=== PATIENT | female | born 1980 | race Caucasian/White ===

== ENCOUNTER 2016-05-08 10:59 | Emergency (ER) | payer OTHER ==
[~2016-05-08 10:59] MED LIST: ALBU17IN INH; CYCLOBENZAPRINE PO; ESGI1CAP PO; OXYC15TA76 PO; PRED10TA PO; PROG200C PO; TESTPOW5; VENTAER INH; VITAMIN D2 PO
[2016-05-08] MEDS ORDERED: HYDROmorphone HCL 1 MG/ML SYRINGE (J1170) As Ordered ONE (11:32)
[2016-05-08] MEDS ORDERED: ONDANSETRON 4MG/2ML VIAL (J2405) As Ordered ONE (11:33)
[2016-05-08 11:57] LABS: BASO # 0.3 K/mm3 (0.0-0.2); BASO % 2.9 % (0.0-1.0); EOS # 0.2 K/mm3 (0.0-0.50); EOS % 2.3 % (0.0-3.0); LARGE UNSTAINED CELL # 0.2 K/mm3 (0.0-0.4); LARGE UNSTAINED CELL % 1.7 % (0.0-4.0); LYMPH # 2.7 K/mm3 (1.5-4.5); LYMPH % 23.8 % (24.0-44.0); MEAN CORPUSCULAR HEMOGLOBIN 29.9 pg (27.0-33.0); MEAN CORPUSCULAR HGB CONC 33.7 g/dl (32.0-36.5); MEAN CORPUSCULAR VOLUME 88.8 fl (80.0-96.0); MONO # 0.5 K/mm3 (0.0-0.8); MONO % 4.8 % (0.0-5.0); NEUTROPHILS # 6.8 K/mm3 (1.8-7.7); NEUTROPHILS % 64.5 % (36.0-66.0); PLATELET COUNT, AUTOMATED 255 k/mm3 (150-450); RED CELL DISTRIBUTION WIDTH 15.1 % (11.5-14.5); WHITE BLOOD COUNT 10.5 K/mm3 (4.0-10.0)
--- NOTE | 2016-05-08 12:11 | ECGEPIP ---
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
[2016-05-08 12:23] LABS: ALBUMIN 3.6 GM/DL (3.2-5.2); ALKALINE PHOSPHATASE 70 U/L (45-117); ALT/SGPT 23 U/L (12-78); ANION GAP 9 MEQ/L (8-16); AST/SGOT 20 U/L (15-37); BILIRUBIN,DIRECT 0.1 MG/DL (0.0-0.2); BILIRUBIN,TOTAL 0.5 MG/DL (0.2-1.0); BLOOD UREA NITROGEN 11 MG/DL (7-18); CALCIUM LEVEL 8.8 MG/DL (8.5-10.1); CARBON DIOXIDE LEVEL 25 MEQ/L (21-32); CHLORIDE LEVEL 106 MEQ/L (98-107); CREATININE FOR GFR 0.85 MG/DL (0.55-1.02); GLOMERULAR FILTRATION RATE > 60.0 (>60); GLUCOSE, FASTING 100 MG/DL (70-105); POTASSIUM SERUM 4.8 MEQ/L (3.5-5.1); SODIUM LEVEL 140 MEQ/L (136-145); TOTAL PROTEIN 7.6 GM/DL (6.4-8.2)
--- NOTE | 2016-05-08 13:53 | EDDOCDS ---
Nurse's Notes [facility] Name: Yolanda Roth Age: 36 yrs Sex: Female : 1980 Arrival Date: 05/08/2016 Time: 10:59 Bed I2 / M2 Private MD: NO PRIMARY PHYSICIAN, . Diagnosis: Abdominal and pelvic pain Presentation: 05/08 11:04 Presenting complaint: Patient states: had blood work drawn yesterday and was told to dsf come to ER because her labs were abnormal. pt is unsure what labs that were abnormal. [place] Adult Sepsis Screening: The patient does not have new or worsening altered mentation. Patient's respiratory rate is less than 22. Systolic blood pressure is greater than 100. Patient has a qSOFA score of 0- Negative Sepsis Screen. Suicide/Homicide risk assessment- the patient denies having any suicidal and/or homicidal ideations and does not present with any other emotional, behavioral or mental health complaints. Status: The patient is a dependent. Transition of care: patient was not received from another setting of care. 11:04 Acuity: KAREEM Level 4 dsf 11:04 Method Of Arrival: Walkin/Carried/Asstd dsf Triage Assessment: 11:10 General: Appears in no apparent distress, Behavior is appropriate for age, cooperative. dsf Pain: Location: right upper quadrant and left upper quadrant Pain currently is 4 out of 10 on a pain scale. Quality of pain is described as stabbing. HIV screening NA for this visit Offered previously. 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 vivelle dot 1 patch every 2 days 2. testosterone shot Unknown every 3-6 weeks 3. oxycodone 15 mg Oral tab 1 tab every 4 hours (Last dose: 05/08/2016 07:00) 4. Flovent 220 mcg/actuation Inhl aero 2 puffs as needed (Last dose: 05/08/2016 07:00) 5. oxygen as needed 6. progesterone every 6 months - PMHx: gallbladder issues; lung fibrosis; - PSHx: Hernia repair; lung biopsy; Ovarian Cystectomy- Left; - Social history: Smoking status: Patient uses tobacco products, current every day smoker. No barriers to communication noted, The patient speaks fluent Mongolian, Speaks appropriately for age. - Family history: Not pertinent. - : The pt / caregiver states he / she is not on anticoagulants. Home medication list is obtained from the patient. - Exposure Risk Screening:: None identified. Screenin:54 Screening information is obtained from the patient. Fall risk: No risks identified. rs3 Assistance ADL's: requires no assistance with activities of daily living. Abuse/DV Screen: The patient / caregiver reports he/she is: not in a situation that causes fear, pain or injury. Nutritional screening: No deficits noted. Advance Directives: Currently, there is no health care proxy. home support is adequate. Assessment: 11:53 General: Appears in no apparent distress, Behavior is appropriate for age, cooperative. rs3 Pain: Location: abdomen. Neurological: Level of Consciousness is awake, alert, Oriented to person, place, time. Cardiovascular: Capillary refill < 3 seconds Heart tones S1 S2 present. Respiratory: No deficits noted. GI: Abdomen is non- distended Bowel sounds present X 4 quads. Abd is soft and non tender X 4 quads. Reports lower abdominal pain, upper abd pain. : Urine is clear. Derm: Skin is pink, warm & dry. 12:50 General: Appears in no apparent distress, Behavior is cooperative, resting comfortable. rs3 reports of abdominal pain remains same. No change with Dilaudid. observed resting comfortable without distress. IVF NS bolus infusing. . 13:50 Reassessment: Patient appears in no apparent distress at this time. Patient denies pain ttb at this time. Patient states feeling better. Patient states symptoms have improved. pt states she is comfortable going home at this time. NAD noted. . Adult Sepsis Screening: The patient does not have new or worsening altered mentation. Patient's respiratory rate is less than 22. Systolic blood pressure is greater than 100. Patient has a qSOFA score of 0- Negative Sepsis Screen. General: Appears in no apparent distress, comfortable. Neurological: Level of Consciousness is awake, alert. Respiratory: No deficits noted. Airway is patent Respiratory effort is even, unlabored. GI: Denies nausea, vomiting, pain. Vital Signs: 11:01 BP 126 / 88; Pulse 94; Resp 18; Temp 99.1(O); Pulse Ox 97% on R/A; Weight 48.99 kg (R); dem1 Height 5 ft. 0 in. (152.40 cm) (R); Pain 4/10; 13:42 BP 126 / 79; Pulse 69; Resp 18; Temp 97.2; Pulse Ox 95% on R/A; Pain 0/10; ttb 11:01 Body Mass Index 21.09 (48.99 kg, 152.40 cm) [facility] Vitals: 11:01 Log In Time: May 08, 2016 at 10:58. [facility] ED Course: 11:01 Patient visited by Sissy Soriano. dem1 11:01 NO PRIMARY PHYSICIAN, . is Private Physician. dem1 11:01 Patient moved to Waiting dem1 11:02 Patient moved to Pre RCE dem1 11:06 Triage Initiated dsf 11:11 Dimas Blanc PA-C is PHCP. cc10 11:11 Mary Wayne MD is Attending Physician. cc10 11:11 Patient visited by Dimas Blanc PA-C. cc10 11:11 Patient visited by Dimas Blanc PA-C. cc10 11:11 Patient moved to Triage 1 dsf 11:20 Patient moved to I2 / M2 kr3 11:27 [facility] Payment Agreement was scanned into [employer] and attached to record. pm4 11:45 Urinalysis Sent. ttb 11:45 Troponin Sent. ttb 11:45 Liver Profile Sent. ttb 11:45 Lipase Sent. ttb 11:45 Cardiac Injury Profile Sent. ttb 11:45 Basic Metabolic Profile Sent. ttb 11:45 CBC with Diff Sent. ttb 11:52 Patient visited by Imelda Bustamante RN. rs3 11:55 EKG done. (by ED staff). Reviewed by Dimas Blanc PA-C. rn1 12:30 EKG-ADULT Returned. EDMS 13:09 Patient visited by Imelda Bustamante RN. rs3 13:18 Inserted saline lock: 20 gauge in right hand and blood collected. rs3 13:50 The patient / caregiver is instructed regarding the plan of care and ED course. ttb Accompanied by Caregiver, Patient has correct armband on for positive identification. 13:50 Discontinued IV lock intact, bleeding controlled, pressure dressing applied, No ttb redness/swelling at site. No procedures done that require assistance. Administered Medications: 11:43 Drug: NS 0.9% 1000 ml [sodium chloride 0.9 % intravenous solution] Route: IV; Rate: ttb bolus; Site: right hand; 13:52 Follow up: Response: No Adverse Reaction; IV Status: Completed infusion; IV Intake: ttb 1000ml 11:43 Drug: Ondansetron 4 mg [ondansetron HCl 2 mg/mL intravenous solution (2 mL)] Route: ttb IVP; Site: right hand; 12:15 Follow up: Response: No Adverse Reaction ttb 11:43 Drug: Dilaudid - HYDROmorphone 0.5 mg [hydromorphone 1 mg/mL injection syringe (0.5 ttb mL)] Route: IVP; Site: right hand; 12:15 Follow up: Response: No Adverse Reaction; Pain is resolved ttb 13:16 Follow up: Response: No significant change. rs3 Intake: 13:52 IV: 1000.00ml; Total: 1000.00ml. ttb Order Results: Lab Order: Basic Metabolic Profile; [facility]' 05/08/16 11:28 Test: GLUCOSE, FASTING; Value: 100; Range: 70-105; Units: MG/DL; Status: F Test: BLOOD UREA NITROGEN; Value: 11; Range: 7-18; Units: MG/DL; Status: F Test: CREATININE FOR GFR; Value: 0.85; Range: 0.55-1.02; Units: MG/DL; Status: F Test: GLOMERULAR FILTRATION RATE; Value: > 60.0; Range: >60; Status: F Test: SODIUM LEVEL; Value: 140; Range: 136-145; Units: MEQ/L; Status: F Test: POTASSIUM SERUM; Value: 4.8; Range: 3.5-5.1; Units: MEQ/L; Status: F Test: CHLORIDE LEVEL; Value: 106; Range: 98-107; Units: MEQ/L; Status: F Test: CARBON DIOXIDE LEVEL; Value: 25; Range: 21-32; Units: MEQ/L; Status: F Test: ANION GAP; Value: 9; Range: 8-16; Units: MEQ/L; Status: F Test: CALCIUM LEVEL; Value: 8.8; Range: 8.5-10.1; Units: MG/DL; Status: F Test Note: ; Units are mL/min/1.73 m2 Chronic Kidney Disease Staging per NKF: Stage I & II GFR >=60 Normal to Mildly Decreased Stage III GFR 30-59 Moderately Decreased Stage IV GFR 15-29 Severely Decreased Stage V GFR <15 Very Little GFR Left ESRD GFR <15 on ENTRY LEVEL AUTOMOTIVE TECHNICIAN Lab Order: CBC with Diff; SPEC'M 05/08/16 11:43 Test: WHITE BLOOD COUNT; Value: 10.5; Range: 4.0-10.0; Abnormal: Above high normal; Units: K/mm3; Status: F Test: RED BLOOD COUNT; Value: 6.05; Range: 4.00-5.40; Abnormal: Above high normal; Units: M/mm3; Status: F Test: HEMOGLOBIN; Value: 18.1; Range: 12.0-16.0; Abnormal: Above high normal; Units: g/dl; Status: F Test: HEMATOCRIT; Value: 53.7; Range: 36.0-47.0; Abnormal: Above high normal; Units: %; Status: F Test: MEAN CORPUSCULAR VOLUME; Value: 88.8; Range: 80.0-96.0; Units: fl; Status: F Test: MEAN CORPUSCULAR HEMOGLOBIN; Value: 29.9; Range: 27.0-33.0; Units: pg; Status: F Test: MEAN CORPUSCULAR HGB CONC; Value: 33.7; Range: 32.0-36.5; Units: g/dl; Status: F Test: RED CELL DISTRIBUTION WIDTH; Value: 15.1; Range: 11.5-14.5; Abnormal: Above high normal; Units: %; Status: F Test: PLATELET COUNT, AUTOMATED; Value: 255; Range: 150-450; Units: k/mm3; Status: F Test: NEUTROPHILS %; Value: 64.5; Range: 36.0-66.0; Units: %; Status: F Test: LYMPH %; Value: 23.8; Range: 24.0-44.0; Abnormal: Below low normal; Units: %; Status: F Test: MONO %; Value: 4.8; Range: 0.0-5.0; Units: %; Status: F Test: EOS %; Value: 2.3; Range: 0.0-3.0; Units: %; Status: F Test: BASO %; Value: 2.9; Range: 0.0-1.0; Abnormal: Above high normal; Units: %; Status: F Test: LARGE UNSTAINED CELL %; Value: 1.7; Range: 0.0-4.0; Units: %; Status: F Test: NEUTROPHILS #; Value: 6.8; Range: 1.8-7.7; Units: K/mm3; Status: F Test: LYMPH #; Value: 2.7; Range: 1.5-4.5; Units: K/mm3; Status: F Test: MONO #; Value: 0.5; Range: 0.0-0.8; Units: K/mm3; Status: F Test: EOS #; Value: 0.2; Range: 0.0-0.50; Units: K/mm3; Status: F Test: BASO #; Value: 0.3; Range: 0.0-0.2; Abnormal: Above high normal; Units: K/mm3; Status: F Test: LARGE UNSTAINED CELL #; Value: 0.2; Range: 0.0-0.4; Units: K/mm3; Status: F Lab Order: Cardiac Injury Profile; SPEC05/08/16:28 Test: CPK CREATINE PHOSPHOKINASE; Value: 96; Range: 26-192; Units: U/L; Status: F Test: CK-MB VALUE MASS; Value: 1.1; Range: 0.0-3.6; Units: NG/ML; Status: F Test: MB/CK RELATIVE INDEX; Value: 1.14; Range: < OR =4; Status: F Test Note: ; DIAGNOSIS CRITERIA MMB ng/ml Relative Index (RI) NON-AMI < or = 5 N/A MARCELINO ZONE > 5 < or = 4 AMI > 5 > 4 Lab Order: Lipase; [facility]05/08/16 11:28 Test: LIPASE; Value: 115; Range: 73-393; Units: U/L; Status: F Lab Order: Liver Profile; SPEC05/08/16 11:28 Test: AST/SGOT; Value: 20; Range: 15-37; Units: U/L; Status: F Test: ALT/SGPT; Value: 23; Range: 12-78; Units: U/L; Status: F Test: ALKALINE PHOSPHATASE; Value: 70; Range: 45-117; Units: U/L; Status: F Test: BILIRUBIN,TOTAL; Value: 0.5; Range: 0.2-1.0; Units: MG/DL; Status: F Test: BILIRUBIN,DIRECT; Value: 0.1; Range: 0.0-0.2; Units: MG/DL; Status: F Test: TOTAL PROTEIN; Value: 7.6; Range: 6.4-8.2; Units: GM/DL; Status: F Test: ALBUMIN; Value: 3.6; Range: 3.2-5.2; Units: GM/DL; Status: F Test: ALBUMIN/GLOBULIN RATIO; Value: 0.90; Range: 1.00-1.93; Abnormal: Below low normal; Status: F Lab Order: Troponin; SPEC'M 05/08/16 11:28 Test: TROPONIN I; Value: < 0.02; Range: < 0.10; Units: NG/ML; Status: F Test Note: ; Troponin I Reference Interval for Siemens Coffee[employer] LOCI: 99th Percentile= 0.00-0.045 ng/ml Risk Stratification: <= 0.10 ng/ml Decreased Risk for Adverse Clinical Events. 0.10-1.50 ng/ml Increased Risk for Adverse Clinical Events. Evaluation of additional criterion and/or repeat testing in 2-6 hours is suggested to rule out myocardial damage. >= 1.50 ng/ml Indicative of Myocardial Injury. Lab Order: Urinalysis; SPEC'M 05/08/16 11:43 Test: APPEARANCE, URINE; Value: HAZY; Range: CLEAR; Status: F Test: COLOR, URINE; Value: NICOLAS; Range: YELLOW; Status: F Test: PH,URINE; Value: 5.0; Range: 5.0-9.0; Units: UNITS; Status: F Test: SPECIFIC GRAVITY URINE AUTO; Value: 1.024; Range: 1.002-1.035; Status: F Test: PROTEIN, URINE AUTO; Value: NEGATIVE; Range: NEGATIVE; Units: mg/dL; Status: F Test: GLUCOSE, URINE (UA) AUTO; Value: NEGATIVE; Range: NEGATIVE; Units: mg/dL; Status: F Test: KETONE, URINE AUTO; Value: TRACE; Range: NEGATIVE; Abnormal: Above high normal; Units: mg/dL; Status: F Test: UROBILINOGEN, URINE AUTO; Value: 2.0; Range: 0.0-2.0; Abnormal: Above high normal; Units: mg/dL; Status: F Test: BILIRUBIN, URINE AUTO; Value: NEGATIVE; Range: NEGATIVE; Status: F Test: NITRITE, URINE AUTO; Value: NEGATIVE; Range: NEGATIVE; Status: F Test: LEUKOCYTE ESTERASE, URINE AUTO; Value: NEGATIVE; Range: NEGATIVE; Status: F Test: BLOOD, URINE BLOOD; Value: 2+; Range: NEGATIVE; Abnormal: Above high normal; Status: F Test: WBC, URINE AUTO; Value: 1; Range: 0-3; Units: /HPF; Status: F Test: RBC, URINE AUTO; Value: 6; Range: 0-3; Abnormal: Above high normal; Units: /HPF; Status: F Test: BACTERIA, URINE AUTO; Value: NEGATIVE; Range: NEGATIVE; Status: F Test: SQUAMOUS EPITHELIAL CELL UR AU; Value: 4; Range: 0-6; Units: /HPF; Status: F Test: MUCUS, URINE; Value: SMALL; Range: NEGATIVE; Status: F Test: HYALINE CAST, URINE AUTO; Value: 0; Range: 0-1; Units: /LPF; Status: F Radiology Order: EKG-ADULT Test: EKG-ADULT REASON FOR EXAMINATION: Abdomen Pain; Stationary ECG Study; [facility] - ED; ; Test Date: 2016-05-08; Pat Name: YOLANDA ROTH Department:; Room: -; Gender: F 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 cc10 13:50 Discharge Assessment: Patient awake, alert and oriented x 3. No cognitive and/or ttb functional deficits noted. Patient verbalized understanding of disposition instructions. Patient awake and alert. patient administered narcotics - no. The following High Risk Discharge criteria are identified: None. Discharged to home ambulatory, with significant other. Condition: good Condition: stable Condition: improved. Discharge instructions given to patient, significant other, Instructed on discharge instructions, follow up and referral plans. medication usage, Demonstrated understanding of instructions, medications, Pt was receptive of discharge instructions/ teaching. No special radiology studies were completed. Property :Personal belongings accompany Pt. 13:52 Patient left the ED. ttb Signatures: Dispatcher [employer] EDMS Melisa Santos,RN RN kr3 Imelda Bustamante,RN RN rs3 Enid MoonRN RN Sissy Haines1 Yolanda Coon RN RN ttb Dimas Blanc, PA-C PA-C cc10 Jeramie Perkins rn1 Richard Ibanez, Reg Reg pm4 Corrections: (The following items were deleted from the chart) 13:43 11:45 PROTHROMBIN TIME PROFILE\E\INR+LAB sent. ttb EDMS 13:43 11:45 PARTIAL THROMBOPLASTIN TIME+LAB sent. ttb EDMS MTDD
--- NOTE | 2016-05-08 13:53 | EDDOCDS ---
Physician Documentation [facility] Name: Yolanda Roth Age: 36 yrs Sex: Female : 1980 Arrival Date: 05/08/2016 Time: 10:59 Bed I2 / M2 Private MD: NO PRIMARY PHYSICIAN, . Disposition: 05/08/16 13:38 Discharged to Home/Self Care. Impression: Abdominal and pelvic pain. - Condition is Stable. - Discharge Instructions: Abdominal Pain, Adult. - Medication Reconciliation, Work Release Form - 1 day form. - Follow up: Emergency Department; When: As needed; Reason: Worsening of conditions. Follow up: Private Physician; When: Call to arrange an appointment; Reason: Wound/Symptom Recheck, Recheck today's complaints, Worsening of conditions, Continuance of care. - Problem is an acute exacerbation. - Symptoms are resolved. Historical: - Allergies: NSAIDS (Anaphylaxis); Amoxicillin (Anaphylaxis); - Home Meds: 1. vivelle dot 1 patch every 2 days 2. testosterone shot Unknown every 3-6 weeks 3. oxycodone 15 mg Oral tab 1 tab every 4 hours (Last dose: 05/08/2016 07:00) 4. Flovent 220 mcg/actuation Inhl aero 2 puffs as needed (Last dose: 05/08/2016 07:00) 5. oxygen as needed 6. progesterone every 6 months - PMHx: gallbladder issues; lung fibrosis; - PSHx: Hernia repair; lung biopsy; Ovarian Cystectomy- Left; - Social history: Smoking status: Patient uses tobacco products, current every day smoker. No barriers to communication noted, The patient speaks fluent Gambian, Speaks appropriately for age. - Family history: Not pertinent. - : The pt / caregiver states he / she is not on anticoagulants. Home medication list is obtained from the patient. - Exposure Risk Screening:: None identified. 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 0 in. (152.40 cm) (R); Pain 4/10; 13:42 BP 126 / 79; Pulse 69; Resp 18; Temp 97.2; Pulse Ox 95% on R/A; Pain 0/10; ttb 11:01 Body Mass Index 21.09 (48.99 kg, 152.40 cm) dem1 MDM: 11:17 Financial registration complete. pm4 11:18 [facility] Plating Stripper Order ordered. cc10 11:18 NS 0.9% 1000 ml IV at bolus once ordered. cc10 11:18 Ondansetron 4 mg IVP once ordered. cc10 11:18 IV Saline Lock ordered. cc10 11:18 Undress patient appropriately for examination ordered. cc10 11:18 Dilaudid - HYDROmorphone 0.5 mg IVP once ordered. cc10 11:19 Basic Metabolic Profile Ordered. EDMS 11:19 CBC with Diff Ordered. EDMS 11:19 Cardiac Injury Profile Ordered. EDMS 11:19 Lipase Ordered. EDMS 11:19 Liver Profile Ordered. EDMS 11:19 Troponin Ordered. EDMS 11:19 Urinalysis Ordered. EDMS 11:19 NOTHING BY MOUTH+DIET ordered. EDMS 11:19 ECG WITH READING ER PHYS+CARDIAG ordered. EDMS 11:27 [facility] Payment Agreement was scanned into [employer] and attached to record. pm4 11:29 [facility] Plating Stripper Order complete. rn1 12:31 CBC with Diff Reviewed. cc10 12:31 Liver Profile Reviewed. cc10 12:31 Urinalysis Reviewed. cc10 12:31 Basic Metabolic Profile Reviewed. cc10 12:31 Cardiac Injury Profile Reviewed. cc10 12:31 Lipase Reviewed. cc10 12:31 Troponin Reviewed. cc10 12:31 EKG-ADULT Reviewed. cc10 Administered Medications: 11:43 Drug: NS 0.9% 1000 ml [sodium chloride 0.9 % intravenous solution] Route: IV; Rate: ttb bolus; Site: right hand; 13:52 Follow up: Response: No Adverse Reaction; IV Status: Completed infusion; IV Intake: ttb 1000ml 11:43 Drug: Ondansetron 4 mg [ondansetron HCl 2 mg/mL intravenous solution (2 mL)] Route: ttb IVP; Site: right hand; 12:15 Follow up: Response: No Adverse Reaction ttb 11:43 Drug: Dilaudid - HYDROmorphone 0.5 mg [hydromorphone 1 mg/mL injection syringe (0.5 ttb mL)] Route: IVP; Site: right hand; 12:15 Follow up: Response: No Adverse Reaction; Pain is resolved ttb 13:16 Follow up: Response: No significant change. rs3 Signatures: Dispatcher [employer] EDMS Enid MoonRN RN dsYolanda Palma RN RN ttb Dimas Blanc PA-C PALizbeth cc10 Jeramie Perkins rn1 Richard Ibanez, Reg Reg pm4 Imelda Bustamante RN rs3 The chart was reviewed and I authenticate all verbal orders and agree with the evaluation and treatment provided.Corrections: (The following items were deleted from the chart) 13:43 11:19 PARTIAL THROMBOPLASTIN TIME+LAB ordered. EDMS EDMS 13:43 11:19 PROTHROMBIN TIME PROFILE\E\INR+LAB ordered. EDMS EDMS Attachments: 11:27 [facility] Payment Agreement pm4 MTDD
--- NOTE | 2016-05-10 14:53 | EDDOCDS ---
Nurse's Notes [facility] Name: Yolanda Roth Age: 36 yrs Sex: Female : 1980 Arrival Date: 05/08/2016 Time: 10:59 Bed I2 / M2 Private MD: NO PRIMARY PHYSICIAN, . Diagnosis: Abdominal and pelvic pain Presentation: 05/08 11:04 Presenting complaint: Patient states: had blood work drawn yesterday and was told to dsf come to ER because her labs were abnormal. pt is unsure what labs that were abnormal. [place] Adult Sepsis Screening: The patient does not have new or worsening altered mentation. Patient's respiratory rate is less than 22. Systolic blood pressure is greater than 100. Patient has a qSOFA score of 0- Negative Sepsis Screen. Suicide/Homicide risk assessment- the patient denies having any suicidal and/or homicidal ideations and does not present with any other emotional, behavioral or mental health complaints. Status: The patient is a dependent. Transition of care: patient was not received from another setting of care. 11:04 Acuity: KAREEM Level 4 dsf 11:04 Method Of Arrival: Walkin/Carried/Asstd dsf Triage Assessment: 11:10 General: Appears in no apparent distress, Behavior is appropriate for age, cooperative. dsf Pain: Location: right upper quadrant and left upper quadrant Pain currently is 4 out of 10 on a pain scale. Quality of pain is described as stabbing. HIV screening NA for this visit Offered previously. RN MANAGER: 11:10 LMP 05/07/2016 dsf Historical: - Allergies: NSAIDS (Anaphylaxis); Amoxicillin (Anaphylaxis); - Home Meds: 1. vivelle dot 1 patch every 2 days 2. testosterone shot Unknown every 3-6 weeks 3. oxycodone 15 mg Oral tab 1 tab every 4 hours (Last dose: 05/08/2016 07:00) 4. Flovent 220 mcg/actuation Inhl aero 2 puffs as needed (Last dose: 05/08/2016 07:00) 5. oxygen as needed 6. progesterone every 6 months - PMHx: gallbladder issues; lung fibrosis; - PSHx: Hernia repair; lung biopsy; Ovarian Cystectomy- Left; - Social history: Smoking status: Patient uses tobacco products, current every day smoker. No barriers to communication noted, The patient speaks fluent Turkish, Speaks appropriately for age. - Family history: Not pertinent. - : The pt / caregiver states he / she is not on anticoagulants. Home medication list is obtained from the patient. - Exposure Risk Screening:: None identified. Screenin:54 Screening information is obtained from the patient. Fall risk: No risks identified. rs3 Assistance ADL's: requires no assistance with activities of daily living. Abuse/DV Screen: The patient / caregiver reports he/she is: not in a situation that causes fear, pain or injury. Nutritional screening: No deficits noted. Advance Directives: Currently, there is no health care proxy. home support is adequate. Assessment: 11:53 General: Appears in no apparent distress, Behavior is appropriate for age, cooperative. rs3 Pain: Location: abdomen. Neurological: Level of Consciousness is awake, alert, Oriented to person, place, time. Cardiovascular: Capillary refill < 3 seconds Heart tones S1 S2 present. Respiratory: No deficits noted. GI: Abdomen is non- distended Bowel sounds present X 4 quads. Abd is soft and non tender X 4 quads. Reports lower abdominal pain, upper abd pain. : Urine is clear. Derm: Skin is pink, warm & dry. 12:50 General: Appears in no apparent distress, Behavior is cooperative, resting comfortable. rs3 reports of abdominal pain remains same. No change with Dilaudid. observed resting comfortable without distress. IVF NS bolus infusing. . 13:50 Reassessment: Patient appears in no apparent distress at this time. Patient denies pain ttb at this time. Patient states feeling better. Patient states symptoms have improved. pt states she is comfortable going home at this time. NAD noted. . Adult Sepsis Screening: The patient does not have new or worsening altered mentation. Patient's respiratory rate is less than 22. Systolic blood pressure is greater than 100. Patient has a qSOFA score of 0- Negative Sepsis Screen. General: Appears in no apparent distress, comfortable. Neurological: Level of Consciousness is awake, alert. Respiratory: No deficits noted. Airway is patent Respiratory effort is even, unlabored. GI: Denies nausea, vomiting, pain. Vital Signs: 11:01 BP 126 / 88; Pulse 94; Resp 18; Temp 99.1(O); Pulse Ox 97% on R/A; Weight 48.99 kg (R); dem1 Height 5 ft. 0 in. (152.40 cm) (R); Pain 4/10; 13:42 BP 126 / 79; Pulse 69; Resp 18; Temp 97.2; Pulse Ox 95% on R/A; Pain 0/10; ttb 11:01 Body Mass Index 21.09 (48.99 kg, 152.40 cm) [facility] Vitals: 11:01 Log In Time: May 08, 2016 at 10:58. [facility] ED Course: 11:01 Patient visited by Sissy Soriano. dem1 11:01 NO PRIMARY PHYSICIAN, . is Private Physician. dem1 11:01 Patient moved to Waiting dem1 11:02 Patient moved to Pre RCE dem1 11:06 Triage Initiated dsf 11:11 Dimas Blanc PA-C is PHCP. cc10 11:11 Mary Wayne MD is Attending Physician. cc10 11:11 Patient visited by Dimas Blanc PA-C. cc10 11:11 Patient visited by Dmias Blanc PA-C. cc10 11:11 Patient moved to Triage 1 dsf 11:20 Patient moved to I2 / M2 kr3 11:27 [facility] Payment Agreement was scanned into [employer] and attached to record. pm4 11:45 Urinalysis Sent. ttb 11:45 Troponin Sent. ttb 11:45 Liver Profile Sent. ttb 11:45 Lipase Sent. ttb 11:45 Cardiac Injury Profile Sent. ttb 11:45 Basic Metabolic Profile Sent. ttb 11:45 CBC with Diff Sent. ttb 11:52 Patient visited by Imelda Bustamante RN. rs3 11:55 EKG done. (by ED staff). Reviewed by Dimas Blanc PA-C. rn1 12:30 EKG-ADULT Returned. EDMS 13:09 Patient visited by Imelda Bustamante RN. rs3 13:18 Inserted saline lock: 20 gauge in right hand and blood collected. rs3 13:50 The patient / caregiver is instructed regarding the plan of care and ED course. ttb Accompanied by Caregiver, Patient has correct armband on for positive identification. 13:50 Discontinued IV lock intact, bleeding controlled, pressure dressing applied, No ttb redness/swelling at site. No procedures done that require assistance. 05/09 07:08 T-Sheet-- Draft Copy was scanned into [employer] and attached to record. 11:49 ECG/EKG was scanned into [employer] and attached to record. gb Administered Medications: 05/08 11:43 Drug: NS 0.9% 1000 ml [sodium chloride 0.9 % intravenous solution] Route: IV; Rate: ttb bolus; Site: right hand; 13:52 Follow up: Response: No Adverse Reaction; IV Status: Completed infusion; IV Intake: ttb 1000ml 11:43 Drug: Ondansetron 4 mg [ondansetron HCl 2 mg/mL intravenous solution (2 mL)] Route: ttb IVP; Site: right hand; 12:15 Follow up: Response: No Adverse Reaction ttb 11:43 Drug: Dilaudid - HYDROmorphone 0.5 mg [hydromorphone 1 mg/mL injection syringe (0.5 ttb mL)] Route: IVP; Site: right hand; 12:15 Follow up: Response: No Adverse Reaction; Pain is resolved ttb 13:16 Follow up: Response: No significant change. rs3 Intake: 13:52 IV: 1000.00ml; Total: 1000.00ml. ttb Order Results: Lab Order: Basic Metabolic Profile; SPEC'M 05/08/16 11:28 Test: GLUCOSE, FASTING; Value: 100; Range: 70-105; Units: MG/DL; Status: F Test: BLOOD UREA NITROGEN; Value: 11; Range: 7-18; Units: MG/DL; Status: F Test: CREATININE FOR GFR; Value: 0.85; Range: 0.55-1.02; Units: MG/DL; Status: F Test: GLOMERULAR FILTRATION RATE; Value: > 60.0; Range: >60; Status: F Test: SODIUM LEVEL; Value: 140; Range: 136-145; Units: MEQ/L; Status: F Test: POTASSIUM SERUM; Value: 4.8; Range: 3.5-5.1; Units: MEQ/L; Status: F Test: CHLORIDE LEVEL; Value: 106; Range: 98-107; Units: MEQ/L; Status: F Test: CARBON DIOXIDE LEVEL; Value: 25; Range: 21-32; Units: MEQ/L; Status: F Test: ANION GAP; Value: 9; Range: 8-16; Units: MEQ/L; Status: F Test: CALCIUM LEVEL; Value: 8.8; Range: 8.5-10.1; Units: MG/DL; Status: F Test Note: ; Units are mL/min/1.73 m2 Chronic Kidney Disease Staging per NKF: Stage I & II GFR >=60 Normal to Mildly Decreased Stage III GFR 30-59 Moderately Decreased Stage IV GFR 15-29 Severely Decreased Stage V GFR <15 Very Little GFR Left ESRD GFR <15 on PACKAGE COLLECTOR Lab Order: CBC with Diff; SPEC'M 05/08/16 11:43 Test: WHITE BLOOD COUNT; Value: 10.5; Range: 4.0-10.0; Abnormal: Above high normal; Units: K/mm3; Status: F Test: RED BLOOD COUNT; Value: 6.05; Range: 4.00-5.40; Abnormal: Above high normal; Units: M/mm3; Status: F Test: HEMOGLOBIN; Value: 18.1; Range: 12.0-16.0; Abnormal: Above high normal; Units: g/dl; Status: F Test: HEMATOCRIT; Value: 53.7; Range: 36.0-47.0; Abnormal: Above high normal; Units: %; Status: F Test: MEAN CORPUSCULAR VOLUME; Value: 88.8; Range: 80.0-96.0; Units: fl; Status: F Test: MEAN CORPUSCULAR HEMOGLOBIN; Value: 29.9; Range: 27.0-33.0; Units: pg; Status: F Test: MEAN CORPUSCULAR HGB CONC; Value: 33.7; Range: 32.0-36.5; Units: g/dl; Status: F Test: RED CELL DISTRIBUTION WIDTH; Value: 15.1; Range: 11.5-14.5; Abnormal: Above high normal; Units: %; Status: F Test: PLATELET COUNT, AUTOMATED; Value: 255; Range: 150-450; Units: k/mm3; Status: F Test: NEUTROPHILS %; Value: 64.5; Range: 36.0-66.0; Units: %; Status: F Test: LYMPH %; Value: 23.8; Range: 24.0-44.0; Abnormal: Below low normal; Units: %; Status: F Test: MONO %; Value: 4.8; Range: 0.0-5.0; Units: %; Status: F Test: EOS %; Value: 2.3; Range: 0.0-3.0; Units: %; Status: F Test: BASO %; Value: 2.9; Range: 0.0-1.0; Abnormal: Above high normal; Units: %; Status: F Test: LARGE UNSTAINED CELL %; Value: 1.7; Range: 0.0-4.0; Units: %; Status: F Test: NEUTROPHILS #; Value: 6.8; Range: 1.8-7.7; Units: K/mm3; Status: F Test: LYMPH #; Value: 2.7; Range: 1.5-4.5; Units: K/mm3; Status: F Test: MONO #; Value: 0.5; Range: 0.0-0.8; Units: K/mm3; Status: F Test: EOS #; Value: 0.2; Range: 0.0-0.50; Units: K/mm3; Status: F Test: BASO #; Value: 0.3; Range: 0.0-0.2; Abnormal: Above high normal; Units: K/mm3; Status: F Test: LARGE UNSTAINED CELL #; Value: 0.2; Range: 0.0-0.4; Units: K/mm3; Status: F Lab Order: Cardiac Injury Profile; SPEC'M 05/08/16 11:28 Test: CPK CREATINE PHOSPHOKINASE; Value: 96; Range: 26-192; Units: U/L; Status: F Test: CK-MB VALUE MASS; Value: 1.1; Range: 0.0-3.6; Units: NG/ML; Status: F Test: MB/CK RELATIVE INDEX; Value: 1.14; Range: < OR =4; Status: F Test Note: ; DIAGNOSIS CRITERIA MMB ng/ml Relative Index (RI) NON-AMI < or = 5 N/A MARCELINO ZONE > 5 < or = 4 AMI > 5 > 4 Lab Order: Lipase; SPEC'M 05/08/16 11:28 Test: LIPASE; Value: 115; Range: 73-393; Units: U/L; Status: F Lab Order: Liver Profile; SPEC'M 05/08/16 11:28 Test: AST/SGOT; Value: 20; Range: 15-37; Units: U/L; Status: F Test: ALT/SGPT; Value: 23; Range: 12-78; Units: U/L; Status: F Test: ALKALINE PHOSPHATASE; Value: 70; Range: 45-117; Units: U/L; Status: F Test: BILIRUBIN,TOTAL; Value: 0.5; Range: 0.2-1.0; Units: MG/DL; Status: F Test: BILIRUBIN,DIRECT; Value: 0.1; Range: 0.0-0.2; Units: MG/DL; Status: F Test: TOTAL PROTEIN; Value: 7.6; Range: 6.4-8.2; Units: GM/DL; Status: F Test: ALBUMIN; Value: 3.6; Range: 3.2-5.2; Units: GM/DL; Status: F Test: ALBUMIN/GLOBULIN RATIO; Value: 0.90; Range: 1.00-1.93; Abnormal: Below low normal; Status: F Lab Order: Troponin; SPEC'M 05/08/16 11:28 Test: TROPONIN I; Value: < 0.02; Range: < 0.10; Units: NG/ML; Status: F Test Note: ; Troponin I Reference Interval for Siemens [place] LOCI: 99th Percentile= 0.00-0.045 ng/ml Risk Stratification: <= 0.10 ng/ml Decreased Risk for Adverse Clinical Events. 0.10-1.50 ng/ml Increased Risk for Adverse Clinical Events. Evaluation of additional criterion and/or repeat testing in 2-6 hours is suggested to rule out myocardial damage. >= 1.50 ng/ml Indicative of Myocardial Injury. Lab Order: Urinalysis; SPEC'M 05/08/16 11:43 Test: APPEARANCE, URINE; Value: HAZY; Range: CLEAR; Status: F Test: COLOR, URINE; Value: NICOLAS; Range: YELLOW; Status: F Test: PH,URINE; Value: 5.0; Range: 5.0-9.0; Units: UNITS; Status: F Test: SPECIFIC GRAVITY URINE AUTO; Value: 1.024; Range: 1.002-1.035; Status: F Test: PROTEIN, URINE AUTO; Value: NEGATIVE; Range: NEGATIVE; Units: mg/dL; Status: F Test: GLUCOSE, URINE (UA) AUTO; Value: NEGATIVE; Range: NEGATIVE; Units: mg/dL; Status: F Test: KETONE, URINE AUTO; Value: TRACE; Range: NEGATIVE; Abnormal: Above high normal; Units: mg/dL; Status: F Test: UROBILINOGEN, URINE AUTO; Value: 2.0; Range: 0.0-2.0; Abnormal: Above high normal; Units: mg/dL; Status: F Test: BILIRUBIN, URINE AUTO; Value: NEGATIVE; Range: NEGATIVE; Status: F Test: NITRITE, URINE AUTO; Value: NEGATIVE; Range: NEGATIVE; Status: F Test: LEUKOCYTE ESTERASE, URINE AUTO; Value: NEGATIVE; Range: NEGATIVE; Status: F Test: BLOOD, URINE BLOOD; Value: 2+; Range: NEGATIVE; Abnormal: Above high normal; Status: F Test: WBC, URINE AUTO; Value: 1; Range: 0-3; Units: /HPF; Status: F Test: RBC, URINE AUTO; Value: 6; Range: 0-3; Abnormal: Above high normal; Units: /HPF; Status: F Test: BACTERIA, URINE AUTO; Value: NEGATIVE; Range: NEGATIVE; Status: F Test: SQUAMOUS EPITHELIAL CELL UR AU; Value: 4; Range: 0-6; Units: /HPF; Status: F Test: MUCUS, URINE; Value: SMALL; Range: NEGATIVE; Status: F Test: HYALINE CAST, URINE AUTO; Value: 0; Range: 0-1; Units: /LPF; Status: F Radiology Order: EKG-ADULT Test: EKG-ADULT REASON FOR EXAMINATION: Abdomen Pain; Stationary ECG Study; [facility] - ED; ; Test Date: 2016-05-08; Pat Name: YOLANDA ROTH Department:; Room: -; Gender: F 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 cc10 13:50 Discharge Assessment: Patient awake, alert and oriented x 3. No cognitive and/or ttb functional deficits noted. Patient verbalized understanding of disposition instructions. Patient awake and alert. patient administered narcotics - no. The following High Risk Discharge criteria are identified: None. Discharged to home ambulatory, with significant other. Condition: good Condition: stable Condition: improved. Discharge instructions given to patient, significant other, Instructed on discharge instructions, follow up and referral plans. medication usage, Demonstrated understanding of instructions, medications, Pt was receptive of discharge instructions/ teaching. No special radiology studies were completed. Property :Personal belongings accompany Pt. 13:52 Patient left the ED. ttb Signatures: Dispatcher [employer] EDMS Mery Hall, Reg Reg gb Melisa SantosRN RN kr3 Imelda BustamanteRN RN rs3 Enid Moon,RN RN dsf Sissy Soriano1 Yolanda Coon RN RN ttb Dimas Blanc PA-C PA-C cc10 Jeramie Perkins rn1 Richard Ibanez, Reg Reg pm4 Corrections: (The following items were deleted from the chart) 13:43 11:45 PROTHROMBIN TIME PROFILE\E\INR+LAB sent. ttb EDMS 13:43 11:45 PARTIAL THROMBOPLASTIN TIME+LAB sent. ttb EDMS Chart Complete MTDD
--- NOTE | 2016-05-10 14:53 | EDDOCDS ---
Physician Documentation [facility] Name: Yolanda Roth Age: 36 yrs Sex: Female : 1980 Arrival Date: 05/08/2016 Time: 10:59 Bed I2 / M2 Private MD: NO PRIMARY PHYSICIAN, . Disposition: 05/08/16 13:38 Discharged to Home/Self Care. Impression: Abdominal and pelvic pain. - Condition is Stable. - Discharge Instructions: Abdominal Pain, Adult. - Medication Reconciliation, Work Release Form - 1 day form. - Follow up: Emergency Department; When: As needed; Reason: Worsening of conditions. Follow up: Private Physician; When: Call to arrange an appointment; Reason: Wound/Symptom Recheck, Recheck today's complaints, Worsening of conditions, Continuance of care. - Problem is an acute exacerbation. - Symptoms are resolved. Historical: - Allergies: NSAIDS (Anaphylaxis); Amoxicillin (Anaphylaxis); - Home Meds: 1. vivelle dot 1 patch every 2 days 2. testosterone shot Unknown every 3-6 weeks 3. oxycodone 15 mg Oral tab 1 tab every 4 hours (Last dose: 05/08/2016 07:00) 4. Flovent 220 mcg/actuation Inhl aero 2 puffs as needed (Last dose: 05/08/2016 07:00) 5. oxygen as needed 6. progesterone every 6 months - PMHx: gallbladder issues; lung fibrosis; - PSHx: Hernia repair; lung biopsy; Ovarian Cystectomy- Left; - Social history: Smoking status: Patient uses tobacco products, current every day smoker. No barriers to communication noted, The patient speaks fluent Martiniquais, Speaks appropriately for age. - Family history: Not pertinent. - : The pt / caregiver states he / she is not on anticoagulants. Home medication list is obtained from the patient. - Exposure Risk Screening:: None identified. 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 0 in. (152.40 cm) (R); Pain 4/10; 13:42 BP 126 / 79; Pulse 69; Resp 18; Temp 97.2; Pulse Ox 95% on R/A; Pain 0/10; ttb 11:01 Body Mass Index 21.09 (48.99 kg, 152.40 cm) dem1 MDM: 11:17 Financial registration complete. pm4 11:18 [facility] Industrial Analyst Order ordered. cc10 11:18 NS 0.9% 1000 ml IV at bolus once ordered. cc10 11:18 Ondansetron 4 mg IVP once ordered. cc10 11:18 IV Saline Lock ordered. cc10 11:18 Undress patient appropriately for examination ordered. cc10 11:18 Dilaudid - HYDROmorphone 0.5 mg IVP once ordered. cc10 11:19 Basic Metabolic Profile Ordered. EDMS 11:19 CBC with Diff Ordered. EDMS 11:19 Cardiac Injury Profile Ordered. EDMS 11:19 Lipase Ordered. EDMS 11:19 Liver Profile Ordered. EDMS 11:19 Troponin Ordered. EDMS 11:19 Urinalysis Ordered. EDMS 11:19 NOTHING BY MOUTH+DIET ordered. EDMS 11:19 ECG WITH READING ER PHYS+CARDIAG ordered. EDMS 11:27 [facility] Payment Agreement was scanned into [employer] app and attached to record. pm4 11:29 [facility] Industrial Analyst Order complete. rn1 12:31 CBC with Diff Reviewed. cc10 12:31 Liver Profile Reviewed. cc10 12:31 Urinalysis Reviewed. cc10 12:31 Basic Metabolic Profile Reviewed. cc10 12:31 Cardiac Injury Profile Reviewed. cc10 12:31 Lipase Reviewed. cc10 12:31 Troponin Reviewed. cc10 12:31 EKG-ADULT Reviewed. cc10 05/09 07:08 T-Sheet-- Draft Copy was scanned into [employer] app and attached to record. gb 11:49 ECG/EKG was scanned into [employer] app and attached to record. gb Administered Medications: 05/08 11:43 Drug: NS 0.9% 1000 ml [sodium chloride 0.9 % intravenous solution] Route: IV; Rate: ttb bolus; Site: right hand; 13:52 Follow up: Response: No Adverse Reaction; IV Status: Completed infusion; IV Intake: ttb 1000ml 11:43 Drug: Ondansetron 4 mg [ondansetron HCl 2 mg/mL intravenous solution (2 mL)] Route: ttb IVP; Site: right hand; 12:15 Follow up: Response: No Adverse Reaction ttb 11:43 Drug: Dilaudid - HYDROmorphone 0.5 mg [hydromorphone 1 mg/mL injection syringe (0.5 ttb mL)] Route: IVP; Site: right hand; 12:15 Follow up: Response: No Adverse Reaction; Pain is resolved ttb 13:16 Follow up: Response: No significant change. rs3 Signatures: Dispatcher [employer] EDMS Mery Hall, Reg Reg gb Enid MoonRN RN dsf Yolanda Coon RN RN ttb Dimas Blanc PA-C PALizbeth cc10 Jeramie Perkins rn1 Richard Ibanez, Reg Reg pm4 Imelda Bustamante RN rs3 The chart was reviewed and I authenticate all verbal orders and agree with the evaluation and treatment provided.Corrections: (The following items were deleted from the chart) 13:43 11:19 PARTIAL THROMBOPLASTIN TIME+LAB ordered. EDMS EDMS 13:43 11:19 PROTHROMBIN TIME PROFILE\E\INR+LAB ordered. EDMS EDMS Attachments: 11:27 [facility] Payment Agreement pm4 05/09 07:08 T-Sheet-- Draft Copy gb 11:49 ECG/EKG gb Chart Complete MTDD
--- NOTE | 2016-05-10 14:53 | EDDOCDS ---
Physician Documentation [facility] Name: Yolanda Roth Age: 36 yrs Sex: Female : 1980 Arrival Date: 05/08/2016 Time: 10:59 Bed I2 / M2 Private MD: NO PRIMARY PHYSICIAN, . Disposition: 05/08/16 13:38 Discharged to Home/Self Care. Impression: Abdominal and pelvic pain. - Condition is Stable. - Discharge Instructions: Abdominal Pain, Adult. - Medication Reconciliation, Work Release Form - 1 day form. - Follow up: Emergency Department; When: As needed; Reason: Worsening of conditions. Follow up: Private Physician; When: Call to arrange an appointment; Reason: Wound/Symptom Recheck, Recheck today's complaints, Worsening of conditions, Continuance of care. - Problem is an acute exacerbation. - Symptoms are resolved. Historical: - Allergies: NSAIDS (Anaphylaxis); Amoxicillin (Anaphylaxis); - Home Meds: 1. vivelle dot 1 patch every 2 days 2. testosterone shot Unknown every 3-6 weeks 3. oxycodone 15 mg Oral tab 1 tab every 4 hours (Last dose: 05/08/2016 07:00) 4. Flovent 220 mcg/actuation Inhl aero 2 puffs as needed (Last dose: 05/08/2016 07:00) 5. oxygen as needed 6. progesterone every 6 months - PMHx: gallbladder issues; lung fibrosis; - PSHx: Hernia repair; lung biopsy; Ovarian Cystectomy- Left; - Social history: Smoking status: Patient uses tobacco products, current every day smoker. No barriers to communication noted, The patient speaks fluent Tunisian, Speaks appropriately for age. - Family history: Not pertinent. - : The pt / caregiver states he / she is not on anticoagulants. Home medication list is obtained from the patient. - Exposure Risk Screening:: None identified. 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 0 in. (152.40 cm) (R); Pain 4/10; 13:42 BP 126 / 79; Pulse 69; Resp 18; Temp 97.2; Pulse Ox 95% on R/A; Pain 0/10; ttb 11:01 Body Mass Index 21.09 (48.99 kg, 152.40 cm) dem1 MDM: 11:17 Financial registration complete. pm4 11:18 [facility] [employer] Order ordered. cc10 11:18 NS 0.9% 1000 ml IV at bolus once ordered. cc10 11:18 Ondansetron 4 mg IVP once ordered. cc10 11:18 IV Saline Lock ordered. cc10 11:18 Undress patient appropriately for examination ordered. cc10 11:18 Dilaudid - HYDROmorphone 0.5 mg IVP once ordered. cc10 11:19 Basic Metabolic Profile Ordered. EDMS 11:19 CBC with Diff Ordered. EDMS 11:19 Cardiac Injury Profile Ordered. EDMS 11:19 Lipase Ordered. EDMS 11:19 Liver Profile Ordered. EDMS 11:19 Troponin Ordered. EDMS 11:19 Urinalysis Ordered. EDMS 11:19 NOTHING BY MOUTH+DIET ordered. EDMS 11:19 ECG WITH READING ER PHYS+CARDIAG ordered. EDMS 11:27 [facility] Payment Agreement was scanned into [employer] and attached to record. pm4 11:29 [facility] [employer] Order complete. rn1 12:31 CBC with Diff Reviewed. cc10 12:31 Liver Profile Reviewed. cc10 12:31 Urinalysis Reviewed. cc10 12:31 Basic Metabolic Profile Reviewed. cc10 12:31 Cardiac Injury Profile Reviewed. cc10 12:31 Lipase Reviewed. cc10 12:31 Troponin Reviewed. cc10 12:31 EKG-ADULT Reviewed. cc10 05/09 07:08 T-Sheet-- Draft Copy was scanned into [employer] and attached to record. gb 11:49 ECG/EKG was scanned into [employer] and attached to record. gb Administered Medications: 05/08 11:43 Drug: NS 0.9% 1000 ml [sodium chloride 0.9 % intravenous solution] Route: IV; Rate: ttb bolus; Site: right hand; 13:52 Follow up: Response: No Adverse Reaction; IV Status: Completed infusion; IV Intake: ttb 1000ml 11:43 Drug: Ondansetron 4 mg [ondansetron HCl 2 mg/mL intravenous solution (2 mL)] Route: ttb IVP; Site: right hand; 12:15 Follow up: Response: No Adverse Reaction ttb 11:43 Drug: Dilaudid - HYDROmorphone 0.5 mg [hydromorphone 1 mg/mL injection syringe (0.5 ttb mL)] Route: IVP; Site: right hand; 12:15 Follow up: Response: No Adverse Reaction; Pain is resolved ttb 13:16 Follow up: Response: No significant change. rs3 Signatures: Dispatcher [employer] EDMS Mery Hall, Reg Reg gb Enid MoonRN RN dsf Yolanda Coon RN RN ttb Dimas Blanc PA-C PALizbeth cc10 Jeramie Perkins rn1 Richard Ibanez, Reg Reg pm4 Imelda Bustamante RN rs3 The chart was reviewed and I authenticate all verbal orders and agree with the evaluation and treatment provided.Corrections: (The following items were deleted from the chart) 13:43 11:19 PARTIAL THROMBOPLASTIN TIME+LAB ordered. EDMS EDMS 13:43 11:19 PROTHROMBIN TIME PROFILE\E\INR+LAB ordered. EDMS EDMS Attachments: 11:27 [facility] Payment Agreement pm4 05/09 07:08 T-Sheet-- Draft Copy gb 11:49 ECG/EKG gb Chart Complete MTDD
== END 2016-05-08 13:52 | disposition home or self-care (01) ==
LOC: M ED 10:59
DX: R10.84 Generalized abdominal pain (principal); J84.10 Pulmonary fibrosis, unspecified; Z72.0 Tobacco use; Z79.899 Other long term (current) drug therapy; Z88.1 Allergy status to other antibiotic agents; Z88.6 Allergy status to analgesic agent
CPT/HCPCS: 36415; 80048; 80076; 81001; 82550; 82553; 83690; 85025; 93005; 96361; 96374; 96375; 99284; J1170; J2405

== ENCOUNTER → 2016-05-30 | Outpatient (CLI) | payer OTHER ==
[~2016-05-30] MED LIST changes: +ISOVUE-370 76% 100ML VIAL (Q9967) As Ordered ONE
--- NOTE | 2016-05-30 15:25 | REP ---
Chest CT with IV contrast including high-resolution images: Comparison is a similar study of 04/19/2015. Diffuse ground-glass opacity in the lung garcia bilaterally is again noted with interspersed patchy areas of hypodensity in a pattern similar to the comparison study. This pattern is nonspecific. Focal parenchymal scar is again noted peripherally in the right mid lung, unchanged. There are no pleural effusions. Mediastinal and bilateral hilar lymphadenopathy is again noted, not significantly changed. The thoracic aorta is unremarkable. Cardiac size is normal. No pericardial effusion. The visualized upper abdominal contents are unremarkable. On the high-resolution images the peripheral bronchi are similar to slightly greater diameter than their adjacent pulmonary arteries suggestive of bronchiectasis. This is unchanged. Impression: Bronchiectasis. Diffuse ground-glass pattern and mediastinal or hilar adenopathy, nonspecific, chronic lung disease including sarcoidosis. No change from the prior study. Signed by Michael Santos MD 05/30/2016 03:17 P
== END ==
LOC: M RAD 13:31
PROVIDERS: ATTEND Internal Medicine
DX: J47.9 Bronchiectasis, uncomplicated (principal); D86.9 Sarcoidosis, unspecified
CPT/HCPCS: 71270; Q9967

== ENCOUNTER 2016-07-19 10:42 | Emergency (ER) | payer OTHER ==
[~2016-07-19] VITALS: Ht 152.4 cm; Wt 49.9 kg
[~2016-07-19 10:42] MED LIST changes: -ISOVUE-370 76% 100ML VIAL (Q9967) As Ordered ONE; -TESTPOW5; +TESTPOW5 IM
[2016-07-19 10:43] VITALS: BP 143/92
[2016-07-19] MEDS ORDERED: PROA1AER (11:15)
[2016-07-19] MEDS ORDERED: LEVO500T32 (11:15)
[2016-07-19] MEDS ORDERED: ROBA500T PO (11:55)
[2016-07-19] MEDS ORDERED: METHOCARBAMOL 500 MG TAB PO ONE (12:00)
== END 2016-07-19 12:16 | disposition home or self-care (01) ==
LOC: M ED 11:45
DX: S13.4XXA Sprain of ligaments of cervical spine, initial encounter (principal); S29.012A Strain of muscle and tendon of back wall of thorax, initial encounter; V49.40XA Driver injured in collision with unspecified motor vehicles in traffic accident, initial encounter; Y92.410 Unspecified street and highway as the place of occurrence of the external cause; Y93.89 Activity, other specified; Y99.9 Unspecified external cause status

== ENCOUNTER 2018-03-05 00:02 | Emergency (ER) | payer OTHER | END 2018-03-05 01:40 | disposition left against medical advice (07) | LOC: M ED 00:02 | DX: R51 Headache (principal); Z53.21 Procedure and treatment not carried out due to patient leaving prior to being seen by health care provider ==

== ENCOUNTER → 2018-07-15 | Outpatient (CLI) | payer OTHER ==
[~2018-07-15] MED LIST changes: +ISOVUE-370 76% 125ML VIAL (Q9967 PER ML) As Ordered ONE; +LEVO500T3; +PROAAER10; +ROBA500T PO
--- NOTE | 2018-07-16 03:30 | REP ---
Clinical: Follow up interstitial changes. Technique: Axial contrast enhanced images from the thoracic inlet to the upper abdomen with coronal and sagittal re-formations using 100 ml Isovue 370 intravenous contrast material. Comparison: 05/30/2016, 04/19/2015. Findings: The lung garcia again demonstrate very subtle bilateral areas of ground-glass opacity primarily noted in the mid lung zones along with stable early bronchiectasis. Very minimal early subpleural fibrosis cannot be excluded. Area of curvilinear scarring along the lateral aspect of the right lung remains unchanged. Mediastinal and hilar adenopathy again noted with lymph nodes measuring up to approximately 21 mm. No focal consolidation, pleural effusion or pneumothorax. No obvious focal nodule or mass lesion identified. Thoracic aorta, pulmonary vasculature and heart/pericardium appear relatively normal. Surrounding musculoskeletal structures are intact. Impression: 1. Essentially stable changes as described above including mediastinal/hilar adenopathy. Differential diagnosis includes but is not limited to sarcoidosis as well as early interstitial pulmonary disease. 2. No new acute process identified. Electronically Signed by Delon Nolen MD 07/16/2018 03:21 A
== END ==
LOC: M RAD 16:49
PROVIDERS: ATTEND Internal Medicine
DX: R91.8 Other nonspecific abnormal finding of lung field (principal)
CPT/HCPCS: 71260; Q9967

== ENCOUNTER → 2018-07-16 | Outpatient (REF) | payer OTHER ==
[~2018-07-16] MED LIST changes: -ISOVUE-370 76% 125ML VIAL (Q9967 PER ML) As Ordered ONE
[2018-07-20 14:26] LABS: HPV HYBRID CAPTURE II Negative (Negative)
== END ==
LOC: M SFHCWAGY 10:40
PROVIDERS: ATTEND Nurse Practitioner Family
DX: Z12.4 Encounter for screening for malignant neoplasm of cervix (principal); Z11.51 Encounter for screening for human papillomavirus (HPV)
CPT/HCPCS: 87624; G0123

== ENCOUNTER → 2019-06-06 | Outpatient (REF) | payer OTHER ==
[~2019-06-06] MED LIST changes: +BUTA-198; +PRED-351 PO; -PRED10TA PO; +PROG1CAP9 PO; -PROG200C PO
[2019-06-06 12:23] LABS: BASO # 0.1 10^3/uL (0.0-0.2); BASO % 0.6 % (0.0-1.0); EOS # 0.1 10^3/uL (0.0-0.5); EOS % 1.6 % (0.0-3.0); HEMATOCRIT 50.3 % (36.0-47.0); LYMPH % 34.6 % (24.0-44.0); MEAN CORPUSCULAR HEMOGLOBIN 29.2 pg (27.0-33.0); MEAN CORPUSCULAR HGB CONC 33.8 g/dl (32.0-36.5); MEAN CORPUSCULAR VOLUME 86.4 fl (80.0-96.0); MONO # 0.6 10^3/uL (0.0-0.8); MONO % 7.2 % (0.0-5.0); NEUTROPHILS # 4.8 10^3/uL (1.5-8.5); NEUTROPHILS % 55.5 % (36.0-66.0); PLATELET COUNT, AUTOMATED 219 10^3/uL (150-450); RED BLOOD COUNT 5.82 10^6/uL (4.00-5.40); WHITE BLOOD COUNT 8.6 10^3/uL (4.0-10.0)
[2019-06-06 12:27] LABS: ALBUMIN 3.8 GM/DL (3.2-5.2); ALT/SGPT 24 U/L (12-78); BILIRUBIN,TOTAL 0.3 MG/DL (0.2-1.0); BLOOD UREA NITROGEN 14 MG/DL (7-18); C REACTIVE PROTEIN QUANTITATIV 1.47 MG/DL (0.00-0.30); CALCIUM LEVEL 9.2 MG/DL (8.5-10.1); CARBON DIOXIDE LEVEL 26 MEQ/L (21-32); CHLORIDE LEVEL 105 MEQ/L (98-107); CHOLESTEROL LEVEL 126 MG/DL (<200); CHOLESTEROL RISK RATIO 1.852 (<5); GLOMERULAR FILTRATION RATE > 60.0 (>58); GLUCOSE, FASTING 88 MG/DL (70-100); HDL CHOLESTEROL 68 MG/DL (>40); LDL CHOLESTEROL 47 MG/DL (<100); NON-HDL-C 58 MG/DL; POTASSIUM SERUM 4.3 MEQ/L (3.5-5.1); SODIUM LEVEL 137 MEQ/L (136-145); TOTAL PROTEIN 7.5 GM/DL (6.4-8.2); TRIGLYCERIDES LEVEL 56 MG/DL (<150)
[2019-06-08 00:08] LABS: Lyme Disease IgG/IgM Antibodie <0.91 ISR (0.00-0.90); Lyme Disease IgM Ab Quantitati <0.80 index (0.00-0.79)
== END ==
LOC: M SFHCPLAZ 09:40
PROVIDERS: ATTEND Internal Medicine Infectious Disease
DX: Z86.19 Personal history of other infectious and parasitic diseases (principal); R07.9 Chest pain, unspecified

== ENCOUNTER 2019-12-19 14:27 | Inpatient (IN) | payer OTHER ==
[~2019-12-19] VITALS: Ht 149.9 cm; Wt 59.0 kg
[~2019-12-19 14:27] MED LIST changes: +OXYC-1 PO; -OXYC15TA76 PO
[2019-12-19] MEDS ORDERED: MORPHINE 15 MG SA TAB As Ordered ONE (17:27)
[2019-12-19] MEDS ORDERED: ISOVUE-370 76% 100ML VIAL As Ordered ONE (18:45)
[2019-12-19] MEDS ORDERED: oxyCODONE 5MG TAB As Ordered ONE (21:04)
[2019-12-19] MEDS ORDERED: LevoFLOXacin 750MG/150ML IV BAG (J1956 PER 250MG) As Ordered ONE (21:04)
[2019-12-20] MEDS ORDERED: oxyCODONE 5MG TAB As Ordered ONE ×3 (00:59→15:20)
[2019-12-20] MEDS ORDERED: VANCOMYCIN 1000MG/20ML VIAL As Ordered ONE (00:59)
[2019-12-20] MEDS ORDERED: methylPREDNISolone 125MG 2ML VIAL As Ordered ONE (00:59)
[2019-12-20] MEDS ORDERED: RAMELTEON 8 MG TAB (ROZEREM) As Ordered ONE (01:31)
[2019-12-20] MEDS ORDERED: NICOTINE 14 MG/24 HR TRANSDERMAL As Ordered ONE (01:31)
[2019-12-20] MEDS ORDERED: MORPHINE 15 MG SA TAB As Ordered ONE ×3 (01:32→15:14)
[2019-12-20] MEDS ORDERED: MORPHINE 2 MG/ML 1ML VIAL (J2270) As Ordered ONE (05:39)
[2019-12-20] MEDS ORDERED: LORazepam 1 MG TAB As Ordered ONE (05:52)
[2019-12-20] MEDS ORDERED: PANTOPRAZOLE 40MG TAB (PROTONIX) As Ordered ONE (10:32)
[2019-12-20] MEDS ORDERED: SENOKOT S TAB As Ordered ONE (10:32)
[2019-12-20] MEDS ORDERED: predniSONE 20 MG TAB As Ordered ONE (10:33)
[2019-12-20] MEDS ORDERED: THROMBIN SOLN 5,000 UNITS VIAL As Ordered ONE (11:13)
[2019-12-20] MEDS ORDERED: CETACAINE SPRAY 5GM As Ordered ONE (11:13)
[2019-12-20] MEDS ORDERED: EPINEPHrine 1MG/10ML SYRINGE 1.5IN As Ordered ONE (11:13)
[2019-12-20] MEDS ORDERED: propofoL 200 MG/20 ML VIAL As Ordered ONE (12:24)
[2019-12-20] MEDS ORDERED: ROCURONIUM BROMIDE 50 MG/5 ML VIAL As Ordered ONE (12:24)
[2019-12-20] MEDS ORDERED: MIDAZOLAM INJ 2MG/2ML VIAL (J2250 PER 1MG) As Ordered ONE (12:25)
[2019-12-20] MEDS ORDERED: fentaNYL 100 MCG/2 ML INJECTION (J3010) As Ordered ONE (12:25)
[2019-12-20] MEDS ORDERED: LIDOCAINE 2% 100MG/5ML SDV (FOR ANES.) As Ordered ONE (12:26)
[2019-12-20] MEDS ORDERED: ALBUTEROL SULFATE 2.5 MG/0.5 ML INH NEB SOLN INH PRN (12:30)
[2019-12-20] MEDS ORDERED: ONDANSETRON 4MG/2ML VIAL As Ordered ONE ×2 (13:01→14:10)
[2019-12-20] MEDS ORDERED: dexameTHASONE 4 MG/ML 1ML VIAL (J1100 PER 1MG) As Ordered ONE (13:01)
[2019-12-20] MEDS ORDERED: SUGAMMADEX SODIUM 500 MG/5 ML VIAL (BRIDION) As Ordered ONE (13:42)
[2019-12-20] MEDS ORDERED: HYDROmorphone HCL 2 MG/ML 1ML VIAL (J1170) As Ordered ONE (13:44)
[2019-12-20] MEDS ORDERED: LEVALBUTEROL 1.25 MG/0.5 ML CONCENTRATE NEB As Ordered ONE (13:48)
[2019-12-20] MEDS ORDERED: MORP1SOL PO (14:39)
[2019-12-20] MEDS ORDERED: VENTAER INH (14:39)
[2019-12-20] MEDS ORDERED: MORP-69 PO (14:39)
[2019-12-20] MEDS ORDERED: OXYC-1 PO (14:39)
[2019-12-20] MEDS ORDERED: VANCOMYCIN 750MG/25ML VIAL As Ordered ONE (15:14)
[2019-12-20] MEDS ORDERED: PILL CUTTER 1 EACH XX PRN (17:45)
[2019-12-20] MEDS ORDERED: ALPRAZolam 0.25 MG TAB As Ordered ONE (17:50)
[2019-12-20] MEDS ORDERED: methylPREDNISolone 40MG 1ML VIAL As Ordered ONE (18:25)
[2019-12-20] MEDS ORDERED: ONDANSETRON 4 MG TAB PO PRN (19:00)
[2019-12-20] MEDS ORDERED: BISACODYL 5 MG TAB PO PRN (19:00)
[2019-12-20] MEDS ORDERED: ACETAMINOPHEN 500 MG TAB PO PRN (19:00)
[2019-12-20] MEDS ORDERED: NS 1,000 ML IV SCH (19:00)
[2019-12-20] MEDS ORDERED: oxyCODONE 5MG TAB PO PRN (19:00)
[2019-12-20 20:00] VITALS: BP 112/70; O2SAT 94
[2019-12-20] MEDS: IPRATROPIUM 0.5MG/ALBUTEROL 2.5MG INH SOL UD 3ML (DUONEB) NEB SCH (20:00)
[2019-12-20] MEDS: MORPHINE SULFATE ORAL SOLN 10 MG/5 ML UD PO PRN (20:29)
[2019-12-20 21:00] VITALS: O2SAT 93
[2019-12-20] MEDS ORDERED: LevoFLOXacin IV 750 MG in IV 1 EA IV SCH (21:00)
[2019-12-20 21:13] LABS: BASO % 0.2 % (0.0-1.0); HEMATOCRIT 53.8 % (36.0-47.0); HEMOGLOBIN 18.2 g/dl (12.0-15.5); LYMPH # 0.9 10^3/uL (1.5-5.0); LYMPH % 7.1 % (24.0-44.0); MEAN CORPUSCULAR HEMOGLOBIN 29.3 pg (27.0-33.0); MEAN CORPUSCULAR HGB CONC 33.8 g/dl (32.0-36.5); MEAN CORPUSCULAR VOLUME 86.5 fl (80.0-96.0); MONO # 0.2 10^3/uL (0.0-0.8); MONO % 1.3 % (0.0-5.0); NEUTROPHILS # 11.3 10^3/uL (1.5-8.5); NEUTROPHILS % 90.7 % (36.0-66.0); PLATELET COUNT, AUTOMATED 231 10^3/uL (150-450); RED BLOOD COUNT 6.22 10^6/uL (4.00-5.40); WHITE BLOOD COUNT 12.5 10^3/uL (4.0-10.0)
[2019-12-20] MEDS: RAMELTEON 8 MG TAB (ROZEREM) PO SCH (21:19)
[2019-12-20] MEDS: SENOKOT S TAB PO SCH (21:20)
[2019-12-20] MEDS: NICOTINE 14 MG/24 HR TRANSDERMAL TD SCH (21:20)
[2019-12-20] MEDS: MORPHINE 15 MG SA TAB PO SCH (21:21)
[2019-12-20] MEDS: ALPRAZolam 0.25 MG TAB PO PRN (21:24)
[2019-12-20 21:59] LABS: APPEARANCE CLOUDY (CLEAR); COLOR PINK (COLORLESS); SOURCE RIGHT UPPER LOBE
[2019-12-20 22:00] VITALS: O2SAT 95
[2019-12-20 22:02] LABS: APPEARANCE CLOUDY (CLEAR); COLOR PINK (COLORLESS); SOURCE RIGHT UPPER LOBE
[2019-12-20 23:00] VITALS: O2SAT 94
[2019-12-20 23:59] VITALS: O2SAT 95
[2019-12-21] VITALS (11 sets, daily range): BP systolic 118–143; BP diastolic 55–97; O2SAT 91–99
[2019-12-21] MEDS: methylPREDNISolone 40MG 1ML VIAL IV SCH ×2 (00:35→08:20)
[2019-12-21] MEDS: IPRATROPIUM 0.5MG/ALBUTEROL 2.5MG INH SOL UD 3ML (DUONEB) NEB SCH ×4 (00:50→20:00)
[2019-12-21] MEDS ORDERED: VANCOMYCIN HCL 1,000 MG, VIAL MATE ADAPTER 1 EACH in D5W 250 ML IV SCH (01:00)
[2019-12-21] MEDS ORDERED: VANCOMYCIN HCL 750 MG, VIAL MATE ADAPTER 1 EACH in D5W 250 ML IV SCH (02:00)
[2019-12-21] MEDS: ALPRAZolam 0.25 MG TAB PO PRN (05:26)
[2019-12-21] MEDS: MORPHINE 15 MG SA TAB PO SCH ×3 (05:27→20:52)
[2019-12-21 06:54] LABS: BASO % 0.1 % (0.0-1.0); HEMATOCRIT 50.1 % (36.0-47.0); HEMOGLOBIN 16.7 g/dl (12.0-15.5); LYMPH # 0.7 10^3/uL (1.5-5.0); LYMPH % 5.1 % (24.0-44.0); MEAN CORPUSCULAR HGB CONC 33.3 g/dl (32.0-36.5); MEAN CORPUSCULAR VOLUME 87.1 fl (80.0-96.0); MONO # 0.5 10^3/uL (0.0-0.8); MONO % 3.6 % (0.0-5.0); NEUTROPHILS # 12.1 10^3/uL (1.5-8.5); NEUTROPHILS % 90.4 % (36.0-66.0); PLATELET COUNT, AUTOMATED 216 10^3/uL (150-450); RED BLOOD COUNT 5.75 10^6/uL (4.00-5.40); WHITE BLOOD COUNT 13.3 10^3/uL (4.0-10.0)
[2019-12-21 07:24] LABS: ALBUMIN 3.3 GM/DL (3.2-5.2); ALT/SGPT 29 U/L (12-78); BILIRUBIN,TOTAL 0.4 MG/DL (0.2-1.0); BLOOD UREA NITROGEN 17 MG/DL (7-18); CARBON DIOXIDE LEVEL 29 MEQ/L (21-32); CHLORIDE LEVEL 103 MEQ/L (98-107); CPK CREATINE PHOSPHOKINASE 54 U/L (26-192); CREATININE FOR GFR 0.79 MG/DL (0.55-1.30); GLOMERULAR FILTRATION RATE > 60.0 (>58); GLUCOSE, FASTING 176 MG/DL (70-100); MAGNESIUM LEVEL 2.2 MG/DL (1.8-2.4); POTASSIUM SERUM 4.5 MEQ/L (3.5-5.1); SODIUM LEVEL 137 MEQ/L (136-145); TOTAL PROTEIN 6.7 GM/DL (6.4-8.2)
[2019-12-21] MEDS: PANTOPRAZOLE 40MG TAB (PROTONIX) PO SCH (08:20)
[2019-12-21] MEDS: MORPHINE SULFATE ORAL SOLN 10 MG/5 ML UD PO PRN (08:20)
[2019-12-21] MEDS: SENOKOT S TAB PO SCH ×2 (08:21→20:52)
[2019-12-21 08:54] LABS: ERYTHROCYTE SEDIMENTATION RATE 3 mm/hr (0-20)
[2019-12-21] MEDS: DOXYCYCLINE HYCLATE 100MG TABLET PO SCH ×2 (09:00→12:11)
[2019-12-21] MEDS ORDERED: SLF 3 ML SYR IV PRN (11:45)
[2019-12-21 13:13] LABS: MONOCYTES/MACROPHAGES, BAL 90 %
[2019-12-21 13:14] LABS: MONOCYTES/MACROPHAGES, BAL 90 %
[2019-12-21] MEDS: SLF 3 ML SYR IV SCH ×2 (14:00→20:54)
--- NOTE | 2019-12-21 16:23 | IPNPDOC ---
Subjective Date Seen The patient was seen on 12/21/19. Subjective Chief Complaint/HPI chart reviewed. Hospital course: Ms. rice is a 39 year old woman with extensive pulmonary history that went back all the way to her childhood as per patient. she had multiple admissions to hospital due recurrent lung infections. She had been worked up as an adult a few years ago while she was in [place]. per record it appears she even had lung biopsy done then, and she was diagnosed with ILD, desquamative pneumonia. she had been in intermittent dosing of steroids, no known autoimmune condition, no p rior immunosuppresant medications. She had been follow up by Dr. buchanan (pulme) as outpatient and will continue to do so. I took over patient's care yesterday. On this admission, she had been admitted due to acute hemoptysis, sudden onset, associated with progressive dyspnea. No fever or chills. No night sweats, no weight loss. she had been empirically started on IV antibiotics - vanc and levaquin. Bronchoscopy done yesterday 12/20/2019, no active bleeding noted, BAL done, cultures still pending. patient seen this morning, no further events overnight. Not in any distress. No further hemoptysis, had some blood streaked thick sputum. No chest pain, no dyspnea at rest, does have dyspnea on exertion. No vomiting. No abdominal pain, no leg swelling. She furthered added today that she is allergic to doxycycline. And she also mentioned that as a child she had lead poisoning, underwent treatment ?chelation therapy likely. Objective Physical Examination General Exam: Positive: Alert, No Acute Distress Eye Exam: Positive: PERRLA, Conjunctiva & lids normal, EOMI; Negative: Sclera icteric ENT Exam: Positive: Atraumatic, Mucous membr. moist/pink, Pharynx Normal Neck Exam: Positive: Supple; Negative: JVD, thyromegaly Chest Exam: Positive: Clear to auscultation, Normal air movement Heart Exam: Positive: Rate Normal, Regular Rhythm, Normal S1, Normal S2; Negative: Murmurs, Rubs Telemetry: Positive: No significant arrhythmia Abdomen Exam: Positive: Normal bowel sounds, Soft; Negative: Tenderness, Hepatospenomegaly Female Exam: Positive: Nl Ext Genitalia; Negative: Lesions, Discharge, Odor, Tenderness Extremity Exam: Positive: Normal pulses, Other (positive clubbing bilateral hands. No leg edema ); Negative: Clubbing, Cyanosis, Edema Skin Exam: Positive: Nl turgor and temperature; Negative: Rash, Breakdown Neuro Exam: Positive: Normal Gait, Normal Speech, Cranial Nerves 3-12 NL, Reflexes 2+ Psych Exam: Positive: Mental status NL, Mood NL, Oriented x 3 Assessment /Plan Assessment ASSESSMENT: 1. Hemoptysis, likely due to pneumonia 2. Bilateral community acquired pneumonia 3. Pulmonary fibrosis, Interstitial lung disease 4. Clubbing 5. Pulmonary hypertension, likely secondary to Lung disease. 6. Erythrocytosis, could be secondary, due to PAH, will check EPO. 7. History of lead poisoning as a child , with history of chelation PLANS: * Informed by Dr. Carpio today that patient's antibiotic will be changed to PO, no IV access now. leukocytosis improving. she recommended levaquin and Po doxycycline. Patient told me she just remembered she is allergic to doxy--- reaction: severe vomiting. no rashes, no dyspnea, no respiratory failure. * ECHo ordered, pending results. she is aware of her pulmonary artery hypertension, and had been to a advanced practice nurse psychotherapist, and had actually been planned for right side cath, She goes to dr. Gary Clemente. * she is not hypoxic and not requiring supplemental oxygen. Given her fibrosis, and PAH, will eventually require oxygen. * BAL cultures and serology, autoimmune work-up still pending, and can be followed up as outpatient. * quaiferon, hiv as well. * Note she is on high doses of pain medication, morphine and oxycodone, has been under palliative care for the past year?? * she has been quite anxious, and thus given a dose of xanax, and requesting more today. will not be able to give xanax prescription upon discharge due to concurrent use of opioids - high risk for unintentional overdose. She can resume palliative care upon discharge. * anticipate discharge in AM. Plan/VTE VTE Prophylaxis Ordered?: No VTE Exclusion Pharmacological: Active Bleeding VS, I&O, 24H, Fishbone Vital Signs/I&O Vital Signs Date Time Temp Pulse Resp B/P (MAP) Pulse Ox O2 Delivery O2 Flow Rate FiO2 12/21/19 14:11 20 Room Air 12/21/19 12:00 98.4 73 131/75 (93) 95 12/21/19 00:00 1.0 I&O- Last 24 Hours up to 6 AM 12/21/19 06:00 Intake Total 570 ml Output Total 1000 ml Balance -430 ml Laboratory Data 24H LABS Laboratory Tests 2 12/21/19 06:13: Immature Granulocyte % (Auto) 0.8, Neutrophils (%) (Auto) 90.4H, Lymphocytes (%) (Auto) 5.1L, Monocytes (%) (Auto) 3.6, Eosinophils (%) (Auto) 0.0, Basophils (%) (Auto) 0.1, Neutrophils # (Auto) 12.1H, Lymphocytes # (Auto) 0.7L, Monocytes # (Auto) 0.5, Eosinophils # (Auto) 0.0, Basophils # (Auto) 0.0, Nucleated Red Blood Cells % (auto) 0.0, Erythrocyte Sedimentation Rate 3, Anion Gap 5L, Glomerular Filtration Rate > 60.0, Calcium Level 9.0, Magnesium Level 2.2, Total Bilirubin 0.4, Aspartate Amino Transf (AST/SGOT) 13, Alanine Aminotransferase ( ALT/SGPT) 29, Alkaline Phosphatase 48, Total Creatine Kinase 54, Total Protein 6.7, Albumin 3.3, Albumin/Globulin Ratio 1.0L 12/21/19 11:00: 12/21/19 11:39: 12/21/19 12:48: Vancomycin Level Trough 7.6L CBC/BMP Laboratory Tests 12/20/19 23:45 12/21/19 06:13 TIGIST LINK MD Dec 21, 2019 16:23
[2019-12-21] MEDS: predniSONE 20 MG TAB PO SCH (16:24)
[2019-12-21] MEDS ORDERED: ALPRAZolam 0.25 MG TAB PO PRN (16:30)
[2019-12-21] MEDS: HYDROcodone/APAP LIQUID 7.5-325MG 15ML UDC (LORTAB ELIXIR) PO PRN (19:45)
[2019-12-21] MEDS: NICOTINE 14 MG/24 HR TRANSDERMAL TD SCH (20:51)
[2019-12-21] MEDS: RAMELTEON 8 MG TAB (ROZEREM) PO SCH (20:52)
[2019-12-21] MEDS ORDERED: LevoFLOXacin 750 MG TABLET PO SCH (21:00)
[2019-12-22] VITALS: BP 135/76
[2019-12-22] MEDS: IPRATROPIUM 0.5MG/ALBUTEROL 2.5MG INH SOL UD 3ML (DUONEB) NEB SCH ×3 (01:29→13:12)
[2019-12-22] MEDS: MORPHINE SULFATE ORAL SOLN 10 MG/5 ML UD PO PRN (01:41)
[2019-12-22 04:00] VITALS: BP 126/74
[2019-12-22] MEDS: SLF 3 ML SYR IV SCH ×2 (05:09→14:00)
[2019-12-22] MEDS: MORPHINE 15 MG SA TAB PO SCH ×2 (05:09→14:01)
[2019-12-22] MEDS: HYDROcodone/APAP LIQUID 7.5-325MG 15ML UDC (LORTAB ELIXIR) PO PRN (07:53)
[2019-12-22 08:00] VITALS: BP 148/80
[2019-12-22] MEDS: PANTOPRAZOLE 40MG TAB (PROTONIX) PO SCH (08:06)
[2019-12-22] MEDS: SENOKOT S TAB PO SCH (08:06)
[2019-12-22] MEDS ORDERED: predniSONE 20 MG TAB PO ONE (10:00)
[2019-12-22 11:16] LABS: BASO % 0.2 % (0.0-1.0); EOS % 0.1 % (0.0-3.0); HEMATOCRIT 50.2 % (36.0-47.0); LYMPH # 1.9 10^3/uL (1.5-5.0); LYMPH % 12.3 % (24.0-44.0); MEAN CORPUSCULAR HEMOGLOBIN 29.5 pg (27.0-33.0); MEAN CORPUSCULAR HGB CONC 33.9 g/dl (32.0-36.5); MONO # 1.1 10^3/uL (0.0-0.8); MONO % 6.8 % (0.0-5.0); NEUTROPHILS # 12.3 10^3/uL (1.5-8.5); PLATELET COUNT, AUTOMATED 211 10^3/uL (150-450); RED BLOOD COUNT 5.77 10^6/uL (4.00-5.40); WHITE BLOOD COUNT 15.4 10^3/uL (4.0-10.0)
[2019-12-22 11:33] LABS: BLOOD UREA NITROGEN 20 MG/DL (7-18); CALCIUM LEVEL 8.9 MG/DL (8.5-10.1); CARBON DIOXIDE LEVEL 29 MEQ/L (21-32); CHLORIDE LEVEL 104 MEQ/L (98-107); GLOMERULAR FILTRATION RATE > 60.0 (>58); GLUCOSE, FASTING 79 MG/DL (70-100); POTASSIUM SERUM 4.1 MEQ/L (3.5-5.1); SODIUM LEVEL 137 MEQ/L (136-145)
[2019-12-22 12:00] VITALS: BP 129/79
[2019-12-22 16:00] VITALS: BP 140/82
[2019-12-22 16:22] LABS: ANTINUCLEAR ANTIBODIES DIRECT Negative (Negative)
[2019-12-22] MEDS ORDERED: NICO14PA TD (16:33)
[2019-12-22] MEDS ORDERED: LEVA750T7 PO (16:33)
[2019-12-22] MEDS ORDERED: PRED20TA PO (16:33)
--- NOTE | 2019-12-22 16:48 | DS.PDOC ---
Discharge Summary General Date of Admission Dec 19, 2019 at 20:50 Date of Discharge december Discharge Summary PROCEDURES PERFORMED DURING STAY: [None]. ADMITTING DIAGNOSES: 1. Hemoptysis, likely due to pneumonia 2. Bilateral community acquired pneumonia 3. Pulmonary fibrosis, Interstitial lung disease 4. Clubbing 5. Pulmonary hypertension, likely secondary to Lung disease. 6. Erythrocytosis, could be secondary, due to PAH, will check EPO. 7. History of lead poisoning as a child , with history of chelation DISCHARGE DIAGNOSES: 1. Hemoptysis, likely due to pneumonia 2. Bilateral community acquired pneumonia 3. Pulmonary fibrosis, Interstitial lung disease 4. Clubbing 5. Pulmonary hypertension, likely secondary to interstitial Lung disease. 6. Erythrocytosis, could be secondary, due to PAH, will check EPO. 7. History of lead poisoning as a child , with history of chelation COMPLICATIONS/CHIEF COMPLAINT: hemoptysis Hospital course: HISTORY OF PRESENT ILLNESS:39 year old woman with known ILD, PF, presented to hospital due to hemoptysis. Patient noted to have bilateral pneumonia and thus admitted. patient empirically started on vancomycin and levaquin empirically. Pulmonology consulted, and patient underwent bronchoscopy, no active bleeding noted, no bleeding artery noted. BAL done, cultures sent, quantiferon also sent. patient was not hypoxic on arrival. She does have chronic lung conditiong, ILD, even had lung biops when she was in [place]. No clear etiology for her ILD. serologic ork-up, Autoimmune work-up still pending. She had improved, no massive hemoptysis. She is still coughing a lot with blood streak sputum, but minimal now compared to before. she is quite anxious about her condition and fearful. I have explained her condition with her, she does have clubbing, with findings of PAH on echo and CT scan, she has to follow up with her signing agent as outpatient, for determination of right side cath - which has been discussed with her before as per patient. For now, she need to complete treatment of infection and then later to consider right side cath. She is under palliative care, and has been on chronic morphine now for pain control. She understand ILD has no cure, and could progress, but for time being the reason for her hemoptysis is likely the active infection. Dr. Carpio recommended levaquin and high dose prednisone 60 mg PO daily for time being at least 2 weeks and it will be taperered off once she follows up with pulmo. Patient seen today this morning and this afternoon. Doing well, initially did not want to go home due to her anxiety, but after discussion she said, she feels much better and would like to go home tonight. Seen her with her , discussed with patietn and . They both voice understanding. Discharge MEDICATIONS: Please see below. ALLERGIES: Please see below.add doxycycline. (reported allergy to doxycycline - severe vomiting). had history of angioedema as well, but unclear which medications. NSAID, Amoxicillin PHYSICAL EXAMINATION ON DISCHARGE: Vital Sign - Last 24 Hours 12/21/19 12/21/19 12/21/19 12/21/19 19:45 20:00 20:50 20:52 Temp 98.0 Pulse 85 Resp 18 20 B/P (MAP) 141/73 (95) Pulse Ox 90 O2 Delivery Room Air 12/22/19 12/22/19 12/22/19 12/22/19 00:00 01:41 02:11 04:00 Temp 97.1 97.2 Pulse 78 68 Resp 18 18 18 18 B/P (MAP) 135/76 (95) 126/74 (91) Pulse Ox 93 93 O2 Delivery Room Air Room Air 12/22/19 12/22/19 12/22/19 12/22/19 05:09 07:53 08:00 08:23 Temp 97.2 97.7 Pulse 68 62 Resp 18 18 16 18 B/P (MAP) 126/74 148/80 (102) Pulse Ox 93 97 O2 Delivery Room Air Room Air Room Air Room Air O2 Flow Rate 1.0 12/22/19 12/22/19 12/22/19 12:00 14:01 16:00 Temp 97.7 98.0 Pulse 64 90 Resp 18 16 16 B/P (MAP) 129/79 (96) 140/82 (101) Pulse Ox 97 94 O2 Delivery Room Air Room Air Room Air awake,alert, oriented x 3. Not in any distress. Clear breath sounds, no rales or wheezing noted S1 and s2 distinct, no murmurs noted abdomen soft, no tendernes, no rigidity noted Extremities: clubbing both finger, no edema, no calf tenderness NURSE INFECTION CONTROL: awake, alert, oriented x 3, no focal deficits LABORATORY DATA: Please see below. IMAGING: Chest xray - bilateral infiltrates with pulonary fibrosis PROGNOSIS:guarded ACTIVITY: [As tolerated DIET: regular diet DISCHARGE PLAN: 1. Discharge to home 2. take antibiotics and prednisone 60 mg PO x 2 weeks, do not stop until seen by Pulmo. Will also give PPI (nexium as you are taking steroid 3. Ff-p with Dr. Garcia/Balaji DISPOSITION: .HOME DISCHARGE INSTRUCTIONS: 1. You can cough some blood streaked sputum, which is expected post bronch. It should clear up. 2. ff-up with pulmo (lung doctor) for discussion on results of blood test obtained here, still pending -- autoimmune, serology work-up, quantiferon testing 3. Recuperate at home 4. Yearly flu shot, as long as not allergic. 5. weak mask when going out, you are considered high risk for lung infection ITEMS TO FOLLOWUP ON ON OUTPATIENT: 1. ff-0up with Dr. Carpio/Jose DISCHARGE CONDITION: [Stable]. TIME SPENT ON DISCHARGE: 50 minutes - seen patient twice, discussed with her and bettina multiple times today, and discussion of her illness, treatment plans and follow up. She voice understanding. Vital Signs/I&Os Vital Signs Date Time Temp Pulse Resp B/P (MAP) Pulse Ox O2 Delivery O2 Flow Rate FiO2 12/22/19 16:00 98.0 90 16 140/82 (101) 94 Room Air 12/22/19 05:09 1.0 I&O- Last 24 Hours up to 6 AM 12/22/19 06:00 Intake Total 1136 ml Output Total 1600 ml Balance -464 ml Laboratory Data Labs 24H Laboratory Tests 2 12/22/19 10:10: Immature Granulocyte % (Auto) 0.6, Neutrophils (%) (Auto) 80.0H, Lymphocytes (%) (Auto) 12.3L, Monocytes (%) (Auto) 6.8H, Eosinophils (%) (Auto) 0.1, Basophils (%) (Auto) 0.2, Neutrophils # (Auto) 12.3H, Lymphocytes # (Auto) 1.9, Monocytes # (Auto) 1.1H, Eosinophils # (Auto) 0.0, Basophils # (Auto) 0.0, Nucleated Red Blood Cells % (auto) 0.0, Anion Gap 4L, Glomerular Filtration Rate > 60.0, Calcium Level 8.9 CBC/BMP Laboratory Tests 8/20/20 10:10 Microbiology Microbiology 12/20/19 Gram Stain - Final, Complete 12/20/19 Bronchoalveolar Lavage Culture - Final, Complete 12/20/19 Gram Stain - Final, Complete 12/20/19 Bronchoalveolar Lavage Culture - Final, Complete 12/20/19 Gram Stain - Final, Complete 12/20/19 Sputum Culture - Final, Complete Discharge Medications Scheduled Levofloxacin (Levaquin) 750 Mg Tablet, 750 MG PO DAILY@2100 Morphine Sulfate (Morphine Sulfate ER) 15 Mg Tablet.er, 15 MG PO Q8H, (Reported) Nicotine (Nicotine Patch) 14 Mg Patch.td24, 1 PATCH TD QHS Prednisone (Prednisone) 20 Mg Tablet, 60 MG PO Q24H take 60 mg PO daily. Scheduled PRN Albuterol Sulfate (Ventolin Hfa) 18 Gm Hfa.aer.ad, 2 PUFFS INH QID PRN for SHORTNESS OF BREATH, (Reported) Morphine Sulfate (Morphine Sulfate Concentrate) 100 Mg/5 Ml Solution, 0.75 ML PO Q3HP PRN for SOB/ANXIETY, (Reported) Oxycodone Hcl (Oxycodone HCl) 15 Mg Tablet, 22.5 MG PO Q4H PRN for PAIN, (Reported) Allergies Coded Allergies: NSAIDS (Non-Steroidal Anti-Inflamma (Verified Allergy, Severe, HIVES, SOB, 12/20/19) amoxicillin (Verified Allergy, Severe, HIVES, SOB, 12/20/19) Penicillins (Verified Allergy, Intermediate, 12/21/19) TIGIST LINK MD Dec 22, 2019 16:48
[2019-12-22] MEDS ORDERED: NEXI20CA PO (16:49)
[2019-12-22] MEDS: predniSONE 20 MG TAB PO SCH (16:58)
[2019-12-24 23:10] LABS: BLOOD UREA NITROGEN 16 MG/DL (7-18); CALCIUM LEVEL 9.3 MG/DL (8.5-10.1); CARBON DIOXIDE LEVEL 27 MEQ/L (21-32); CHLORIDE LEVEL 103 MEQ/L (98-107); CPK CREATINE PHOSPHOKINASE 35 U/L (26-192); GLOMERULAR FILTRATION RATE > 60.0 (>58); GLUCOSE, FASTING 122 MG/DL (70-100); HIV 1&2 SCREEN CENTAUR NEGATIVE (NEGATIVE); MAGNESIUM LEVEL 2.2 MG/DL (1.8-2.4); POTASSIUM SERUM 4.9 MEQ/L (3.5-5.1); RHEUMATOID FACTOR QUANT < 10.0 IU/ML (<15.0); SODIUM LEVEL 136 MEQ/L (136-145); TROPONIN I < 0.02 NG/ML (< 0.10)
[2019-12-26 13:06] LABS: ANTI CENTROMERE ANTIBODY <0.2 AI (0.0-0.9); ANTI DS-DNA AB Negative (Negative); ANTI SCLERODERMA ANTIBODIES <0.2 AI (0.0-0.9); ASPERGILLUS FUMIGATUS AB Negative (Negative); AUREOBASIDIUM PULLULANS Negative (Negative); CYCLIC CITRULLINATED PEPTIDE 5 units (0-19); MICROPOLYSPORA FAENI AB Negative (Negative); PIGEON SERUM AB Negative (Negative); THERMOACTINOMYCES SACCHARI Negative (Negative); THERMOACTINOMYCES VULGARIS Negative (Negative)
--- NOTE | 2020-01-11 11:26 | ROOR ---
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 No Referring Physician 1. No Referring Physician, Admin. (Referring MD), 2. Inpatient 2. Inpatient (Referring MD) Requesting Physician: Medicines: Cetacaine topical, General Anesthesia Complications: No immediate complications. Estimated blood loss: Minimal Procedure: Pre-Anesthesia Assessment: - Prior to the procedure, a History and Physical was performed, and patient medications and allergies were reviewed. The patient's tolerance of previous anesthesia was also reviewed. The risks and benefits of the procedure and the sedation options and risks were discussed with the patient. All questions were answered, and informed consent was obtained. Prior Anticoagulants: The patient has taken no previous anticoagulant or antiplatelet agents. ASA Grade Assessment: III - A patient with severe systemic disease. After reviewing the risks and benefits, the patient was deemed in satisfactory condition to undergo the procedure. The Bronchoscope was introduced through the mouth, via the endotracheal tube (the patient was intubated for the procedure) and advanced to the tracheobronchial tree of both lungs. The procedure was accomplished without difficulty. The patient tolerated the procedure well. Findings: The trachea is of normal caliber. The nancy is sharp. The entire tracheobronchial tree was examined to at least the first subsegmental level. Bronchial mucosa with minimal webbing and anatomy was normal; there are no endobronchial lesions noted in left lung. There were minimal mucoid secretions in left lung. In the right lung there were no endorbronchial lesions. In the right upper lobe anterior and posterior segment there were bloody secretions noted but no active bleeding. Bronchoalveolar lavage was performed in the RUL posterior segment (B2) and in the RUL anterior segment (B3) of the lung and sent for cell count, bacterial culture, and fungal & AFB analysis and cytology. The return was blood-tinged. Mucous plugs were present in the return fluid. There were sequential BAL performed in RUL posterior segment with less bloody return on sequential lavages. An endobronchial ultrasound endoscope was utilized in order to assist with fine needle aspiration in the subcarinal area and in the right hilum. Transbronchial needle aspirations of a lymph nodes were performed in the subcarinal area and in the right hilum using an Olympus EBUS-TBNA 21 gauge needle. The procedure was guided by ultrasound. Transbronchial needle aspiration technique was selected because the sampling site was not visible endoscopically. Impression: - Interstitial lung disease - Hilar lymphadenopathy of the right side - Mediastinal adenopathy - Paratracheal adenopathy - Bronchoalveolar lavage was performed. - Endobronchial ultrasound was performed. - A transbronchial needle aspiration was performed. Recommendation: - Await test results. Marielena Carpio MD 12/20/2019 1:44:41 PM Number of Addenda: 0 Note Initiated On: 12/20/2019 11:28 AM
--- NOTE | 2020-01-18 15:20 | ECGEPIP ---
SINUS TACHYCARDIA POSSIBLE RIGHT ATRIAL ENLARGEMENT RIGHT VENTRICULAR HYPERTROPHY ABNORMAL ECG SEE SCANNED DOWNTIME REPORT MTDD
[2020-01-31 11:06] LABS: PARTIAL THROMBOPLASTIN TIME 24.9 SECONDS (24.2-38.5); PROTHROMBIN TIME 13.4 SECONDS (12.5-14.3)
[2020-02-01 16:48] LABS: BASO # 0.1 10^3/uL (0.0-0.2); BASO % 0.3 % (0.0-1.0); EOS # 0.1 10^3/uL (0.0-0.5); EOS % 0.4 % (0.0-3.0); LYMPH # 4.4 10^3/uL (1.5-5.0); LYMPH % 19.7 % (24.0-44.0); MEAN CORPUSCULAR HEMOGLOBIN 29.7 pg (27.0-33.0); MEAN CORPUSCULAR HGB CONC 33.8 g/dl (32.0-36.5); MEAN CORPUSCULAR VOLUME 87.9 fl (80.0-96.0); MONO % 4.6 % (0.0-5.0); NEUTROPHILS # 16.5 10^3/uL (1.5-8.5); NEUTROPHILS % 73.9 % (36.0-66.0); PLATELET COUNT, AUTOMATED 285 10^3/uL (150-450); WHITE BLOOD COUNT 22.3 10^3/uL (4.0-10.0)
[2020-02-01 16:49] LABS: HEMOGLOBIN 19.6 g/dl (12.0-15.5)
--- NOTE | 2020-02-10 14:17 | ECHO ---
DATE OF PROCEDURE: 12/20/2019 Age: 39 Gender: Female Height: 149 cm Weight: 58 kg REFERRING PHYSICIAN: Liudmila Asif MD INDICATION: Chest pain, unspecified. MEASUREMENTS: 2D Measurements: Interventricular septum 0.99 cm Posterior wall 0.97 cm Left ventricle diastole 3.7 cm Aortic root 2.8 cm Left atrium 3.5 cm Left atrial volume index 13 Inferior vena cava 1.4 cm Doppler Measurements: No aortic regurgitation No aortic stenosis No mitral regurgitation No mitral stenosis No tricuspid regurgitation No pulmonic regurgitation Aortic valve velocity 100 cm/s LVOT velocity 75.7 cm/s LVOT VTI 17.8 cm Mitral E velocity 85.7 cm/s Mitral A velocity 92.1 cm/s Mitral deceleration time 272 msec Pulmonary acceleration time 79 msec MITRAL ANNULAR TISSUE DOPPLER E prime lateral 9.8 cm/s, E prime septal 7.0 cm/s DESCRIPTION: Rhythm was sinus. Image quality was good. This was a 2D, M-mode, color flow Doppler, and pulsed wave Doppler examination including mitral annular tissue Doppler. CONCLUSIONS: * Normal left ventricle internal dimensions and wall thickness. Normal regional LV wall motion and wall thickening. Normal LV systolic function. LVEF 65% by visual estimate. Grade 1 LV diastolic dysfunction (impaired relaxation filling pattern). * No pericardial effusion. * Abbreviated pulmonary acceleration time suggestive of at least mild elevation of pulmonary artery systolic pressure. * Otherwise, normal appearing echocardiogram Doppler findings. MTDD
--- NOTE | 2020-02-13 10:37 | REP ---
CHEST X-RAY: 2-VIEWS (REPEAT DICTATION) HISTORY: Hemoptysis. COMPARISON: Chest x-ray 12/20/2019. FINDINGS: Mild cardiac enlargement is observed unchanged. Cardiothoracic ratio measures 50.7%. Main pulmonary artery segment of the left heart border is prominent suggesting pulmonary arterial hypertension as before. The pleural angles are sharp. There are linear fibrotic changes versus surgical sutures in the right mid and lower lung field. No infiltrate is seen. Pleural angles are sharp. IMPRESSION: Cardiomegaly and prominent main pulmonary artery segment of the left heart border suggestive of pulmonary arterial hypertension. MTDD
[2020-03-11 16:16] LABS: ALBUMIN 3.4 GM/DL (3.2-5.2); ALT/SGPT 29 U/L (12-78); BILIRUBIN,DIRECT 0.1 MG/DL (0.0-0.2); BILIRUBIN,TOTAL 0.3 MG/DL (0.2-1.0); BLOOD UREA NITROGEN 20 MG/DL (7-18); CALCIUM LEVEL 8.9 MG/DL (8.5-10.1); CARBON DIOXIDE LEVEL 28 MEQ/L (21-32); CHLORIDE LEVEL 105 MEQ/L (98-107); CK-MB VALUE MASS 2.2 NG/ML (<3.6); CPK CREATINE PHOSPHOKINASE 46 U/L (26-192); CREATININE FOR GFR 0.95 MG/DL (0.55-1.30); GLOMERULAR FILTRATION RATE > 60.0 (>58); GLUCOSE, FASTING 95 MG/DL (70-100); MB/CK RELATIVE INDEX 4.78 (< OR =4); POTASSIUM SERUM 3.9 MEQ/L (3.5-5.1); SODIUM LEVEL 138 MEQ/L (136-145); TOTAL PROTEIN 7.4 GM/DL (6.4-8.2); TROPONIN I 0.06 NG/ML (< 0.10)
== END 2019-12-22 18:23 | disposition home or self-care (01) | DRG 167 ==
LOC: M ED 14:27 → M PCU 20:50
PROVIDERS: ADMIT Internal Medicine; ATTEND Internal Medicine
PROC: 07B74ZX Excision of Thorax Lymphatic, Percutaneous Endoscopic Approach, Diagnostic (ICD-10-PCS; principal; 2019-12-20)
PROC: 0B9C8ZX Drainage of Right Upper Lung Lobe, Via Natural or Artificial Opening Endoscopic, Diagnostic (ICD-10-PCS; 2019-12-20)
DX: J18.9 Pneumonia, unspecified organism (principal); R04.2 Hemoptysis; J84.10 Pulmonary fibrosis, unspecified; I27.20 Pulmonary hypertension, unspecified; D75.1 Secondary polycythemia; M54.9 Dorsalgia, unspecified; R59.0 Localized enlarged lymph nodes; Z88.0 Allergy status to penicillin; Z99.81 Dependence on supplemental oxygen; Z88.6 Allergy status to analgesic agent

== ENCOUNTER → 2020-01-20 | Outpatient (CLI) | payer OTHER ==
[~2020-01-20] MED LIST changes: +LEVA750T7 PO; +MORP-69 PO; +MORP1SOL PO; +NEXI20CA PO; +NICO14PA TD; +PRED20TA PO
--- NOTE | 2020-02-03 08:20 | REP ---
VENTILATION PERFUSION LUNG SCAN HISTORY: Pulmonary hypertension, unspecified. TECHNIQUE: 1.0 mCi of Technetium-99m DTPA aerosol was given for the ventilation study and is followed by a 5.5 mCi intravenous dose of Technetium-99m MAA for the perfusion exam. A sequence of eight planar images are acquired for each portion of the study. COMPARISON: Chest x-ray from this date. SCINTIGRAPHIC FINDINGS: There is some central bronchial deposition of inspired ventilatory tracer and heterogeneous uptake is seen bilaterally in the lungs on ventilation study consistent with chronic obstructive pulmonary disease. There is more homogeneous perfusion uptake. There is a small matched perfusion defect in the right lung posterolaterally superior segment right lower lobe. There is another small right lower lobe match defect posteriorly. No mismatch defect is seen. IMPRESSION: Heterogeneous ventilatory uptake consistent with some degree of chronic obstructive pulmonary disease (COPD). Low probability scan for pulmonary embolus. No mismatched V/Q defect seen. MTDD
--- NOTE | 2020-02-03 08:21 | REP ---
CHEST X-RAY: 2-VIEWS HISTORY: Pulmonary arterial hypertension. COMPARISON: 12/22/2019. FINDINGS: The lungs are somewhat hyperinflated as before. No infiltrate is seen. There are calcific opacities in the right mid and lower lung garcia consistent with dystrophic calcifications. The central pulmonary arteries are somewhat prominent, question pulmonary arterial hypertension. Heart is not enlarged. Pleural angles are sharp. No focal infiltrate. No significant bony abnormality. MTDD
== END ==
LOC: M RAD 12:05
PROVIDERS: ATTEND Internal Medicine Pulmonary Disease
DX: I27.20 Pulmonary hypertension, unspecified (principal)
CPT/HCPCS: 71046; 78582; A9540; A9567

== ENCOUNTER → 2020-01-28 | Outpatient (CLI) | payer OTHER ==
--- NOTE | 2020-02-05 19:04 | SLEEPCENT ---
DATE: 01/28/2020 ORDERED BY: Marielena Carpio MD Nocturnal polysomnography was performed for evaluation of sleep physiology in this patient with a history of snoring and excessive somnolence. Seven hours and 21 minutes of data were reviewed. There was 404 minutes of sleep identified. Sleep latency was short at 2 minutes. REM latency was delayed at 178 minutes. Sleep architecture was reasonably well preserved. There were three progressively lengthening REM cycles noted. Overall sleep efficiency was 93.3%. The electrocardiogram shows a sinus rhythm with an average heart rate of 88 beats per minute. Rate ranged 58-116. EEG showed reasonably normal waveforms for wake and sleep. There was some minor alpha intrusion but no focal events were identified. There were 25 respiratory events identified of 10 seconds in duration or greater for an apnea-hypopnea index within normal range at 3.7. The events that were seen were not exclusive to position. Arousals from respiratory events occurred only 2.7 times per hour. The patient was maintained during testing on 2 liters of oxygen and no significant oxygen desaturations below 90% were identified. Snoring was seen over the course of the study and occasional limb movements. IMPRESSION: Normal nocturnal polysomnogram with snoring. [facility]
== END ==
LOC: M SLEEP 20:00
PROVIDERS: ATTEND Internal Medicine Pulmonary Disease
DX: R06.83 Snoring (principal)

== ENCOUNTER → 2020-03-20 | Outpatient (CLI) | payer OTHER ==
--- NOTE | 2020-03-20 13:50 | REP ---
INDICATION: ALEXX SCR MAMMO/Z12.39. Family history breast cancer in maternal grandmother. COMPARISON: None, baseline study. TECHNIQUE: MLO and CC views of both breasts performed, with tomosynthesis. FINDINGS: There is mild fibroglandular tissue bilaterally. There is a smoothly marginated 4 mm nodule in the outer right breast, mid 3rd. No other nodule is seen bilaterally and there is no architectural distortion. No clustered microcalcifications are seen. The Volpara volumetric breast density pattern is B. IMPRESSION: BIRADS/ACR category 0 incomplete. 4 mm smoothly marginated nodule outer right breast. Recommend spot compression views and ultrasound for further evaluation. This patient's Tyrer-Cuzick lifetime breast cancer risk assessment score is 7.7%. This mammogram was interpreted with the aid of an FDA-approved computer-aided detection system. The patient states she had a clinical breast exam in over 1 year ago. The patient letter being requested is M0. RECOMMENDATION: Recommend spot compression views and ultrasound lateral right breast. <Electronically signed by Michael Norris > 03/20/20 [id number]
== END ==
LOC: M WHC 09:09
PROVIDERS: ATTEND Nurse Practitioner Family
DX: Z12.31 Encounter for screening mammogram for malignant neoplasm of breast (principal); Z13.820 Encounter for screening for osteoporosis; Z80.3 Family history of malignant neoplasm of breast; N63.10 Unspecified lump in the right breast, unspecified quadrant

== ENCOUNTER → 2020-03-23 | Outpatient (CLI) | payer OTHER ==
--- NOTE | 2020-03-23 14:14 | REP ---
INDICATION: R92.8 ABN MAMMO RIGHT BREAST/ADDL VIEWS; R BREAST NODULE. COMPARISON: 03/20/2020. TECHNIQUE: Spot compression views right breast performed in addition to a right mL tomographic sequence. Focused right breast ultrasound performed laterally. FINDINGS: A smoothly marginated 4 mm nodule is confirmed in the lateral right breast approximately 5 cm from the nipple on the additional mammographic images. By ultrasound, at 9 o'clock position right breast, corresponding to the mammographic abnormality, is a small hypoechoic nodule 4 mm in diameter. IMPRESSION: BIRADS/ACR category 4A, low suspicion for malignancy. There is a 4 mm hypoechoic nodule in the lateral right breast at 9 o'clock approximately 4-5 cm from the nipple. This may represent a small complex cyst. Recommend ultrasound-guided sampling with postprocedure mammogram. This mammogram was interpreted with the aid of an FDA-approved computer-aided detection system. The patient letter being requested is M4. RECOMMENDATION: Recommend ultrasound-guided sampling with postprocedure mammogram. <Electronically signed by Michael Norris > 03/23/20 [id number]
== END ==
LOC: M WHC 08:47
PROVIDERS: ATTEND Nurse Practitioner Family
DX: R92.8 Other abnormal and inconclusive findings on diagnostic imaging of breast (principal); N63.10 Unspecified lump in the right breast, unspecified quadrant

== ENCOUNTER → 2020-04-20 | Outpatient (REF) | payer OTHER ==
[2020-04-20 14:47] LABS: BASO # 0.1 10^3/uL (0.0-0.2); BASO % 0.3 % (0.0-1.0); EOS # 0.1 10^3/uL (0.0-0.5); EOS % 0.4 % (0.0-3.0); HEMATOCRIT 54.9 % (36.0-47.0); HEMOGLOBIN 18.3 g/dl (12.0-15.5); LYMPH # 3.4 10^3/uL (1.5-5.0); LYMPH % 20.9 % (24.0-44.0); MEAN CORPUSCULAR HEMOGLOBIN 28.8 pg (27.0-33.0); MEAN CORPUSCULAR HGB CONC 33.3 g/dl (32.0-36.5); MEAN CORPUSCULAR VOLUME 86.5 fl (80.0-96.0); MONO # 0.9 10^3/uL (0.0-0.8); MONO % 5.3 % (0.0-5.0); NEUTROPHILS # 11.7 10^3/uL (1.5-8.5); NEUTROPHILS % 72.4 % (36.0-66.0); PLATELET COUNT, AUTOMATED 233 10^3/uL (150-450); RED BLOOD COUNT 6.35 10^6/uL (4.00-5.40); WHITE BLOOD COUNT 16.2 10^3/uL (4.0-10.0)
[2020-04-20 15:11] LABS: ALBUMIN 3.8 GM/DL (3.2-5.2); ALT/SGPT 29 U/L (12-78); BILIRUBIN,TOTAL 0.5 MG/DL (0.2-1.0); BLOOD UREA NITROGEN 11 MG/DL (7-18); CALCIUM LEVEL 9.5 MG/DL (8.5-10.1); CARBON DIOXIDE LEVEL 29 MEQ/L (21-32); CHLORIDE LEVEL 100 MEQ/L (98-107); CHOLESTEROL LEVEL 131 MG/DL (<200); CHOLESTEROL RISK RATIO 1.845 (<5); CREATININE FOR GFR 0.96 MG/DL (0.55-1.30); GLOMERULAR FILTRATION RATE > 60.0 (>58); GLUCOSE, FASTING 94 MG/DL (70-100); HDL CHOLESTEROL 71 MG/DL (>40); LDL CHOLESTEROL 50 MG/DL (<100); NON-HDL-C 60 MG/DL; SODIUM LEVEL 135 MEQ/L (136-145); TOTAL PROTEIN 7.2 GM/DL (6.4-8.2); TRIGLYCERIDES LEVEL 48 MG/DL (<150)
[2020-04-20 15:17] LABS: PTH INTACT 87.5 PG/ML (18.5-88.0); TOTAL 25(OH) VITAMIN D 14.4 NG/ML (30.0-100.0)
== END ==
LOC: M SFHCPLAZ 11:41
PROVIDERS: ATTEND Nurse Practitioner Family
DX: D75.1 Secondary polycythemia (principal); M81.0 Age-related osteoporosis without current pathological fracture; Z13.220 Encounter for screening for lipoid disorders; E55.9 Vitamin D deficiency, unspecified
CPT/HCPCS: 36415; 80053; 80061; 82306; 82668; 83970; 85025; G0463

== ENCOUNTER → 2020-05-09 | Outpatient (CLI) | payer OTHER ==
--- NOTE | 2020-05-09 14:45 | REP ---
INDICATION: R92.8 ABN MAMMO RT BREAST,US GUIDED BIOPSY. COMPARISON: 03/23/2020. TECHNIQUE: Real-time sonographic evaluation of right breast performed. FINDINGS: Sonographic images show a hypoechoic nodule in the right breast at approximately the 9 o'clock position, as seen on prior study, approximately 3 mm in diameter. Ultrasound guidance was provided for Dr. Quijano who performed ultrasound-guided aspiration. IMPRESSION: Ultrasound guidance provided for Dr. Quijano who performed ultrasound-guided aspiration of right breast nodule at 9 o'clock approximately 4 cm from the nipple. RECOMMENDATION: Clinical follow-up. <Electronically signed by Michael Norris > 05/09/20 [id number]
--- NOTE | 2020-05-09 14:47 | REP ---
INDICATION: N63.20 PALPABLE DENSER TISSUE LT BREAST 1:00 6CM FROM NIPPLE. COMPARISON: Mammogram 03/20/2020. TECHNIQUE: Real-time sonographic evaluation of left breast performed. FINDINGS: Real-time sonographic evaluation of left breast performed at the site of the reported palpable abnormality 1 o'clock position 6 mm from the nipple. No discrete cystic or solid nodule is seen in this region. IMPRESSION: BIRADS/ACR category 1, negative ultrasound left breast in the 1 o'clock region at the site of the reported palpable lump. No cystic or solid nodule. RECOMMENDATION: Clinical follow-up. <Electronically signed by Michael Norris > 05/09/20 [id number]
--- NOTE | 2020-05-09 14:50 | REP ---
INDICATION: R92.8 ABN MAMMO RT BREAST,US GUIDED BIOPSY,POST BIOPSY. COMPARISON: 03/23/2020 and 03/20/2020. TECHNIQUE: ML and CC views right breast performed s/p ultrasound-guided aspiration of a subcentimeter hypoechoic nodule in the lateral right breast. FINDINGS: The nodule that was identified on the prior mammograms is no longer visualized. IMPRESSION: Previously noted nodule in the lateral right breast on the mammograms of 03/23/2020 and 03/20/2020 is no longer visualized status post ultrasound-guided aspiration. RECOMMENDATION: Clinical follow-up. <Electronically signed by Michael Norris > 05/09/20 [id number]
[2020-05-09 15:02] VITALS: BP 128/80
--- NOTE | 2020-05-10 21:43 | ROOPDOC ---
[facility] Report Of Operation Report of Operation Date of the procedure:05/09/20 Diagnosis: Right breast complex cyst Procedure:Ultrasound guided aspiration of Right complex cyst Proceduralist: Torres Quiroga D.O. EBL: minimal Lidocaine 1% LOT [id number] Expiration: 08/2023 Sodium Bicarbonate 8.4% LOT [id number] Expiration: 02/2021 Procedure details: Informed consent was obtained. The most common risk and possible complications including bleeding, hematoma, bruising, infection, injury to surrounding structures were explained to the patient and she expressed understanding. Patient was taken to the procedure room and placed on the bed in the supine. Appropriate time out was done stating patients name, date of , and the procedure to be performed. The right breast was prepped and draped in the usual fashion. The ultrasound was used to confirm the location of the complex cyst in the right breast at 9:00 4 centimeters from the nipple. Plain Lidocaine 1% and 8.4% sodium bicarbonate 10:1 mix was used to numb the skin, and tissues along the anticipated aspiration tract. 18 G needle was used to aspirate cyst under direct ultrasound guidance. 1 cc of aspirated fluid had some debris in it and was sent for cytology. The cystic structure completely collapsed and images were captured. Manual pressure over the cyst aspiration site and tract was held. No bleeding was noted upon removal of the pressure. Postaspiration right breast mammogram was done and showed resolution of the mammographic abnormality. Patient tolerated procedure well. Discharge instructions were discussed with the patient and she expressed understanding. TORRES QUIROGA DO May 10, 2020 21:43
== END ==
LOC: M WHCPRO 12:48
PROVIDERS: ATTEND Surgery
DX: N60.01 Solitary cyst of right breast (principal)

== ENCOUNTER → 2020-05-17 | Outpatient (CLI) | payer OTHER | LOC: M PLALAB 14:38 | PROVIDERS: ATTEND Surgery | DX: Z13.79 Encounter for other screening for genetic and chromosomal anomalies (principal) ==

== ENCOUNTER → 2020-06-08 | Outpatient (CLI) | payer OTHER ==
--- NOTE | 2020-06-10 04:37 | REP ---
INDICATION: INTERSISTITIAL PULM DISEASE COMPARISON: 12/19/2019 TECHNIQUE: Axial noncontrast images from the thoracic inlet to the upper abdomen with coronal and sagittal reformations. This CT examination was performed using the following dose reduction techniques: Automated exposure control, adjustment of mA and/or kv according to the patient's size, and use of iterative reconstruction technique. FINDINGS: The lung garcia demonstrate mild/early moderate persistent emphysematous changes with mild bronchiectasis along with very subtle early subpleural fibrosis and scattered ground-glass opacities which remains stable. Area of linear scarring along the lateral aspect of the right mid lung zone unchanged. Previously noted right perihilar infiltrate and small right upper lobe posterior/subpleural opacity along with right hilar adenopathy have resolved. No new significant consolidation, obvious nodule or mass lesion. No effusion or pneumothorax. Mediastinal and pretracheal lymph nodes measuring up to 15 mm short axis diameter again identified and unchanged. Moderately dilated main pulmonary arteries again noted suggesting pulmonary arterial hypertension. Thoracic aorta and heart/pericardium are normal. Surrounding musculoskeletal structures are intact. Limited upper abdomen demonstrates normal bilateral adrenal glands and evidence for cholelithiasis. IMPRESSION: 1. Mild/early moderate emphysematous changes with very subtle subpleural fibrosis and scattered ground-glass opacities again noted and unchanged. Associated mediastinal lymph nodes up to 15 mm and bronchiectasis are also again identified and unchanged. 2. Previously noted right perihilar infiltrate, right hilar adenopathy and small posterior right upper lobe subpleural opacity have resolved. 3. No new acute mediastinal or pleuroparenchymal process identified. 4. Chronically dilated main pulmonary arteries raising the possibility of pulmonary arterial hypertension. <Electronically signed by Delon Nolen > 06/10/20 043
== END ==
LOC: M RAD 10:39
PROVIDERS: ATTEND Internal Medicine Pulmonary Disease
DX: J84.9 Interstitial pulmonary disease, unspecified (principal)

== ENCOUNTER 2020-07-12 10:04 | Emergency (ER) | payer OTHER ==
[~2020-07-12] VITALS: Ht 152.4 cm; Wt 61.3 kg
[2020-07-12 10:50] LABS: BASO % 0.3 % (0.0-1.0); EOS % 0.4 % (0.0-3.0); HEMOGLOBIN 17.2 g/dl (12.0-15.5); LYMPH # 1.1 10^3/uL (1.5-5.0); MEAN CORPUSCULAR HEMOGLOBIN 28.7 pg (27.0-33.0); MEAN CORPUSCULAR HGB CONC 33.7 g/dl (32.0-36.5); MEAN CORPUSCULAR VOLUME 85.1 fl (80.0-96.0); MONO # 0.4 10^3/uL (0.0-0.8); NEUTROPHILS # 7.4 10^3/uL (1.5-8.5); NEUTROPHILS % 82.9 % (36.0-66.0); PLATELET COUNT, AUTOMATED 213 10^3/uL (150-450); RED BLOOD COUNT 5.99 10^6/uL (4.00-5.40); WHITE BLOOD COUNT 8.9 10^3/uL (4.0-10.0)
[2020-07-12] MEDS ORDERED: SPIR-10 PO (10:50)
[2020-07-12] MEDS ORDERED: TADA20TA (10:50)
[2020-07-12] MEDS ORDERED: TORS10TA3 (10:50)
--- NOTE | 2020-07-12 10:52 | REP ---
INDICATION: CHEST PAIN COMPARISON: 01/20/2020 TECHNIQUE: Portable AP view of the chest FINDINGS: The mediastinum and cardiac silhouette are stable and within normal limits for portable technique. The lung garcia demonstrate stable chronic appearing changes without acute consolidation, effusion, or pneumothorax. Skeletal structures are intact. IMPRESSION: No acute cardiopulmonary process appreciated. <Electronically signed by Delon Nolen > 07/12/20 1044
[2020-07-12] MEDS ORDERED: AMBR10TA (10:53)
[2020-07-12] MEDS ORDERED: FLOV100A (10:53)
[2020-07-12] MEDS ORDERED: TOBROPO (10:53)
[2020-07-12 11:23] LABS: ALBUMIN 3.5 GM/DL (3.2-5.2); BILIRUBIN,DIRECT 0.1 MG/DL (0.0-0.2); BILIRUBIN,TOTAL 0.4 MG/DL (0.2-1.0); THYROID STIMULATING HORMONE 0.767 uIU/ML (0.358-3.740); TOTAL PROTEIN 6.6 GM/DL (6.4-8.2)
[2020-07-12 13:48] VITALS: BP 137/84
--- NOTE | 2020-07-12 17:28 | ECGEPIP ---
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
== END 2020-07-12 13:53 | disposition home or self-care (01) ==
LOC: M ED 10:04
DX: R07.9 Chest pain, unspecified (principal); I27.20 Pulmonary hypertension, unspecified; Z79.51 Long term (current) use of inhaled steroids; Z79.899 Other long term (current) drug therapy; Z79.891 Long term (current) use of opiate analgesic; Z87.891 Personal history of nicotine dependence; Z88.0 Allergy status to penicillin; Z88.1 Allergy status to other antibiotic agents; Z88.6 Allergy status to analgesic agent

== ENCOUNTER → 2020-09-07 | Outpatient (REF) | payer OTHER ==
[~2020-09-07] MED LIST changes: +AMBR10TA; +FLOV100A; +SPIR-10 PO; +TADA20TA; +TOBROPO; +TORS10TA3
[2020-09-07 12:36] LABS: BASO % 0.3 % (0.0-1.0); EOS # 0.1 10^3/uL (0.0-0.5); EOS % 0.9 % (0.0-3.0); HEMATOCRIT 55.5 % (36.0-47.0); HEMOGLOBIN 18.3 g/dl (12.0-15.5); LYMPH # 3.5 10^3/uL (1.5-5.0); LYMPH % 28.5 % (24.0-44.0); MEAN CORPUSCULAR HEMOGLOBIN 29.2 pg (27.0-33.0); MEAN CORPUSCULAR VOLUME 88.5 fl (80.0-96.0); MONO # 0.7 10^3/uL (0.0-0.8); MONO % 5.5 % (2.0-8.0); NEUTROPHILS # 7.9 10^3/uL (1.5-8.5); NEUTROPHILS % 64.1 % (36.0-66.0); PLATELET COUNT, AUTOMATED 235 10^3/uL (150-450); RED BLOOD COUNT 6.27 10^6/uL (4.00-5.40); WHITE BLOOD COUNT 12.3 10^3/uL (4.0-10.0)
[2020-09-07 12:52] LABS: ALT/SGPT 22 U/L (12-78); BLOOD UREA NITROGEN 12 MG/DL (7-18); CARBON DIOXIDE LEVEL 29 MEQ/L (21-32); CHLORIDE LEVEL 103 MEQ/L (98-107); CREATININE FOR GFR 0.81 MG/DL (0.55-1.30); GLOMERULAR FILTRATION RATE > 60.0 (>58); GLUCOSE, FASTING 97 MG/DL (70-100); SODIUM LEVEL 139 MEQ/L (136-145)
[2020-09-07 12:53] LABS: ALBUMIN 3.5 GM/DL (3.2-5.2); BILIRUBIN,TOTAL 0.3 MG/DL (0.2-1.0); C REACTIVE PROTEIN QUANTITATIV 1.91 MG/DL (0.00-0.30); NT-PRO BNP 134 PG/ML (<125); TOTAL PROTEIN 6.8 GM/DL (6.4-8.2)
[2020-09-07 13:42] LABS: ERYTHROCYTE SEDIMENTATION RATE 1 mm/hr (0-20)
== END ==
LOC: M PLALAB 11:33
PROVIDERS: ATTEND Internal Medicine Pulmonary Disease
DX: J84.9 Interstitial pulmonary disease, unspecified (principal)

== ENCOUNTER → 2020-10-12 | Outpatient (CLI) | payer OTHER ==
[2020-10-12 11:23] LABS: HEMATOCRIT 53.5 % (36.0-47.0); HEMOGLOBIN 17.3 g/dl (12.0-15.5); MEAN CORPUSCULAR HEMOGLOBIN 28.8 pg (27.0-33.0); MEAN CORPUSCULAR HGB CONC 32.3 g/dl (32.0-36.5); PLATELET COUNT, AUTOMATED 213 10^3/uL (150-450); RED BLOOD COUNT 6.01 10^6/uL (4.00-5.40); WHITE BLOOD COUNT 11.2 10^3/uL (4.0-10.0)
[2020-10-12 13:47] LABS: BLOOD UREA NITROGEN 13 MG/DL (7-18); CALCIUM LEVEL 9.3 MG/DL (8.5-10.1); CARBON DIOXIDE LEVEL 27 MEQ/L (21-32); CHLORIDE LEVEL 104 MEQ/L (98-107); FERRITIN 50 NG/ML (8-252); GLOMERULAR FILTRATION RATE > 60.0 (>58); GLUCOSE, FASTING 121 MG/DL (70-100); IRON (FE) 48 UG/DL (50-170); NT-PRO BNP 96 PG/ML (<125); PERCENT SATURATION 16.2 % (13.2-45.0); POTASSIUM SERUM 4.7 MEQ/L (3.5-5.1); SODIUM LEVEL 137 MEQ/L (136-145); TOTAL IRON BINDING CAPACITY 297 UG/DL (250-450)
== END ==
LOC: M LAB 09:55
PROVIDERS: ATTEND Internal Medicine
DX: I50.9 Heart failure, unspecified (principal)

== ENCOUNTER → 2020-10-24 | Outpatient (CLI) | payer OTHER ==
[2020-10-24 14:03] LABS: HEMATOCRIT 57.7 % (36.0-47.0); HEMOGLOBIN 19.1 g/dl (12.0-15.5); MEAN CORPUSCULAR HGB CONC 33.1 g/dl (32.0-36.5); MEAN CORPUSCULAR VOLUME 87.6 fl (80.0-96.0); PLATELET COUNT, AUTOMATED 228 10^3/uL (150-450); RED BLOOD COUNT 6.59 10^6/uL (4.00-5.40); WHITE BLOOD COUNT 11.5 10^3/uL (4.0-10.0)
[2020-10-24 14:34] LABS: BLOOD UREA NITROGEN 17 MG/DL (7-18); CALCIUM LEVEL 9.2 MG/DL (8.5-10.1); CARBON DIOXIDE LEVEL 34 MEQ/L (21-32); CHLORIDE LEVEL 98 MEQ/L (98-107); CREATININE FOR GFR 0.94 MG/DL (0.55-1.30); GLOMERULAR FILTRATION RATE > 60.0 (>58); GLUCOSE, FASTING 100 MG/DL (70-100); NT-PRO BNP 130 PG/ML (<125); POTASSIUM SERUM 3.8 MEQ/L (3.5-5.1); SODIUM LEVEL 136 MEQ/L (136-145)
== END ==
LOC: M PLALAB 10:55
PROVIDERS: ATTEND Internal Medicine
DX: I50.9 Heart failure, unspecified (principal)

== ENCOUNTER → 2020-10-30 | Outpatient (CLI) | payer OTHER ==
[~2020-10-30] MED LIST changes: +ISOVUE-370 76% 100ML VIAL As Ordered ONE
--- NOTE | 2020-10-30 09:23 | REP ---
INDICATION: CHEST PAIN ON BREATHING COMPARISON: 06/08/2020, 12/19/2019 TECHNIQUE: Axial contrast enhanced images from the thoracic inlet to the upper abdomen using pulmonary embolus technique with multiplanar re-formations. 75 ml Isovue 370 intravenous contrast material administered without complication. This CT examination was performed using the following dose reduction techniques: Automated exposure control, adjustment of mA and/or kv according to the patient's size, and use of iterative reconstruction technique. FINDINGS: Satisfactory enhancement of the pulmonary vasculature is achieved and no filling defects are identified to suggest pulmonary embolus. Right and left pulmonary arteries measure roughly 2.4 cm diameter suggesting chronic pulmonary hypertension. Further evaluation of the mediastinum demonstrates normal thoracic aorta, heart and pericardium. The bilateral lung garcia are well aerated and again demonstrate relatively stable chronic interstitial changes with mild bronchiectasis and minimal scattered scarring/peripheral ground-glass opacities. Postsurgical changes along the lateral aspect of the right mid lung zone again noted. No acute consolidation, significant nodule or mass. No effusion. No pneumothorax. Mediastinal and hilar adenopathy again noted and relatively unchanged. IMPRESSION: 1. No evidence for pulmonary embolus. 2. Chronic interstitial changes with chronic moderate adenopathy. 3. No obvious new, acute mediastinal or pleuroparenchymal process appreciated. <Electronically signed by Delon Nolen > 10/30/20 [id number]
== END ==
LOC: M RAD 08:09
PROVIDERS: ATTEND Internal Medicine Pulmonary Disease
DX: R07.1 Chest pain on breathing (principal)

== ENCOUNTER → 2020-11-09 | Outpatient (CLI) | payer OTHER ==
[~2020-11-09] MED LIST changes: -ISOVUE-370 76% 100ML VIAL As Ordered ONE
[2020-11-09 14:29] LABS: HEMOGLOBIN A1c 5.8 %
== END ==
LOC: M PLALAB 11:39
PROVIDERS: ATTEND Nurse Practitioner Family
DX: Z79.52 Long term (current) use of systemic steroids (principal)

== ENCOUNTER → 2020-11-09 | Outpatient (CLI) | payer OTHER ==
[2020-11-09 13:32] LABS: HEMATOCRIT 54.5 % (36.0-47.0); HEMOGLOBIN 18.1 g/dl (12.0-15.5); MEAN CORPUSCULAR HEMOGLOBIN 29.3 pg (27.0-33.0); MEAN CORPUSCULAR HGB CONC 33.2 g/dl (32.0-36.5); MEAN CORPUSCULAR VOLUME 88.2 fl (80.0-96.0); PLATELET COUNT, AUTOMATED 202 10^3/uL (150-450); RED BLOOD COUNT 6.18 10^6/uL (4.00-5.40); WHITE BLOOD COUNT 12.2 10^3/uL (4.0-10.0)
[2020-11-09 14:16] LABS: BLOOD UREA NITROGEN 16 MG/DL (7-18); CALCIUM LEVEL 9.9 MG/DL (8.5-10.1); CARBON DIOXIDE LEVEL 33 MEQ/L (21-32); CHLORIDE LEVEL 95 MEQ/L (98-107); CREATININE FOR GFR 0.91 MG/DL (0.55-1.30); GLOMERULAR FILTRATION RATE > 60.0 (>58); GLUCOSE, FASTING 109 MG/DL (70-100); NT-PRO BNP 124 PG/ML (<125); POTASSIUM SERUM 4.6 MEQ/L (3.5-5.1); SODIUM LEVEL 135 MEQ/L (136-145)
== END ==
LOC: M PLALAB 11:37
PROVIDERS: ATTEND Internal Medicine
DX: I50.9 Heart failure, unspecified (principal)

== ENCOUNTER → 2020-12-21 | Outpatient (CLI) | payer OTHER ==
[2020-12-21 13:35] LABS: HEMATOCRIT 56.6 % (36.0-47.0); HEMOGLOBIN 19.1 g/dl (12.0-15.5); MEAN CORPUSCULAR HEMOGLOBIN 29.1 pg (27.0-33.0); MEAN CORPUSCULAR HGB CONC 33.7 g/dl (32.0-36.5); MEAN CORPUSCULAR VOLUME 86.3 fl (80.0-96.0); PLATELET COUNT, AUTOMATED 252 10^3/uL (150-450); RED BLOOD COUNT 6.56 10^6/uL (4.00-5.40)
[2020-12-21 14:06] LABS: BLOOD UREA NITROGEN 22 MG/DL (7-18); CARBON DIOXIDE LEVEL 28 MEQ/L (21-32); CHLORIDE LEVEL 100 MEQ/L (98-107); CREATININE FOR GFR 1.04 MG/DL (0.55-1.30); FERRITIN 121 NG/ML (8-252); GLOMERULAR FILTRATION RATE > 60.0 (>58); GLUCOSE, FASTING 117 MG/DL (70-100); IRON (FE) 69 UG/DL (50-170); NT-PRO BNP 54 PG/ML (<125); PERCENT SATURATION 22.7 % (13.2-45.0); SODIUM LEVEL 135 MEQ/L (136-145); TOTAL IRON BINDING CAPACITY 304 UG/DL (250-450)
== END ==
LOC: M PLALAB 10:10
PROVIDERS: ATTEND Internal Medicine
DX: D50.9 Iron deficiency anemia, unspecified (principal)

== ENCOUNTER → 2021-03-11 | Outpatient (CLI) | payer OTHER ==
[~2021-03-11] MED LIST changes: -TADA20TA; +TADA20TA29
[2021-03-11 13:29] LABS: BASO % 0.3 % (0.0-1.0); EOS % 0.1 % (0.0-3.0); HEMATOCRIT 50.2 % (36.0-47.0); HEMOGLOBIN 16.8 g/dl (12.0-15.5); LYMPH # 0.9 10^3/uL (1.5-5.0); LYMPH % 7.6 % (24.0-44.0); MEAN CORPUSCULAR HEMOGLOBIN 29.8 pg (27.0-33.0); MEAN CORPUSCULAR HGB CONC 33.5 g/dl (32.0-36.5); MONO # 0.4 10^3/uL (0.0-0.8); MONO % 3.5 % (2.0-8.0); NEUTROPHILS # 10.6 10^3/uL (1.5-8.5); NEUTROPHILS % 87.6 % (36.0-66.0); PLATELET COUNT, AUTOMATED 226 10^3/uL (150-450); RED BLOOD COUNT 5.64 10^6/uL (4.00-5.40); WHITE BLOOD COUNT 12.1 10^3/uL (4.0-10.0)
== END ==
LOC: M PLALAB 11:18
DX: D58.2 Other hemoglobinopathies (principal); Z91.89 Other specified personal risk factors, not elsewhere classified

== ENCOUNTER → 2021-03-11 | Outpatient (CLI) | payer OTHER ==
[2021-03-11 13:30] LABS: BASO % 0.3 % (0.0-1.0); EOS % 0.2 % (0.0-3.0); HEMATOCRIT 49.6 % (36.0-47.0); HEMOGLOBIN 16.8 g/dl (12.0-15.5); LYMPH % 7.9 % (24.0-44.0); MEAN CORPUSCULAR HGB CONC 33.9 g/dl (32.0-36.5); MEAN CORPUSCULAR VOLUME 88.6 fl (80.0-96.0); MONO # 0.4 10^3/uL (0.0-0.8); NEUTROPHILS # 10.8 10^3/uL (1.5-8.5); NEUTROPHILS % 87.7 % (36.0-66.0); PLATELET COUNT, AUTOMATED 227 10^3/uL (150-450); WHITE BLOOD COUNT 12.3 10^3/uL (4.0-10.0)
[2021-03-11 14:14] LABS: HEMOGLOBIN A1c 5.5 %
[2021-03-11 14:19] LABS: ALBUMIN 3.5 GM/DL (3.2-5.2); ALT/SGPT 43 U/L (12-78); BILIRUBIN,TOTAL 0.5 MG/DL (0.2-1.0); BLOOD UREA NITROGEN 14 MG/DL (7-18); CALCIUM LEVEL 9.3 MG/DL (8.5-10.1); CARBON DIOXIDE LEVEL 31 MEQ/L (21-32); CHLORIDE LEVEL 98 MEQ/L (98-107); CREATININE FOR GFR 0.89 MG/DL (0.55-1.30); GLOMERULAR FILTRATION RATE > 60.0 (>58); GLUCOSE, FASTING 109 MG/DL (70-100); POTASSIUM SERUM 3.8 MEQ/L (3.5-5.1); PTH INTACT 97.6 PG/ML (18.5-88.0); SODIUM LEVEL 136 MEQ/L (136-145); TOTAL 25(OH) VITAMIN D 19.8 NG/ML (30.0-100.0); TOTAL PROTEIN 6.8 GM/DL (6.4-8.2)
== END ==
LOC: M PLALAB 11:26
PROVIDERS: ATTEND Nurse Practitioner Family
DX: R73.01 Impaired fasting glucose (principal)

== ENCOUNTER → 2021-03-11 | Outpatient (CLI) | payer OTHER ==
[2021-03-11 13:21] LABS: HEMATOCRIT 49.9 % (36.0-47.0); HEMOGLOBIN 16.8 g/dl (12.0-15.5); MEAN CORPUSCULAR HEMOGLOBIN 29.8 pg (27.0-33.0); MEAN CORPUSCULAR HGB CONC 33.7 g/dl (32.0-36.5); MEAN CORPUSCULAR VOLUME 88.5 fl (80.0-96.0); PLATELET COUNT, AUTOMATED 225 10^3/uL (150-450); RED BLOOD COUNT 5.64 10^6/uL (4.00-5.40); WHITE BLOOD COUNT 12.2 10^3/uL (4.0-10.0)
[2021-03-11 14:02] LABS: BLOOD UREA NITROGEN 14 MG/DL (7-18); CARBON DIOXIDE LEVEL 32 MEQ/L (21-32); CHLORIDE LEVEL 99 MEQ/L (98-107); CREATININE FOR GFR 0.84 MG/DL (0.55-1.30); FERRITIN 145 NG/ML (8-252); GLOMERULAR FILTRATION RATE > 60.0 (>58); GLUCOSE, FASTING 110 MG/DL (70-100); IRON (FE) 44 UG/DL (50-170); NT-PRO BNP 319 PG/ML (<125); PERCENT SATURATION 16.8 % (13.2-45.0); POTASSIUM SERUM 3.9 MEQ/L (3.5-5.1); SODIUM LEVEL 136 MEQ/L (136-145); TOTAL IRON BINDING CAPACITY 262 UG/DL (250-450)
== END ==
LOC: M PLALAB 11:23
PROVIDERS: ATTEND Internal Medicine
DX: D50.9 Iron deficiency anemia, unspecified (principal)

== ENCOUNTER 2021-04-24 09:20 | Outpatient (CLI) | payer OTHER ==
[~2021-04-24] VITALS: Ht 165.1 cm; Wt 61.0 kg
[~2021-04-24 09:20] MED LIST changes: +ALBUTEROL 90 MCG/ACT 8GM HFA INHALER INH PRN; +ALBUTEROL SULFATE 2.5 MG/0.5 ML INH NEB SOLN INH PRN; +EPINEPHrine INJ 1 MG/ML 1ML AMP IM PRN; +diphenhydrAMINE 50MG/ML VIAL (J1200) IV PRN; +methylPREDNISolone 125MG 2ML VIAL IV PRN
[2021-04-24] MEDS ORDERED: diphenhydrAMINE 50MG/ML VIAL (J1200) IV ONE (09:30)
[2021-04-24] MEDS ORDERED: CASIRIVIMAB/IMDEVIMAB 1,200 MG in NS 250 ML IV ONE (09:30)
[2021-04-24 09:49] VITALS: BP 125/78
[2021-04-24 10:19] VITALS: BP 145/69
[2021-04-24 10:49] VITALS: BP 145/85
[2021-04-24 11:49] VITALS: BP 132/68
== END 2021-04-24 11:49 | disposition home or self-care (01) ==
LOC: M OPCLI4PR 09:20
PROVIDERS: ATTEND Internal Medicine Pulmonary Disease
DX: U07.1 COVID-19 (principal); Z88.0 Allergy status to penicillin; Z88.1 Allergy status to other antibiotic agents; Z88.6 Allergy status to analgesic agent
CPT/HCPCS: 96375; J1200; M0243

== ENCOUNTER → 2021-06-01 | Outpatient (REF) ==
[~2021-06-01] MED LIST changes: -ALBUTEROL 90 MCG/ACT 8GM HFA INHALER INH PRN; -ALBUTEROL SULFATE 2.5 MG/0.5 ML INH NEB SOLN INH PRN; -EPINEPHrine INJ 1 MG/ML 1ML AMP IM PRN; -LEVO500T3; +LEVO500T4; -diphenhydrAMINE 50MG/ML VIAL (J1200) IV PRN; -methylPREDNISolone 125MG 2ML VIAL IV PRN
== END ==
LOC: M LABSMTC 10:11
PROVIDERS: ATTEND Pediatrics
DX: Z11.52 Encounter for screening for COVID-19 (principal)

== ENCOUNTER 2021-07-23 06:27 | Inpatient (IN) | payer OTHER ==
[~2021-07-23] VITALS: Ht 149.9 cm; Wt 60.8 kg
[2021-07-23 08:12] LABS: BASO # 0.1 10^3/uL (0.0-0.2); BASO % 0.3 % (0.0-1.0); EOS # 0.1 10^3/uL (0.0-0.5); EOS % 0.3 % (0.0-3.0); HEMATOCRIT 47.5 % (36.0-47.0); HEMOGLOBIN 16.2 g/dl (12.0-15.5); LYMPH # 2.4 10^3/uL (1.5-5.0); LYMPH % 13.3 % (24.0-44.0); MEAN CORPUSCULAR HEMOGLOBIN 29.9 pg (27.0-33.0); MEAN CORPUSCULAR HGB CONC 34.1 g/dl (32.0-36.5); MEAN CORPUSCULAR VOLUME 87.6 fl (80.0-96.0); MONO # 1.1 10^3/uL (0.0-0.8); MONO % 5.9 % (2.0-8.0); NEUTROPHILS # 14.4 10^3/uL (1.5-8.5); NEUTROPHILS % 78.4 % (36.0-66.0); PLATELET COUNT, AUTOMATED 252 10^3/uL (150-450); RED BLOOD COUNT 5.42 10^6/uL (4.00-5.40); WHITE BLOOD COUNT 18.4 10^3/uL (4.0-10.0)
[2021-07-23 08:23] LABS: INR 0.91; PROTHROMBIN TIME 12.7 SECONDS (12.7-14.5)
[2021-07-23 08:24] LABS: PARTIAL THROMBOPLASTIN TIME 24.2 SECONDS (25.9-37.0)
[2021-07-23 08:27] LABS: ABG HCO3 31.8 MEQ/L (22.0-26.0); ABG O2 SATURATION 96.6 % (95.0-99.0); ABG PARTIAL PRESSURE CO2 49.4 mmHg (35.0-45.0); ABG PARTIAL PRESSURE O2 80.5 mmHg (75.0-100.0); ABG STANDARD HCO3 29.9 MEQ/L (22.0-26.0); ABG TOTAL CO2 33.3 MEQ/L (22.0-29.0); ABG pH (ARTERIAL) 7.426 UNITS (7.350-7.450)
[2021-07-23 08:35] LABS: CK-MB VALUE MASS 3.6 NG/ML (<3.6); MB/CK RELATIVE INDEX 6.67 (< OR =4)
[2021-07-23] MEDS ORDERED: fentaNYL 100 MCG/2 ML INJECTION IV ONE ×3 (08:40→13:40)
[2021-07-23] MEDS ORDERED: FLEET ENEMA PR SCH (09:00)
[2021-07-23 09:54] LABS: CK-MB VALUE MASS 3.3 NG/ML (<3.6); MB/CK RELATIVE INDEX 3.11 (< OR =4)
[2021-07-23 09:57] LABS: ALBUMIN 3.5 GM/DL (3.2-5.2); ALT/SGPT 42 U/L (12-78); BILIRUBIN,DIRECT 0.2 MG/DL (0.0-0.2); BILIRUBIN,TOTAL 0.5 MG/DL (0.2-1.0); BLOOD UREA NITROGEN 19 MG/DL (7-18); CALCIUM LEVEL 9.3 MG/DL (8.5-10.1); CARBON DIOXIDE LEVEL 39 MEQ/L (21-32); CHLORIDE LEVEL 96 MEQ/L (98-107); GLOMERULAR FILTRATION RATE > 60.0 (>58); GLUCOSE, FASTING 83 MG/DL (70-100); HCG, SERUM QUALITATIVE NEGATIVE (NEGATIVE); NT-PRO BNP 299 PG/ML (<125); POTASSIUM SERUM 3.6 MEQ/L (3.5-5.1); SODIUM LEVEL 137 MEQ/L (136-145); TOTAL PROTEIN 6.6 GM/DL (6.4-8.2)
[2021-07-23 10:06] LABS: LIPASE 116 U/L (73-393)
[2021-07-23] MEDS: fentaNYL 100 MCG/2 ML INJECTION IV PRN ×2 (16:10→20:14)
[2021-07-23] MEDS ORDERED: methylPREDNISolone 125MG 2ML VIAL IV ONE (16:15)
[2021-07-23] MEDS ORDERED: FUROSEMIDE 100MG/10ML VIAL (J1940) IV ONE (16:15)
[2021-07-23] MEDS ORDERED: AMBR10TA PO (16:53)
[2021-07-23] MEDS ORDERED: METO25TA4 PO (16:53)
[2021-07-23] MEDS ORDERED: OXYC-1 PO (16:53)
[2021-07-23] MEDS ORDERED: PRED20TA PO (16:53)
[2021-07-23] MEDS ORDERED: ALBU83IN INH (16:53)
[2021-07-23] MEDS ORDERED: SPIR-10 PO (16:53)
[2021-07-23] MEDS ORDERED: OMEP1CAP73 PO (16:53)
[2021-07-23] MEDS ORDERED: [UNRECOGNIZED DRUG - CODE] PO (16:53)
[2021-07-23] MEDS ORDERED: PRED5TA PO (16:53)
[2021-07-23] MEDS ORDERED: MORP1SOL SL (16:53)
[2021-07-23] MEDS ORDERED: ALPR1TAB3 PO (16:53)
[2021-07-23] MEDS ORDERED: IPRA2IN NEB (16:53)
[2021-07-23] MEDS ORDERED: TORS20TA2 PO (16:53)
[2021-07-23] MEDS ORDERED: NEOM1SOL19 TOP (16:53)
[2021-07-23] MEDS ORDERED: MORP-69 PO (16:53)
[2021-07-23] MEDS ORDERED: VENTAER INH (16:53)
[2021-07-23] MEDS ORDERED: HOME MED LIST COMPLETE! XX SCH (16:55)
[2021-07-23] MEDS ORDERED: BISACODYL 10 MG SUPP PR PRN (19:15)
[2021-07-23] MEDS ORDERED: ONDANSETRON 4 MG ORAL DISINTEGRATING TAB PO PRN (19:15)
[2021-07-23] MEDS ORDERED: LORazepam 1 MG TAB PO PRN (19:15)
[2021-07-23] MEDS ORDERED: IPRATROPIUM 0.5MG/ALBUTEROL 2.5MG INH SOL UD 3ML (DUONEB) NEB PRN (19:20)
[2021-07-23] MEDS ORDERED: fentaNYL 100 MCG/HR PATCH TOP SCH (21:00)
[2021-07-23] MEDS: DOCUSATE SODIUM 100MG CAPSULE PO SCH (21:25)
[2021-07-23] MEDS: HYDROmorphone 2 MG TAB PO PRN (21:35)
[2021-07-24] MEDS: ALPRAZolam 0.5 MG TAB PO PRN ×3 (00:11→18:46)
[2021-07-24] MEDS: HYDROmorphone 2 MG TAB PO PRN ×4 (01:25→20:17)
[2021-07-24] MEDS ORDERED: HYDROmorphone 2 MG TAB PO ONE (03:45)
[2021-07-24] MEDS ORDERED: PILL CUTTER 1 EACH XX PRN (05:35)
[2021-07-24] MEDS ORDERED: HYDROmorphone 2 MG TAB PO PRN (07:40)
[2021-07-24] MEDS: predniSONE 20 MG TAB PO SCH (09:16)
[2021-07-24] MEDS: DOCUSATE SODIUM 100MG CAPSULE PO SCH ×2 (09:16→20:16)
[2021-07-24 10:41] LABS: BASO % 0.1 % (0.0-1.0); EOS % 0.1 % (0.0-3.0); HEMATOCRIT 47.4 % (36.0-47.0); HEMOGLOBIN 16.2 g/dl (12.0-15.5); LYMPH # 1.6 10^3/uL (1.5-5.0); LYMPH % 10.9 % (24.0-44.0); MEAN CORPUSCULAR HEMOGLOBIN 29.5 pg (27.0-33.0); MEAN CORPUSCULAR HGB CONC 34.2 g/dl (32.0-36.5); MEAN CORPUSCULAR VOLUME 86.2 fl (80.0-96.0); MONO # 0.9 10^3/uL (0.0-0.8); MONO % 5.8 % (2.0-8.0); NEUTROPHILS # 11.9 10^3/uL (1.5-8.5); NEUTROPHILS % 81.9 % (36.0-66.0); PLATELET COUNT, AUTOMATED 249 10^3/uL (150-450); WHITE BLOOD COUNT 14.6 10^3/uL (4.0-10.0)
[2021-07-24] MEDS: MIRALAX *UNIT DOSE* 17GM PACKET PO SCH ×2 (10:56→20:15)
[2021-07-24] MEDS ORDERED: ALBUTEROL SULFATE 2.5 MG/0.5 ML INH NEB SOLN INH PRN (11:00)
[2021-07-24] MEDS ORDERED: IPRATROPIUM 0.02% SOLN 0.5MG 2.5ML NEB NEB PRN (11:00)
[2021-07-24] MEDS ORDERED: IPRATROPIUM 0.5MG/ALBUTEROL 2.5MG INH SOL UD 3ML (DUONEB) INH PRN (11:15)
[2021-07-24 11:16] LABS: ALBUMIN 3.5 GM/DL (3.2-5.2); ALT/SGPT 47 U/L (12-78); BILIRUBIN,TOTAL 0.9 MG/DL (0.2-1.0); BLOOD UREA NITROGEN 21 MG/DL (7-18); CALCIUM LEVEL 9.4 MG/DL (8.5-10.1); CARBON DIOXIDE LEVEL 37 MEQ/L (21-32); CHLORIDE LEVEL 91 MEQ/L (98-107); CREATININE FOR GFR 0.66 MG/DL (0.55-1.30); GLOMERULAR FILTRATION RATE > 60.0 (>58); GLUCOSE, FASTING 76 MG/DL (70-100); MAGNESIUM LEVEL 2.3 MG/DL (1.8-2.4); POTASSIUM SERUM 3.6 MEQ/L (3.5-5.1); SODIUM LEVEL 133 MEQ/L (136-145); TOTAL PROTEIN 6.8 GM/DL (6.4-8.2)
[2021-07-24] MEDS ORDERED: GLYCERIN ADULT SUPP PR ONE ×2 (12:00→15:00)
[2021-07-24] MEDS ORDERED: METHYLNALTREXONE BROMIDE 12 MG/0.6 ML VIAL (RELISTOR) SC ONE (12:00)
[2021-07-24] MEDS: CORTISPORIN OTIC SOLN 10 ML BTL XX SCH ×2 (13:03→20:22)
[2021-07-24] MEDS: METOPROLOL TART 25 MG TABLET PO SCH ×2 (13:04→20:24)
[2021-07-24] MEDS ORDERED: MORPHINE 10 MG/ML 1ML VIAL (J2270) IV PRN (17:25)
[2021-07-24] MEDS: ALBUTEROL 90 MCG/ACT 8GM HFA INHALER INH PRN (18:07)
[2021-07-24 20:00] VITALS: BP 158/98
[2021-07-24] MEDS: SENNA 8.6 MG TAB (SENOKOT) PO SCH (20:16)
[2021-07-24] MEDS ORDERED: METOCLOPRAMIDE INJ 10MG/2ML VIAL (J2765 PER 1) IV SCH (21:00)
[2021-07-24] MEDS ORDERED: GLYCERIN ADULT SUPP PR PRN (21:00)
[2021-07-24] MEDS ORDERED: diphenhydrAMINE 50MG/ML VIAL (J1200) IV SCH (21:00)
[2021-07-25] MEDS: HYDROmorphone 2 MG TAB PO PRN ×6 (00:21→21:30)
[2021-07-25] MEDS ORDERED: LACTULOSE 20 GM/30 ML SYRUP UD PO ONE (01:00)
[2021-07-25] MEDS: ALPRAZolam 0.5 MG TAB PO PRN ×3 (01:01→21:38)
[2021-07-25] MEDS: ALBUTEROL 90 MCG/ACT 8GM HFA INHALER INH PRN ×2 (03:00→08:15)
[2021-07-25] MEDS: METOCLOPRAMIDE 5 MG TAB PO SCH ×3 (05:23→21:29)
[2021-07-25 05:45] VITALS: BP 148/56
[2021-07-25 08:28] LABS: BASO # 0.1 10^3/uL (0.0-0.2); BASO % 0.4 % (0.0-1.0); EOS % 0.2 % (0.0-3.0); HEMATOCRIT 47.6 % (36.0-47.0); HEMOGLOBIN 16.5 g/dl (12.0-15.5); LYMPH # 3.5 10^3/uL (1.5-5.0); LYMPH % 21.6 % (24.0-44.0); MEAN CORPUSCULAR HEMOGLOBIN 29.6 pg (27.0-33.0); MEAN CORPUSCULAR HGB CONC 34.7 g/dl (32.0-36.5); MEAN CORPUSCULAR VOLUME 85.3 fl (80.0-96.0); MONO # 1.2 10^3/uL (0.0-0.8); MONO % 7.6 % (2.0-8.0); NEUTROPHILS # 11.1 10^3/uL (1.5-8.5); NEUTROPHILS % 68.8 % (36.0-66.0); PLATELET COUNT, AUTOMATED 231 10^3/uL (150-450); RED BLOOD COUNT 5.58 10^6/uL (4.00-5.40); WHITE BLOOD COUNT 16.1 10^3/uL (4.0-10.0)
[2021-07-25 08:57] LABS: BLOOD UREA NITROGEN 18 MG/DL (7-18); CALCIUM LEVEL 9.5 MG/DL (8.5-10.1); CARBON DIOXIDE LEVEL 37 MEQ/L (21-32); CHLORIDE LEVEL 92 MEQ/L (98-107); CREATININE FOR GFR 0.74 MG/DL (0.55-1.30); GLOMERULAR FILTRATION RATE > 60.0 (>58); GLUCOSE, FASTING 70 MG/DL (70-100); POTASSIUM SERUM 3.6 MEQ/L (3.5-5.1); SODIUM LEVEL 135 MEQ/L (136-145)
[2021-07-25] MEDS: MIRALAX *UNIT DOSE* 17GM PACKET PO SCH ×2 (09:06→21:30)
[2021-07-25] MEDS: DOCUSATE SODIUM 100MG CAPSULE PO SCH ×2 (09:07→21:29)
[2021-07-25] MEDS: CORTISPORIN OTIC SOLN 10 ML BTL XX SCH ×2 (09:07→21:30)
[2021-07-25] MEDS: SENNA 8.6 MG TAB (SENOKOT) PO SCH ×2 (09:07→21:30)
[2021-07-25] MEDS: predniSONE 20 MG TAB PO SCH (09:08)
[2021-07-25] MEDS: METOPROLOL TART 25 MG TABLET PO SCH ×2 (09:08→21:35)
[2021-07-25] MEDS ORDERED: ISOVUE-370 76% 100ML VIAL As Ordered ONE (10:48)
[2021-07-25 17:26] VITALS: BP 159/98
[2021-07-25] MEDS ORDERED: LACTULOSE 20 GM/30 ML SYRUP UD PO PRN (21:05)
[2021-07-25 22:00] VITALS: BP 157/98
[2021-07-26] MEDS: HYDROmorphone 2 MG TAB PO PRN ×3 (01:47→11:12)
[2021-07-26] MEDS: ALBUTEROL 90 MCG/ACT 8GM HFA INHALER INH PRN (04:20)
[2021-07-26] MEDS: METOCLOPRAMIDE 5 MG TAB PO SCH ×3 (05:22→22:19)
[2021-07-26 05:30] VITALS: BP 144/74
[2021-07-26 06:16] LABS: HEMATOCRIT 43.8 % (36.0-47.0); HEMOGLOBIN 15.1 g/dl (12.0-15.5); MEAN CORPUSCULAR HEMOGLOBIN 29.5 pg (27.0-33.0); MEAN CORPUSCULAR HGB CONC 34.5 g/dl (32.0-36.5); MEAN CORPUSCULAR VOLUME 85.7 fl (80.0-96.0); PLATELET COUNT, AUTOMATED 213 10^3/uL (150-450); RED BLOOD COUNT 5.11 10^6/uL (4.00-5.40); WHITE BLOOD COUNT 11.9 10^3/uL (4.0-10.0)
[2021-07-26 06:34] LABS: BLOOD UREA NITROGEN 12 MG/DL (7-18); CARBON DIOXIDE LEVEL 37 MEQ/L (21-32); CHLORIDE LEVEL 93 MEQ/L (98-107); CREATININE FOR GFR 0.63 MG/DL (0.55-1.30); GLOMERULAR FILTRATION RATE > 60.0 (>58); GLUCOSE, FASTING 68 MG/DL (70-100); LIPASE 90 U/L (73-393); POTASSIUM SERUM 3.4 MEQ/L (3.5-5.1); SODIUM LEVEL 135 MEQ/L (136-145)
[2021-07-26] MEDS: LIDOCAINE 5% (LIDODERM) PATCH TD SCH (08:11)
[2021-07-26] MEDS: ALPRAZolam 0.5 MG TAB PO PRN ×2 (08:11→18:20)
[2021-07-26] MEDS: SENNA 8.6 MG TAB (SENOKOT) PO SCH ×2 (08:12→22:17)
[2021-07-26] MEDS: MIRALAX *UNIT DOSE* 17GM PACKET PO SCH ×2 (08:12→22:17)
[2021-07-26] MEDS: CORTISPORIN OTIC SOLN 10 ML BTL XX SCH ×2 (08:13→22:23)
[2021-07-26] MEDS: DOCUSATE SODIUM 100MG CAPSULE PO SCH ×2 (08:13→22:18)
[2021-07-26] MEDS: predniSONE 20 MG TAB PO SCH (08:13)
[2021-07-26] MEDS: METOPROLOL TART 25 MG TABLET PO SCH ×2 (08:14→22:19)
[2021-07-26] MEDS ORDERED: TORSEMIDE 20 MG TAB PO SCH (09:00)
[2021-07-26] MEDS: FENTANYL REMOVAL DOCUMENTATION MISC XX SCH (11:15)
[2021-07-26] MEDS ORDERED: fentaNYL 100 MCG/HR PATCH TOP SCH (12:00)
[2021-07-26] MEDS ORDERED: fentaNYL 25 MCG/HR PATCH TOP SCH (12:00)
[2021-07-26] MEDS ORDERED: FENTANYL REMOVAL DOCUMENTATION MISC XX SCH (12:00)
[2021-07-26] MEDS ORDERED: TORSEMIDE 20 MG TAB PO ONE (13:25)
[2021-07-26 14:00] VITALS: BP 163/92
[2021-07-26] MEDS: SPIRONOLACTONE 25 MG TAB PO SCH (15:17)
[2021-07-26] MEDS: HYDROmorphone 4MG TABLET PO PRN ×2 (15:17→20:08)
[2021-07-26] MEDS ORDERED: RIOCIGUAT 2.5 MG PO SCH (16:00)
[2021-07-26] MEDS ORDERED: FUROSEMIDE 40MG/4ML VIAL (J1940) IV SCH (17:00)
[2021-07-26] MEDS: amLODIPine 5 MG TAB PO SCH (17:26)
[2021-07-26] MEDS ORDERED: **NOTE PATIENT COMMENT** MISC XX SCH (21:00)
[2021-07-26 22:00] VITALS: BP 151/102
[2021-07-27] MEDS: HYDROmorphone 4MG TABLET PO PRN ×4 (00:15→12:50)
[2021-07-27] MEDS: ALBUTEROL 90 MCG/ACT 8GM HFA INHALER INH PRN (02:09)
[2021-07-27] MEDS: METOCLOPRAMIDE 5 MG TAB PO SCH ×2 (05:06→13:45)
[2021-07-27 06:00] VITALS: BP 152/101
[2021-07-27 06:14] LABS: HEMATOCRIT 44.9 % (36.0-47.0); HEMOGLOBIN 15.4 g/dl (12.0-15.5); MEAN CORPUSCULAR HEMOGLOBIN 29.6 pg (27.0-33.0); MEAN CORPUSCULAR HGB CONC 34.3 g/dl (32.0-36.5); MEAN CORPUSCULAR VOLUME 86.3 fl (80.0-96.0); PLATELET COUNT, AUTOMATED 209 10^3/uL (150-450); WHITE BLOOD COUNT 10.7 10^3/uL (4.0-10.0)
[2021-07-27] MEDS: ALPRAZolam 0.5 MG TAB PO PRN (06:33)
[2021-07-27 06:36] LABS: BLOOD UREA NITROGEN 14 MG/DL (7-18); CALCIUM LEVEL 8.7 MG/DL (8.5-10.1); CARBON DIOXIDE LEVEL 40 MEQ/L (21-32); CHLORIDE LEVEL 90 MEQ/L (98-107); CREATININE FOR GFR 0.68 MG/DL (0.55-1.30); GLOMERULAR FILTRATION RATE > 60.0 (>58); GLUCOSE, FASTING 70 MG/DL (70-100); POTASSIUM SERUM 3.1 MEQ/L (3.5-5.1); SODIUM LEVEL 137 MEQ/L (136-145)
[2021-07-27] MEDS ORDERED: POTASSIUM CHLORIDE 10MEQ SR TABLET PO ONE (08:00)
[2021-07-27] MEDS: MIRALAX *UNIT DOSE* 17GM PACKET PO SCH (08:35)
[2021-07-27] MEDS: LIDOCAINE 5% (LIDODERM) PATCH TD SCH (08:35)
[2021-07-27] MEDS: SPIRONOLACTONE 25 MG TAB PO SCH (08:36)
[2021-07-27] MEDS: DOCUSATE SODIUM 100MG CAPSULE PO SCH (08:37)
[2021-07-27] MEDS: predniSONE 20 MG TAB PO SCH (08:37)
[2021-07-27] MEDS: SENNA 8.6 MG TAB (SENOKOT) PO SCH ×2 (08:39→08:44)
[2021-07-27 08:40] VITALS: BP 168/110
[2021-07-27] MEDS: METOPROLOL TART 25 MG TABLET PO SCH (08:40)
[2021-07-27] MEDS: amLODIPine 5 MG TAB PO SCH (08:40)
[2021-07-27] MEDS: CORTISPORIN OTIC SOLN 10 ML BTL XX SCH (08:41)
[2021-07-27] MEDS ORDERED: AMBRISENTAN 10 MG PO SCH (09:00)
[2021-07-27] MEDS ORDERED: TORSEMIDE 20 MG TAB PO SCH ×2 (09:00)
[2021-07-27] MEDS ORDERED: COLA100C5 PO (15:16)
[2021-07-27] MEDS ORDERED: FENT1DIS14 TOP (15:16)
[2021-07-27] MEDS ORDERED: FENT10PA TOP (15:16)
[2021-07-27] MEDS ORDERED: GLYCADSU PR (15:16)
[2021-07-27] MEDS ORDERED: MIRA1POW3 PO (15:16)
[2021-07-27] MEDS ORDERED: AMLO1TAB24 PO (15:16)
[2021-07-27] MEDS ORDERED: LIDO5TD TD (15:16)
[2021-07-27] MEDS ORDERED: DILA4TAB13 PO (15:16)
[2021-07-27] MEDS ORDERED: NARC1SPR NARES (15:36)
[2021-07-27] MEDS ORDERED: FENTANYL REMOVAL DOCUMENTATION MISC XX SCH (16:00)
[2021-07-27] MEDS ORDERED: fentaNYL 100 MCG/HR PATCH TOP SCH (16:00)
[2021-07-27] MEDS ORDERED: fentaNYL 25 MCG/HR PATCH TOP SCH (16:00)
[2021-07-27] MEDS: FENTANYL REMOVAL DOCUMENTATION MISC XX SCH (16:16)
== END 2021-07-27 16:30 | disposition home or self-care (01) | DRG 392 ==
LOC: EDBD 06:27 → M ED 06:27 → M ED INP 19:11 → ENRESERV 19:34 → M MSPAV 20:55 → OBSVTOIN 07-24 10:53
PROVIDERS: ADMIT Internal Medicine; ATTEND Internal Medicine
DX: K59.03 Drug induced constipation (principal); J84.9 Interstitial pulmonary disease, unspecified; J96.11 Chronic respiratory failure with hypoxia; M80.88XA Other osteoporosis with current pathological fracture, vertebra(e), initial encounter for fracture; I27.20 Pulmonary hypertension, unspecified; F41.9 Anxiety disorder, unspecified; I50.9 Heart failure, unspecified; K21.9 Gastro-esophageal reflux disease without esophagitis; T40.2X5A Adverse effect of other opioids, initial encounter; M85.89 Other specified disorders of bone density and structure, multiple sites; Z66 Do not resuscitate; R63.0 Anorexia; Z79.52 Long term (current) use of systemic steroids; Z79.891 Long term (current) use of opiate analgesic; Z79.899 Other long term (current) drug therapy; Z88.0 Allergy status to penicillin; Z88.6 Allergy status to analgesic agent; Z99.81 Dependence on supplemental oxygen; Z87.891 Personal history of nicotine dependence

== ENCOUNTER → 2021-09-28 | Outpatient (CLI) | payer OTHER ==
[~2021-09-28] MED LIST changes: +ALBU2.5V10 INH; +ALPR1TAB3 PO; +AMBR10TA PO; +AMLO1TAB24 PO; +COLA100C5 PO; +DILA4TAB13 PO; +FENT10PA TOP; +FENT1DIS14 TOP; +GLYCADSU PR; +IPRA2IN NEB; +LIDO5TD TD; +METO25TA4 PO; +MIRA1POW3 PO; +MORP1SOL SL; +NARC1SPR NARES; +NEOM1SOL19 TOP; +OMEP1CAP73 PO; +PRED5TA PO; +TORS20TA2 PO; +[UNRECOGNIZED DRUG - CODE] PO
== END ==
LOC: M RAD 13:27
PROVIDERS: ATTEND Physician Assistant
DX: S39.012D Strain of muscle, fascia and tendon of lower back, subsequent encounter (principal)

== ENCOUNTER → 2021-10-03 | Outpatient (REF) | payer OTHER | LOC: M LAB REF 08:33 | PROVIDERS: ATTEND Internal Medicine Gastroenterology | DX: K59.00 Constipation, unspecified (principal) ==

== ENCOUNTER → 2021-10-15 | Outpatient (CLI) | payer OTHER ==
[2021-10-15 18:02] LABS: BASO % 0.2 % (0.0-1.0); EOS % 0.1 % (0.0-3.0); HEMATOCRIT 45.5 % (36.0-47.0); HEMOGLOBIN 14.9 g/dl (12.0-15.5); LYMPH # 2.1 10^3/uL (1.5-5.0); LYMPH % 12.2 % (24.0-44.0); MEAN CORPUSCULAR HEMOGLOBIN 29.2 pg (27.0-33.0); MEAN CORPUSCULAR HGB CONC 32.7 g/dl (32.0-36.5); MEAN CORPUSCULAR VOLUME 89.2 fl (80.0-96.0); MONO # 0.7 10^3/uL (0.0-0.8); MONO % 3.9 % (2.0-8.0); NEUTROPHILS # 13.9 10^3/uL (1.5-8.5); NEUTROPHILS % 82.5 % (36.0-66.0); PLATELET COUNT, AUTOMATED 318 10^3/uL (150-450); WHITE BLOOD COUNT 16.9 10^3/uL (4.0-10.0)
[2021-10-15 18:22] LABS: ALBUMIN 3.5 GM/DL (3.2-5.2); ALT/SGPT 44 U/L (12-78); BILIRUBIN,TOTAL 0.5 MG/DL (0.2-1.0); BLOOD UREA NITROGEN 11 MG/DL (7-18); CARBON DIOXIDE LEVEL 43 MEQ/L (21-32); CHLORIDE LEVEL 85 MEQ/L (98-107); CREATININE FOR GFR 0.63 MG/DL (0.55-1.30); GLOMERULAR FILTRATION RATE > 60.0 (>58); GLUCOSE, FASTING 198 MG/DL (70-100); POTASSIUM SERUM 3.2 MEQ/L (3.5-5.1); SODIUM LEVEL 134 MEQ/L (136-145)
[2021-10-15 19:33] LABS: HEMOGLOBIN A1c 6.5 %
== END ==
LOC: M PLALAB 14:48
PROVIDERS: ATTEND Internal Medicine Hematology
DX: E11.22 Type 2 diabetes mellitus with diabetic chronic kidney disease (principal)

== ENCOUNTER → 2021-10-15 | Outpatient (CLI) | payer OTHER ==
[2021-10-15 18:24] LABS: ALBUMIN 3.5 GM/DL (3.2-5.2); ALT/SGPT 42 U/L (12-78); BILIRUBIN,TOTAL 0.4 MG/DL (0.2-1.0); BLOOD UREA NITROGEN 10 MG/DL (7-18); CALCIUM LEVEL 9.1 MG/DL (8.5-10.1); CARBON DIOXIDE LEVEL 42 MEQ/L (21-32); CHLORIDE LEVEL 84 MEQ/L (98-107); CREATININE FOR GFR 0.64 MG/DL (0.55-1.30); GLOMERULAR FILTRATION RATE > 60.0 (>58); GLUCOSE, FASTING 191 MG/DL (70-100); POTASSIUM SERUM 3.2 MEQ/L (3.5-5.1); SODIUM LEVEL 133 MEQ/L (136-145)
[2021-10-15 18:29] LABS: PTH INTACT 72.6 PG/ML (18.5-88.0); TOTAL 25(OH) VITAMIN D 64.2 NG/ML (30.0-100.0)
[2021-10-17 12:15] LABS: ALBUMIN 3.69 GM/DL (3.29-5.55); ALBUMIN % 52.7 % (55.8-66.1); ALPHA-1-GLOBULIN % 7.3 % (2.9-4.9); BETA-1-GLOBULINS 0.41 GM/DL (0.28-0.60)
[2021-10-17 12:16] LABS: BETA-1-GLOBULINS % 5.8 % (4.7-7.2); BETA-2-GLOBULINS 0.38 GM/DL (0.19-0.55); BETA-2-GLOBULINS % 5.4 % (3.2-6.5); GAMMA GLOBULIN % 8.8 % (11.1-18.8); GAMMA GLOBULINS 0.62 GM/DL (0.65-1.58)
== END ==
LOC: M PLALAB 14:50
PROVIDERS: ATTEND Internal Medicine Endocrinology, Diabetes & Metabolism
DX: M81.0 Age-related osteoporosis without current pathological fracture (principal)

== ENCOUNTER → 2021-10-28 | Outpatient (CLI) | payer OTHER | LOC: M PLAIMG 14:34 | PROVIDERS: ATTEND Internal Medicine Hematology | DX: K59.03 Drug induced constipation (principal) ==

== ENCOUNTER → 2021-10-28 | Outpatient (CLI) | payer OTHER ==
[2021-10-28 16:14] LABS: BLOOD UREA NITROGEN 16 MG/DL (7-18); CALCIUM LEVEL 9.6 MG/DL (8.5-10.1); CARBON DIOXIDE LEVEL 35 MEQ/L (21-32); CHLORIDE LEVEL 87 MEQ/L (98-107); CREATININE FOR GFR 0.52 MG/DL (0.55-1.30); GLOMERULAR FILTRATION RATE > 60.0 (>58); GLUCOSE, FASTING 169 MG/DL (70-100); POTASSIUM SERUM 4.3 MEQ/L (3.5-5.1); SODIUM LEVEL 133 MEQ/L (136-145)
== END ==
LOC: M PLALAB 12:58
PROVIDERS: ATTEND Internal Medicine Hematology
DX: I27.20 Pulmonary hypertension, unspecified (principal)

== ENCOUNTER → 2021-10-29 | Outpatient (POV) | payer OTHER ==
[~2021-10-29] VITALS: Ht 149.9 cm; Wt 53.0 kg
[2021-10-29 10:30] VITALS: BP 143/93
== END ==
LOC: M IRPOV 10:16
PROVIDERS: ATTEND Radiology Diagnostic Radiology
DX: M84.48XA Pathological fracture, other site, initial encounter for fracture (principal); I27.20 Pulmonary hypertension, unspecified; J84.10 Pulmonary fibrosis, unspecified; J44.9 Chronic obstructive pulmonary disease, unspecified; F17.210 Nicotine dependence, cigarettes, uncomplicated; R32 Unspecified urinary incontinence; R15.9 Full incontinence of feces; R20.2 Paresthesia of skin; R53.1 Weakness; M85.80 Other specified disorders of bone density and structure, unspecified site; X58.XXXA Exposure to other specified factors, initial encounter; Y92.9 Unspecified place or not applicable; Y93.9 Activity, unspecified; Y99.9 Unspecified external cause status; Z79.52 Long term (current) use of systemic steroids; Z79.891 Long term (current) use of opiate analgesic; Z99.81 Dependence on supplemental oxygen

== ENCOUNTER → 2021-11-13 | Outpatient (CLI) | payer OTHER ==
[2021-11-13 19:36] LABS: BLOOD UREA NITROGEN 14 MG/DL (7-18); CREATININE FOR GFR 0.63 MG/DL (0.55-1.30); GLOMERULAR FILTRATION RATE > 60.0 (>58)
== END ==
LOC: M PLALAB 15:51
PROVIDERS: ATTEND Internal Medicine Hematology
DX: R10.10 Upper abdominal pain, unspecified (principal)

== ENCOUNTER → 2021-11-14 | Outpatient (CLI) | payer OTHER ==
[~2021-11-14] MED LIST changes: +GASTROGRAFIN SOLUTION 30ML (Q9963) As Ordered ONE; +ISOVUE-370 76% 100ML VIAL As Ordered ONE
== END ==
LOC: M RAD 08:24
PROVIDERS: ATTEND Internal Medicine Hematology
DX: R10.9 Unspecified abdominal pain (principal)

== ENCOUNTER → 2021-11-20 | Outpatient (CLI) | payer OTHER ==
[~2021-11-20] MED LIST changes: +CLON0.5T17 PO; +FENT75DI29 TD; -GASTROGRAFIN SOLUTION 30ML (Q9963) As Ordered ONE; -ISOVUE-370 76% 100ML VIAL As Ordered ONE; +OXYC20TA2 PO
[2021-11-20 15:55] LABS: BLOOD UREA NITROGEN 13 MG/DL (7-18); CALCIUM LEVEL 9.1 MG/DL (8.5-10.1); CARBON DIOXIDE LEVEL 42 MEQ/L (21-32); CHLORIDE LEVEL 90 MEQ/L (98-107); CREATININE FOR GFR 0.52 MG/DL (0.55-1.30); GLOMERULAR FILTRATION RATE > 60.0 (>58); GLUCOSE, FASTING 100 MG/DL (70-100); SODIUM LEVEL 134 MEQ/L (136-145)
== END ==
LOC: M PLALAB 12:04
PROVIDERS: ATTEND Internal Medicine Endocrinology, Diabetes & Metabolism
DX: M81.0 Age-related osteoporosis without current pathological fracture (principal)
CPT/HCPCS: 36415; 80048; G0463

== ENCOUNTER → 2021-12-02 | Outpatient (CLI) | payer OTHER ==
[~2021-12-02] MED LIST changes: +LEVO1TAB39; -LEVO500T4; +SYMP0.2T2 PO
[2021-12-02 15:38] LABS: BASO % 0.2 % (0.0-1.0); EOS % 0.1 % (0.0-3.0); HEMATOCRIT 46.2 % (36.0-47.0); LYMPH # 1.1 10^3/uL (1.5-5.0); LYMPH % 6.5 % (24.0-44.0); MEAN CORPUSCULAR HEMOGLOBIN 29.1 pg (27.0-33.0); MEAN CORPUSCULAR HGB CONC 32.5 g/dl (32.0-36.5); MEAN CORPUSCULAR VOLUME 89.7 fl (80.0-96.0); MONO # 0.8 10^3/uL (0.0-0.8); MONO % 4.9 % (2.0-8.0); NEUTROPHILS # 14.2 10^3/uL (1.5-8.5); NEUTROPHILS % 87.6 % (36.0-66.0); PLATELET COUNT, AUTOMATED 297 10^3/uL (150-450); RED BLOOD COUNT 5.15 10^6/uL (4.00-5.40); WHITE BLOOD COUNT 16.2 10^3/uL (4.0-10.0)
[2021-12-02 16:10] LABS: ALBUMIN 3.5 GM/DL (3.2-5.2); ALT/SGPT 34 U/L (12-78); BILIRUBIN,TOTAL 0.3 MG/DL (0.2-1.0); BLOOD UREA NITROGEN 9 MG/DL (7-18); CALCIUM LEVEL 9.6 MG/DL (8.5-10.1); CARBON DIOXIDE LEVEL 45 MEQ/L (21-32); CHLORIDE LEVEL 85 MEQ/L (98-107); CREATININE FOR GFR 0.42 MG/DL (0.55-1.30); GLOMERULAR FILTRATION RATE > 60.0 (>58); GLUCOSE, FASTING 104 MG/DL (70-100); POTASSIUM SERUM 3.2 MEQ/L (3.5-5.1); SODIUM LEVEL 136 MEQ/L (136-145); TOTAL PROTEIN 6.9 GM/DL (6.4-8.2)
== END ==
LOC: M PLALAB 12:40
PROVIDERS: ATTEND Internal Medicine Hematology
DX: M80.8 Other osteoporosis with current pathological fracture (principal)

== ENCOUNTER → 2021-12-03 | Outpatient (CLI) | payer OTHER ==
[~2021-12-03] MED LIST changes: +ISOVUE-370 76% 100ML VIAL As Ordered ONE
== END ==
LOC: M RAD 09:40
PROVIDERS: ATTEND Internal Medicine Hematology
DX: R79.89 Other specified abnormal findings of blood chemistry (principal)
CPT/HCPCS: 71275; Q9967

== ENCOUNTER → 2022-01-21 | Outpatient (CLI) | payer OTHER ==
[~2022-01-21] VITALS: Ht 144.8 cm; Wt 100.4 kg
[~2022-01-21] MED LIST changes: +CLON0.5T2 PO; +FLUC10TA PO; +FORT600S SC; -ISOVUE-370 76% 100ML VIAL As Ordered ONE; +SENN-80 PO; +SOMA250T PO
[2022-01-21 14:22] VITALS: BP 105/79
== END ==
LOC: M PAL 13:50
PROVIDERS: ATTEND Nurse Practitioner Adult Health
DX: J84.9 Interstitial pulmonary disease, unspecified (principal); S22.000A Wedge compression fracture of unspecified thoracic vertebra, initial encounter for closed fracture; S32.000G Wedge compression fracture of unspecified lumbar vertebra, subsequent encounter for fracture with delayed healing; S32.050A Wedge compression fracture of fifth lumbar vertebra, initial encounter for closed fracture; I27.20 Pulmonary hypertension, unspecified; I50.9 Heart failure, unspecified; J96.10 Chronic respiratory failure, unspecified whether with hypoxia or hypercapnia; K44.9 Diaphragmatic hernia without obstruction or gangrene; F06.34 Mood disorder due to known physiological condition with mixed features; K59.00 Constipation, unspecified; K21.9 Gastro-esophageal reflux disease without esophagitis; R10.9 Unspecified abdominal pain; M54.50 Low back pain, unspecified; G89.29 Other chronic pain; R54 Age-related physical debility; Z51.5 Encounter for palliative care; Z79.891 Long term (current) use of opiate analgesic; Z88.1 Allergy status to other antibiotic agents; Z88.6 Allergy status to analgesic agent; Z88.8 Allergy status to other drugs, medicaments and biological substances; Z66 Do not resuscitate; Z79.51 Long term (current) use of inhaled steroids

== ENCOUNTER 2022-02-18 15:15 | Outpatient (RCR) | payer OTHER ==
[~2022-02-18 15:15] MED LIST changes: +GLYC1SUP PR; -GLYCADSU PR
[2022-02-25] MEDS ORDERED: FENT75DI29 TD (06:35)
[2022-02-25] MEDS ORDERED: OXYC20TA2 PO (06:35)
== END 2022-03-03 ==
LOC: M PT 15:15
PROVIDERS: ATTEND Internal Medicine Hematology
DX: M81.0 Age-related osteoporosis without current pathological fracture (principal)

== ENCOUNTER 2022-03-05 05:28 | Inpatient (IN) | payer OTHER ==
[2022-03-05] VITALS (16 sets, daily range): BP systolic 117–185; BP diastolic 73–116
[~2022-03-05] VITALS: Ht 149.9 cm; Wt 42.0 kg
[2022-03-05] MEDS ORDERED: methylPREDNISolone 125MG 2ML VIAL IV ONE (05:35)
[2022-03-05] MEDS: IPRATROPIUM 0.5MG/ALBUTEROL 2.5MG INH SOL UD 3ML (DUONEB) NEB PRN ×3 (05:46→06:09)
[2022-03-05 05:58] LABS: ABG BASE EXCESS 17.7 (-2.0-2.0); ABG HCO3 47.8 MEQ/L (22.0-26.0); ABG O2 SATURATION 99.7 % (95.0-99.0); ABG STANDARD HCO3 42.1 MEQ/L (22.0-26.0); ABG TOTAL CO2 50.3 MEQ/L (22.0-29.0); ABG pH (ARTERIAL) 7.388 UNITS (7.350-7.450)
[2022-03-05 06:00] LABS: BASO # 0.1 10^3/uL (0.0-0.2); BASO % 0.4 % (0.0-1.0); EOS # 0.1 10^3/uL (0.0-0.5); EOS % 0.2 % (0.0-3.0); HEMATOCRIT 48.1 % (36.0-47.0); HEMOGLOBIN 15.7 g/dl (12.0-15.5); LYMPH # 2.7 10^3/uL (1.5-5.0); LYMPH % 11.3 % (24.0-44.0); MEAN CORPUSCULAR HEMOGLOBIN 30.5 pg (27.0-33.0); MEAN CORPUSCULAR HGB CONC 32.6 g/dl (32.0-36.5); MEAN CORPUSCULAR VOLUME 93.6 fl (80.0-96.0); MONO % 4.3 % (2.0-8.0); NEUTROPHILS # 19.6 10^3/uL (1.5-8.5); NEUTROPHILS % 81.5 % (36.0-66.0); PLATELET COUNT, AUTOMATED 277 10^3/uL (150-450); RED BLOOD COUNT 5.14 10^6/uL (4.00-5.40); WHITE BLOOD COUNT 24.1 10^3/uL (4.0-10.0)
[2022-03-05 06:00] LABS: ABG PARTIAL PRESSURE CO2 81.1 mmHg (35.0-45.0)
[2022-03-05] MEDS ORDERED: ISOVUE-370 76% 100ML VIAL As Ordered ONE (06:24)
[2022-03-05 06:45] LABS: CK-MB VALUE MASS 5.8 NG/ML (<3.6); MB/CK RELATIVE INDEX 3.87 (< OR =4)
[2022-03-05 07:25] LABS: ALBUMIN 3.7 GM/DL (3.2-5.2); ALKALINE PHOSPHATASE 82 U/L (45-117); ALT/SGPT 66 U/L (12-78); AST/SGOT 58 U/L (7-37); BILIRUBIN,DIRECT < 0.1 MG/DL (0.0-0.2); BILIRUBIN,TOTAL 0.6 MG/DL (0.2-1.0); BLOOD UREA NITROGEN 19 MG/DL (7-18); CALCIUM LEVEL 10.2 MG/DL (8.5-10.1); CARBON DIOXIDE LEVEL 51 MEQ/L (21-32); CHLORIDE LEVEL 75 MEQ/L (98-107); CREATININE FOR GFR 0.66 MG/DL (0.55-1.30); GLOMERULAR FILTRATION RATE > 60.0 (>58); GLUCOSE, FASTING 142 MG/DL (70-100); NT-PRO BNP 251 PG/ML (<125); POTASSIUM SERUM 4.2 MEQ/L (3.5-5.1); SODIUM LEVEL 134 MEQ/L (136-145); TOTAL PROTEIN 7.3 GM/DL (6.4-8.2)
[2022-03-05 08:13] LABS: CK-MB VALUE MASS 6.4 NG/ML (<3.6); MB/CK RELATIVE INDEX 3.14 (< OR =4)
[2022-03-05] MEDS ORDERED: OMEPRAZOLE 20MG CAP PO SCH (09:00)
[2022-03-05] MEDS ORDERED: fentaNYL 100 MCG/2 ML INJECTION IV ONE (10:30)
[2022-03-05] MEDS ORDERED: PANTOPRAZOLE 40MG TAB (PROTONIX) PO ONE (10:45)
[2022-03-05] MEDS ORDERED: FLUC10TA PO (11:08)
[2022-03-05] MEDS ORDERED: MM S100C PO (11:08)
[2022-03-05] MEDS ORDERED: GLYC1SUP37 PR (11:26)
[2022-03-05] MEDS ORDERED: METO50TA7 PO (11:26)
[2022-03-05] MEDS ORDERED: LIDO5TD TOP (11:26)
[2022-03-05] MEDS ORDERED: NARC1SPR NARES (11:31)
[2022-03-05] MEDS ORDERED: OXYC20TA2 PO (11:31)
[2022-03-05] MEDS ORDERED: OYST250T6 PO (11:50)
[2022-03-05] MEDS ORDERED: XANA1TAB2 PO (11:50)
[2022-03-05] MEDS ORDERED: POLY510P14 PO (11:50)
[2022-03-05] MEDS ORDERED: METH-1164 PO (11:50)
[2022-03-05] MEDS ORDERED: GABA-282 PO (11:50)
[2022-03-05] MEDS ORDERED: PRED1TABL PO (11:50)
[2022-03-05] MEDS ORDERED: FLUTISP NARES (11:51)
[2022-03-05] MEDS ORDERED: HOME MED LIST COMPLETE! XX SCH (12:05)
[2022-03-05] MEDS: IPRATROPIUM 0.5MG/ALBUTEROL 2.5MG INH SOL UD 3ML (DUONEB) NEB SCH ×3 (12:42→19:09)
[2022-03-05] MEDS ORDERED: MIRALAX *UNIT DOSE* 17GM PACKET PO PRN (12:45)
[2022-03-05] MEDS: fentaNYL 100 MCG/2 ML INJECTION IV PRN ×2 (12:47→22:29)
[2022-03-05 13:37] LABS: INR 0.87
[2022-03-05] MEDS: CHLORHEXIDINE GLUCONATE 0.12 % 15ML UDC (PERIDEX ORAL RINSE) MT SCH ×2 (13:55→20:18)
[2022-03-05] MEDS: GABAPENTIN 300 MG CAP PO SCH ×2 (14:31→22:18)
[2022-03-05] MEDS: SENNA 8.6 MG TAB (SENOKOT) PO SCH ×2 (14:31→22:18)
[2022-03-05] MEDS: ALPRAZolam 0.5 MG TAB PO PRN ×2 (14:31→23:46)
[2022-03-05] MEDS: DOXYCYCLINE HYCLATE 100 MG in D5W MINI-BAG PLUS 100 ML IV SCH (14:31)
[2022-03-05] MEDS: oxyCODONE 5MG TAB PO PRN ×3 (14:32→23:46)
[2022-03-05] MEDS: DOCUSATE SODIUM 100MG CAPSULE PO SCH (14:32)
[2022-03-05] MEDS: TORSEMIDE 20 MG TAB PO SCH (14:32)
[2022-03-05] MEDS: methylPREDNISolone 125MG 2ML VIAL IV SCH (18:20)
[2022-03-05] MEDS: ENOXAPARIN 30MG/0.3ML SYRINGE (J1650 PER 10MG) SC SCH (22:21)
[2022-03-05] MEDS: METOPROLOL TART 50 MG TAB PO SCH (22:28)
[2022-03-06] VITALS (21 sets, daily range): BP systolic 115–187; BP diastolic 74–113
[2022-03-06] MEDS: DOXYCYCLINE HYCLATE 100 MG in D5W MINI-BAG PLUS 100 ML IV SCH ×2 (02:04→13:00)
[2022-03-06] MEDS: oxyCODONE 5MG TAB PO PRN ×4 (04:04→20:14)
[2022-03-06 05:30] LABS: BASO % 0.2 % (0.0-1.0); HEMATOCRIT 42.1 % (36.0-47.0); LYMPH # 0.9 10^3/uL (1.5-5.0); LYMPH % 4.4 % (24.0-44.0); MEAN CORPUSCULAR HEMOGLOBIN 29.8 pg (27.0-33.0); MEAN CORPUSCULAR HGB CONC 32.3 g/dl (32.0-36.5); MEAN CORPUSCULAR VOLUME 92.1 fl (80.0-96.0); MONO # 0.9 10^3/uL (0.0-0.8); MONO % 4.6 % (2.0-8.0); NEUTROPHILS # 17.4 10^3/uL (1.5-8.5); NEUTROPHILS % 90.1 % (36.0-66.0); PLATELET COUNT, AUTOMATED 255 10^3/uL (150-450); RED BLOOD COUNT 4.57 10^6/uL (4.00-5.40); WHITE BLOOD COUNT 19.3 10^3/uL (4.0-10.0)
[2022-03-06] MEDS: fentaNYL 100 MCG/HR PATCH TOP SCH (05:44)
[2022-03-06] MEDS: methylPREDNISolone 125MG 2ML VIAL IV SCH ×3 (05:44→20:12)
[2022-03-06] MEDS: HYDROMORPHONE HCL 0.5 MG/ 0.5 ML SYRINGE (J1170 PER 1) IV PRN ×7 (05:45→22:18)
[2022-03-06 05:46] LABS: HEMOGLOBIN 13.6 g/dl (12.0-15.5)
[2022-03-06 06:19] LABS: ALBUMIN 3.3 GM/DL (3.2-5.2); ALKALINE PHOSPHATASE 69 U/L (45-117); ALT/SGPT 55 U/L (12-78); AST/SGOT 42 U/L (7-37); BILIRUBIN,TOTAL 0.7 MG/DL (0.2-1.0); BLOOD UREA NITROGEN 21 MG/DL (7-18); CALCIUM LEVEL 9.5 MG/DL (8.5-10.1); CARBON DIOXIDE LEVEL 50 MEQ/L (21-32); CHLORIDE LEVEL 74 MEQ/L (98-107); CREATININE FOR GFR 0.61 MG/DL (0.55-1.30); GLOMERULAR FILTRATION RATE > 60.0 (>58); GLUCOSE, FASTING 110 MG/DL (70-100); POTASSIUM SERUM 3.8 MEQ/L (3.5-5.1); SODIUM LEVEL 132 MEQ/L (136-145); TOTAL PROTEIN 6.7 GM/DL (6.4-8.2)
[2022-03-06 06:20] LABS: ABG BASE EXCESS 22.4 (-2.0-2.0); ABG HCO3 51.1 MEQ/L (22.0-26.0); ABG O2 SATURATION 96.2 % (95.0-99.0); ABG STANDARD HCO3 47.3 MEQ/L (22.0-26.0); ABG TOTAL CO2 53.3 MEQ/L (22.0-29.0); ABG pH (ARTERIAL) 7.466 UNITS (7.350-7.450)
[2022-03-06 06:36] LABS: ABG PARTIAL PRESSURE CO2 75.4 mmHg (35.0-45.0)
[2022-03-06] MEDS: IPRATROPIUM 0.5MG/ALBUTEROL 2.5MG INH SOL UD 3ML (DUONEB) NEB SCH ×4 (07:48→19:02)
[2022-03-06] MEDS: CHLORHEXIDINE GLUCONATE 0.12 % 15ML UDC (PERIDEX ORAL RINSE) MT SCH ×2 (08:31→20:11)
[2022-03-06] MEDS: TORSEMIDE 20 MG TAB PO SCH (08:31)
[2022-03-06] MEDS: SENNA 8.6 MG TAB (SENOKOT) PO SCH ×4 (08:31→20:17)
[2022-03-06] MEDS: DOCUSATE SODIUM 100MG CAPSULE PO SCH (08:31)
[2022-03-06] MEDS: GABAPENTIN 300 MG CAP PO SCH ×3 (08:31→20:12)
[2022-03-06] MEDS: METOPROLOL TART 50 MG TAB PO SCH ×2 (08:32→20:13)
[2022-03-06] MEDS ORDERED: OMEPRAZOLE 20MG CAP PO SCH (09:00)
[2022-03-06] MEDS ORDERED: AZTREONAM 1 GM in D5W MINI-BAG PLUS 50 ML IV SCH (09:05)
[2022-03-06] MEDS: ALPRAZolam 0.5 MG TAB PO PRN (11:45)
[2022-03-06] MEDS: CEFEPIME HCL 2 GM in D5W MINI-BAG PLUS 50 ML IV SCH ×2 (11:45→20:11)
[2022-03-06] MEDS: guaiFENesin ER 600 MG TAB PO SCH ×2 (13:01→20:13)
[2022-03-06] MEDS ORDERED: NOREPINEPHRINE 4 MG/4 ML AMP As Ordered ONE (13:48)
[2022-03-06] MEDS ORDERED: TRANEXAMIC ACID 100 MG/ML 10ML VIAL As Ordered ONE (14:16)
[2022-03-06] MEDS ORDERED: BUPIVACAINE HCL 0.5% 30ML VIAL As Ordered ONE (14:17)
[2022-03-06] MEDS ORDERED: LIDOCAINE W/EPINEPHRINE 1% 20ML VIAL As Ordered ONE (14:17)
[2022-03-06] MEDS ORDERED: BUPIVACAINE LIPOSOME/PF 1.3% 20ML VIAL (13.3MG/ML)(EXPAREL) As Ordered ONE (14:17)
[2022-03-06] MEDS ORDERED: VASOPRESSIN INJ 20UNITS/ML 1ML VIAL As Ordered ONE (14:39)
[2022-03-06] MEDS ORDERED: ETOMIDATE INJ 20MG/10ML VIAL As Ordered ONE (14:39)
[2022-03-06] MEDS ORDERED: fentaNYL 100 MCG/2 ML INJECTION As Ordered ONE (14:45)
[2022-03-06] MEDS ORDERED: DOXYCYCLINE HYCLATE 100MG/10ML VIAL As Ordered ONE (14:55)
[2022-03-06] MEDS ORDERED: VANCOMYCIN 1000MG/20ML VIAL As Ordered ONE (15:23)
[2022-03-06] MEDS ORDERED: SUGAMMADEX SODIUM 500 MG/5 ML VIAL (BRIDION) As Ordered ONE (16:17)
[2022-03-06] MEDS ORDERED: NS 1,000 ML IV SCH (16:50)
[2022-03-06] MEDS ORDERED: fentaNYL 100 MCG/2 ML INJECTION IV PRN (16:50)
[2022-03-06] MEDS ORDERED: METOCLOPRAMIDE INJ 10MG/2ML VIAL IV PRN (16:50)
[2022-03-06] MEDS ORDERED: ONDANSETRON 4MG 2ML VIAL IV PRN (16:50)
[2022-03-06] MEDS ORDERED: ACETAMINOPHEN 1000MG 100ML IV BAG IV ONE (17:30)
[2022-03-06 17:42] LABS: ABG BASE EXCESS 22.2 (-2.0-2.0); ABG HCO3 49.9 MEQ/L (22.0-26.0); ABG PARTIAL PRESSURE CO2 65.4 mmHg (35.0-45.0); ABG PARTIAL PRESSURE O2 57.4 mmHg (75.0-100.0); ABG TOTAL CO2 51.9 MEQ/L (22.0-29.0)
[2022-03-06 17:43] LABS: ABG O2 SATURATION 90.5 % (95.0-99.0); ABG STANDARD HCO3 46.8 MEQ/L (22.0-26.0)
[2022-03-06 17:45] LABS: HEMATOCRIT 41.4 % (36.0-47.0); HEMOGLOBIN 13.8 g/dl (12.0-15.5); MEAN CORPUSCULAR HEMOGLOBIN 29.9 pg (27.0-33.0); MEAN CORPUSCULAR HGB CONC 33.3 g/dl (32.0-36.5); MEAN CORPUSCULAR VOLUME 89.8 fl (80.0-96.0); PLATELET COUNT, AUTOMATED 223 10^3/uL (150-450); RED BLOOD COUNT 4.61 10^6/uL (4.00-5.40); WHITE BLOOD COUNT 20.9 10^3/uL (4.0-10.0)
[2022-03-06] MEDS: fentaNYL 75 MCG/HR PATCH TOP SCH (18:20)
[2022-03-06] MEDS: clonazePAM 0.5 MG TAB PO PRN (19:40)
[2022-03-06] MEDS: ENOXAPARIN 30MG/0.3ML SYRINGE (J1650 PER 10MG) SC SCH (20:12)
[2022-03-07] VITALS (13 sets, daily range): BP systolic 114–178; BP diastolic 72–111
[2022-03-07] MEDS: DOXYCYCLINE HYCLATE 100 MG in D5W MINI-BAG PLUS 100 ML IV SCH ×2 (00:29→12:59)
[2022-03-07] MEDS: oxyCODONE 5MG TAB PO PRN ×5 (01:14→20:09)
[2022-03-07] MEDS: HYDROMORPHONE HCL 0.5 MG/ 0.5 ML SYRINGE (J1170 PER 1) IV PRN ×6 (02:10→22:06)
[2022-03-07] MEDS: CEFEPIME HCL 2 GM in D5W MINI-BAG PLUS 50 ML IV SCH ×3 (03:23→20:06)
[2022-03-07 05:01] LABS: BASO % 0.1 % (0.0-1.0); EOS % 0.1 % (0.0-3.0); HEMATOCRIT 39.4 % (36.0-47.0); HEMOGLOBIN 13.2 g/dl (12.0-15.5); LYMPH # 0.6 10^3/uL (1.5-5.0); LYMPH % 3.2 % (24.0-44.0); MEAN CORPUSCULAR HGB CONC 33.5 g/dl (32.0-36.5); MEAN CORPUSCULAR VOLUME 89.5 fl (80.0-96.0); MONO # 0.8 10^3/uL (0.0-0.8); MONO % 4.2 % (2.0-8.0); NEUTROPHILS # 17.2 10^3/uL (1.5-8.5); NEUTROPHILS % 91.5 % (36.0-66.0); PLATELET COUNT, AUTOMATED 205 10^3/uL (150-450); WHITE BLOOD COUNT 18.7 10^3/uL (4.0-10.0)
[2022-03-07 06:08] LABS: ABG BASE EXCESS 16.8 (-2.0-2.0); ABG HCO3 43.5 MEQ/L (22.0-26.0); ABG O2 SATURATION 96.9 % (95.0-99.0); ABG PARTIAL PRESSURE CO2 59.5 mmHg (35.0-45.0); ABG PARTIAL PRESSURE O2 83.4 mmHg (75.0-100.0); ABG STANDARD HCO3 40.9 MEQ/L (22.0-26.0); ABG TOTAL CO2 45.3 MEQ/L (22.0-29.0); ABG pH (ARTERIAL) 7.482 UNITS (7.350-7.450)
[2022-03-07 06:25] LABS: ALBUMIN 3.1 GM/DL (3.2-5.2); ALKALINE PHOSPHATASE 62 U/L (45-117); ALT/SGPT 63 U/L (12-78); AST/SGOT 46 U/L (7-37); BILIRUBIN,TOTAL 0.9 MG/DL (0.2-1.0); BLOOD UREA NITROGEN 32 MG/DL (7-18); CALCIUM LEVEL 9.1 MG/DL (8.5-10.1); CARBON DIOXIDE LEVEL 47 MEQ/L (21-32); CHLORIDE LEVEL 77 MEQ/L (98-107); CREATININE FOR GFR 0.76 MG/DL (0.55-1.30); GLOMERULAR FILTRATION RATE > 60.0 (>58); GLUCOSE, FASTING 118 MG/DL (70-100); POTASSIUM SERUM 3.2 MEQ/L (3.5-5.1); SODIUM LEVEL 133 MEQ/L (136-145); TOTAL PROTEIN 6.3 GM/DL (6.4-8.2)
[2022-03-07] MEDS ORDERED: POTASSIUM CHLORIDE 10MEQ SR TABLET PO ONE (07:35)
[2022-03-07] MEDS: IPRATROPIUM 0.5MG/ALBUTEROL 2.5MG INH SOL UD 3ML (DUONEB) NEB SCH ×4 (08:27→20:04)
[2022-03-07] MEDS: methylPREDNISolone 125MG 2ML VIAL IV SCH ×3 (08:42→20:07)
[2022-03-07] MEDS: CHLORHEXIDINE GLUCONATE 0.12 % 15ML UDC (PERIDEX ORAL RINSE) MT SCH ×2 (08:42→20:11)
[2022-03-07] MEDS: GABAPENTIN 300 MG CAP PO SCH ×3 (08:43→20:09)
[2022-03-07] MEDS: DOCUSATE SODIUM 100MG CAPSULE PO SCH (08:44)
[2022-03-07] MEDS: SENNA 8.6 MG TAB (SENOKOT) PO SCH ×2 (08:44→20:10)
[2022-03-07] MEDS: METOPROLOL TART 50 MG TAB PO SCH ×2 (08:44→20:09)
[2022-03-07] MEDS: PANTOPRAZOLE 40MG TAB (PROTONIX) PO SCH (08:44)
[2022-03-07] MEDS: guaiFENesin ER 600 MG TAB PO SCH ×2 (08:45→20:09)
[2022-03-07] MEDS: clonazePAM 0.5 MG TAB PO PRN ×2 (08:51→18:08)
[2022-03-07] MEDS ORDERED: METOPROLOL TART 25 MG TABLET PO SCH (13:00)
[2022-03-07] MEDS: FLUCONAZOLE 50MG TABLET PO SCH (14:40)
[2022-03-07] MEDS: METOPROLOL TART 25 MG TABLET PO SCH (14:40)
[2022-03-07] MEDS: POLYVINYL ALCOHOL OPHTH SOLN 15 ML(LIQUITEARS) OU PRN (18:12)
[2022-03-07] MEDS: ENOXAPARIN 30MG/0.3ML SYRINGE (J1650 PER 10MG) SC SCH (20:07)
[2022-03-07] MEDS ORDERED: NON-FORMULARY 1 EA EA SC SCH (21:00)
[2022-03-07] MEDS: FORTEO SC SCH (21:18)
[2022-03-08] VITALS: BP 94/59
[2022-03-08] MEDS: DOXYCYCLINE HYCLATE 100 MG in D5W MINI-BAG PLUS 100 ML IV SCH (00:39)
[2022-03-08] MEDS: oxyCODONE 5MG TAB PO PRN ×4 (00:51→16:35)
[2022-03-08] MEDS: CEFEPIME HCL 2 GM in D5W MINI-BAG PLUS 50 ML IV SCH ×3 (03:07→20:14)
[2022-03-08] MEDS: HYDROMORPHONE HCL 0.5 MG/ 0.5 ML SYRINGE (J1170 PER 1) IV PRN ×4 (03:07→17:40)
[2022-03-08] MEDS: clonazePAM 0.5 MG TAB PO PRN ×2 (03:54→18:24)
[2022-03-08 04:00] VITALS: BP 156/97
[2022-03-08 05:05] LABS: BASO % 0.1 % (0.0-1.0); HEMATOCRIT 40.4 % (36.0-47.0); LYMPH # 0.4 10^3/uL (1.5-5.0); LYMPH % 2.7 % (24.0-44.0); MEAN CORPUSCULAR HEMOGLOBIN 29.5 pg (27.0-33.0); MEAN CORPUSCULAR HGB CONC 32.2 g/dl (32.0-36.5); MEAN CORPUSCULAR VOLUME 91.6 fl (80.0-96.0); MONO # 0.6 10^3/uL (0.0-0.8); MONO % 3.7 % (2.0-8.0); NEUTROPHILS # 14.2 10^3/uL (1.5-8.5); NEUTROPHILS % 92.7 % (36.0-66.0); PLATELET COUNT, AUTOMATED 190 10^3/uL (150-450); RED BLOOD COUNT 4.41 10^6/uL (4.00-5.40); WHITE BLOOD COUNT 15.4 10^3/uL (4.0-10.0)
[2022-03-08 05:42] LABS: ABG BASE EXCESS 14.9 (-2.0-2.0); ABG HCO3 42.7 MEQ/L (22.0-26.0); ABG O2 SATURATION 96.5 % (95.0-99.0); ABG PARTIAL PRESSURE O2 84.6 mmHg (75.0-100.0); ABG STANDARD HCO3 38.8 MEQ/L (22.0-26.0); ABG TOTAL CO2 44.8 MEQ/L (22.0-29.0); ABG pH (ARTERIAL) 7.421 UNITS (7.350-7.450)
[2022-03-08 05:45] LABS: ABG PARTIAL PRESSURE CO2 67.2 mmHg (35.0-45.0)
[2022-03-08 05:49] LABS: ALBUMIN 2.7 GM/DL (3.2-5.2); ALKALINE PHOSPHATASE 60 U/L (45-117); ALT/SGPT 51 U/L (12-78); AST/SGOT 33 U/L (7-37); BILIRUBIN,TOTAL 0.8 MG/DL (0.2-1.0); BLOOD UREA NITROGEN 24 MG/DL (7-18); CALCIUM LEVEL 9.8 MG/DL (8.5-10.1); CARBON DIOXIDE LEVEL 43 MEQ/L (21-32); CHLORIDE LEVEL 87 MEQ/L (98-107); CREATININE FOR GFR 0.43 MG/DL (0.55-1.30); GLOMERULAR FILTRATION RATE > 60.0 (>58); GLUCOSE, FASTING 117 MG/DL (70-100); POTASSIUM SERUM 3.7 MEQ/L (3.5-5.1); SODIUM LEVEL 133 MEQ/L (136-145); TOTAL PROTEIN 6.2 GM/DL (6.4-8.2)
[2022-03-08] MEDS: IPRATROPIUM 0.5MG/ALBUTEROL 2.5MG INH SOL UD 3ML (DUONEB) NEB SCH ×3 (08:37→16:16)
[2022-03-08 08:50] VITALS: BP 136/85
[2022-03-08] MEDS: SYMPROIC PO SCH (09:00)
[2022-03-08] MEDS: methylPREDNISolone 125MG 2ML VIAL IV SCH (09:12)
[2022-03-08] MEDS: CHLORHEXIDINE GLUCONATE 0.12 % 15ML UDC (PERIDEX ORAL RINSE) MT SCH ×2 (09:12→21:09)
[2022-03-08] MEDS: TORSEMIDE 20 MG TAB PO SCH (09:13)
[2022-03-08] MEDS: FLUCONAZOLE 50MG TABLET PO SCH (09:13)
[2022-03-08] MEDS: GABAPENTIN 300 MG CAP PO SCH ×3 (09:13→20:16)
[2022-03-08] MEDS: guaiFENesin ER 600 MG TAB PO SCH ×2 (09:13→20:16)
[2022-03-08] MEDS: METOPROLOL TART 50 MG TAB PO SCH ×2 (09:13→20:15)
[2022-03-08] MEDS: SENNA 8.6 MG TAB (SENOKOT) PO SCH ×2 (09:13→20:16)
[2022-03-08] MEDS: DOCUSATE SODIUM 100MG CAPSULE PO SCH (09:13)
[2022-03-08] MEDS: PANTOPRAZOLE 40MG TAB (PROTONIX) PO SCH (09:14)
[2022-03-08] MEDS: POLYVINYL ALCOHOL OPHTH SOLN 15 ML(LIQUITEARS) OU PRN (09:15)
[2022-03-08] MEDS ORDERED: VANCOMYCIN HCL 1,000 MG, VIAL MATE ADAPTER 1 EACH in NS 250 ML IV SCH (10:15)
[2022-03-08 10:59] LABS: VANCOMYCIN RANDOM 2.4 UG/ML
[2022-03-08] MEDS: SPIRONOLACTONE 50 MG TAB PO SCH (12:10)
[2022-03-08] MEDS: METOPROLOL TART 25 MG TABLET PO SCH (13:40)
[2022-03-08] MEDS: VANCOMYCIN HCL 750 MG, VIAL MATE ADAPTER 1 EACH in D5W 250 ML IV SCH ×2 (13:46→21:09)
[2022-03-08] MEDS: methylPREDNISolone 40MG 1ML VIAL IV SCH ×2 (15:08→20:14)
[2022-03-08 16:00] VITALS: BP 145/94
[2022-03-08 19:04] VITALS: BP 151/97
[2022-03-08 19:37] VITALS: BP 147/89
[2022-03-08] MEDS: ENOXAPARIN 30MG/0.3ML SYRINGE (J1650 PER 10MG) SC SCH (20:15)
[2022-03-08] MEDS: methocarbamoL 500 MG TAB PO PRN (20:29)
[2022-03-09] MEDS: FORTEO SC SCH ×2 (00:37→22:31)
[2022-03-09] MEDS: oxyCODONE 5MG TAB PO PRN ×4 (00:49→20:42)
[2022-03-09] MEDS: HYDROMORPHONE HCL 0.5 MG/ 0.5 ML SYRINGE (J1170 PER 1) IV PRN ×5 (01:17→23:21)
[2022-03-09] MEDS: CEFEPIME HCL 2 GM in D5W MINI-BAG PLUS 50 ML IV SCH ×3 (04:18→20:46)
[2022-03-09] MEDS: VANCOMYCIN HCL 750 MG, VIAL MATE ADAPTER 1 EACH in D5W 250 ML IV SCH (04:52)
[2022-03-09] MEDS: fentaNYL 100 MCG/HR PATCH TOP SCH (05:46)
[2022-03-09] MEDS: fentaNYL 75 MCG/HR PATCH TOP SCH (05:47)
[2022-03-09 06:00] VITALS: BP 164/99
[2022-03-09] MEDS: clonazePAM 0.5 MG TAB PO PRN ×2 (06:16→15:55)
[2022-03-09 07:00] LABS: BASO % 0.2 % (0.0-1.0); HEMATOCRIT 42.4 % (36.0-47.0); LYMPH # 1.1 10^3/uL (1.5-5.0); LYMPH % 7.1 % (24.0-44.0); MEAN CORPUSCULAR HEMOGLOBIN 29.5 pg (27.0-33.0); MEAN CORPUSCULAR VOLUME 89.5 fl (80.0-96.0); MONO # 0.9 10^3/uL (0.0-0.8); MONO % 6.1 % (2.0-8.0); NEUTROPHILS # 12.9 10^3/uL (1.5-8.5); NEUTROPHILS % 85.8 % (36.0-66.0); PLATELET COUNT, AUTOMATED 220 10^3/uL (150-450); RED BLOOD COUNT 4.74 10^6/uL (4.00-5.40)
[2022-03-09] MEDS: methocarbamoL 500 MG TAB PO PRN (07:09)
[2022-03-09 07:50] LABS: ALBUMIN 2.9 GM/DL (3.2-5.2); ALKALINE PHOSPHATASE 64 U/L (45-117); ALT/SGPT 49 U/L (12-78); AST/SGOT 27 U/L (7-37); BILIRUBIN,TOTAL 0.7 MG/DL (0.2-1.0); BLOOD UREA NITROGEN 38 MG/DL (7-18); CALCIUM LEVEL 9.8 MG/DL (8.5-10.1); CARBON DIOXIDE LEVEL 41 MEQ/L (21-32); CHLORIDE LEVEL 83 MEQ/L (98-107); CREATININE FOR GFR 0.78 MG/DL (0.55-1.30); GLOMERULAR FILTRATION RATE > 60.0 (>58); GLUCOSE, FASTING 169 MG/DL (70-100); POTASSIUM SERUM 3.5 MEQ/L (3.5-5.1); SODIUM LEVEL 129 MEQ/L (136-145)
[2022-03-09] MEDS: IPRATROPIUM 0.5MG/ALBUTEROL 2.5MG INH SOL UD 3ML (DUONEB) NEB SCH ×4 (08:14→18:07)
[2022-03-09] MEDS: CHLORHEXIDINE GLUCONATE 0.12 % 15ML UDC (PERIDEX ORAL RINSE) MT SCH ×2 (09:00→21:34)
[2022-03-09] MEDS: SENNA 8.6 MG TAB (SENOKOT) PO SCH ×2 (09:00→20:41)
[2022-03-09] MEDS: PANTOPRAZOLE 40MG TAB (PROTONIX) PO SCH (09:22)
[2022-03-09] MEDS: SPIRONOLACTONE 50 MG TAB PO SCH (09:22)
[2022-03-09] MEDS: DOCUSATE SODIUM 100MG CAPSULE PO SCH (09:22)
[2022-03-09] MEDS: SYMPROIC PO SCH (09:22)
[2022-03-09] MEDS: GABAPENTIN 300 MG CAP PO SCH ×3 (09:22→20:40)
[2022-03-09] MEDS: guaiFENesin ER 600 MG TAB PO SCH ×2 (09:22→20:40)
[2022-03-09] MEDS: FLUCONAZOLE 50MG TABLET PO SCH (09:23)
[2022-03-09] MEDS: METOPROLOL TART 50 MG TAB PO SCH ×2 (09:23→20:44)
[2022-03-09] MEDS: methylPREDNISolone 40MG 1ML VIAL IV SCH ×3 (09:23→20:44)
[2022-03-09 14:00] VITALS: BP 140/96
[2022-03-09] MEDS: METOPROLOL TART 25 MG TABLET PO SCH (14:10)
[2022-03-09] MEDS: methocarbamoL 500 MG TAB PO SCH ×2 (15:55→22:43)
[2022-03-09] MEDS: ENOXAPARIN 30MG/0.3ML SYRINGE (J1650 PER 10MG) SC SCH (20:45)
[2022-03-09 22:00] VITALS: BP 143/97
[2022-03-09] MEDS ORDERED: VANCOMYCIN HCL 500 MG in D5W MINI-BAG PLUS 100 ML IV SCH (23:00)
[2022-03-10] MEDS: CEFEPIME HCL 2 GM in D5W MINI-BAG PLUS 50 ML IV SCH ×3 (03:53→21:27)
[2022-03-10] MEDS: oxyCODONE 5MG TAB PO PRN ×3 (03:55→12:22)
[2022-03-10] MEDS: HYDROMORPHONE HCL 0.5 MG/ 0.5 ML SYRINGE (J1170 PER 1) IV PRN ×5 (04:54→22:16)
[2022-03-10 06:00] VITALS: BP 146/99
[2022-03-10] MEDS: methocarbamoL 500 MG TAB PO SCH ×3 (06:33→21:27)
[2022-03-10] MEDS: IPRATROPIUM 0.5MG/ALBUTEROL 2.5MG INH SOL UD 3ML (DUONEB) NEB SCH ×5 (08:00→20:53)
[2022-03-10] MEDS: methylPREDNISolone 40MG 1ML VIAL IV SCH ×3 (08:31→21:26)
[2022-03-10] MEDS: DOCUSATE SODIUM 100MG CAPSULE PO SCH (08:32)
[2022-03-10] MEDS: FLUCONAZOLE 50MG TABLET PO SCH (08:32)
[2022-03-10] MEDS: METOPROLOL TART 50 MG TAB PO SCH ×2 (08:32→21:30)
[2022-03-10] MEDS: SPIRONOLACTONE 50 MG TAB PO SCH (08:32)
[2022-03-10] MEDS: guaiFENesin ER 600 MG TAB PO SCH ×2 (08:32→21:30)
[2022-03-10] MEDS: SENNA 8.6 MG TAB (SENOKOT) PO SCH ×2 (08:33→21:30)
[2022-03-10] MEDS: PANTOPRAZOLE 40MG TAB (PROTONIX) PO SCH ×2 (08:33→21:31)
[2022-03-10] MEDS: GABAPENTIN 300 MG CAP PO SCH ×3 (08:33→21:30)
[2022-03-10] MEDS: SYMPROIC PO SCH (08:33)
[2022-03-10] MEDS ORDERED: KETOROLAC 30 MG/ML 1ML VIAL IV ONE (10:55)
[2022-03-10] MEDS: CHLORHEXIDINE GLUCONATE 0.12 % 15ML UDC (PERIDEX ORAL RINSE) MT SCH ×2 (12:21→22:53)
[2022-03-10] MEDS ORDERED: SIMETHICONE 80MG CHEW TAB PO PRN (13:25)
[2022-03-10] MEDS ORDERED: BISACODYL 10 MG SUPP PR ONE (14:00)
[2022-03-10] MEDS: METOPROLOL TART 25 MG TABLET PO SCH (14:33)
[2022-03-10 15:00] VITALS: BP 170/112
[2022-03-10 15:10] LABS: BLOOD UREA NITROGEN 32 MG/DL (7-18); CALCIUM LEVEL 10.3 MG/DL (8.5-10.1); CARBON DIOXIDE LEVEL 36 MEQ/L (21-32); CHLORIDE LEVEL 83 MEQ/L (98-107); CREATININE FOR GFR 0.63 MG/DL (0.55-1.30); GLOMERULAR FILTRATION RATE > 60.0 (>58); GLUCOSE, FASTING 147 MG/DL (70-100); POTASSIUM SERUM 3.9 MEQ/L (3.5-5.1); SODIUM LEVEL 125 MEQ/L (136-145)
[2022-03-10] MEDS: clonazePAM 0.5 MG TAB PO PRN (15:37)
[2022-03-10] MEDS ORDERED: FUROSEMIDE 40MG/4ML VIAL (J1940) IV ONE (15:40)
[2022-03-10] MEDS: SODIUM CHLORIDE 1 GM TAB PO SCH ×2 (16:03→21:30)
[2022-03-10 17:00] VITALS: BP 142/110
[2022-03-10 17:18] LABS: OSMOLALITY URINE 238 MOSM/KG (50-1400)
[2022-03-10 18:17] LABS: SODIUM,RANDOM URINE 71 MEQ/L
[2022-03-10] MEDS: ENOXAPARIN 30MG/0.3ML SYRINGE (J1650 PER 10MG) SC SCH (21:27)
[2022-03-10] MEDS: FORTEO SC SCH (21:31)
[2022-03-10 21:46] VITALS: BP 156/105
[2022-03-11] MEDS: oxyCODONE 5MG TAB PO PRN ×4 (00:35→17:10)
[2022-03-11 01:04] LABS: BLOOD UREA NITROGEN 36 MG/DL (7-18); CALCIUM LEVEL 9.1 MG/DL (8.5-10.1); CARBON DIOXIDE LEVEL 39 MEQ/L (21-32); CHLORIDE LEVEL 87 MEQ/L (98-107); CREATININE FOR GFR 0.89 MG/DL (0.55-1.30); GLOMERULAR FILTRATION RATE > 60.0 (>58); GLUCOSE, FASTING 140 MG/DL (70-100); POTASSIUM SERUM 4.1 MEQ/L (3.5-5.1); SODIUM LEVEL 131 MEQ/L (136-145)
[2022-03-11] MEDS: HYDROMORPHONE HCL 0.5 MG/ 0.5 ML SYRINGE (J1170 PER 1) IV PRN ×3 (02:56→15:39)
[2022-03-11] MEDS: clonazePAM 0.5 MG TAB PO PRN ×2 (04:18→13:07)
[2022-03-11] MEDS: methocarbamoL 500 MG TAB PO SCH ×3 (05:00→21:03)
[2022-03-11] MEDS: CEFEPIME HCL 2 GM in D5W MINI-BAG PLUS 50 ML IV SCH ×3 (05:01→21:06)
[2022-03-11 06:12] LABS: BASO % 0.2 % (0.0-1.0); HEMATOCRIT 40.5 % (36.0-47.0); HEMOGLOBIN 13.3 g/dl (12.0-15.5); LYMPH # 0.6 10^3/uL (1.5-5.0); LYMPH % 4.7 % (24.0-44.0); MEAN CORPUSCULAR HEMOGLOBIN 29.6 pg (27.0-33.0); MEAN CORPUSCULAR HGB CONC 32.8 g/dl (32.0-36.5); MONO # 0.7 10^3/uL (0.0-0.8); MONO % 5.2 % (2.0-8.0); NEUTROPHILS # 11.1 10^3/uL (1.5-8.5); NEUTROPHILS % 89.1 % (36.0-66.0); PLATELET COUNT, AUTOMATED 242 10^3/uL (150-450); WHITE BLOOD COUNT 12.5 10^3/uL (4.0-10.0)
[2022-03-11] MEDS: IPRATROPIUM 0.5MG/ALBUTEROL 2.5MG INH SOL UD 3ML (DUONEB) NEB SCH ×3 (06:21→16:03)
[2022-03-11 07:31] LABS: BLOOD UREA NITROGEN 36 MG/DL (7-18); CALCIUM LEVEL 9.7 MG/DL (8.5-10.1); CARBON DIOXIDE LEVEL 31 MEQ/L (21-32); CHLORIDE LEVEL 87 MEQ/L (98-107); CREATININE FOR GFR 0.74 MG/DL (0.55-1.30); GLOMERULAR FILTRATION RATE > 60.0 (>58); GLUCOSE, FASTING 159 MG/DL (70-100); POTASSIUM SERUM 4.2 MEQ/L (3.5-5.1); SODIUM LEVEL 132 MEQ/L (136-145)
[2022-03-11] MEDS: guaiFENesin ER 600 MG TAB PO SCH ×2 (08:57→21:06)
[2022-03-11] MEDS: SENNA 8.6 MG TAB (SENOKOT) PO SCH ×2 (08:57→20:55)
[2022-03-11] MEDS: SODIUM CHLORIDE 1 GM TAB PO SCH ×3 (09:00→20:55)
[2022-03-11] MEDS: CHLORHEXIDINE GLUCONATE 0.12 % 15ML UDC (PERIDEX ORAL RINSE) MT SCH ×2 (09:00→21:03)
[2022-03-11] MEDS: PANTOPRAZOLE 40MG TAB (PROTONIX) PO SCH ×2 (09:00→20:56)
[2022-03-11] MEDS: GABAPENTIN 300 MG CAP PO SCH ×3 (09:00→21:02)
[2022-03-11] MEDS: TORSEMIDE 20 MG TAB PO SCH (09:00)
[2022-03-11] MEDS ORDERED: BISACODYL 10 MG SUPP PR PRN (09:00)
[2022-03-11] MEDS: DOCUSATE SODIUM 100MG CAPSULE PO SCH (09:00)
[2022-03-11] MEDS: FLUCONAZOLE 50MG TABLET PO SCH (09:00)
[2022-03-11] MEDS: SPIRONOLACTONE 50 MG TAB PO SCH (09:03)
[2022-03-11] MEDS: METOPROLOL TART 50 MG TAB PO SCH ×2 (09:03→21:02)
[2022-03-11] MEDS: methylPREDNISolone 40MG 1ML VIAL IV SCH ×2 (09:04→21:07)
[2022-03-11] MEDS: SYMPROIC PO SCH (09:04)
[2022-03-11 14:00] VITALS: BP 173/118
[2022-03-11] MEDS ORDERED: oxyCODONE 5MG TAB PO PRN (18:55)
[2022-03-11] MEDS ORDERED: HYDROMORPHONE 1 MG IV SCH (19:25)
[2022-03-11] MEDS ORDERED: HYDROMORPHONE HCL 0.5 MG/ 0.5 ML SYRINGE (J1170 PER 1) IV ONE (20:15)
[2022-03-11] MEDS: clonazePAM 0.5 MG TAB PO SCH (20:56)
[2022-03-11] MEDS ORDERED: fentaNYL 75 MCG/HR PATCH TOP SCH (21:00)
[2022-03-11] MEDS ORDERED: fentaNYL 100 MCG/HR PATCH TOP SCH (21:00)
[2022-03-11] MEDS: ENOXAPARIN 30MG/0.3ML SYRINGE (J1650 PER 10MG) SC SCH (21:06)
[2022-03-11] MEDS: FORTEO SC SCH (21:07)
[2022-03-11 23:36] VITALS: BP 128/89
[2022-03-12] MEDS: methocarbamoL 500 MG TAB PO SCH (05:06)
[2022-03-12] MEDS: CEFEPIME HCL 2 GM in D5W MINI-BAG PLUS 50 ML IV SCH ×3 (05:06→15:31)
[2022-03-12 07:18] LABS: BASO % 0.2 % (0.0-1.0); HEMATOCRIT 41.7 % (36.0-47.0); HEMOGLOBIN 13.3 g/dl (12.0-15.5); LYMPH % 7.4 % (24.0-44.0); MEAN CORPUSCULAR HEMOGLOBIN 29.5 pg (27.0-33.0); MEAN CORPUSCULAR HGB CONC 31.9 g/dl (32.0-36.5); MEAN CORPUSCULAR VOLUME 92.5 fl (80.0-96.0); MONO % 7.5 % (2.0-8.0); NEUTROPHILS % 83.9 % (36.0-66.0); PLATELET COUNT, AUTOMATED 269 10^3/uL (150-450); RED BLOOD COUNT 4.51 10^6/uL (4.00-5.40); WHITE BLOOD COUNT 13.1 10^3/uL (4.0-10.0)
[2022-03-12 07:18] LABS: BLOOD UREA NITROGEN 26 MG/DL (7-18); CALCIUM LEVEL 8.7 MG/DL (8.5-10.1); CARBON DIOXIDE LEVEL 29 MEQ/L (21-32); CHLORIDE LEVEL 96 MEQ/L (98-107); CREATININE FOR GFR 0.52 MG/DL (0.55-1.30); GLOMERULAR FILTRATION RATE > 60.0 (>58); GLUCOSE, FASTING 112 MG/DL (70-100); POTASSIUM SERUM 4.9 MEQ/L (3.5-5.1); SODIUM LEVEL 135 MEQ/L (136-145)
[2022-03-12] MEDS: IPRATROPIUM 0.5MG/ALBUTEROL 2.5MG INH SOL UD 3ML (DUONEB) NEB SCH ×4 (08:24→20:00)
[2022-03-12] MEDS: SENNA 8.6 MG TAB (SENOKOT) PO SCH ×2 (09:00→21:00)
[2022-03-12] MEDS: METOPROLOL TART 50 MG TAB PO SCH ×2 (09:21→21:00)
[2022-03-12] MEDS: SPIRONOLACTONE 50 MG TAB PO SCH (09:21)
[2022-03-12] MEDS: PANTOPRAZOLE 40MG TAB (PROTONIX) PO SCH ×2 (09:21→21:00)
[2022-03-12] MEDS: TORSEMIDE 20 MG TAB PO SCH (09:22)
[2022-03-12] MEDS: GABAPENTIN 300 MG CAP PO SCH ×3 (09:23→21:00)
[2022-03-12] MEDS: clonazePAM 0.5 MG TAB PO SCH ×3 (09:23→23:15)
[2022-03-12] MEDS: SYMPROIC PO SCH (09:24)
[2022-03-12] MEDS: methylPREDNISolone 40MG 1ML VIAL IV SCH (09:25)
[2022-03-12] MEDS: DOCUSATE SODIUM 100MG CAPSULE PO SCH (09:38)
[2022-03-12] MEDS: SODIUM CHLORIDE 1 GM TAB PO SCH ×3 (09:38→21:00)
[2022-03-12] MEDS: FLUCONAZOLE 50MG TABLET PO SCH (09:38)
[2022-03-12] MEDS: CHLORHEXIDINE GLUCONATE 0.12 % 15ML UDC (PERIDEX ORAL RINSE) MT SCH ×2 (09:38→21:00)
[2022-03-12] MEDS: guaiFENesin ER 600 MG TAB PO SCH ×2 (09:38→21:00)
[2022-03-12] MEDS: oxyCODONE 5MG TAB PO PRN ×4 (11:04→19:04)
[2022-03-12 14:00] VITALS: BP 148/105
[2022-03-12] MEDS ORDERED: HYDROMORPHONE HCL 0.5 MG/ 0.5 ML SYRINGE (J1170 PER 1) IV PRN (15:00)
[2022-03-12 20:00] VITALS: BP 146/109
[2022-03-12] MEDS ORDERED: LIDOCAINE VISCOUS 2% SOLN 15ML UDC SS PRN (20:15)
[2022-03-12] MEDS: ENOXAPARIN 30MG/0.3ML SYRINGE (J1650 PER 10MG) SC SCH (21:00)
[2022-03-12] MEDS: FORTEO SC SCH (21:00)
[2022-03-13] MEDS: oxyCODONE 5MG TAB PO PRN ×4 (05:23→17:50)
[2022-03-13 06:00] VITALS: BP 147/102
[2022-03-13] MEDS: IPRATROPIUM 0.5MG/ALBUTEROL 2.5MG INH SOL UD 3ML (DUONEB) NEB SCH ×4 (07:46→20:09)
[2022-03-13] MEDS ORDERED: predniSONE 20 MG TAB PO SCH (09:00)
[2022-03-13] MEDS: CHLORHEXIDINE GLUCONATE 0.12 % 15ML UDC (PERIDEX ORAL RINSE) MT SCH ×2 (09:00→21:25)
[2022-03-13] MEDS: FLUCONAZOLE 50MG TABLET PO SCH (09:02)
[2022-03-13] MEDS: GABAPENTIN 300 MG CAP PO SCH ×3 (09:03→21:15)
[2022-03-13] MEDS: DOCUSATE SODIUM 100MG CAPSULE PO SCH (09:03)
[2022-03-13] MEDS: clonazePAM 0.5 MG TAB PO SCH ×2 (09:03→16:18)
[2022-03-13] MEDS: SENNA 8.6 MG TAB (SENOKOT) PO SCH ×2 (09:03→21:14)
[2022-03-13] MEDS: predniSONE 20 MG TAB PO SCH (09:03)
[2022-03-13] MEDS: PANTOPRAZOLE 40MG TAB (PROTONIX) PO SCH ×2 (09:03→21:15)
[2022-03-13] MEDS: TORSEMIDE 20 MG TAB PO SCH (09:03)
[2022-03-13] MEDS: guaiFENesin ER 600 MG TAB PO SCH ×2 (09:03→21:13)
[2022-03-13] MEDS: SODIUM CHLORIDE 1 GM TAB PO SCH ×3 (09:03→21:13)
[2022-03-13] MEDS: SYMPROIC PO SCH (09:04)
[2022-03-13] MEDS: METOPROLOL TART 50 MG TAB PO SCH ×2 (09:04→21:16)
[2022-03-13] MEDS: SPIRONOLACTONE 50 MG TAB PO SCH (09:13)
[2022-03-13 11:08] LABS: BASO % 0.2 % (0.0-1.0); EOS # 0.1 10^3/uL (0.0-0.5); EOS % 0.3 % (0.0-3.0); HEMATOCRIT 45.8 % (36.0-47.0); LYMPH # 2.5 10^3/uL (1.5-5.0); LYMPH % 12.2 % (24.0-44.0); MEAN CORPUSCULAR HEMOGLOBIN 29.7 pg (27.0-33.0); MEAN CORPUSCULAR HGB CONC 32.8 g/dl (32.0-36.5); MEAN CORPUSCULAR VOLUME 90.7 fl (80.0-96.0); MONO # 1.1 10^3/uL (0.0-0.8); MONO % 5.4 % (2.0-8.0); NEUTROPHILS # 16.7 10^3/uL (1.5-8.5); NEUTROPHILS % 80.4 % (36.0-66.0); PLATELET COUNT, AUTOMATED 339 10^3/uL (150-450); RED BLOOD COUNT 5.05 10^6/uL (4.00-5.40); WHITE BLOOD COUNT 20.7 10^3/uL (4.0-10.0)
[2022-03-13 11:53] LABS: BLOOD UREA NITROGEN 41 MG/DL (7-18); CALCIUM LEVEL 10.4 MG/DL (8.5-10.1); CARBON DIOXIDE LEVEL 38 MEQ/L (21-32); CHLORIDE LEVEL 86 MEQ/L (98-107); GLOMERULAR FILTRATION RATE > 60.0 (>58); GLUCOSE, FASTING 130 MG/DL (70-100); POTASSIUM SERUM 4.2 MEQ/L (3.5-5.1); SODIUM LEVEL 132 MEQ/L (136-145)
[2022-03-13] MEDS ORDERED: NALOXONE INJ 0.4MG/1ML VIAL IV PRN (13:00)
[2022-03-13] MEDS: fentaNYL 100 MCG/HR PATCH TOP SCH (13:23)
[2022-03-13] MEDS: methocarbamoL 750 MG TAB PO PRN ×2 (13:24→21:16)
[2022-03-13 14:00] VITALS: BP 116/83
[2022-03-13] MEDS: QUEtiapine FUMARATE 12.5 MG HALF-TAB PO SCH (21:13)
[2022-03-13] MEDS: FORTEO SC SCH (21:16)
[2022-03-13] MEDS: ENOXAPARIN 30MG/0.3ML SYRINGE (J1650 PER 10MG) SC SCH (21:26)
[2022-03-13 22:00] VITALS: BP 118/87
[2022-03-14] MEDS: oxyCODONE 5MG TAB PO PRN ×5 (04:36→23:41)
[2022-03-14 06:00] VITALS: BP 128/83
[2022-03-14] MEDS: IPRATROPIUM 0.5MG/ALBUTEROL 2.5MG INH SOL UD 3ML (DUONEB) NEB SCH ×4 (07:18→20:00)
[2022-03-14 08:25] LABS: BASO % 0.2 % (0.0-1.0); EOS # 0.1 10^3/uL (0.0-0.5); EOS % 0.5 % (0.0-3.0); HEMATOCRIT 42.9 % (36.0-47.0); HEMOGLOBIN 13.7 g/dl (12.0-15.5); LYMPH # 5.1 10^3/uL (1.5-5.0); LYMPH % 29.6 % (24.0-44.0); MEAN CORPUSCULAR HEMOGLOBIN 29.3 pg (27.0-33.0); MEAN CORPUSCULAR HGB CONC 31.9 g/dl (32.0-36.5); MEAN CORPUSCULAR VOLUME 91.7 fl (80.0-96.0); MONO % 5.9 % (2.0-8.0); NEUTROPHILS # 10.7 10^3/uL (1.5-8.5); NEUTROPHILS % 62.2 % (36.0-66.0); PLATELET COUNT, AUTOMATED 316 10^3/uL (150-450); RED BLOOD COUNT 4.68 10^6/uL (4.00-5.40); WHITE BLOOD COUNT 17.2 10^3/uL (4.0-10.0)
[2022-03-14] MEDS: SENNA 8.6 MG TAB (SENOKOT) PO SCH ×2 (08:52→21:00)
[2022-03-14] MEDS: GABAPENTIN 300 MG CAP PO SCH ×3 (08:52→21:59)
[2022-03-14] MEDS: guaiFENesin ER 600 MG TAB PO SCH ×2 (08:52→22:00)
[2022-03-14] MEDS: predniSONE 20 MG TAB PO SCH (08:52)
[2022-03-14] MEDS: ESCITALOPRAM OXALATE 10 MG TAB (LEXAPRO) PO SCH (08:52)
[2022-03-14] MEDS: QUEtiapine FUMARATE 12.5 MG HALF-TAB PO SCH ×2 (08:52→22:00)
[2022-03-14] MEDS: SODIUM CHLORIDE 1 GM TAB PO SCH ×3 (08:53→22:00)
[2022-03-14] MEDS: PANTOPRAZOLE 40MG TAB (PROTONIX) PO SCH ×2 (08:53→22:00)
[2022-03-14] MEDS: DOCUSATE SODIUM 100MG CAPSULE PO SCH (08:53)
[2022-03-14] MEDS: METOPROLOL TART 50 MG TAB PO SCH ×2 (08:53→22:00)
[2022-03-14] MEDS: CHLORHEXIDINE GLUCONATE 0.12 % 15ML UDC (PERIDEX ORAL RINSE) MT SCH ×2 (08:54→21:00)
[2022-03-14] MEDS: SYMPROIC PO SCH (08:54)
[2022-03-14 08:56] LABS: BLOOD UREA NITROGEN 39 MG/DL (7-18); CALCIUM LEVEL 10.7 MG/DL (8.5-10.1); CARBON DIOXIDE LEVEL 42 MEQ/L (21-32); CHLORIDE LEVEL 86 MEQ/L (98-107); CREATININE FOR GFR 0.85 MG/DL (0.55-1.30); GLOMERULAR FILTRATION RATE > 60.0 (>58); GLUCOSE, FASTING 91 MG/DL (70-100); POTASSIUM SERUM 3.2 MEQ/L (3.5-5.1); SODIUM LEVEL 133 MEQ/L (136-145)
[2022-03-14] MEDS ORDERED: POTASSIUM CHLORIDE 10MEQ SR TABLET PO ONE (09:45)
[2022-03-14] MEDS: methocarbamoL 750 MG TAB PO PRN ×2 (09:58→21:55)
[2022-03-14 11:13] LABS: ABG BASE EXCESS 11.7 (-2.0-2.0); ABG HCO3 36.8 MEQ/L (22.0-26.0); ABG O2 SATURATION 97.8 % (95.0-99.0); ABG PARTIAL PRESSURE CO2 49.2 mmHg (35.0-45.0); ABG PARTIAL PRESSURE O2 89.4 mmHg (75.0-100.0); ABG STANDARD HCO3 35.5 MEQ/L (22.0-26.0); ABG TOTAL CO2 38.3 MEQ/L (22.0-29.0); ABG pH (ARTERIAL) 7.492 UNITS (7.350-7.450)
[2022-03-14 14:00] VITALS: BP 128/72
[2022-03-14] MEDS ORDERED: SODIUM CHLORIDE 0.9% 1000ML IV ONE (17:00)
[2022-03-14] MEDS: clonazePAM 0.5 MG TAB PO PRN (17:35)
[2022-03-14] MEDS ORDERED: GI COCKTAIL 50ML BTL(HYOSCYAMINE/MAALOX/LIDOCAINE VISCOUS)(1:3:1) PO ONE (19:35)
[2022-03-14 20:00] VITALS: BP 125/82
[2022-03-14] MEDS: ENOXAPARIN 30MG/0.3ML SYRINGE (J1650 PER 10MG) SC SCH (21:59)
[2022-03-14] MEDS: FORTEO SC SCH (22:01)
[2022-03-15] MEDS: oxyCODONE 5MG TAB PO PRN ×4 (04:29→20:11)
[2022-03-15 06:00] VITALS: BP 126/82
[2022-03-15 06:37] LABS: BASO % 0.3 % (0.0-1.0); EOS # 0.1 10^3/uL (0.0-0.5); EOS % 0.5 % (0.0-3.0); HEMATOCRIT 36.1 % (36.0-47.0); LYMPH # 3.5 10^3/uL (1.5-5.0); LYMPH % 26.2 % (24.0-44.0); MEAN CORPUSCULAR HEMOGLOBIN 29.8 pg (27.0-33.0); MEAN CORPUSCULAR HGB CONC 32.1 g/dl (32.0-36.5); MEAN CORPUSCULAR VOLUME 92.8 fl (80.0-96.0); MONO # 0.8 10^3/uL (0.0-0.8); MONO % 6.1 % (2.0-8.0); NEUTROPHILS # 8.7 10^3/uL (1.5-8.5); PLATELET COUNT, AUTOMATED 317 10^3/uL (150-450); RED BLOOD COUNT 3.89 10^6/uL (4.00-5.40); WHITE BLOOD COUNT 13.4 10^3/uL (4.0-10.0)
[2022-03-15 06:38] LABS: HEMOGLOBIN 11.6 g/dl (12.0-15.5)
[2022-03-15 06:50] LABS: ALBUMIN 2.9 GM/DL (3.2-5.2); BLOOD UREA NITROGEN 32 MG/DL (7-18); CALCIUM LEVEL 9.4 MG/DL (8.5-10.1); CARBON DIOXIDE LEVEL 38 MEQ/L (21-32); CHLORIDE LEVEL 96 MEQ/L (98-107); CREATININE FOR GFR 0.58 MG/DL (0.55-1.30); GLOMERULAR FILTRATION RATE > 60.0 (>58); GLUCOSE, FASTING 85 MG/DL (70-100); SODIUM LEVEL 136 MEQ/L (136-145)
[2022-03-15 06:51] LABS: POTASSIUM SERUM 3.9 MEQ/L (3.5-5.1)
[2022-03-15] MEDS: IPRATROPIUM 0.5MG/ALBUTEROL 2.5MG INH SOL UD 3ML (DUONEB) NEB SCH ×4 (07:29→20:00)
[2022-03-15] MEDS: PANTOPRAZOLE 40MG TAB (PROTONIX) PO SCH ×2 (08:43→20:09)
[2022-03-15] MEDS: QUEtiapine FUMARATE 12.5 MG HALF-TAB PO SCH ×2 (08:43→20:07)
[2022-03-15] MEDS: DOCUSATE SODIUM 100MG CAPSULE PO SCH (08:44)
[2022-03-15] MEDS: CHLORHEXIDINE GLUCONATE 0.12 % 15ML UDC (PERIDEX ORAL RINSE) MT SCH ×2 (08:44→20:09)
[2022-03-15] MEDS: guaiFENesin ER 600 MG TAB PO SCH ×2 (08:44→20:09)
[2022-03-15] MEDS: SODIUM CHLORIDE 1 GM TAB PO SCH ×3 (08:44→20:06)
[2022-03-15] MEDS: SENNA 8.6 MG TAB (SENOKOT) PO SCH ×2 (08:44→20:09)
[2022-03-15] MEDS: ESCITALOPRAM OXALATE 10 MG TAB (LEXAPRO) PO SCH (08:44)
[2022-03-15] MEDS: SYMPROIC PO SCH (08:44)
[2022-03-15] MEDS: GABAPENTIN 300 MG CAP PO SCH ×3 (08:44→20:09)
[2022-03-15] MEDS: METOPROLOL TART 50 MG TAB PO SCH ×2 (08:46→20:08)
[2022-03-15] MEDS ORDERED: predniSONE 20 MG TAB PO SCH (09:00)
[2022-03-15 14:00] VITALS: BP 99/69
[2022-03-15] MEDS: fentaNYL 100 MCG/HR PATCH TOP SCH (14:16)
[2022-03-15 20:00] VITALS: BP 153/99
[2022-03-15] MEDS: ENOXAPARIN 30MG/0.3ML SYRINGE (J1650 PER 10MG) SC SCH (20:09)
[2022-03-15] MEDS: FORTEO SC SCH (20:10)
[2022-03-15] MEDS: clonazePAM 0.5 MG TAB PO PRN (20:10)
[2022-03-16] MEDS: oxyCODONE 5MG TAB PO PRN ×5 (01:37→20:30)
[2022-03-16 06:05] LABS: BASO % 0.2 % (0.0-1.0); EOS # 0.1 10^3/uL (0.0-0.5); EOS % 0.6 % (0.0-3.0); HEMATOCRIT 36.9 % (36.0-47.0); HEMOGLOBIN 11.3 g/dl (12.0-15.5); LYMPH # 3.8 10^3/uL (1.5-5.0); LYMPH % 26.5 % (24.0-44.0); MEAN CORPUSCULAR HEMOGLOBIN 29.5 pg (27.0-33.0); MEAN CORPUSCULAR HGB CONC 30.6 g/dl (32.0-36.5); MEAN CORPUSCULAR VOLUME 96.3 fl (80.0-96.0); MONO % 6.7 % (2.0-8.0); NEUTROPHILS # 9.3 10^3/uL (1.5-8.5); NEUTROPHILS % 64.8 % (36.0-66.0); PLATELET COUNT, AUTOMATED 308 10^3/uL (150-450); RED BLOOD COUNT 3.83 10^6/uL (4.00-5.40); WHITE BLOOD COUNT 14.4 10^3/uL (4.0-10.0)
[2022-03-16 06:23] VITALS: BP 114/73
[2022-03-16 06:32] LABS: BLOOD UREA NITROGEN 20 MG/DL (7-18); CALCIUM LEVEL 9.4 MG/DL (8.5-10.1); CARBON DIOXIDE LEVEL 34 MEQ/L (21-32); CHLORIDE LEVEL 102 MEQ/L (98-107); CREATININE FOR GFR 0.44 MG/DL (0.55-1.30); GLOMERULAR FILTRATION RATE > 60.0 (>58); GLUCOSE, FASTING 80 MG/DL (70-100); POTASSIUM SERUM 3.9 MEQ/L (3.5-5.1); SODIUM LEVEL 142 MEQ/L (136-145)
[2022-03-16] MEDS: IPRATROPIUM 0.5MG/ALBUTEROL 2.5MG INH SOL UD 3ML (DUONEB) NEB SCH ×2 (07:11→11:33)
[2022-03-16] MEDS: CHLORHEXIDINE GLUCONATE 0.12 % 15ML UDC (PERIDEX ORAL RINSE) MT SCH ×2 (09:00→20:30)
[2022-03-16 10:09] VITALS: BP 117/73
[2022-03-16] MEDS: guaiFENesin ER 600 MG TAB PO SCH ×2 (10:10→20:26)
[2022-03-16] MEDS: ESCITALOPRAM OXALATE 10 MG TAB (LEXAPRO) PO SCH (10:11)
[2022-03-16] MEDS: predniSONE 10 MG TAB PO SCH (10:11)
[2022-03-16] MEDS: SODIUM CHLORIDE 1 GM TAB PO SCH ×3 (10:11→20:26)
[2022-03-16] MEDS: METOPROLOL TART 50 MG TAB PO SCH ×2 (10:11→20:30)
[2022-03-16] MEDS: DOCUSATE SODIUM 100MG CAPSULE PO SCH (10:11)
[2022-03-16] MEDS: PANTOPRAZOLE 40MG TAB (PROTONIX) PO SCH ×2 (10:11→20:27)
[2022-03-16] MEDS: QUEtiapine FUMARATE 12.5 MG HALF-TAB PO SCH ×2 (10:12→20:27)
[2022-03-16] MEDS: SENNA 8.6 MG TAB (SENOKOT) PO SCH ×2 (10:12→20:26)
[2022-03-16] MEDS: SYMPROIC PO SCH (10:12)
[2022-03-16] MEDS: GABAPENTIN 300 MG CAP PO SCH (10:12)
[2022-03-16] MEDS: clonazePAM 0.5 MG TAB PO PRN (12:37)
[2022-03-16] MEDS: methocarbamoL 750 MG TAB PO PRN ×2 (12:37→23:17)
[2022-03-16] MEDS: LIDOCAINE 5% (LIDODERM) PATCH TD SCH (13:37)
[2022-03-16] MEDS: GABAPENTIN 400MG CAP PO SCH ×2 (13:38→20:26)
[2022-03-16] MEDS: NYSTATIN 500,000 U/5 ML SUSP UDC SS SCH ×2 (16:12→20:27)
[2022-03-16] MEDS: METHYLNALTREXONE BROMIDE 12MG/0.6ML VIAL (RELISTOR) SC SCH (16:13)
[2022-03-16 18:00] VITALS: BP 119/74
[2022-03-16] MEDS: ENOXAPARIN 30MG/0.3ML SYRINGE (J1650 PER 10MG) SC SCH (20:27)
[2022-03-16] MEDS: FORTEO SC SCH (20:28)
[2022-03-16 22:00] VITALS: BP 105/67
[2022-03-17] MEDS: oxyCODONE 5MG TAB PO PRN ×4 (05:44→21:09)
[2022-03-17 06:00] VITALS: BP 120/79
[2022-03-17] MEDS: GABAPENTIN 400MG CAP PO SCH ×3 (06:01→21:06)
[2022-03-17] MEDS: TIOTROPIUM INHALER/CAPSULE (SPIRIVA) INH SCH (07:37)
[2022-03-17] MEDS: IPRATROPIUM 0.5MG/ALBUTEROL 2.5MG INH SOL UD 3ML (DUONEB) NEB PRN (07:37)
[2022-03-17] MEDS: CHLORHEXIDINE GLUCONATE 0.12 % 15ML UDC (PERIDEX ORAL RINSE) MT SCH ×2 (09:00→21:00)
[2022-03-17] MEDS: LIDOCAINE 5% (LIDODERM) PATCH TD SCH ×2 (09:00→21:07)
[2022-03-17] MEDS: SENNA 8.6 MG TAB (SENOKOT) PO SCH ×3 (09:00→21:00)
[2022-03-17 09:44] LABS: BASO % 0.2 % (0.0-1.0); EOS # 0.1 10^3/uL (0.0-0.5); EOS % 0.7 % (0.0-3.0); HEMOGLOBIN 11.3 g/dl (12.0-15.5); LYMPH % 29.7 % (24.0-44.0); MEAN CORPUSCULAR HEMOGLOBIN 29.5 pg (27.0-33.0); MEAN CORPUSCULAR HGB CONC 30.5 g/dl (32.0-36.5); MEAN CORPUSCULAR VOLUME 96.6 fl (80.0-96.0); MONO % 7.3 % (2.0-8.0); NEUTROPHILS # 8.2 10^3/uL (1.5-8.5); NEUTROPHILS % 61.1 % (36.0-66.0); PLATELET COUNT, AUTOMATED 300 10^3/uL (150-450); RED BLOOD COUNT 3.83 10^6/uL (4.00-5.40); WHITE BLOOD COUNT 13.4 10^3/uL (4.0-10.0)
[2022-03-17 10:09] LABS: BLOOD UREA NITROGEN 18 MG/DL (7-18); CALCIUM LEVEL 9.3 MG/DL (8.5-10.1); CARBON DIOXIDE LEVEL 34 MEQ/L (21-32); CHLORIDE LEVEL 103 MEQ/L (98-107); CREATININE FOR GFR 0.35 MG/DL (0.55-1.30); GLOMERULAR FILTRATION RATE > 60.0 (>58); GLUCOSE, FASTING 81 MG/DL (70-100); POTASSIUM SERUM 3.8 MEQ/L (3.5-5.1); SODIUM LEVEL 142 MEQ/L (136-145)
[2022-03-17] MEDS: NYSTATIN 500,000 U/5 ML SUSP UDC SS SCH ×4 (10:34→21:05)
[2022-03-17] MEDS: guaiFENesin ER 600 MG TAB PO SCH ×2 (10:35→21:05)
[2022-03-17] MEDS: DOCUSATE SODIUM 100MG CAPSULE PO SCH (10:36)
[2022-03-17] MEDS: QUEtiapine FUMARATE 12.5 MG HALF-TAB PO SCH ×2 (10:36→21:05)
[2022-03-17] MEDS: SODIUM CHLORIDE 1 GM TAB PO SCH ×3 (10:36→21:05)
[2022-03-17] MEDS: clonazePAM 0.5 MG TAB PO PRN (10:36)
[2022-03-17] MEDS: PANTOPRAZOLE 40MG TAB (PROTONIX) PO SCH ×2 (10:37→21:05)
[2022-03-17] MEDS: ESCITALOPRAM OXALATE 10 MG TAB (LEXAPRO) PO SCH (10:37)
[2022-03-17] MEDS: predniSONE 10 MG TAB PO SCH (10:37)
[2022-03-17] MEDS: SYMPROIC PO SCH (10:39)
[2022-03-17] MEDS: METOPROLOL TART 50 MG TAB PO SCH (10:42)
[2022-03-17] MEDS: methocarbamoL 750 MG TAB PO PRN ×2 (13:37→23:22)
[2022-03-17] MEDS: fentaNYL 100 MCG/HR PATCH TOP SCH ×2 (13:38→13:41)
[2022-03-17 14:00] VITALS: BP 90/54
[2022-03-17 17:00] VITALS: BP 122/66
[2022-03-17] MEDS: FORTEO SC SCH (21:06)
[2022-03-17] MEDS: ENOXAPARIN 30MG/0.3ML SYRINGE (J1650 PER 10MG) SC SCH (21:06)
[2022-03-17 21:30] VITALS: BP 126/84
[2022-03-18] MEDS: oxyCODONE 5MG TAB PO PRN ×4 (04:17→22:37)
[2022-03-18 04:30] VITALS: BP 148/86
[2022-03-18] MEDS: GABAPENTIN 400MG CAP PO SCH ×3 (05:42→22:40)
[2022-03-18 06:39] LABS: BASO % 0.2 % (0.0-1.0); EOS # 0.1 10^3/uL (0.0-0.5); EOS % 0.8 % (0.0-3.0); LYMPH # 3.7 10^3/uL (1.5-5.0); LYMPH % 29.5 % (24.0-44.0); MEAN CORPUSCULAR HEMOGLOBIN 29.4 pg (27.0-33.0); MEAN CORPUSCULAR HGB CONC 30.6 g/dl (32.0-36.5); MEAN CORPUSCULAR VOLUME 96.3 fl (80.0-96.0); MONO % 7.8 % (2.0-8.0); NEUTROPHILS # 7.6 10^3/uL (1.5-8.5); NEUTROPHILS % 60.9 % (36.0-66.0); PLATELET COUNT, AUTOMATED 329 10^3/uL (150-450); RED BLOOD COUNT 3.74 10^6/uL (4.00-5.40); WHITE BLOOD COUNT 12.4 10^3/uL (4.0-10.0)
[2022-03-18] MEDS: TIOTROPIUM INHALER/CAPSULE (SPIRIVA) INH SCH (08:00)
[2022-03-18] MEDS: SODIUM CHLORIDE 1 GM TAB PO SCH ×3 (08:51→22:40)
[2022-03-18] MEDS: SENNA 8.6 MG TAB (SENOKOT) PO SCH ×2 (08:51→22:46)
[2022-03-18] MEDS: ESCITALOPRAM OXALATE 10 MG TAB (LEXAPRO) PO SCH (08:51)
[2022-03-18] MEDS: NYSTATIN 500,000 U/5 ML SUSP UDC SS SCH ×4 (08:51→22:29)
[2022-03-18] MEDS: PANTOPRAZOLE 40MG TAB (PROTONIX) PO SCH ×2 (08:51→22:40)
[2022-03-18] MEDS: methocarbamoL 750 MG TAB PO PRN (08:51)
[2022-03-18] MEDS: DOCUSATE SODIUM 100MG CAPSULE PO SCH (08:51)
[2022-03-18] MEDS: predniSONE 10 MG TAB PO SCH (08:51)
[2022-03-18] MEDS: guaiFENesin ER 600 MG TAB PO SCH ×2 (08:51→22:40)
[2022-03-18] MEDS: CHLORHEXIDINE GLUCONATE 0.12 % 15ML UDC (PERIDEX ORAL RINSE) MT SCH ×2 (08:53→22:29)
[2022-03-18] MEDS: SYMPROIC PO SCH (09:03)
[2022-03-18] MEDS: QUEtiapine FUMARATE 12.5 MG HALF-TAB PO SCH ×2 (09:05→22:40)
[2022-03-18] MEDS: IPRATROPIUM 0.5MG/ALBUTEROL 2.5MG INH SOL UD 3ML (DUONEB) NEB PRN ×2 (09:24→17:09)
[2022-03-18 14:00] VITALS: BP 154/94
[2022-03-18] MEDS: METHYLNALTREXONE BROMIDE 12MG/0.6ML VIAL (RELISTOR) SC SCH (16:10)
[2022-03-18] MEDS: ENOXAPARIN 30MG/0.3ML SYRINGE (J1650 PER 10MG) SC SCH (22:38)
[2022-03-18] MEDS: FORTEO SC SCH (22:39)
[2022-03-18] MEDS: LIDOCAINE 5% (LIDODERM) PATCH TD SCH (22:47)
[2022-03-19] MEDS: oxyCODONE 5MG TAB PO PRN ×4 (04:41→22:54)
[2022-03-19 04:42] VITALS: BP 162/109
[2022-03-19 05:37] VITALS: BP 152/91
[2022-03-19] MEDS: GABAPENTIN 400MG CAP PO SCH ×3 (05:39→22:53)
[2022-03-19 06:17] LABS: HEMATOCRIT 34.2 % (36.0-47.0); MEAN CORPUSCULAR HEMOGLOBIN 30.1 pg (27.0-33.0); MEAN CORPUSCULAR HGB CONC 32.2 g/dl (32.0-36.5); MEAN CORPUSCULAR VOLUME 93.7 fl (80.0-96.0); PLATELET COUNT, AUTOMATED 313 10^3/uL (150-450); RED BLOOD COUNT 3.65 10^6/uL (4.00-5.40); WHITE BLOOD COUNT 12.3 10^3/uL (4.0-10.0)
[2022-03-19 06:49] LABS: ALBUMIN 2.8 G/DL (3.2-5.2); ALKALINE PHOSPHATASE 81 U/L; ALT/SGPT 57 U/L (7.0-40); AST/SGOT 38 U/L (<34); BILIRUBIN,TOTAL 0.4 MG/DL (0.3-1.2); BLOOD UREA NITROGEN 15 MG/DL (9-23); CALCIUM LEVEL 8.6 MG/DL (8.5-10.1); CARBON DIOXIDE LEVEL 35 MMOL/L (20-31); CHLORIDE LEVEL 98 MMOL/L (98-107); GLOMERULAR FILTRATION RATE > 60.0 (>58); GLUCOSE, FASTING 78 MG/DL (60-100); POTASSIUM SERUM 3.5 MMOL/L (3.5-5.1); SODIUM LEVEL 142 MMOL/L (136-145); TOTAL PROTEIN 4.9 G/DL
[2022-03-19] MEDS: CHLORHEXIDINE GLUCONATE 0.12 % 15ML UDC (PERIDEX ORAL RINSE) MT SCH ×2 (09:00→23:31)
[2022-03-19] MEDS ORDERED: SPIRONOLACTONE 25 MG TAB PO SCH (09:00)
[2022-03-19] MEDS: guaiFENesin ER 600 MG TAB PO SCH ×2 (10:32→22:53)
[2022-03-19] MEDS: DOCUSATE SODIUM 100MG CAPSULE PO SCH (10:32)
[2022-03-19] MEDS: ESCITALOPRAM OXALATE 10 MG TAB (LEXAPRO) PO SCH (10:33)
[2022-03-19] MEDS: predniSONE 10 MG TAB PO SCH (10:33)
[2022-03-19] MEDS: SYMPROIC PO SCH (10:33)
[2022-03-19] MEDS: SODIUM CHLORIDE 1 GM TAB PO SCH ×3 (10:34→22:53)
[2022-03-19] MEDS: QUEtiapine FUMARATE 12.5 MG HALF-TAB PO SCH ×2 (10:34→22:52)
[2022-03-19] MEDS: NYSTATIN 500,000 U/5 ML SUSP UDC SS SCH ×4 (10:34→22:52)
[2022-03-19] MEDS: SENNA 8.6 MG TAB (SENOKOT) PO SCH ×2 (10:34→22:52)
[2022-03-19] MEDS: PANTOPRAZOLE 40MG TAB (PROTONIX) PO SCH ×2 (10:34→22:53)
[2022-03-19] MEDS: TIOTROPIUM INHALER/CAPSULE (SPIRIVA) INH SCH (10:44)
[2022-03-19] MEDS ORDERED: fentaNYL 100 MCG/HR PATCH TOP SCH (14:00)
[2022-03-19] MEDS: fentaNYL 100 MCG/HR PATCH TOP SCH (14:30)
[2022-03-19] MEDS: LIDOCAINE 5% (LIDODERM) PATCH TD SCH ×2 (22:50→22:55)
[2022-03-19] MEDS: FORTEO SC SCH (22:51)
[2022-03-19] MEDS: ENOXAPARIN 30MG/0.3ML SYRINGE (J1650 PER 10MG) SC SCH (22:52)
[2022-03-19] MEDS: METOPROLOL TART 50 MG TAB PO SCH (22:53)
[2022-03-20] MEDS: oxyCODONE 5MG TAB PO PRN ×5 (03:06→21:04)
[2022-03-20 05:14] VITALS: BP 121/74
[2022-03-20] MEDS: GABAPENTIN 400MG CAP PO SCH ×3 (05:47→21:03)
[2022-03-20 06:50] LABS: HEMATOCRIT 34.3 % (36.0-47.0); HEMOGLOBIN 10.8 g/dl (12.0-15.5); MEAN CORPUSCULAR HEMOGLOBIN 29.8 pg (27.0-33.0); MEAN CORPUSCULAR HGB CONC 31.5 g/dl (32.0-36.5); MEAN CORPUSCULAR VOLUME 94.5 fl (80.0-96.0); PLATELET COUNT, AUTOMATED 315 10^3/uL (150-450); RED BLOOD COUNT 3.63 10^6/uL (4.00-5.40); WHITE BLOOD COUNT 11.8 10^3/uL (4.0-10.0)
[2022-03-20] MEDS: TIOTROPIUM INHALER/CAPSULE (SPIRIVA) INH SCH (07:31)
[2022-03-20 07:42] LABS: ALBUMIN 2.8 G/DL (3.2-5.2); ALKALINE PHOSPHATASE 94 U/L (46-116); ALT/SGPT 52 U/L (7.0-40); AST/SGOT 35 U/L (<34); BILIRUBIN,TOTAL 0.4 MG/DL (0.3-1.2); BLOOD UREA NITROGEN 11 MG/DL (9-23); CALCIUM LEVEL 8.6 MG/DL (8.5-10.1); CARBON DIOXIDE LEVEL 37 MMOL/L (20-31); CHLORIDE LEVEL 98 MMOL/L (98-107); CREATININE FOR GFR 0.46 MG/DL (0.55-1.30); GLOMERULAR FILTRATION RATE > 60.0 (>58); GLUCOSE, FASTING 80 MG/DL (60-100); POTASSIUM SERUM 3.5 MMOL/L (3.5-5.1); SODIUM LEVEL 142 MMOL/L (136-145)
[2022-03-20] MEDS: SODIUM CHLORIDE 1 GM TAB PO SCH ×3 (07:58→21:03)
[2022-03-20] MEDS: NYSTATIN 500,000 U/5 ML SUSP UDC SS SCH ×4 (07:58→21:00)
[2022-03-20] MEDS: QUEtiapine FUMARATE 12.5 MG HALF-TAB PO SCH ×2 (07:58→21:03)
[2022-03-20] MEDS: SPIRONOLACTONE 50 MG TAB PO SCH (07:58)
[2022-03-20] MEDS: DOCUSATE SODIUM 100MG CAPSULE PO SCH (07:58)
[2022-03-20] MEDS: METOPROLOL TART 50 MG TAB PO SCH (07:59)
[2022-03-20] MEDS: SENNA 8.6 MG TAB (SENOKOT) PO SCH ×2 (07:59→21:00)
[2022-03-20] MEDS: ESCITALOPRAM OXALATE 10 MG TAB (LEXAPRO) PO SCH (07:59)
[2022-03-20] MEDS: PANTOPRAZOLE 40MG TAB (PROTONIX) PO SCH ×2 (07:59→21:02)
[2022-03-20] MEDS: predniSONE 10 MG TAB PO SCH (08:00)
[2022-03-20] MEDS: SYMPROIC PO SCH (08:00)
[2022-03-20] MEDS: guaiFENesin ER 600 MG TAB PO SCH ×2 (08:00→21:03)
[2022-03-20] MEDS: CHLORHEXIDINE GLUCONATE 0.12 % 15ML UDC (PERIDEX ORAL RINSE) MT SCH ×2 (08:01→20:59)
[2022-03-20] MEDS ORDERED: METOPROLOL TART 25 MG TABLET PO SCH (09:00)
[2022-03-20] MEDS: METOPROLOL TART 25 MG TABLET PO SCH (13:16)
[2022-03-20] MEDS: METHYLNALTREXONE BROMIDE 12MG/0.6ML VIAL (RELISTOR) SC SCH (15:21)
[2022-03-20] MEDS: methocarbamoL 750 MG TAB PO PRN (15:21)
[2022-03-20] MEDS: FORTEO SC SCH (20:59)
[2022-03-20] MEDS: LIDOCAINE 5% (LIDODERM) PATCH TD SCH (21:00)
[2022-03-20] MEDS: ENOXAPARIN 30MG/0.3ML SYRINGE (J1650 PER 10MG) SC SCH (21:02)
[2022-03-20] MEDS: clonazePAM 0.5 MG TAB PO PRN (21:03)
[2022-03-20] MEDS ORDERED: METOPROLOL TART 50 MG TAB PO ONE (22:00)
[2022-03-21] MEDS: methocarbamoL 750 MG TAB PO PRN (01:42)
[2022-03-21] MEDS: oxyCODONE 5MG TAB PO PRN ×6 (01:42→22:59)
[2022-03-21 04:33] VITALS: BP 138/92
[2022-03-21] MEDS: TIOTROPIUM INHALER/CAPSULE (SPIRIVA) INH SCH (06:17)
[2022-03-21] MEDS: IPRATROPIUM 0.5MG/ALBUTEROL 2.5MG INH SOL UD 3ML (DUONEB) NEB PRN (06:20)
[2022-03-21] MEDS: GABAPENTIN 400MG CAP PO SCH ×3 (06:32→22:57)
[2022-03-21] MEDS: clonazePAM 0.5 MG TAB PO PRN (06:32)
[2022-03-21 08:26] LABS: HEMATOCRIT 33.3 % (36.0-47.0); HEMOGLOBIN 10.4 g/dl (12.0-15.5); MEAN CORPUSCULAR HEMOGLOBIN 30.1 pg (27.0-33.0); MEAN CORPUSCULAR HGB CONC 31.2 g/dl (32.0-36.5); MEAN CORPUSCULAR VOLUME 96.2 fl (80.0-96.0); PLATELET COUNT, AUTOMATED 284 10^3/uL (150-450); RED BLOOD COUNT 3.46 10^6/uL (4.00-5.40); WHITE BLOOD COUNT 9.9 10^3/uL (4.0-10.0)
[2022-03-21] MEDS: SENNA 8.6 MG TAB (SENOKOT) PO SCH ×3 (09:00→20:04)
[2022-03-21 09:18] LABS: ALBUMIN 2.7 G/DL (3.2-5.2); ALKALINE PHOSPHATASE 101 U/L (46-116); ALT/SGPT 39 U/L (7.0-40); AST/SGOT 25 U/L (<34); BILIRUBIN,TOTAL 0.3 MG/DL (0.3-1.2); BLOOD UREA NITROGEN 11 MG/DL (9-23); CALCIUM LEVEL 9.6 MG/DL (8.5-10.1); CARBON DIOXIDE LEVEL 38 MMOL/L (20-31); CHLORIDE LEVEL 101 MMOL/L (98-107); CREATININE FOR GFR 0.51 MG/DL (0.55-1.30); GLOMERULAR FILTRATION RATE > 60.0 (>58); GLUCOSE, FASTING 75 MG/DL (60-100); POTASSIUM SERUM 3.2 MMOL/L (3.5-5.1); SODIUM LEVEL 144 MMOL/L (136-145); TOTAL PROTEIN 4.8 G/DL (5.7-8.2)
[2022-03-21] MEDS: CHLORHEXIDINE GLUCONATE 0.12 % 15ML UDC (PERIDEX ORAL RINSE) MT SCH ×2 (10:37→20:07)
[2022-03-21] MEDS: QUEtiapine FUMARATE 12.5 MG HALF-TAB PO SCH ×2 (10:37→20:03)
[2022-03-21] MEDS: SODIUM CHLORIDE 1 GM TAB PO SCH ×3 (10:38→20:04)
[2022-03-21] MEDS: PANTOPRAZOLE 40MG TAB (PROTONIX) PO SCH ×2 (10:38→20:04)
[2022-03-21] MEDS: guaiFENesin ER 600 MG TAB PO SCH ×2 (10:38→20:04)
[2022-03-21] MEDS: DOCUSATE SODIUM 100MG CAPSULE PO SCH (10:38)
[2022-03-21] MEDS: predniSONE 10 MG TAB PO SCH (10:38)
[2022-03-21] MEDS: ESCITALOPRAM OXALATE 10 MG TAB (LEXAPRO) PO SCH (10:38)
[2022-03-21] MEDS: METOPROLOL TART 50 MG TAB PO SCH ×2 (10:39→20:05)
[2022-03-21] MEDS: NYSTATIN 500,000 U/5 ML SUSP UDC SS SCH ×4 (10:39→20:03)
[2022-03-21] MEDS: SPIRONOLACTONE 50 MG TAB PO SCH (10:39)
[2022-03-21] MEDS: SYMPROIC PO SCH (10:43)
[2022-03-21] MEDS ORDERED: BUPIVACAINE HCL 0.25% 10ML VIAL XX ONE (13:00)
[2022-03-21] MEDS ORDERED: TRIAMCINOLONE ACETONIDE SUSP 40MG/ML 1ML VIAL XX ONE (13:00)
[2022-03-21] MEDS ORDERED: BUPIVACAINE HCL 0.25% 30ML VIAL XX ONE (13:00)
[2022-03-21] MEDS: METOPROLOL TART 25 MG TABLET PO SCH (14:53)
[2022-03-21] MEDS: fentaNYL 100 MCG/HR PATCH TOP SCH (14:55)
[2022-03-21] MEDS: FENTANYL REMOVAL DOCUMENTATION MISC XX SCH (14:58)
[2022-03-21] MEDS: LIDOCAINE 5% (LIDODERM) PATCH TD SCH (20:06)
[2022-03-21] MEDS: ENOXAPARIN 30MG/0.3ML SYRINGE (J1650 PER 10MG) SC SCH (20:06)
[2022-03-21] MEDS: FORTEO SC SCH (20:07)
[2022-03-22 07:10] VITALS: BP 126/71
[2022-03-22 07:14] LABS: HEMATOCRIT 37.1 % (36.0-47.0); HEMOGLOBIN 11.1 g/dl (12.0-15.5); MEAN CORPUSCULAR HEMOGLOBIN 29.9 pg (27.0-33.0); MEAN CORPUSCULAR HGB CONC 29.9 g/dl (32.0-36.5); RED BLOOD COUNT 3.71 10^6/uL (4.00-5.40); WHITE BLOOD COUNT 9.4 10^3/uL (4.0-10.0)
[2022-03-22] MEDS: GABAPENTIN 400MG CAP PO SCH ×3 (07:14→21:51)
[2022-03-22] MEDS: oxyCODONE 5MG TAB PO PRN ×4 (07:15→23:49)
[2022-03-22 07:34] LABS: ALBUMIN 2.7 G/DL (3.2-5.2); ALKALINE PHOSPHATASE 117 U/L (46-116); ALT/SGPT 39 U/L (7.0-40); AST/SGOT 28 U/L (<34); BILIRUBIN,TOTAL 0.2 MG/DL (0.3-1.2); BLOOD UREA NITROGEN 10 MG/DL (9-23); CARBON DIOXIDE LEVEL 35 MMOL/L (20-31); CHLORIDE LEVEL 101 MMOL/L (98-107); CREATININE FOR GFR 0.48 MG/DL (0.55-1.30); GLOMERULAR FILTRATION RATE > 60.0 (>58); GLUCOSE, FASTING 84 MG/DL (60-100); POTASSIUM SERUM 3.9 MMOL/L (3.5-5.1); SODIUM LEVEL 143 MMOL/L (136-145); TOTAL PROTEIN 5.2 G/DL (5.7-8.2)
[2022-03-22] MEDS: TIOTROPIUM INHALER/CAPSULE (SPIRIVA) INH SCH (08:26)
[2022-03-22] MEDS: ESCITALOPRAM OXALATE 10 MG TAB (LEXAPRO) PO SCH (08:44)
[2022-03-22] MEDS: SODIUM CHLORIDE 1 GM TAB PO SCH ×3 (08:44→21:51)
[2022-03-22] MEDS: SYMPROIC PO SCH (08:44)
[2022-03-22] MEDS: DOCUSATE SODIUM 100MG CAPSULE PO SCH (08:44)
[2022-03-22] MEDS: predniSONE 10 MG TAB PO SCH (08:44)
[2022-03-22] MEDS: QUEtiapine FUMARATE 12.5 MG HALF-TAB PO SCH ×2 (08:44→21:50)
[2022-03-22] MEDS: guaiFENesin ER 600 MG TAB PO SCH ×2 (08:44→21:51)
[2022-03-22] MEDS: PANTOPRAZOLE 40MG TAB (PROTONIX) PO SCH ×2 (08:45→21:51)
[2022-03-22] MEDS: SENNA 8.6 MG TAB (SENOKOT) PO SCH ×2 (08:45→21:50)
[2022-03-22] MEDS: NYSTATIN 500,000 U/5 ML SUSP UDC SS SCH ×4 (08:45→21:50)
[2022-03-22] MEDS: SPIRONOLACTONE 50 MG TAB PO SCH (08:45)
[2022-03-22] MEDS: METOPROLOL TART 50 MG TAB PO SCH ×2 (08:46→21:55)
[2022-03-22] MEDS: CHLORHEXIDINE GLUCONATE 0.12 % 15ML UDC (PERIDEX ORAL RINSE) MT SCH ×2 (08:52→21:50)
[2022-03-22] MEDS: METOPROLOL TART 25 MG TABLET PO SCH (13:30)
[2022-03-22] MEDS: METHYLNALTREXONE BROMIDE 12MG/0.6ML VIAL (RELISTOR) SC SCH (17:33)
[2022-03-22] MEDS: LIDOCAINE 5% (LIDODERM) PATCH TD SCH (21:50)
[2022-03-22] MEDS: FORTEO SC SCH (21:51)
[2022-03-22] MEDS: ENOXAPARIN 30MG/0.3ML SYRINGE (J1650 PER 10MG) SC SCH (21:51)
[2022-03-23] MEDS: oxyCODONE 5MG TAB PO PRN ×4 (04:10→23:29)
[2022-03-23 06:00] VITALS: BP 129/76
[2022-03-23] MEDS: GABAPENTIN 400MG CAP PO SCH ×3 (06:00→22:00)
[2022-03-23] MEDS: TIOTROPIUM INHALER/CAPSULE (SPIRIVA) INH SCH (08:00)
[2022-03-23] MEDS: ONDANSETRON 4MG ORAL DISINTEGRATING TAB PO PRN (08:14)
[2022-03-23] MEDS: IPRATROPIUM 0.5MG/ALBUTEROL 2.5MG INH SOL UD 3ML (DUONEB) NEB PRN ×3 (08:32→21:26)
[2022-03-23] MEDS: SENNA 8.6 MG TAB (SENOKOT) PO SCH ×2 (09:00→21:00)
[2022-03-23] MEDS: NYSTATIN 500,000 U/5 ML SUSP UDC SS SCH ×4 (09:00→21:00)
[2022-03-23 10:00] LABS: HEMATOCRIT 32.8 % (36.0-47.0); MEAN CORPUSCULAR HEMOGLOBIN 29.7 pg (27.0-33.0); MEAN CORPUSCULAR HGB CONC 30.5 g/dl (32.0-36.5); MEAN CORPUSCULAR VOLUME 97.3 fl (80.0-96.0); PLATELET COUNT, AUTOMATED 256 10^3/uL (150-450); RED BLOOD COUNT 3.37 10^6/uL (4.00-5.40); WHITE BLOOD COUNT 10.6 10^3/uL (4.0-10.0)
[2022-03-23 11:03] LABS: ALBUMIN 2.7 G/DL (3.2-5.2); ALKALINE PHOSPHATASE 120 U/L (46-116); ALT/SGPT 36 U/L (7.0-40); AST/SGOT 35 U/L (<34); BILIRUBIN,TOTAL 0.2 MG/DL (0.3-1.2); BLOOD UREA NITROGEN 11 MG/DL (9-23); CALCIUM LEVEL 9.3 MG/DL (8.5-10.1); CARBON DIOXIDE LEVEL 42 MMOL/L (20-31); CHLORIDE LEVEL 99 MMOL/L (98-107); CREATININE FOR GFR 0.44 MG/DL (0.55-1.30); GLOMERULAR FILTRATION RATE > 60.0 (>58); GLUCOSE, FASTING 90 MG/DL (60-100); POTASSIUM SERUM 3.5 MMOL/L (3.5-5.1); SODIUM LEVEL 144 MMOL/L (136-145); TOTAL PROTEIN 4.8 G/DL (5.7-8.2)
[2022-03-23] MEDS: guaiFENesin ER 600 MG TAB PO SCH ×2 (11:19→21:00)
[2022-03-23] MEDS: QUEtiapine FUMARATE 12.5 MG HALF-TAB PO SCH ×2 (11:19→21:00)
[2022-03-23] MEDS: SPIRONOLACTONE 50 MG TAB PO SCH (11:19)
[2022-03-23] MEDS: DOCUSATE SODIUM 100MG CAPSULE PO SCH ×2 (11:19→21:00)
[2022-03-23] MEDS: SODIUM CHLORIDE 1 GM TAB PO SCH ×3 (11:19→21:00)
[2022-03-23] MEDS: ESCITALOPRAM OXALATE 10 MG TAB (LEXAPRO) PO SCH (11:19)
[2022-03-23] MEDS: PANTOPRAZOLE 40MG TAB (PROTONIX) PO SCH ×2 (11:19→21:00)
[2022-03-23] MEDS: SYMPROIC PO SCH (11:20)
[2022-03-23] MEDS: predniSONE 10 MG TAB PO SCH (11:20)
[2022-03-23] MEDS: METOPROLOL TART 50 MG TAB PO SCH ×2 (11:20→21:00)
[2022-03-23] MEDS: CHLORHEXIDINE GLUCONATE 0.12 % 15ML UDC (PERIDEX ORAL RINSE) MT SCH ×2 (13:19→21:00)
[2022-03-23] MEDS: FENTANYL REMOVAL DOCUMENTATION MISC XX SCH (13:29)
[2022-03-23] MEDS: fentaNYL 100 MCG/HR PATCH TOP SCH (13:33)
[2022-03-23] MEDS: METOPROLOL TART 25 MG TABLET PO SCH (14:29)
[2022-03-23 19:30] VITALS: BP 100/60
[2022-03-23 19:59] LABS: ABG BASE EXCESS 11.2 (-2.0-2.0); ABG HCO3 39.7 MEQ/L (22.0-26.0); ABG O2 SATURATION 92.6 % (95.0-99.0); ABG STANDARD HCO3 34.8 MEQ/L (22.0-26.0); ABG TOTAL CO2 42.1 MEQ/L (22.0-29.0); ABG pH (ARTERIAL) 7.329 UNITS (7.350-7.450)
[2022-03-23 20:01] LABS: ABG PARTIAL PRESSURE CO2 77.2 mmHg (35.0-45.0)
[2022-03-23] MEDS: ENOXAPARIN 30MG/0.3ML SYRINGE (J1650 PER 10MG) SC SCH (21:00)
[2022-03-23] MEDS: FORTEO SC SCH (21:00)
[2022-03-23] MEDS: LIDOCAINE 5% (LIDODERM) PATCH TD SCH (21:00)
[2022-03-23] MEDS: MIRALAX *UNIT DOSE* 17GM PACKET PO SCH (21:12)
[2022-03-23 22:00] VITALS: BP 126/76
[2022-03-23] MEDS ORDERED: MAG SULF 1GM/100ML (MAG RUN) 1 GM in IV 1 EA IV ONE (22:00)
[2022-03-23] MEDS ORDERED: LevoFLOXacin IV 750 MG in IV 1 EA IV SCH (22:00)
[2022-03-23] MEDS ORDERED: MAGNESIUM OXIDE 400MG TAB (MAG-OX) PO ONE (22:00)
[2022-03-23] MEDS ORDERED: DOXYCYCLINE HYCLATE 100 MG in D5W MINI-BAG PLUS 100 ML IV SCH (23:00)
[2022-03-24] VITALS (15 sets, daily range): BP systolic 88–123; BP diastolic 54–75; O2SAT 81–97
[2022-03-24 02:41] LABS: ABG BASE EXCESS 13.5 (-2.0-2.0); ABG HCO3 41.8 MEQ/L (22.0-26.0); ABG O2 SATURATION 98.6 % (95.0-99.0); ABG PARTIAL PRESSURE O2 139.1 mmHg (75.0-100.0); ABG STANDARD HCO3 37.3 MEQ/L (22.0-26.0); ABG TOTAL CO2 44.1 MEQ/L (22.0-29.0); ABG pH (ARTERIAL) 7.347 UNITS (7.350-7.450)
[2022-03-24] MEDS: methocarbamoL 750 MG TAB PO PRN (02:41)
[2022-03-24 02:43] LABS: ABG PARTIAL PRESSURE CO2 77.9 mmHg (35.0-45.0)
[2022-03-24 05:44] LABS: HEMATOCRIT 31.7 % (36.0-47.0); HEMOGLOBIN 9.9 g/dl (12.0-15.5); MEAN CORPUSCULAR HGB CONC 31.2 g/dl (32.0-36.5); MEAN CORPUSCULAR VOLUME 96.1 fl (80.0-96.0); PLATELET COUNT, AUTOMATED 250 10^3/uL (150-450); WHITE BLOOD COUNT 9.5 10^3/uL (4.0-10.0)
[2022-03-24 05:54] LABS: ABG BASE EXCESS 12.1 (-2.0-2.0); ABG HCO3 39.8 MEQ/L (22.0-26.0); ABG O2 SATURATION 99.1 % (95.0-99.0); ABG PARTIAL PRESSURE O2 153.9 mmHg (75.0-100.0); ABG STANDARD HCO3 35.8 MEQ/L (22.0-26.0); ABG TOTAL CO2 41.9 MEQ/L (22.0-29.0); ABG pH (ARTERIAL) 7.366 UNITS (7.350-7.450)
[2022-03-24] MEDS: GABAPENTIN 400MG CAP PO SCH ×3 (06:16→21:12)
[2022-03-24 06:22] LABS: ALBUMIN 2.9 G/DL (3.2-5.2); ALKALINE PHOSPHATASE 128 U/L (46-116); ALT/SGPT 31 U/L (7.0-40); AST/SGOT 28 U/L (<34); BILIRUBIN,TOTAL 0.3 MG/DL (0.3-1.2); BLOOD UREA NITROGEN 8 MG/DL (9-23); CALCIUM LEVEL 8.4 MG/DL (8.5-10.1); CARBON DIOXIDE LEVEL 40 MMOL/L (20-31); CHLORIDE LEVEL 95 MMOL/L (98-107); CREATININE FOR GFR 0.41 MG/DL (0.55-1.30); GLOMERULAR FILTRATION RATE > 60.0 (>58); GLUCOSE, FASTING 70 MG/DL (60-100); POTASSIUM SERUM 3.9 MMOL/L (3.5-5.1); SODIUM LEVEL 139 MMOL/L (136-145); TOTAL PROTEIN 5.4 G/DL (5.7-8.2)
[2022-03-24] MEDS: TIOTROPIUM INHALER/CAPSULE (SPIRIVA) INH SCH (07:53)
[2022-03-24] MEDS ORDERED: ONDANSETRON 4MG 2ML VIAL IV ONE (09:10)
[2022-03-24] MEDS: NYSTATIN 500,000 U/5 ML SUSP UDC SS SCH ×5 (09:41→21:11)
[2022-03-24] MEDS: PANTOPRAZOLE 40MG TAB (PROTONIX) PO SCH ×2 (09:42→21:19)
[2022-03-24] MEDS: DOCUSATE SODIUM 100MG CAPSULE PO SCH ×2 (09:42→21:11)
[2022-03-24] MEDS: SENNA 8.6 MG TAB (SENOKOT) PO SCH ×2 (09:44→21:00)
[2022-03-24] MEDS: predniSONE 10 MG TAB PO SCH (09:44)
[2022-03-24] MEDS: ESCITALOPRAM OXALATE 10 MG TAB (LEXAPRO) PO SCH (09:44)
[2022-03-24] MEDS: MIRALAX *UNIT DOSE* 17GM PACKET PO SCH (09:44)
[2022-03-24] MEDS: SODIUM CHLORIDE 1 GM TAB PO SCH ×3 (09:44→21:19)
[2022-03-24] MEDS: QUEtiapine FUMARATE 12.5 MG HALF-TAB PO SCH ×2 (09:44→21:19)
[2022-03-24] MEDS: oxyCODONE 5MG TAB PO PRN ×3 (09:44→21:19)
[2022-03-24] MEDS: SYMPROIC PO SCH (09:45)
[2022-03-24] MEDS: guaiFENesin ER 600 MG TAB PO SCH ×2 (09:45→21:12)
[2022-03-24] MEDS: METOPROLOL TART 50 MG TAB PO SCH ×2 (09:45→21:12)
[2022-03-24] MEDS: SPIRONOLACTONE 50 MG TAB PO SCH (09:46)
[2022-03-24] MEDS: METOPROLOL TART 25 MG TABLET PO SCH (13:56)
[2022-03-24] MEDS: METHYLNALTREXONE BROMIDE 12MG/0.6ML VIAL (RELISTOR) SC SCH (15:15)
[2022-03-24 15:29] LABS: MAGNESIUM LEVEL 1.7 MG/DL (1.8-2.4)
[2022-03-24] MEDS: LIDOCAINE 5% (LIDODERM) PATCH TD SCH (21:00)
[2022-03-24] MEDS: ENOXAPARIN 30MG/0.3ML SYRINGE (J1650 PER 10MG) SC SCH (21:11)
[2022-03-24] MEDS: LevoFLOXacin 500 MG TABLET PO SCH (21:12)
[2022-03-24] MEDS: FORTEO SC SCH (21:13)
[2022-03-25] MEDS: methocarbamoL 750 MG TAB PO PRN (00:10)
[2022-03-25] MEDS: oxyCODONE 5MG TAB PO PRN ×4 (02:51→20:30)
[2022-03-25 05:45] VITALS: BP 121/76
[2022-03-25] MEDS: GABAPENTIN 400MG CAP PO SCH ×3 (05:58→20:30)
[2022-03-25 06:46] LABS: HEMATOCRIT 32.1 % (36.0-47.0); HEMOGLOBIN 9.8 g/dl (12.0-15.5); MEAN CORPUSCULAR HEMOGLOBIN 29.3 pg (27.0-33.0); MEAN CORPUSCULAR HGB CONC 30.5 g/dl (32.0-36.5); MEAN CORPUSCULAR VOLUME 95.8 fl (80.0-96.0); PLATELET COUNT, AUTOMATED 247 10^3/uL (150-450); RED BLOOD COUNT 3.35 10^6/uL (4.00-5.40); WHITE BLOOD COUNT 8.9 10^3/uL (4.0-10.0)
[2022-03-25 07:16] LABS: ALBUMIN 2.7 G/DL (3.2-5.2); ALKALINE PHOSPHATASE 133 U/L (46-116); ALT/SGPT 30 U/L (7.0-40); AST/SGOT 26 U/L (<34); BILIRUBIN,TOTAL 0.3 MG/DL (0.3-1.2); BLOOD UREA NITROGEN 8 MG/DL (9-23); CALCIUM LEVEL 8.6 MG/DL (8.5-10.1); CARBON DIOXIDE LEVEL 38 MMOL/L (20-31); CHLORIDE LEVEL 93 MMOL/L (98-107); CPK CREATINE PHOSPHOKINASE 112 U/L (34-145); CREATININE FOR GFR 0.51 MG/DL (0.55-1.30); GLOMERULAR FILTRATION RATE > 60.0 (>58); GLUCOSE, FASTING 74 MG/DL (60-100); POTASSIUM SERUM 3.6 MMOL/L (3.5-5.1); SODIUM LEVEL 138 MMOL/L (136-145); TOTAL PROTEIN 4.9 G/DL (5.7-8.2); TOTAL PROTEIN 4.9 GM/DL (6.4-8.2); VITAMIN B12 LEVEL 668 PG/ML (211-911)
[2022-03-25] MEDS: clonazePAM 0.5 MG TAB PO PRN (07:43)
[2022-03-25] MEDS: TIOTROPIUM INHALER/CAPSULE (SPIRIVA) INH SCH (07:53)
[2022-03-25] MEDS: MIRALAX *UNIT DOSE* 17GM PACKET PO SCH (08:41)
[2022-03-25] MEDS: SENNA 8.6 MG TAB (SENOKOT) PO SCH ×2 (08:42→20:37)
[2022-03-25] MEDS: SYMPROIC PO SCH (08:42)
[2022-03-25] MEDS: guaiFENesin ER 600 MG TAB PO SCH ×2 (08:42→20:31)
[2022-03-25] MEDS: SPIRONOLACTONE 50 MG TAB PO SCH (08:42)
[2022-03-25] MEDS: predniSONE 10 MG TAB PO SCH (08:42)
[2022-03-25] MEDS: NYSTATIN 500,000 U/5 ML SUSP UDC SS SCH ×4 (08:42→20:38)
[2022-03-25] MEDS: DOCUSATE SODIUM 100MG CAPSULE PO SCH ×2 (08:42→20:31)
[2022-03-25] MEDS: SODIUM CHLORIDE 1 GM TAB PO SCH ×3 (08:42→20:31)
[2022-03-25] MEDS: METOPROLOL TART 50 MG TAB PO SCH ×2 (08:43→20:30)
[2022-03-25] MEDS: ESCITALOPRAM OXALATE 10 MG TAB (LEXAPRO) PO SCH (08:43)
[2022-03-25] MEDS: QUEtiapine FUMARATE 12.5 MG HALF-TAB PO SCH ×2 (08:43→20:31)
[2022-03-25] MEDS: PANTOPRAZOLE 40MG TAB (PROTONIX) PO SCH ×2 (08:43→20:31)
[2022-03-25] MEDS ORDERED: TORSEMIDE 10 MG TABLET PO SCH (09:00)
[2022-03-25 11:10] VITALS: O2SAT 96
[2022-03-25] MEDS: METOPROLOL TART 25 MG TABLET PO SCH (13:42)
[2022-03-25] MEDS: fentaNYL 100 MCG/HR PATCH TOP SCH (13:44)
[2022-03-25] MEDS: FENTANYL REMOVAL DOCUMENTATION MISC XX SCH (13:44)
[2022-03-25] MEDS: ENOXAPARIN 30MG/0.3ML SYRINGE (J1650 PER 10MG) SC SCH (20:27)
[2022-03-25] MEDS: FORTEO SC SCH (20:28)
[2022-03-25] MEDS: LevoFLOXacin 500 MG TABLET PO SCH (20:31)
[2022-03-25] MEDS: LIDOCAINE 5% (LIDODERM) PATCH TD SCH (20:38)
[2022-03-26 03:05] VITALS: O2SAT 95
[2022-03-26] MEDS: GABAPENTIN 400MG CAP PO SCH ×3 (05:01→22:33)
[2022-03-26] MEDS: oxyCODONE 5MG TAB PO PRN ×4 (05:01→20:37)
[2022-03-26 05:40] VITALS: BP 114/66
[2022-03-26] MEDS: TIOTROPIUM INHALER/CAPSULE (SPIRIVA) INH SCH (07:46)
[2022-03-26] MEDS: NYSTATIN 500,000 U/5 ML SUSP UDC SS SCH ×4 (09:00→20:21)
[2022-03-26] MEDS: SENNA 8.6 MG TAB (SENOKOT) PO SCH ×2 (09:00→20:22)
[2022-03-26] MEDS: ESCITALOPRAM OXALATE 10 MG TAB (LEXAPRO) PO SCH (09:34)
[2022-03-26] MEDS: guaiFENesin ER 600 MG TAB PO SCH ×2 (09:34→20:22)
[2022-03-26] MEDS: PANTOPRAZOLE 40MG TAB (PROTONIX) PO SCH ×2 (09:34→20:22)
[2022-03-26] MEDS: METOPROLOL TART 50 MG TAB PO SCH ×2 (09:34→22:34)
[2022-03-26] MEDS: SODIUM CHLORIDE 1 GM TAB PO SCH ×3 (09:34→20:22)
[2022-03-26] MEDS: QUEtiapine FUMARATE 12.5 MG HALF-TAB PO SCH ×2 (09:34→20:21)
[2022-03-26] MEDS: SYMPROIC PO SCH (09:34)
[2022-03-26] MEDS: DOCUSATE SODIUM 100MG CAPSULE PO SCH ×2 (09:34→20:22)
[2022-03-26] MEDS: SPIRONOLACTONE 50 MG TAB PO SCH (09:35)
[2022-03-26] MEDS: methocarbamoL 750 MG TAB PO PRN (09:35)
[2022-03-26] MEDS: predniSONE 10 MG TAB PO SCH (09:35)
[2022-03-26] MEDS: MIRALAX *UNIT DOSE* 17GM PACKET PO SCH (09:35)
[2022-03-26] MEDS: CALCIUM CARBONATE 500 MG CHEW U/D PO PRN (13:03)
[2022-03-26] MEDS: METOPROLOL TART 25 MG TABLET PO SCH (13:53)
[2022-03-26] MEDS: METHYLNALTREXONE BROMIDE 12MG/0.6ML VIAL (RELISTOR) SC SCH (15:30)
[2022-03-26] MEDS: ALPRAZolam 0.5 MG TAB PO PRN ×2 (15:31→20:21)
[2022-03-26 20:15] VITALS: BP 108/67
[2022-03-26] MEDS: ENOXAPARIN 30MG/0.3ML SYRINGE (J1650 PER 10MG) SC SCH (20:21)
[2022-03-26] MEDS: LevoFLOXacin 500 MG TABLET PO SCH (20:22)
[2022-03-26] MEDS: LIDOCAINE 5% (LIDODERM) PATCH TD SCH (20:23)
[2022-03-26] MEDS: FORTEO SC SCH (20:54)
[2022-03-27] MEDS: oxyCODONE 5MG TAB PO PRN ×6 (01:07→23:45)
[2022-03-27] MEDS: GABAPENTIN 400MG CAP PO SCH ×3 (06:15→21:25)
[2022-03-27 06:38] VITALS: BP 124/73
[2022-03-27] MEDS: TIOTROPIUM INHALER/CAPSULE (SPIRIVA) INH SCH (07:35)
[2022-03-27] MEDS: MIRALAX *UNIT DOSE* 17GM PACKET PO SCH (09:55)
[2022-03-27] MEDS: SYMPROIC PO SCH (09:55)
[2022-03-27] MEDS: predniSONE 10 MG TAB PO SCH (09:56)
[2022-03-27] MEDS: guaiFENesin ER 600 MG TAB PO SCH ×2 (09:56→21:27)
[2022-03-27] MEDS: NYSTATIN 500,000 U/5 ML SUSP UDC SS SCH ×5 (09:56→21:25)
[2022-03-27] MEDS: DOCUSATE SODIUM 100MG CAPSULE PO SCH ×2 (09:56→21:27)
[2022-03-27] MEDS: METOPROLOL TART 50 MG TAB PO SCH ×2 (09:56→21:00)
[2022-03-27] MEDS: SODIUM CHLORIDE 1 GM TAB PO SCH ×3 (09:56→21:26)
[2022-03-27] MEDS: SPIRONOLACTONE 50 MG TAB PO SCH (09:56)
[2022-03-27] MEDS: ESCITALOPRAM OXALATE 10 MG TAB (LEXAPRO) PO SCH (09:56)
[2022-03-27] MEDS: SENNA 8.6 MG TAB (SENOKOT) PO SCH ×3 (09:56→21:27)
[2022-03-27] MEDS: QUEtiapine FUMARATE 12.5 MG HALF-TAB PO SCH ×2 (09:56→21:27)
[2022-03-27] MEDS: PANTOPRAZOLE 40MG TAB (PROTONIX) PO SCH ×2 (09:56→21:27)
[2022-03-27 11:39] VITALS: O2SAT 98
[2022-03-27] MEDS: ALPRAZolam 0.5 MG TAB PO PRN ×2 (12:02→21:26)
[2022-03-27] MEDS: METOPROLOL TART 25 MG TABLET PO SCH (14:43)
[2022-03-27] MEDS: fentaNYL 100 MCG/HR PATCH TOP SCH (14:44)
[2022-03-27] MEDS: FENTANYL REMOVAL DOCUMENTATION MISC XX SCH (14:45)
[2022-03-27] MEDS: methocarbamoL 750 MG TAB PO PRN (16:35)
[2022-03-27] MEDS: LIDOCAINE 5% (LIDODERM) PATCH TD SCH (21:00)
[2022-03-27] MEDS: ENOXAPARIN 30MG/0.3ML SYRINGE (J1650 PER 10MG) SC SCH (21:25)
[2022-03-27] MEDS: LevoFLOXacin 500 MG TABLET PO SCH (21:26)
[2022-03-27] MEDS: FORTEO SC SCH (21:29)
[2022-03-28] MEDS: methocarbamoL 750 MG TAB PO PRN ×2 (01:54→23:10)
[2022-03-28 04:00] VITALS: BP 133/79
[2022-03-28] MEDS: oxyCODONE 5MG TAB PO PRN ×5 (04:15→23:10)
[2022-03-28] MEDS: GABAPENTIN 400MG CAP PO SCH ×3 (05:45→20:55)
[2022-03-28] MEDS: TIOTROPIUM INHALER/CAPSULE (SPIRIVA) INH SCH (08:00)
[2022-03-28] MEDS: NYSTATIN 500,000 U/5 ML SUSP UDC SS SCH ×4 (08:11→20:55)
[2022-03-28] MEDS: SENNA 8.6 MG TAB (SENOKOT) PO SCH ×2 (08:11→20:52)
[2022-03-28] MEDS: PANTOPRAZOLE 40MG TAB (PROTONIX) PO SCH ×2 (08:57→20:54)
[2022-03-28] MEDS: guaiFENesin ER 600 MG TAB PO SCH ×2 (08:57→20:55)
[2022-03-28] MEDS: DOCUSATE SODIUM 100MG CAPSULE PO SCH ×2 (08:57→20:55)
[2022-03-28] MEDS: SYMPROIC PO SCH (08:57)
[2022-03-28] MEDS: METOPROLOL TART 50 MG TAB PO SCH ×2 (08:57→20:55)
[2022-03-28] MEDS: predniSONE 10 MG TAB PO SCH (08:57)
[2022-03-28] MEDS: ESCITALOPRAM OXALATE 10 MG TAB (LEXAPRO) PO SCH (08:57)
[2022-03-28] MEDS: MIRALAX *UNIT DOSE* 17GM PACKET PO SCH (08:57)
[2022-03-28] MEDS: SPIRONOLACTONE 50 MG TAB PO SCH (08:58)
[2022-03-28] MEDS: QUEtiapine FUMARATE 12.5 MG HALF-TAB PO SCH ×2 (08:58→20:55)
[2022-03-28] MEDS: SODIUM CHLORIDE 1 GM TAB PO SCH ×3 (08:58→20:54)
[2022-03-28] MEDS: IPRATROPIUM 0.5MG/ALBUTEROL 2.5MG INH SOL UD 3ML (DUONEB) NEB PRN (09:09)
[2022-03-28 12:04] VITALS: O2SAT 96
[2022-03-28] MEDS: CALCIUM CARBONATE 500 MG CHEW U/D PO PRN (12:45)
[2022-03-28] MEDS: METOPROLOL TART 25 MG TABLET PO SCH (13:59)
[2022-03-28] MEDS: METHYLNALTREXONE BROMIDE 12MG/0.6ML VIAL (RELISTOR) SC SCH ×2 (13:59→14:03)
[2022-03-28] MEDS: ALPRAZolam 0.5 MG TAB PO PRN ×2 (16:39→20:54)
[2022-03-28] MEDS: FORTEO SC SCH (20:55)
[2022-03-28] MEDS: ENOXAPARIN 30MG/0.3ML SYRINGE (J1650 PER 10MG) SC SCH (20:56)
[2022-03-28] MEDS: LIDOCAINE 5% (LIDODERM) PATCH TD SCH (20:56)
[2022-03-29] VITALS (8 sets, daily range): BP systolic 87–122; BP diastolic 53–66; O2SAT 92–100
[2022-03-29] MEDS: oxyCODONE 5MG TAB PO PRN ×5 (04:07→23:54)
[2022-03-29] MEDS: ALPRAZolam 0.5 MG TAB PO PRN ×4 (04:07→20:33)
[2022-03-29] MEDS: GABAPENTIN 400MG CAP PO SCH ×3 (05:25→20:23)
[2022-03-29] MEDS: TIOTROPIUM INHALER/CAPSULE (SPIRIVA) INH SCH (07:56)
[2022-03-29] MEDS: SODIUM CHLORIDE 1 GM TAB PO SCH ×3 (08:39→20:22)
[2022-03-29] MEDS: QUEtiapine FUMARATE 12.5 MG HALF-TAB PO SCH ×2 (08:39→20:23)
[2022-03-29] MEDS: SPIRONOLACTONE 50 MG TAB PO SCH (08:40)
[2022-03-29] MEDS: ESCITALOPRAM OXALATE 10 MG TAB (LEXAPRO) PO SCH (08:40)
[2022-03-29] MEDS: guaiFENesin ER 600 MG TAB PO SCH ×2 (08:40→20:23)
[2022-03-29] MEDS: DOCUSATE SODIUM 100MG CAPSULE PO SCH ×2 (08:40→20:22)
[2022-03-29] MEDS: predniSONE 10 MG TAB PO SCH (08:40)
[2022-03-29] MEDS: PANTOPRAZOLE 40MG TAB (PROTONIX) PO SCH ×2 (08:40→20:22)
[2022-03-29] MEDS: MIRALAX *UNIT DOSE* 17GM PACKET PO SCH (08:41)
[2022-03-29] MEDS: METOPROLOL TART 50 MG TAB PO SCH ×2 (08:41→20:23)
[2022-03-29] MEDS: SENNA 8.6 MG TAB (SENOKOT) PO SCH ×2 (08:41→20:22)
[2022-03-29] MEDS: NYSTATIN 500,000 U/5 ML SUSP UDC SS SCH ×4 (08:42→20:22)
[2022-03-29] MEDS: SYMPROIC PO SCH (08:42)
[2022-03-29] MEDS: METOPROLOL TART 25 MG TABLET PO SCH (13:00)
[2022-03-29] MEDS: fentaNYL 100 MCG/HR PATCH TOP SCH (13:50)
[2022-03-29] MEDS: FENTANYL REMOVAL DOCUMENTATION MISC XX SCH (13:51)
[2022-03-29] MEDS: FORTEO SC SCH (19:44)
[2022-03-29] MEDS: LIDOCAINE 5% (LIDODERM) PATCH TD SCH ×2 (20:22→21:00)
[2022-03-29] MEDS: ENOXAPARIN 30MG/0.3ML SYRINGE (J1650 PER 10MG) SC SCH (20:22)
[2022-03-30] MEDS: oxyCODONE 5MG TAB PO PRN ×4 (04:18→20:09)
[2022-03-30] MEDS: GABAPENTIN 400MG CAP PO SCH ×3 (05:00→20:20)
[2022-03-30] MEDS: ALPRAZolam 0.5 MG TAB PO PRN ×2 (05:05→18:27)
[2022-03-30] MEDS: methocarbamoL 750 MG TAB PO PRN (05:05)
[2022-03-30 05:35] VITALS: BP 111/66
[2022-03-30] MEDS: TIOTROPIUM INHALER/CAPSULE (SPIRIVA) INH SCH (08:19)
[2022-03-30] MEDS: SENNA 8.6 MG TAB (SENOKOT) PO SCH ×2 (09:00→20:04)
[2022-03-30] MEDS: MIRALAX *UNIT DOSE* 17GM PACKET PO SCH (09:00)
[2022-03-30] MEDS: PANTOPRAZOLE 40MG TAB (PROTONIX) PO SCH ×2 (09:52→20:06)
[2022-03-30] MEDS: SODIUM CHLORIDE 1 GM TAB PO SCH ×3 (09:52→20:04)
[2022-03-30] MEDS: predniSONE 10 MG TAB PO SCH (09:52)
[2022-03-30] MEDS: NYSTATIN 500,000 U/5 ML SUSP UDC SS SCH ×4 (09:52→20:05)
[2022-03-30] MEDS: SPIRONOLACTONE 50 MG TAB PO SCH (09:54)
[2022-03-30] MEDS: DOCUSATE SODIUM 100MG CAPSULE PO SCH ×2 (09:54→20:06)
[2022-03-30] MEDS: guaiFENesin ER 600 MG TAB PO SCH ×2 (09:54→20:04)
[2022-03-30] MEDS: ESCITALOPRAM OXALATE 10 MG TAB (LEXAPRO) PO SCH (09:55)
[2022-03-30] MEDS: METOPROLOL TART 50 MG TAB PO SCH ×2 (09:56→20:07)
[2022-03-30] MEDS: SYMPROIC PO SCH (09:57)
[2022-03-30] MEDS: QUEtiapine FUMARATE 12.5 MG HALF-TAB PO SCH ×2 (09:57→20:04)
[2022-03-30] MEDS: METHYLNALTREXONE BROMIDE 12MG/0.6ML VIAL (RELISTOR) SC SCH (14:37)
[2022-03-30] MEDS: METOPROLOL TART 25 MG TABLET PO SCH (14:40)
[2022-03-30 15:28] VITALS: BP 117/78
[2022-03-30] MEDS: FORTEO SC SCH (20:06)
[2022-03-30] MEDS: ENOXAPARIN 30MG/0.3ML SYRINGE (J1650 PER 10MG) SC SCH (20:06)
[2022-03-30] MEDS: LIDOCAINE 5% (LIDODERM) PATCH TD SCH (20:17)
[2022-03-31] MEDS: oxyCODONE 5MG TAB PO PRN ×6 (00:03→23:02)
[2022-03-31] MEDS: GABAPENTIN 400MG CAP PO SCH ×3 (05:03→20:09)
[2022-03-31] MEDS: methocarbamoL 750 MG TAB PO PRN (05:04)
[2022-03-31 05:32] VITALS: BP 108/69
[2022-03-31] MEDS: NYSTATIN 500,000 U/5 ML SUSP UDC SS SCH ×5 (09:00→20:04)
[2022-03-31] MEDS: MIRALAX *UNIT DOSE* 17GM PACKET PO SCH (09:00)
[2022-03-31] MEDS: SENNA 8.6 MG TAB (SENOKOT) PO SCH ×2 (09:00→20:05)
[2022-03-31] MEDS: ESCITALOPRAM OXALATE 10 MG TAB (LEXAPRO) PO SCH (09:28)
[2022-03-31] MEDS: DOCUSATE SODIUM 100MG CAPSULE PO SCH ×2 (09:28→20:06)
[2022-03-31] MEDS: METOPROLOL TART 50 MG TAB PO SCH ×2 (09:28→20:10)
[2022-03-31] MEDS: SODIUM CHLORIDE 1 GM TAB PO SCH ×3 (09:28→20:06)
[2022-03-31] MEDS: SPIRONOLACTONE 50 MG TAB PO SCH (09:28)
[2022-03-31] MEDS: PANTOPRAZOLE 40MG TAB (PROTONIX) PO SCH ×2 (09:28→20:06)
[2022-03-31] MEDS: predniSONE 10 MG TAB PO SCH (09:28)
[2022-03-31] MEDS: QUEtiapine FUMARATE 12.5 MG HALF-TAB PO SCH ×2 (09:28→20:06)
[2022-03-31] MEDS: guaiFENesin ER 600 MG TAB PO SCH ×2 (09:28→20:06)
[2022-03-31] MEDS: SYMPROIC PO SCH (09:29)
[2022-03-31 10:23] VITALS: BP 102/62
[2022-03-31 10:43] VITALS: O2SAT 100
[2022-03-31] MEDS: METOPROLOL TART 25 MG TABLET PO SCH (14:44)
[2022-03-31] MEDS: FENTANYL REMOVAL DOCUMENTATION MISC XX SCH (14:48)
[2022-03-31] MEDS: fentaNYL 100 MCG/HR PATCH TOP SCH (14:48)
[2022-03-31] MEDS: TIOTROPIUM INHALER/CAPSULE (SPIRIVA) INH SCH (16:44)
[2022-03-31] MEDS: LIDOCAINE 5% (LIDODERM) PATCH TD SCH (20:04)
[2022-03-31] MEDS: ENOXAPARIN 30MG/0.3ML SYRINGE (J1650 PER 10MG) SC SCH (20:05)
[2022-03-31] MEDS: FORTEO SC SCH (20:05)
[2022-04-01] MEDS: methocarbamoL 750 MG TAB PO PRN (00:39)
[2022-04-01] MEDS: oxyCODONE 5MG TAB PO PRN ×4 (03:05→19:41)
[2022-04-01] MEDS: GABAPENTIN 400MG CAP PO SCH ×3 (05:28→20:38)
[2022-04-01 06:00] VITALS: BP 112/67
[2022-04-01] MEDS: SYMPROIC PO SCH (08:09)
[2022-04-01] MEDS: SPIRONOLACTONE 50 MG TAB PO SCH (08:10)
[2022-04-01] MEDS: SODIUM CHLORIDE 1 GM TAB PO SCH ×3 (08:10→20:33)
[2022-04-01] MEDS: METOPROLOL TART 50 MG TAB PO SCH ×2 (08:10→20:34)
[2022-04-01] MEDS: ESCITALOPRAM OXALATE 10 MG TAB (LEXAPRO) PO SCH (08:10)
[2022-04-01] MEDS: QUEtiapine FUMARATE 12.5 MG HALF-TAB PO SCH ×2 (08:10→20:33)
[2022-04-01] MEDS: PANTOPRAZOLE 40MG TAB (PROTONIX) PO SCH ×2 (08:10→20:33)
[2022-04-01] MEDS: DOCUSATE SODIUM 100MG CAPSULE PO SCH ×2 (08:10→20:33)
[2022-04-01] MEDS: predniSONE 10 MG TAB PO SCH (08:10)
[2022-04-01] MEDS: SENNA 8.6 MG TAB (SENOKOT) PO SCH ×2 (08:11→20:31)
[2022-04-01] MEDS: NYSTATIN 500,000 U/5 ML SUSP UDC SS SCH ×4 (08:11→20:31)
[2022-04-01] MEDS: MIRALAX *UNIT DOSE* 17GM PACKET PO SCH (08:11)
[2022-04-01] MEDS: guaiFENesin ER 600 MG TAB PO SCH ×2 (08:11→20:33)
[2022-04-01 09:42] VITALS: O2SAT 100
[2022-04-01] MEDS: ALPRAZolam 0.5 MG TAB PO PRN ×2 (11:18→15:57)
[2022-04-01] MEDS: TIOTROPIUM INHALER/CAPSULE (SPIRIVA) INH SCH (11:53)
[2022-04-01] MEDS: METOPROLOL TART 25 MG TABLET PO SCH (13:30)
[2022-04-01] MEDS: METHYLNALTREXONE BROMIDE 12MG/0.6ML VIAL (RELISTOR) SC SCH ×2 (15:00→15:57)
[2022-04-01 19:42] VITALS: BP 105/64
[2022-04-01] MEDS: LIDOCAINE 5% (LIDODERM) PATCH TD SCH (20:31)
[2022-04-01] MEDS: FORTEO SC SCH (20:32)
[2022-04-01] MEDS: ENOXAPARIN 30MG/0.3ML SYRINGE (J1650 PER 10MG) SC SCH (20:33)
[2022-04-02] VITALS (8 sets, daily range): BP systolic 82–117; BP diastolic 42–71; O2SAT 97–99
[2022-04-02] MEDS: oxyCODONE 5MG TAB PO PRN ×5 (00:09→19:04)
[2022-04-02] MEDS: GABAPENTIN 400MG CAP PO SCH ×2 (05:04→13:47)
[2022-04-02] MEDS: TIOTROPIUM INHALER/CAPSULE (SPIRIVA) INH SCH (07:59)
[2022-04-02] MEDS: MIRALAX *UNIT DOSE* 17GM PACKET PO SCH (09:00)
[2022-04-02] MEDS: NYSTATIN 500,000 U/5 ML SUSP UDC SS SCH ×4 (09:00→21:00)
[2022-04-02] MEDS: SENNA 8.6 MG TAB (SENOKOT) PO SCH ×3 (09:00→21:41)
[2022-04-02] MEDS: SODIUM CHLORIDE 1 GM TAB PO SCH ×3 (09:37→21:41)
[2022-04-02] MEDS: METOPROLOL TART 50 MG TAB PO SCH ×2 (09:37→21:00)
[2022-04-02] MEDS: ESCITALOPRAM OXALATE 10 MG TAB (LEXAPRO) PO SCH (09:37)
[2022-04-02] MEDS: SPIRONOLACTONE 50 MG TAB PO SCH (09:38)
[2022-04-02] MEDS: DOCUSATE SODIUM 100MG CAPSULE PO SCH ×2 (09:38→21:41)
[2022-04-02] MEDS: QUEtiapine FUMARATE 12.5 MG HALF-TAB PO SCH (09:38)
[2022-04-02] MEDS: guaiFENesin ER 600 MG TAB PO SCH ×2 (09:38→21:41)
[2022-04-02] MEDS: PANTOPRAZOLE 40MG TAB (PROTONIX) PO SCH ×2 (09:38→21:41)
[2022-04-02] MEDS: predniSONE 10 MG TAB PO SCH (09:38)
[2022-04-02] MEDS: SYMPROIC PO SCH (09:39)
[2022-04-02] MEDS: METOPROLOL TART 25 MG TABLET PO SCH (12:35)
[2022-04-02] MEDS: fentaNYL 100 MCG/HR PATCH TOP SCH (13:46)
[2022-04-02] MEDS: FENTANYL REMOVAL DOCUMENTATION MISC XX SCH (13:48)
[2022-04-02] MEDS: ALPRAZolam 0.5 MG TAB PO PRN (16:11)
[2022-04-02] MEDS: POLYVINYL ALCOHOL OPHTH SOLN 15 ML(LIQUITEARS) OU PRN (16:12)
[2022-04-02] MEDS: LIDOCAINE 5% (LIDODERM) PATCH TD SCH (21:00)
[2022-04-02] MEDS ORDERED: NS 500 ML IV ONE (21:35)
[2022-04-02] MEDS: ENOXAPARIN 30MG/0.3ML SYRINGE (J1650 PER 10MG) SC SCH (21:41)
[2022-04-02] MEDS: FORTEO SC SCH (21:43)
[2022-04-03 00:37] VITALS: BP 100/60
[2022-04-03 00:52] VITALS: O2SAT 99
[2022-04-03] MEDS: GABAPENTIN 400MG CAP PO SCH ×4 (00:56→21:11)
[2022-04-03] MEDS: QUEtiapine FUMARATE 12.5 MG HALF-TAB PO SCH ×3 (00:56→21:11)
[2022-04-03] MEDS: oxyCODONE 5MG TAB PO PRN ×6 (00:57→23:05)
[2022-04-03 05:52] VITALS: BP 116/60
[2022-04-03] MEDS: TIOTROPIUM INHALER/CAPSULE (SPIRIVA) INH SCH (07:33)
[2022-04-03] MEDS: SENNA 8.6 MG TAB (SENOKOT) PO SCH ×2 (09:00→20:35)
[2022-04-03] MEDS: MIRALAX *UNIT DOSE* 17GM PACKET PO SCH (09:00)
[2022-04-03] MEDS: NYSTATIN 500,000 U/5 ML SUSP UDC SS SCH ×4 (10:09→21:11)
[2022-04-03] MEDS: ESCITALOPRAM OXALATE 10 MG TAB (LEXAPRO) PO SCH (10:09)
[2022-04-03] MEDS: DOCUSATE SODIUM 100MG CAPSULE PO SCH ×2 (10:09→21:11)
[2022-04-03] MEDS: SPIRONOLACTONE 50 MG TAB PO SCH (10:10)
[2022-04-03] MEDS: PANTOPRAZOLE 40MG TAB (PROTONIX) PO SCH ×2 (10:10→21:11)
[2022-04-03] MEDS: guaiFENesin ER 600 MG TAB PO SCH ×2 (10:10→21:11)
[2022-04-03] MEDS: SODIUM CHLORIDE 1 GM TAB PO SCH ×3 (10:10→21:11)
[2022-04-03] MEDS: predniSONE 10 MG TAB PO SCH (10:10)
[2022-04-03] MEDS: SYMPROIC PO SCH (10:11)
[2022-04-03] MEDS: METOPROLOL TART 50 MG TAB PO SCH (10:13)
[2022-04-03] MEDS: METOPROLOL TART 25 MG TABLET PO SCH (13:30)
[2022-04-03 13:52] VITALS: BP 95/58
[2022-04-03] MEDS: METHYLNALTREXONE BROMIDE 12MG/0.6ML VIAL (RELISTOR) SC SCH (14:41)
[2022-04-03 20:34] VITALS: BP 98/70
[2022-04-03] MEDS: LIDOCAINE 5% (LIDODERM) PATCH TD SCH (20:35)
[2022-04-03] MEDS: FORTEO SC SCH (21:11)
[2022-04-03] MEDS: ENOXAPARIN 30MG/0.3ML SYRINGE (J1650 PER 10MG) SC SCH (21:11)
[2022-04-03] MEDS: ALPRAZolam 0.5 MG TAB PO PRN (21:18)
[2022-04-03] MEDS: methocarbamoL 750 MG TAB PO PRN (22:24)
[2022-04-04] MEDS: oxyCODONE 5MG TAB PO PRN ×5 (03:55→23:20)
[2022-04-04 05:00] VITALS: BP 100/69
[2022-04-04] MEDS: GABAPENTIN 400MG CAP PO SCH ×3 (05:15→21:27)
[2022-04-04 05:34] LABS: ALBUMIN 2.68 GM/DL (3.29-5.55); ALBUMIN % 54.6 % (55.8-66.1); ALPHA-1-GLOBULIN % 8.5 % (2.9-4.9); ALPHA-1-GLOBULINS 0.42 GM/DL (0.17-0.41); ALPHA-2-GLOBULINS 0.88 GM/DL (0.42-0.99); BETA-1-GLOBULINS 0.25 GM/DL (0.28-0.60); BETA-1-GLOBULINS % 5.2 % (4.7-7.2); BETA-2-GLOBULINS 0.25 GM/DL (0.19-0.55); BETA-2-GLOBULINS % 5.2 % (3.2-6.5); GAMMA GLOBULIN % 8.5 % (11.1-18.8); GAMMA GLOBULINS 0.42 GM/DL (0.65-1.58)
[2022-04-04] MEDS: TIOTROPIUM INHALER/CAPSULE (SPIRIVA) INH SCH (07:20)
[2022-04-04] MEDS: SYMPROIC PO SCH (08:41)
[2022-04-04] MEDS: guaiFENesin ER 600 MG TAB PO SCH ×2 (08:41→21:27)
[2022-04-04] MEDS: SODIUM CHLORIDE 1 GM TAB PO SCH ×3 (08:41→21:27)
[2022-04-04] MEDS: DOCUSATE SODIUM 100MG CAPSULE PO SCH ×2 (08:41→21:27)
[2022-04-04] MEDS: PANTOPRAZOLE 40MG TAB (PROTONIX) PO SCH ×2 (08:41→21:27)
[2022-04-04] MEDS: ESCITALOPRAM OXALATE 10 MG TAB (LEXAPRO) PO SCH (08:41)
[2022-04-04] MEDS: predniSONE 10 MG TAB PO SCH (08:41)
[2022-04-04] MEDS: QUEtiapine FUMARATE 12.5 MG HALF-TAB PO SCH ×2 (08:42→21:27)
[2022-04-04] MEDS: NYSTATIN 500,000 U/5 ML SUSP UDC SS SCH ×4 (08:42→21:00)
[2022-04-04] MEDS: MIRALAX *UNIT DOSE* 17GM PACKET PO SCH (08:42)
[2022-04-04] MEDS: SENNA 8.6 MG TAB (SENOKOT) PO SCH ×2 (08:42→21:00)
[2022-04-04 10:33] VITALS: O2SAT 99
[2022-04-04] MEDS: METOPROLOL TART 25 MG TABLET PO SCH (13:14)
[2022-04-04] MEDS: fentaNYL 100 MCG/HR PATCH TOP SCH (13:14)
[2022-04-04] MEDS: FENTANYL REMOVAL DOCUMENTATION MISC XX SCH (13:16)
[2022-04-04] MEDS: LIDOCAINE 5% (LIDODERM) PATCH TD SCH (21:00)
[2022-04-04] MEDS: ENOXAPARIN 30MG/0.3ML SYRINGE (J1650 PER 10MG) SC SCH (21:27)
[2022-04-04] MEDS: FORTEO SC SCH (21:30)
[2022-04-04 21:35] VITALS: BP 128/60
[2022-04-04 23:22] VITALS: BP 120/60
[2022-04-04 23:57] VITALS: O2SAT 99
[2022-04-05 03:27] VITALS: BP 150/74
[2022-04-05] MEDS: oxyCODONE 5MG TAB PO PRN ×5 (03:30→22:21)
[2022-04-05] MEDS: GABAPENTIN 400MG CAP PO SCH ×3 (05:28→22:22)
[2022-04-05 05:29] VITALS: BP 153/89
[2022-04-05] MEDS: TIOTROPIUM INHALER/CAPSULE (SPIRIVA) INH SCH (08:00)
[2022-04-05] MEDS: SENNA 8.6 MG TAB (SENOKOT) PO SCH ×3 (09:00→22:11)
[2022-04-05] MEDS: NYSTATIN 500,000 U/5 ML SUSP UDC SS SCH ×4 (09:00→22:11)
[2022-04-05] MEDS: MIRALAX *UNIT DOSE* 17GM PACKET PO SCH (09:00)
[2022-04-05] MEDS: QUEtiapine FUMARATE 12.5 MG HALF-TAB PO SCH ×2 (09:43→22:22)
[2022-04-05] MEDS: predniSONE 10 MG TAB PO SCH (09:43)
[2022-04-05] MEDS: DOCUSATE SODIUM 100MG CAPSULE PO SCH ×2 (09:43→22:22)
[2022-04-05] MEDS: SYMPROIC PO SCH (09:43)
[2022-04-05] MEDS: ESCITALOPRAM OXALATE 10 MG TAB (LEXAPRO) PO SCH (09:43)
[2022-04-05] MEDS: guaiFENesin ER 600 MG TAB PO SCH ×2 (09:43→22:21)
[2022-04-05] MEDS: PANTOPRAZOLE 40MG TAB (PROTONIX) PO SCH ×2 (09:43→22:22)
[2022-04-05] MEDS: SODIUM CHLORIDE 1 GM TAB PO SCH ×3 (09:43→22:22)
[2022-04-05] MEDS: TORSEMIDE 10 MG TABLET PO SCH (10:42)
[2022-04-05] MEDS: SPIRONOLACTONE 25 MG TAB PO SCH (10:42)
[2022-04-05] MEDS: METHYLNALTREXONE BROMIDE 12MG/0.6ML VIAL (RELISTOR) SC SCH (14:01)
[2022-04-05] MEDS: METOPROLOL TART 25 MG TABLET PO SCH (14:02)
[2022-04-05 14:56] LABS: BLOOD UREA NITROGEN 16 MG/DL (9-23); CALCIUM LEVEL 9.1 MG/DL (8.5-10.1); CARBON DIOXIDE LEVEL 40 MMOL/L (20-31); CHLORIDE LEVEL 96 MMOL/L (98-107); CREATININE FOR GFR 0.56 MG/DL (0.55-1.30); GLOMERULAR FILTRATION RATE > 60.0 (>58); GLUCOSE, FASTING 121 MG/DL (60-100); POTASSIUM SERUM 4.5 MMOL/L (3.5-5.1); SODIUM LEVEL 139 MMOL/L (136-145)
[2022-04-05] MEDS: LIDOCAINE 5% (LIDODERM) PATCH TD SCH (22:11)
[2022-04-05 22:13] VITALS: BP 126/84
[2022-04-05] MEDS: FORTEO SC SCH (22:21)
[2022-04-05] MEDS: ENOXAPARIN 30MG/0.3ML SYRINGE (J1650 PER 10MG) SC SCH (22:22)
[2022-04-06 00:43] VITALS: O2SAT 100
[2022-04-06] MEDS: oxyCODONE 5MG TAB PO PRN ×6 (02:30→23:58)
[2022-04-06 05:16] VITALS: BP 130/85
[2022-04-06] MEDS: GABAPENTIN 400MG CAP PO SCH ×3 (06:34→21:08)
[2022-04-06] MEDS: TIOTROPIUM INHALER/CAPSULE (SPIRIVA) INH SCH (07:54)
[2022-04-06] MEDS: SENNA 8.6 MG TAB (SENOKOT) PO SCH ×2 (09:00→20:43)
[2022-04-06] MEDS: MIRALAX *UNIT DOSE* 17GM PACKET PO SCH (09:00)
[2022-04-06] MEDS: DOCUSATE SODIUM 100MG CAPSULE PO SCH ×2 (09:10→20:56)
[2022-04-06] MEDS: predniSONE 10 MG TAB PO SCH (09:10)
[2022-04-06] MEDS: SYMPROIC PO SCH (09:10)
[2022-04-06] MEDS: ESCITALOPRAM OXALATE 10 MG TAB (LEXAPRO) PO SCH (09:10)
[2022-04-06] MEDS: PANTOPRAZOLE 40MG TAB (PROTONIX) PO SCH ×2 (09:10→20:56)
[2022-04-06] MEDS: SPIRONOLACTONE 25 MG TAB PO SCH (09:10)
[2022-04-06] MEDS: guaiFENesin ER 600 MG TAB PO SCH ×2 (09:10→20:56)
[2022-04-06] MEDS: NYSTATIN 500,000 U/5 ML SUSP UDC SS SCH ×4 (09:10→20:54)
[2022-04-06] MEDS: QUEtiapine FUMARATE 12.5 MG HALF-TAB PO SCH ×2 (09:11→20:54)
[2022-04-06] MEDS: TORSEMIDE 10 MG TABLET PO SCH (09:11)
[2022-04-06] MEDS: SODIUM CHLORIDE 1 GM TAB PO SCH ×3 (09:11→20:54)
[2022-04-06] MEDS: acetaZOLAMIDE 250MG TAB PO SCH ×2 (10:41→20:56)
[2022-04-06] MEDS: fentaNYL 100 MCG/HR PATCH TOP SCH (14:56)
[2022-04-06] MEDS: FENTANYL REMOVAL DOCUMENTATION MISC XX SCH (14:57)
[2022-04-06 14:59] VITALS: BP 151/104
[2022-04-06] MEDS: METOPROLOL TART 25 MG TABLET PO SCH (14:59)
[2022-04-06 15:52] VITALS: BP 144/84
[2022-04-06] MEDS: LIDOCAINE 5% (LIDODERM) PATCH TD SCH (20:43)
[2022-04-06] MEDS: ENOXAPARIN 30MG/0.3ML SYRINGE (J1650 PER 10MG) SC SCH (20:54)
[2022-04-06] MEDS: FORTEO SC SCH (21:09)
[2022-04-06] MEDS: ONDANSETRON 4MG ORAL DISINTEGRATING TAB PO PRN (23:58)
[2022-04-07 06:00] VITALS: BP 132/82
[2022-04-07] MEDS: oxyCODONE 5MG TAB PO PRN ×2 (06:04→10:11)
[2022-04-07] MEDS: GABAPENTIN 400MG CAP PO SCH (06:04)
[2022-04-07] MEDS: TIOTROPIUM INHALER/CAPSULE (SPIRIVA) INH SCH (08:07)
[2022-04-07] MEDS ORDERED: DEBR6.5S4 OTIC (08:46)
[2022-04-07] MEDS ORDERED: POLYOPD OP (08:46)
[2022-04-07] MEDS: SENNA 8.6 MG TAB (SENOKOT) PO SCH (09:00)
[2022-04-07] MEDS: SODIUM CHLORIDE 1 GM TAB PO SCH (09:19)
[2022-04-07] MEDS: DOCUSATE SODIUM 100MG CAPSULE PO SCH (09:19)
[2022-04-07] MEDS: MIRALAX *UNIT DOSE* 17GM PACKET PO SCH (09:19)
[2022-04-07] MEDS: acetaZOLAMIDE 250MG TAB PO SCH (09:19)
[2022-04-07] MEDS: QUEtiapine FUMARATE 12.5 MG HALF-TAB PO SCH (09:20)
[2022-04-07] MEDS: TORSEMIDE 10 MG TABLET PO SCH (09:20)
[2022-04-07] MEDS: PANTOPRAZOLE 40MG TAB (PROTONIX) PO SCH (09:20)
[2022-04-07] MEDS: SPIRONOLACTONE 25 MG TAB PO SCH (09:20)
[2022-04-07] MEDS: guaiFENesin ER 600 MG TAB PO SCH (09:20)
[2022-04-07] MEDS: ESCITALOPRAM OXALATE 10 MG TAB (LEXAPRO) PO SCH (09:20)
[2022-04-07] MEDS: predniSONE 10 MG TAB PO SCH (09:21)
[2022-04-07] MEDS: NYSTATIN 500,000 U/5 ML SUSP UDC SS SCH (09:21)
[2022-04-07] MEDS: SYMPROIC PO SCH (09:21)
[2022-04-07] MEDS ORDERED: QUET1TAB17 PO (11:08)
[2022-04-07] MEDS ORDERED: LEXA1TAB2 PO (19:09)
[2022-04-07] MEDS ORDERED: GABA-283 PO (19:10)
== END 2022-04-07 12:01 | disposition home health service (06) | DRG 480 ==
LOC: EEVIPCON 05:28 → M ED 05:28 → M ED INP 10:44 → ENRESERV 11:41 → M ICU 12:25 → M MSPAV 03-08 18:50 → M ICU 03-23 22:12 → M MSPAV 03-24 15:51
PROVIDERS: ADMIT Internal Medicine Critical Care Medicine; ATTEND Internal Medicine
PROC: 0QS736Z Reposition Left Upper Femur with Intramedullary Internal Fixation Device, Percutaneous Approach (ICD-10-PCS; principal; 2022-03-06 13:00)
PROC: 3E00XBZ Introduction of Anesthetic Agent into Skin and Mucous Membranes, External Approach (ICD-10-PCS; 2022-04-01)
PROC: B246ZZZ Ultrasonography of Right and Left Heart (ICD-10-PCS; 2022-04-05)
DX: S72.142A Displaced intertrochanteric fracture of left femur, initial encounter for closed fracture (principal); J96.21 Acute and chronic respiratory failure with hypoxia; J96.22 Acute and chronic respiratory failure with hypercapnia; J18.9 Pneumonia, unspecified organism; J44.1 Chronic obstructive pulmonary disease with (acute) exacerbation; J44.0 Chronic obstructive pulmonary disease with (acute) lower respiratory infection; I50.30 Unspecified diastolic (congestive) heart failure; E46 Unspecified protein-calorie malnutrition; F32.3 Major depressive disorder, single episode, severe with psychotic features; E22.2 Syndrome of inappropriate secretion of antidiuretic hormone; Z66 Do not resuscitate; I27.29 Other secondary pulmonary hypertension; M81.0 Age-related osteoporosis without current pathological fracture; Z79.52 Long term (current) use of systemic steroids; Z99.81 Dependence on supplemental oxygen; F17.210 Nicotine dependence, cigarettes, uncomplicated; K21.9 Gastro-esophageal reflux disease without esophagitis; F41.1 Generalized anxiety disorder; G89.29 Other chronic pain; J84.10 Pulmonary fibrosis, unspecified; W01.0XXA Fall on same level from slipping, tripping and stumbling without subsequent striking against object, initial encounter; Y92.009 Unspecified place in unspecified non-institutional (private) residence as the place of occurrence of the external cause; F25.9 Schizoaffective disorder, unspecified; F43.10 Post-traumatic stress disorder, unspecified; R56.9 Unspecified convulsions; I11.0 Hypertensive heart disease with heart failure; K59.00 Constipation, unspecified; H04.123 Dry eye syndrome of bilateral lacrimal glands; Z20.822 Contact with and (suspected) exposure to COVID-19; Z79.899 Other long term (current) drug therapy; Z88.0 Allergy status to penicillin; Z88.1 Allergy status to other antibiotic agents; Z88.6 Allergy status to analgesic agent

== ENCOUNTER → 2022-04-17 | Outpatient (CLI) | payer OTHER ==
[~2022-04-17] MED LIST changes: +DEBR6.5S4 OTIC; +FLUTISP NARES; +GABA-282 PO; +GABA-283 PO; +GLYC1SUP37 PR; +LEXA1TAB2 PO; +LIDO5TD TOP; +METH-1164 PO; +METO50TA7 PO; +MM S100C PO; +OYST250T6 PO; +POLY510P14 PO; +POLYOPD OP; +PRED1TABL PO; +QUET1TAB17 PO; +XANA1TAB2 PO; +[UNRECOGNIZED DRUG - CODE] SC
== END ==
LOC: M PAL 13:03
PROVIDERS: ATTEND Nurse Practitioner Adult Health
DX: S22.000A Wedge compression fracture of unspecified thoracic vertebra, initial encounter for closed fracture (principal); S32.000G Wedge compression fracture of unspecified lumbar vertebra, subsequent encounter for fracture with delayed healing; S32.050A Wedge compression fracture of fifth lumbar vertebra, initial encounter for closed fracture; I27.20 Pulmonary hypertension, unspecified; I50.9 Heart failure, unspecified; J96.10 Chronic respiratory failure, unspecified whether with hypoxia or hypercapnia; K44.9 Diaphragmatic hernia without obstruction or gangrene; F06.34 Mood disorder due to known physiological condition with mixed features; K21.9 Gastro-esophageal reflux disease without esophagitis; K59.00 Constipation, unspecified; M54.50 Low back pain, unspecified; G89.29 Other chronic pain; R54 Age-related physical debility; R10.10 Upper abdominal pain, unspecified; F17.210 Nicotine dependence, cigarettes, uncomplicated; M81.0 Age-related osteoporosis without current pathological fracture; J84.10 Pulmonary fibrosis, unspecified; I27.29 Other secondary pulmonary hypertension; Z51.5 Encounter for palliative care; Z79.891 Long term (current) use of opiate analgesic; Z88.1 Allergy status to other antibiotic agents; Z88.6 Allergy status to analgesic agent; Z88.8 Allergy status to other drugs, medicaments and biological substances; Z79.51 Long term (current) use of inhaled steroids; Z72.0 Tobacco use

== ENCOUNTER → 2022-04-21 | Outpatient (CLI) | payer OTHER | LOC: M SOG 08:34 | PROVIDERS: ATTEND Orthopaedic Surgery | DX: Z47.89 Encounter for other orthopedic aftercare (principal) ==

== ENCOUNTER → 2022-04-22 | Outpatient (CLI) | payer OTHER ==
[2022-04-22 16:19] LABS: BASO % 0.6 % (0.0-1.0); EOS % 0.2 % (0.0-3.0); HEMATOCRIT 38.9 % (36.0-47.0); HEMOGLOBIN 12.1 g/dl (12.0-15.5); LYMPH # 0.9 10^3/uL (1.5-5.0); LYMPH % 19.1 % (24.0-44.0); MEAN CORPUSCULAR HEMOGLOBIN 27.8 pg (27.0-33.0); MEAN CORPUSCULAR HGB CONC 31.1 g/dl (32.0-36.5); MEAN CORPUSCULAR VOLUME 89.2 fl (80.0-96.0); MONO # 0.3 10^3/uL (0.0-0.8); MONO % 6.9 % (2.0-8.0); NEUTROPHILS # 3.4 10^3/uL (1.5-8.5); NEUTROPHILS % 72.8 % (36.0-66.0); PLATELET COUNT, AUTOMATED 318 10^3/uL (150-450); RED BLOOD COUNT 4.36 10^6/uL (4.00-5.40); WHITE BLOOD COUNT 4.7 10^3/uL (4.0-10.0)
[2022-04-22 16:34] LABS: LIPASE 37 U/L (12-53)
[2022-04-22 16:37] LABS: ALBUMIN 3.2 G/DL (3.2-5.2); ALKALINE PHOSPHATASE 85 U/L (46-116); ALT/SGPT 35 U/L (7.0-40); AST/SGOT 63 U/L (<34); BILIRUBIN,TOTAL 0.3 MG/DL (0.3-1.2); BLOOD UREA NITROGEN 9 MG/DL (9-23); CALCIUM LEVEL 9.2 MG/DL (8.5-10.1); CARBON DIOXIDE LEVEL 39 MMOL/L (20-31); CHLORIDE LEVEL 83 MMOL/L (98-107); CREATININE FOR GFR 0.51 MG/DL (0.55-1.30); GLOMERULAR FILTRATION RATE > 60.0 (>58); GLUCOSE, FASTING 89 MG/DL (60-100); POTASSIUM SERUM 3.5 MMOL/L (3.5-5.1); SODIUM LEVEL 130 MMOL/L (136-145); TOTAL PROTEIN 6.5 G/DL (5.7-8.2)
[2022-04-22 16:44] LABS: VITAMIN B12 LEVEL 678 PG/ML (211-911)
[2022-04-22 16:48] LABS: ERYTHROCYTE SEDIMENTATION RATE 49 mm/hr (0-20)
== END ==
LOC: M PLALAB 13:15
PROVIDERS: ATTEND Physician Assistant
DX: R50.9 Fever, unspecified (principal)

== ENCOUNTER → 2022-05-12 | Outpatient (CLI) | payer OTHER ==
[~2022-05-12] MED LIST changes: -GLYC1SUP PR; +GLYC2SUP PR
[2022-05-12 11:48] LABS: ABG BASE EXCESS 13.3 (-2.0-2.0); ABG HCO3 40.9 MEQ/L (22.0-26.0); ABG O2 SATURATION 97.5 % (95.0-99.0); ABG PARTIAL PRESSURE O2 92.2 mmHg (75.0-100.0); ABG STANDARD HCO3 37.2 MEQ/L (22.0-26.0); ABG TOTAL CO2 42.9 MEQ/L (22.0-29.0)
== END ==
LOC: M LAB 10:35
PROVIDERS: ATTEND Internal Medicine Critical Care Medicine
DX: J44.9 Chronic obstructive pulmonary disease, unspecified (principal)

== ENCOUNTER → 2022-05-12 | Outpatient (CLI) | payer OTHER ==
[2022-05-12 12:38] LABS: ALBUMIN 3.5 G/DL (3.2-5.2); ALKALINE PHOSPHATASE 79 U/L (46-116); ALT/SGPT 17 U/L (7.0-40); AST/SGOT 26 U/L (<34); BILIRUBIN,TOTAL 0.3 MG/DL (0.3-1.2); BLOOD UREA NITROGEN 13 MG/DL (9-23); CALCIUM LEVEL 9.9 MG/DL (8.5-10.1); CARBON DIOXIDE LEVEL 39 MMOL/L (20-31); CHLORIDE LEVEL 86 MMOL/L (98-107); CREATININE FOR GFR 0.53 MG/DL (0.55-1.30); GLOMERULAR FILTRATION RATE > 60.0 (>58); GLUCOSE, FASTING 106 MG/DL (60-100); SODIUM LEVEL 134 MMOL/L (136-145); TOTAL PROTEIN 6.5 G/DL (5.7-8.2)
== END ==
LOC: M RAD 10:05
PROVIDERS: ATTEND Physician Assistant
DX: R50.9 Fever, unspecified (principal); R10.9 Unspecified abdominal pain

== ENCOUNTER → 2022-05-15 | Outpatient (CLI) | payer OTHER | LOC: M PAL 15:00 | PROVIDERS: ATTEND Nurse Practitioner Adult Health | DX: I27.20 Pulmonary hypertension, unspecified (principal); S22.000A Wedge compression fracture of unspecified thoracic vertebra, initial encounter for closed fracture; S32.050A Wedge compression fracture of fifth lumbar vertebra, initial encounter for closed fracture; J96.10 Chronic respiratory failure, unspecified whether with hypoxia or hypercapnia; I50.9 Heart failure, unspecified; K59.00 Constipation, unspecified; R06.00 Dyspnea, unspecified; F06.34 Mood disorder due to known physiological condition with mixed features; K21.9 Gastro-esophageal reflux disease without esophagitis; F41.9 Anxiety disorder, unspecified; Z51.5 Encounter for palliative care; G43.909 Migraine, unspecified, not intractable, without status migrainosus; Z88.0 Allergy status to penicillin; Z88.1 Allergy status to other antibiotic agents; Z88.6 Allergy status to analgesic agent; Z79.899 Other long term (current) drug therapy; Z79.891 Long term (current) use of opiate analgesic; Z79.51 Long term (current) use of inhaled steroids ==

== ENCOUNTER → 2022-06-12 | Outpatient (CLI) | payer OTHER | LOC: M SOG 08:52 | PROVIDERS: ATTEND Orthopaedic Surgery | DX: S72.142D Displaced intertrochanteric fracture of left femur, subsequent encounter for closed fracture with routine healing (principal) ==

== ENCOUNTER → 2022-06-25 | Outpatient (CLI) | payer OTHER | LOC: M SOG 08:11 | PROVIDERS: ATTEND Orthopaedic Surgery | DX: S72.142D Displaced intertrochanteric fracture of left femur, subsequent encounter for closed fracture with routine healing (principal); W18.30XD Fall on same level, unspecified, subsequent encounter ==

== ENCOUNTER → 2022-07-12 | Outpatient (CLI) | payer OTHER | LOC: M RAD 12:25 | PROVIDERS: ATTEND Orthopaedic Surgery | DX: M54.6 Pain in thoracic spine (principal); M54.51 Vertebrogenic low back pain ==

== ENCOUNTER 2022-07-17 17:32 | Inpatient (IN) | payer OTHER ==
[~2022-07-17] VITALS: Ht 144.8 cm; Wt 39.9 kg
[2022-07-17] MEDS ORDERED: IPRATROPIUM 0.5MG/ALBUTEROL 2.5MG INH SOL UD 3ML (DUONEB) NEB ONE (18:05)
[2022-07-17] MEDS ORDERED: methylPREDNISolone 125MG 2ML VIAL IV ONE (18:05)
[2022-07-17 18:30] LABS: BASO % 0.3 % (0.0-1.0); EOS % 0.2 % (0.0-3.0); HEMATOCRIT 44.2 % (36.0-47.0); LYMPH # 1.9 10^3/uL (1.5-5.0); LYMPH % 17.2 % (24.0-44.0); MEAN CORPUSCULAR HEMOGLOBIN 26.8 pg (27.0-33.0); MEAN CORPUSCULAR HGB CONC 29.4 g/dl (32.0-36.5); MEAN CORPUSCULAR VOLUME 91.1 fl (80.0-96.0); MONO # 0.6 10^3/uL (0.0-0.8); MONO % 5.2 % (2.0-8.0); NEUTROPHILS # 8.7 10^3/uL (1.5-8.5); NEUTROPHILS % 76.8 % (36.0-66.0); PLATELET COUNT, AUTOMATED 266 10^3/uL (150-450); RED BLOOD COUNT 4.85 10^6/uL (4.00-5.40); WHITE BLOOD COUNT 11.3 10^3/uL (4.0-10.0)
[2022-07-17 18:41] LABS: INR 0.92; PROTHROMBIN TIME 12.6 SECONDS (12.5-14.5)
[2022-07-17] MEDS ORDERED: MORPHINE 2 MG/ML 1ML VIAL IV ONE (18:55)
[2022-07-17 19:02] LABS: ALBUMIN 3.8 G/DL (3.2-5.2); ALKALINE PHOSPHATASE 68 U/L (46-116); ALT/SGPT 26 U/L (7.0-40); AST/SGOT 27 U/L (<34); BILIRUBIN,DIRECT 0.1 MG/DL (<0.4); BILIRUBIN,TOTAL 0.4 MG/DL (0.3-1.2); BLOOD UREA NITROGEN 16 MG/DL (9-23); CALCIUM LEVEL 9.5 MG/DL (8.5-10.1); CARBON DIOXIDE LEVEL > 40.0 MMOL/L (20-31); CHLORIDE LEVEL 90 MMOL/L (98-107); CK-MB VALUE MASS 7.7 NG/ML (<3.6); CPK CREATINE PHOSPHOKINASE 82 U/L (34-145); CREATININE FOR GFR 0.52 MG/DL (0.55-1.30); GLOMERULAR FILTRATION RATE > 60.0 (>58); GLUCOSE, FASTING 82 MG/DL (60-100); MB/CK RELATIVE INDEX 9.39 (< OR =4); POTASSIUM SERUM 4.6 MMOL/L (3.5-5.1); SODIUM LEVEL 139 MMOL/L (136-145); TOTAL PROTEIN 6.7 G/DL (5.7-8.2)
[2022-07-17 19:26] LABS: ABG BASE EXCESS 16.4 (-2.0-2.0); ABG HCO3 44.7 MEQ/L (22.0-26.0); ABG O2 SATURATION 54.7 % (95.0-99.0); ABG STANDARD HCO3 39.2 MEQ/L (22.0-26.0); ABG pH (ARTERIAL) 7.405 UNITS (7.350-7.450)
[2022-07-17 19:34] LABS: ABG PARTIAL PRESSURE O2 24.4 mmHg (75.0-100.0)
[2022-07-17 20:38] LABS: ABG pH (ARTERIAL) 7.447 UNITS (7.350-7.450)
[2022-07-17 20:39] LABS: ABG BASE EXCESS 13.6 (-2.0-2.0); ABG HCO3 40.1 MEQ/L (22.0-26.0); ABG O2 SATURATION 96.8 % (95.0-99.0); ABG PARTIAL PRESSURE CO2 59.5 mmHg (35.0-45.0); ABG PARTIAL PRESSURE O2 74.7 mmHg (75.0-100.0); ABG STANDARD HCO3 37.4 MEQ/L (22.0-26.0)
[2022-07-17] MEDS ORDERED: ACETAMINOPHEN TAB 650MG DOSE (2X325MG) PO PRN (21:20)
[2022-07-17] MEDS ORDERED: D5W/0.9% SODIUM CHLORIDE 1,000 ML IV SCH (21:50)
[2022-07-17 23:15] VITALS: BP 178/89
[2022-07-17] MEDS: LIDOCAINE 5% (LIDODERM) PATCH TD SCH (23:40)
[2022-07-18] VITALS (24 sets, daily range): BP systolic 110–210; BP diastolic 70–100; O2SAT 95–100
[2022-07-18] MEDS: TERIPARATIDE 600 MCG/2.4 ML SQ SCH ×2 (00:42→20:55)
[2022-07-18] MEDS ORDERED: LEXA1TAB2 PO ×2 (00:50→02:50)
[2022-07-18] MEDS ORDERED: ALPR1TAB3 PO ×2 (01:59→02:45)
[2022-07-18] MEDS ORDERED: K-TA10TA PO (01:59)
[2022-07-18] MEDS ORDERED: ALBU6.7H6 INH (01:59)
[2022-07-18] MEDS ORDERED: SYMP0.2T2 PO ×2 (02:09→03:16)
[2022-07-18] MEDS ORDERED: OXYC20TA2 PO ×2 (02:11→03:16)
[2022-07-18] MEDS ORDERED: GABA-283 PO ×2 (02:18→03:18)
[2022-07-18] MEDS ORDERED: ONDA8TAB8 PO ×2 (02:18→03:18)
[2022-07-18] MEDS ORDERED: HOME MED LIST COMPLETE! XX SCH ×2 (02:25→03:20)
[2022-07-18] MEDS ORDERED: ALB2.5NEB INH (02:44)
[2022-07-18] MEDS ORDERED: VENTAER INH ×2 (02:44)
[2022-07-18] MEDS ORDERED: FENT75DI29 TD (02:50)
[2022-07-18] MEDS ORDERED: FENT100D25 TD (02:50)
[2022-07-18] MEDS ORDERED: DOCU100C16 PO (02:50)
[2022-07-18] MEDS ORDERED: FLUC100T3 PO (02:52)
[2022-07-18] MEDS ORDERED: IPRA2IN NEB (02:52)
[2022-07-18] MEDS ORDERED: LIDO5DIS41 TD (02:53)
[2022-07-18] MEDS ORDERED: BIOT1CAP2 PO (03:02)
[2022-07-18] MEDS ORDERED: CALCTAB53 PO (03:02)
[2022-07-18] MEDS ORDERED: [UNRECOGNIZED DRUG - CODE] SC (03:02)
[2022-07-18] MEDS ORDERED: METH-1164 PO (03:02)
[2022-07-18] MEDS ORDERED: METO1TAB87 PO (03:02)
[2022-07-18] MEDS ORDERED: NARC1SPR NARES (03:16)
[2022-07-18] MEDS ORDERED: FORT600S SC (03:16)
[2022-07-18] MEDS ORDERED: PRED5TA PO (03:16)
[2022-07-18] MEDS ORDERED: TORS20TA2 PO (03:16)
[2022-07-18] MEDS ORDERED: POLY17PO10 PO (03:16)
[2022-07-18] MEDS ORDERED: SPIR-10 PO (03:16)
[2022-07-18] MEDS ORDERED: OMEP-173 PO (03:16)
[2022-07-18] MEDS ORDERED: POLY1.4S OP (03:16)
[2022-07-18] MEDS ORDERED: POTA-150 PO (03:18)
[2022-07-18] MEDS ORDERED: MED REC COMMENT (03:23)
[2022-07-18] MEDS ORDERED: MIRALAX *UNIT DOSE* 17GM PACKET PO PRN (03:25)
[2022-07-18] MEDS ORDERED: ALPRAZolam 0.5 MG TAB PO PRN (03:25)
[2022-07-18] MEDS ORDERED: IPRATROPIUM 0.02% SOLN 0.5MG 2.5ML NEB NEB PRN (03:25)
[2022-07-18] MEDS ORDERED: POLYVINYL ALCOHOL OPHTH SOLN 15ML (LIQUITEARS) OU PRN (03:25)
[2022-07-18] MEDS: METOPROLOL TART 25 MG TABLET PO SCH ×2 (04:23→13:03)
[2022-07-18] MEDS: GABAPENTIN 400MG CAP PO SCH ×3 (05:11→20:54)
[2022-07-18] MEDS: predniSONE 5 MG TAB PO SCH ×2 (05:11→20:55)
[2022-07-18] MEDS: ESCITALOPRAM OXALATE 10 MG TAB (LEXAPRO) PO SCH (05:11)
[2022-07-18] MEDS ORDERED: hydrALAZINE 20MG/ML 1ML VIAL IV ONE (06:05)
[2022-07-18 06:25] LABS: HEMATOCRIT 39.8 % (36.0-47.0); HEMOGLOBIN 11.9 g/dl (12.0-15.5); MEAN CORPUSCULAR HEMOGLOBIN 26.6 pg (27.0-33.0); MEAN CORPUSCULAR HGB CONC 29.9 g/dl (32.0-36.5); PLATELET COUNT, AUTOMATED 242 10^3/uL (150-450); RED BLOOD COUNT 4.47 10^6/uL (4.00-5.40); WHITE BLOOD COUNT 8.5 10^3/uL (4.0-10.0)
[2022-07-18 06:59] LABS: ALBUMIN 3.5 G/DL (3.2-5.2); ALKALINE PHOSPHATASE 63 U/L (46-116); ALT/SGPT 22 U/L (7.0-40); AST/SGOT 23 U/L (<34); BILIRUBIN,TOTAL 0.3 MG/DL (0.3-1.2); BLOOD UREA NITROGEN 16 MG/DL (9-23); CALCIUM LEVEL 9.9 MG/DL (8.5-10.1); CARBON DIOXIDE LEVEL > 40.0 MMOL/L (20-31); CHLORIDE LEVEL 93 MMOL/L (98-107); CREATININE FOR GFR 0.41 MG/DL (0.55-1.30); GLOMERULAR FILTRATION RATE > 60.0 (>58); GLUCOSE, FASTING 143 MG/DL (60-100); MAGNESIUM LEVEL 1.4 MG/DL (1.8-2.4); POTASSIUM SERUM 4.3 MMOL/L (3.5-5.1); SODIUM LEVEL 136 MMOL/L (136-145); TOTAL PROTEIN 6.3 G/DL (5.7-8.2)
[2022-07-18 07:30] LABS: VENOUS BASE EXCESS 15.7 (-2.0-2.0); VENOUS HCO3 42.7 MEQ/L (23.0-27.0); VENOUS O2 SATURATION 99.5 % (60.0-80.0); VENOUS PARTIAL PRESSURE O2 221.9 mmHg (30.0-50.0); VENOUS PH 7.463 UNITS (7.330-7.430); VENOUS STANDARD HCO3 39.8 MEQ/L; VENOUS TOTAL CO2 44.6 MEQ/L (24.0-28.0)
[2022-07-18] MEDS: oxyCODONE 5MG TAB PO PRN ×3 (08:03→20:57)
[2022-07-18] MEDS: ALBUTEROL 90 MCG/ACT 8GM HFA INHALER INH SCH (08:30)
[2022-07-18] MEDS: DOCUSATE SODIUM 100MG CAPSULE PO SCH ×2 (09:00→20:55)
[2022-07-18] MEDS: OMEPRAZOLE 20MG CAP PO SCH (09:00)
[2022-07-18] MEDS: MAG SULF 1GM/100ML (MAG RUN) 1 GM in IV 1 EA IV SCH ×2 (10:04→11:21)
[2022-07-18] MEDS: HEPARIN SOD (PORCINE) 5000UNITS/ML 1ML VIAL/SYRINGE SQ SCH ×2 (10:05→20:54)
[2022-07-18] MEDS ORDERED: OLANZapine 2.5MG TABLET PO PRN (14:50)
[2022-07-18] MEDS: LIDOCAINE 5% (LIDODERM) PATCH TD SCH (20:57)
[2022-07-19] VITALS (18 sets, daily range): BP systolic 111–170; BP diastolic 56–92; O2SAT 53–100
[2022-07-19] MEDS: GABAPENTIN 400MG CAP PO SCH ×3 (05:15→20:42)
[2022-07-19] MEDS: ESCITALOPRAM OXALATE 10 MG TAB (LEXAPRO) PO SCH (05:15)
[2022-07-19] MEDS: predniSONE 5 MG TAB PO SCH ×2 (05:15→20:42)
[2022-07-19] MEDS: METOPROLOL TART 25 MG TABLET PO SCH ×2 (05:19→13:00)
[2022-07-19 06:08] LABS: HEMATOCRIT 37.8 % (36.0-47.0); HEMOGLOBIN 11.1 g/dl (12.0-15.5); MEAN CORPUSCULAR HEMOGLOBIN 26.7 pg (27.0-33.0); MEAN CORPUSCULAR HGB CONC 29.4 g/dl (32.0-36.5); MEAN CORPUSCULAR VOLUME 91.1 fl (80.0-96.0); PLATELET COUNT, AUTOMATED 229 10^3/uL (150-450); RED BLOOD COUNT 4.15 10^6/uL (4.00-5.40); WHITE BLOOD COUNT 9.6 10^3/uL (4.0-10.0)
[2022-07-19 06:42] LABS: BLOOD UREA NITROGEN 17 MG/DL (9-23); CALCIUM LEVEL 9.6 MG/DL (8.5-10.1); CARBON DIOXIDE LEVEL > 40.0 MMOL/L (20-31); CHLORIDE LEVEL 96 MMOL/L (98-107); GLOMERULAR FILTRATION RATE > 60.0 (>58); GLUCOSE, FASTING 106 MG/DL (60-100); MAGNESIUM LEVEL 1.6 MG/DL (1.8-2.4); POTASSIUM SERUM 3.8 MMOL/L (3.5-5.1); SODIUM LEVEL 142 MMOL/L (136-145)
[2022-07-19] MEDS ORDERED: METHYLNALTREXONE BROMIDE 12MG/0.6ML VIAL (RELISTOR) SC PRN (06:55)
[2022-07-19] MEDS: ALBUTEROL 90 MCG/ACT 8GM HFA INHALER INH SCH (07:23)
[2022-07-19] MEDS: SYMPROIC PO SCH (09:00)
[2022-07-19] MEDS: MAG SULF 1GM/100ML (MAG RUN) 1 GM in IV 1 EA IV SCH ×2 (10:00→11:19)
[2022-07-19] MEDS: oxyCODONE 5MG TAB PO PRN ×3 (10:19→20:48)
[2022-07-19] MEDS ORDERED: ISOVUE-370 76% 100ML VIAL As Ordered ONE (10:45)
[2022-07-19] MEDS: HEPARIN SOD (PORCINE) 5000UNITS/ML 1ML VIAL/SYRINGE SQ SCH ×2 (11:24→20:43)
[2022-07-19] MEDS: DOCUSATE SODIUM 100MG CAPSULE PO SCH ×2 (11:25→20:42)
[2022-07-19] MEDS: OMEPRAZOLE 20MG CAP PO SCH (11:25)
[2022-07-19] MEDS: diazePAM 5MG TABLET PO PRN (11:25)
[2022-07-19] MEDS ORDERED: MAG SULF 1GM/100ML (MAG RUN) 1 GM in IV 1 EA IV ONE (14:00)
[2022-07-19] MEDS ORDERED: guaiFENesin 200 MG TAB PO PRN (14:10)
[2022-07-19] MEDS: fentaNYL 100 MCG/HR PATCH TD SCH (20:45)
[2022-07-19] MEDS: fentaNYL 75 MCG/HR PATCH TD SCH (20:46)
[2022-07-19] MEDS: LIDOCAINE 5% (LIDODERM) PATCH TD SCH (20:46)
[2022-07-19] MEDS: TERIPARATIDE 600 MCG/2.4 ML SQ SCH (20:46)
[2022-07-19] MEDS ORDERED: FENTANYL REMOVAL DOCUMENTATION MISC XX SCH ×2 (21:00)
[2022-07-20] VITALS (22 sets, daily range): BP systolic 121–176; BP diastolic 67–90; O2SAT 84–100
[2022-07-20] MEDS: oxyCODONE 5MG TAB PO PRN ×4 (00:32→20:46)
[2022-07-20] MEDS: ESCITALOPRAM OXALATE 10 MG TAB (LEXAPRO) PO SCH (05:37)
[2022-07-20] MEDS: GABAPENTIN 400MG CAP PO SCH ×3 (05:37→20:48)
[2022-07-20] MEDS: predniSONE 5 MG TAB PO SCH ×2 (05:37→20:47)
[2022-07-20] MEDS: METOPROLOL TART 25 MG TABLET PO SCH ×2 (05:37→12:15)
[2022-07-20 07:47] LABS: BASO % 0.2 % (0.0-1.0); HEMATOCRIT 37.9 % (36.0-47.0); HEMOGLOBIN 11.1 g/dl (12.0-15.5); LYMPH # 1.1 10^3/uL (1.5-5.0); LYMPH % 10.6 % (24.0-44.0); MEAN CORPUSCULAR HEMOGLOBIN 26.9 pg (27.0-33.0); MEAN CORPUSCULAR HGB CONC 29.3 g/dl (32.0-36.5); MEAN CORPUSCULAR VOLUME 91.8 fl (80.0-96.0); MONO # 0.6 10^3/uL (0.0-0.8); MONO % 5.7 % (2.0-8.0); NEUTROPHILS # 8.5 10^3/uL (1.5-8.5); NEUTROPHILS % 83.2 % (36.0-66.0); PLATELET COUNT, AUTOMATED 186 10^3/uL (150-450); RED BLOOD COUNT 4.13 10^6/uL (4.00-5.40); WHITE BLOOD COUNT 10.2 10^3/uL (4.0-10.0)
[2022-07-20 08:30] LABS: BLOOD UREA NITROGEN 12 MG/DL (9-23); CALCIUM LEVEL 8.5 MG/DL (8.5-10.1); CARBON DIOXIDE LEVEL > 40.0 MMOL/L (20-31); CHLORIDE LEVEL 91 MMOL/L (98-107); CREATININE FOR GFR 0.42 MG/DL (0.55-1.30); GLOMERULAR FILTRATION RATE > 60.0 (>58); GLUCOSE, FASTING 111 MG/DL (60-100); POTASSIUM SERUM 4.2 MMOL/L (3.5-5.1); SODIUM LEVEL 143 MMOL/L (136-145)
[2022-07-20] MEDS: HEPARIN SOD (PORCINE) 5000UNITS/ML 1ML VIAL/SYRINGE SQ SCH ×2 (09:05→20:44)
[2022-07-20] MEDS: ALBUTEROL 90 MCG/ACT 8GM HFA INHALER INH SCH (09:43)
[2022-07-20 09:49] LABS: MAGNESIUM LEVEL 1.5 MG/DL (1.8-2.4)
[2022-07-20] MEDS ORDERED: MAG SULF 1GM/100ML (MAG RUN) 1 GM in IV 1 EA IV ONE (12:00)
[2022-07-20] MEDS: NYSTATIN 500,000U/5ML SUSP UDC SS SCH ×3 (12:01→20:44)
[2022-07-20] MEDS: MAGNESIUM OXIDE 400MG TAB (MAG-OX) PO SCH ×2 (12:14→20:48)
[2022-07-20] MEDS: DOCUSATE SODIUM 100MG CAPSULE PO SCH ×2 (12:14→20:48)
[2022-07-20] MEDS: OMEPRAZOLE 20MG CAP PO SCH (12:14)
[2022-07-20] MEDS: SYMPROIC PO SCH (12:15)
[2022-07-20] MEDS: TERIPARATIDE 600 MCG/2.4 ML SQ SCH (20:49)
[2022-07-20] MEDS: LIDOCAINE 5% (LIDODERM) PATCH TD SCH (20:49)
[2022-07-20] MEDS: ALBUTEROL SULFATE 2.5MG/0.5ML INH NEB SOLN INH PRN (23:42)
[2022-07-21] VITALS (21 sets, daily range): BP systolic 110–169; BP diastolic 59–90; O2SAT 93–100
[2022-07-21] MEDS: oxyCODONE 5MG TAB PO PRN ×6 (01:14→23:28)
[2022-07-21] MEDS: ESCITALOPRAM OXALATE 10 MG TAB (LEXAPRO) PO SCH (05:29)
[2022-07-21] MEDS: predniSONE 5 MG TAB PO SCH ×2 (05:29→20:56)
[2022-07-21] MEDS: GABAPENTIN 400MG CAP PO SCH ×3 (05:29→20:56)
[2022-07-21] MEDS: METOPROLOL TART 25 MG TABLET PO SCH ×2 (05:29→13:00)
[2022-07-21 06:17] LABS: BLOOD UREA NITROGEN 14 MG/DL (9-23); CALCIUM LEVEL 9.5 MG/DL (8.5-10.1); CARBON DIOXIDE LEVEL > 40.0 MMOL/L (20-31); CHLORIDE LEVEL 89 MMOL/L (98-107); GLOMERULAR FILTRATION RATE > 60.0 (>58); GLUCOSE, FASTING 83 MG/DL (60-100); POTASSIUM SERUM 4.1 MMOL/L (3.5-5.1); SODIUM LEVEL 139 MMOL/L (136-145)
[2022-07-21 06:25] LABS: BASO % 0.3 % (0.0-1.0); EOS % 0.1 % (0.0-3.0); HEMATOCRIT 37.9 % (36.0-47.0); LYMPH # 1.6 10^3/uL (1.5-5.0); LYMPH % 17.4 % (24.0-44.0); MEAN CORPUSCULAR HEMOGLOBIN 26.6 pg (27.0-33.0); MEAN CORPUSCULAR VOLUME 91.5 fl (80.0-96.0); MONO # 0.6 10^3/uL (0.0-0.8); MONO % 6.9 % (2.0-8.0); NEUTROPHILS # 6.8 10^3/uL (1.5-8.5); PLATELET COUNT, AUTOMATED 196 10^3/uL (150-450); RED BLOOD COUNT 4.14 10^6/uL (4.00-5.40); WHITE BLOOD COUNT 9.1 10^3/uL (4.0-10.0)
[2022-07-21] MEDS: ALBUTEROL 90 MCG/ACT 8GM HFA INHALER INH SCH ×2 (08:00→12:33)
[2022-07-21] MEDS: HEPARIN SOD (PORCINE) 5000UNITS/ML 1ML VIAL/SYRINGE SQ SCH ×2 (09:12→20:56)
[2022-07-21] MEDS: NYSTATIN 500,000U/5ML SUSP UDC SS SCH ×4 (09:12→20:56)
[2022-07-21] MEDS: SYMPROIC PO SCH (09:12)
[2022-07-21] MEDS: DOCUSATE SODIUM 100MG CAPSULE PO SCH ×2 (09:12→20:56)
[2022-07-21] MEDS: OMEPRAZOLE 20MG CAP PO SCH (09:12)
[2022-07-21] MEDS: MAGNESIUM OXIDE 400MG TAB (MAG-OX) PO SCH ×2 (09:12→20:56)
[2022-07-21] MEDS ORDERED: E-Z-PAQUE 96% w/w SUSP 176GM BTL As Ordered ONE (10:39)
[2022-07-21] MEDS ORDERED: VARIBAR PUDDING 40% w/v 230ML TUBE As Ordered ONE (10:39)
[2022-07-21] MEDS ORDERED: VARIBAR NECTAR 40% w/v 240ML SUSP BTL As Ordered ONE (10:39)
[2022-07-21] MEDS ORDERED: BARIUM SULFATE 700 MG TABLET (E-Z-DISK) As Ordered ONE (10:39)
[2022-07-21] MEDS: ALBUTEROL SULFATE 2.5MG/0.5ML INH NEB SOLN INH PRN (20:28)
[2022-07-21] MEDS: LIDOCAINE 5% (LIDODERM) PATCH TD SCH (20:55)
[2022-07-21] MEDS: diazePAM 5MG TABLET PO PRN (20:58)
[2022-07-21] MEDS: TERIPARATIDE 600 MCG/2.4 ML SQ SCH (21:00)
[2022-07-22] VITALS (11 sets, daily range): BP systolic 107–174; BP diastolic 62–98; O2SAT 98–100
[2022-07-22] MEDS: oxyCODONE 5MG TAB PO PRN ×5 (03:39→21:36)
[2022-07-22] MEDS: ESCITALOPRAM OXALATE 10 MG TAB (LEXAPRO) PO SCH (05:56)
[2022-07-22] MEDS: predniSONE 5 MG TAB PO SCH ×2 (05:56→21:37)
[2022-07-22] MEDS: GABAPENTIN 400MG CAP PO SCH ×3 (05:57→21:36)
[2022-07-22] MEDS: METOPROLOL TART 25 MG TABLET PO SCH ×2 (05:57→12:48)
[2022-07-22] MEDS: methocarbamoL 500 MG TAB PO PRN ×2 (06:00→23:53)
[2022-07-22] MEDS: SYMPROIC PO SCH (08:25)
[2022-07-22] MEDS: OMEPRAZOLE 20MG CAP PO SCH (08:26)
[2022-07-22] MEDS: MAGNESIUM OXIDE 400MG TAB (MAG-OX) PO SCH ×2 (08:26→21:37)
[2022-07-22] MEDS: diazePAM 5MG TABLET PO PRN ×2 (08:26→21:41)
[2022-07-22] MEDS: NYSTATIN 500,000U/5ML SUSP UDC SS SCH ×4 (08:35→21:37)
[2022-07-22] MEDS: ALBUTEROL 90 MCG/ACT 8GM HFA INHALER INH SCH (09:18)
[2022-07-22] MEDS: DOCUSATE SODIUM 100MG CAPSULE PO SCH ×2 (09:35→21:37)
[2022-07-22] MEDS: HEPARIN SOD (PORCINE) 5000UNITS/ML 1ML VIAL/SYRINGE SQ SCH ×2 (09:36→21:37)
[2022-07-22] MEDS ORDERED: CEPHALEXIN 500 MG CAP PO SCH (17:00)
[2022-07-22] MEDS: LIDOCAINE 5% (LIDODERM) PATCH TD SCH (20:48)
[2022-07-22] MEDS: metroNIDAZOLE (FLAGYL) 500MG TABLET PO SCH (21:36)
[2022-07-22] MEDS: CIPROFLOXACIN 500MG TABLET PO SCH (21:37)
[2022-07-22] MEDS: fentaNYL 100 MCG/HR PATCH TD SCH (21:38)
[2022-07-22] MEDS: TERIPARATIDE 600 MCG/2.4 ML SQ SCH (21:38)
[2022-07-22] MEDS: fentaNYL 75 MCG/HR PATCH TD SCH (21:39)
[2022-07-23] MEDS: oxyCODONE 5MG TAB PO PRN ×5 (01:42→21:44)
[2022-07-23] MEDS: metroNIDAZOLE (FLAGYL) 500MG TABLET PO SCH ×3 (06:14→21:45)
[2022-07-23] MEDS: CIPROFLOXACIN 500MG TABLET PO SCH ×2 (06:14→17:18)
[2022-07-23] MEDS: METOPROLOL TART 25 MG TABLET PO SCH ×2 (06:14→13:00)
[2022-07-23] MEDS: predniSONE 5 MG TAB PO SCH ×2 (06:14→21:45)
[2022-07-23] MEDS: GABAPENTIN 400MG CAP PO SCH ×3 (06:14→21:45)
[2022-07-23] MEDS: ESCITALOPRAM OXALATE 10 MG TAB (LEXAPRO) PO SCH (06:26)
[2022-07-23 07:38] VITALS: BP 148/79
[2022-07-23] MEDS: MAGNESIUM OXIDE 400MG TAB (MAG-OX) PO SCH ×2 (08:06→21:45)
[2022-07-23] MEDS: OMEPRAZOLE 20MG CAP PO SCH (08:06)
[2022-07-23] MEDS: DOCUSATE SODIUM 100MG CAPSULE PO SCH ×2 (08:06→21:45)
[2022-07-23] MEDS: SYMPROIC PO SCH (08:07)
[2022-07-23] MEDS: methocarbamoL 500 MG TAB PO PRN ×2 (08:07→17:18)
[2022-07-23] MEDS: HEPARIN SOD (PORCINE) 5000UNITS/ML 1ML VIAL/SYRINGE SQ SCH ×2 (08:07→21:45)
[2022-07-23] MEDS: NYSTATIN 500,000U/5ML SUSP UDC SS SCH ×4 (08:14→21:43)
[2022-07-23] MEDS: ALBUTEROL 90 MCG/ACT 8GM HFA INHALER INH SCH (08:19)
[2022-07-23] MEDS ORDERED: FENT100D25 TD (15:50)
[2022-07-23] MEDS ORDERED: FENT75DI29 TD (15:50)
[2022-07-23] MEDS: TERIPARATIDE 600 MCG/2.4 ML SQ SCH (21:46)
[2022-07-23] MEDS: LIDOCAINE 5% (LIDODERM) PATCH TD SCH (21:46)
[2022-07-24] VITALS (17 sets, daily range): BP systolic 90–217; BP diastolic 40–106
[2022-07-24] MEDS: ALBUTEROL SULFATE 2.5MG/0.5ML INH NEB SOLN INH PRN ×2 (00:29→19:44)
[2022-07-24] MEDS: ONDANSETRON 4MG ORAL DISINTEGRATING TAB PO PRN ×2 (00:32→04:46)
[2022-07-24] MEDS: oxyCODONE 5MG TAB PO PRN ×3 (04:48→21:23)
[2022-07-24] MEDS: predniSONE 5 MG TAB PO SCH ×2 (06:00→20:49)
[2022-07-24] MEDS: metroNIDAZOLE (FLAGYL) 500MG TABLET PO SCH ×3 (07:02→22:05)
[2022-07-24] MEDS: METOPROLOL TART 25 MG TABLET PO SCH ×2 (07:03→13:00)
[2022-07-24] MEDS: CIPROFLOXACIN 500MG TABLET PO SCH ×2 (07:03→18:44)
[2022-07-24] MEDS: ESCITALOPRAM OXALATE 10 MG TAB (LEXAPRO) PO SCH (07:03)
[2022-07-24] MEDS: GABAPENTIN 400MG CAP PO SCH ×3 (07:04→20:49)
[2022-07-24] MEDS: ALBUTEROL 90 MCG/ACT 8GM HFA INHALER INH SCH (07:38)
[2022-07-24] MEDS: IPRATROPIUM 0.5MG/ALBUTEROL 2.5MG INH SOL UD 3ML (DUONEB) NEB SCH ×3 (08:00→23:49)
[2022-07-24] MEDS: MAGNESIUM OXIDE 400MG TAB (MAG-OX) PO SCH ×3 (08:37→20:49)
[2022-07-24] MEDS: OMEPRAZOLE 20MG CAP PO SCH ×2 (08:37→15:49)
[2022-07-24] MEDS: NYSTATIN 500,000U/5ML SUSP UDC SS SCH ×5 (08:37→20:49)
[2022-07-24] MEDS: SYMPROIC PO SCH ×2 (08:37→10:30)
[2022-07-24] MEDS: DOCUSATE SODIUM 100MG CAPSULE PO SCH ×3 (08:37→20:48)
[2022-07-24] MEDS: HEPARIN SOD (PORCINE) 5000UNITS/ML 1ML VIAL/SYRINGE SQ SCH ×3 (08:38→20:51)
[2022-07-24] MEDS ORDERED: NALOXONE INJ 0.4MG/1ML VIAL As Ordered ONE (09:42)
[2022-07-24] MEDS ORDERED: methylPREDNISolone 125MG 2ML VIAL As Ordered ONE (09:49)
[2022-07-24] MEDS ORDERED: NALOXONE INJ 0.4MG/1ML VIAL IV STA (09:57)
[2022-07-24] MEDS ORDERED: methylPREDNISolone 125MG 2ML VIAL IV ONE (10:00)
[2022-07-24] MEDS ORDERED: NS 500 ML IV ONE (10:00)
[2022-07-24 10:08] LABS: ABG BASE EXCESS 21.4 (-2.0-2.0); ABG HCO3 53.7 MEQ/L (22.0-26.0); ABG O2 SATURATION 83.8 % (95.0-99.0); ABG STANDARD HCO3 45.6 MEQ/L (22.0-26.0); ABG TOTAL CO2 57.2 MEQ/L (22.0-29.0); ABG pH (ARTERIAL) 7.295 UNITS (7.350-7.450)
[2022-07-24 10:11] LABS: ABG PARTIAL PRESSURE O2 46.5 mmHg (75.0-100.0)
[2022-07-24] MEDS ORDERED: FENTANYL REMOVAL DOCUMENTATION MISC XX SCH (12:00)
[2022-07-24] MEDS ORDERED: fentaNYL 75 MCG/HR PATCH TOP SCH (12:00)
[2022-07-24] MEDS ORDERED: MAG SULF 1GM/100ML (MAG RUN) 1 GM in IV 1 EA IV ONE (13:00)
[2022-07-24 14:21] LABS: ABG HCO3 47.2 MEQ/L (22.0-26.0); ABG O2 SATURATION 92.9 % (95.0-99.0); ABG PARTIAL PRESSURE O2 61.2 mmHg (75.0-100.0); ABG TOTAL CO2 49.6 MEQ/L (22.0-29.0); ABG pH (ARTERIAL) 7.409 UNITS (7.350-7.450)
[2022-07-24 14:25] LABS: ABG PARTIAL PRESSURE CO2 76.4 mmHg (35.0-45.0)
[2022-07-24] MEDS: TERIPARATIDE 600 MCG/2.4 ML SQ SCH (20:52)
[2022-07-24] MEDS: LIDOCAINE 5% (LIDODERM) PATCH TD SCH (20:52)
[2022-07-25] VITALS (14 sets, daily range): BP systolic 86–135; BP diastolic 52–68
[2022-07-25] MEDS: methocarbamoL 500 MG TAB PO PRN (01:17)
[2022-07-25] MEDS: oxyCODONE 5MG TAB PO PRN ×3 (04:53→18:26)
[2022-07-25 05:29] LABS: HEMATOCRIT 34.3 % (36.0-47.0); HEMOGLOBIN 10.1 g/dl (12.0-15.5); MEAN CORPUSCULAR HEMOGLOBIN 26.6 pg (27.0-33.0); MEAN CORPUSCULAR HGB CONC 29.4 g/dl (32.0-36.5); MEAN CORPUSCULAR VOLUME 90.3 fl (80.0-96.0); PLATELET COUNT, AUTOMATED 224 10^3/uL (150-450); WHITE BLOOD COUNT 8.1 10^3/uL (4.0-10.0)
[2022-07-25 05:45] LABS: ABG pH (ARTERIAL) 7.358 UNITS (7.350-7.450)
[2022-07-25 05:48] LABS: ABG BASE EXCESS 20.6 (-2.0-2.0); ABG HCO3 50.2 MEQ/L (22.0-26.0); ABG O2 SATURATION 98.6 % (95.0-99.0); ABG PARTIAL PRESSURE O2 126.3 mmHg (75.0-100.0); ABG STANDARD HCO3 44.9 MEQ/L (22.0-26.0)
[2022-07-25 05:56] LABS: ABG PARTIAL PRESSURE CO2 91.3 mmHg (35.0-45.0)
[2022-07-25 05:58] LABS: ALBUMIN 3.1 G/DL (3.2-5.2); ALKALINE PHOSPHATASE 50 U/L (46-116); ALT/SGPT 19 U/L (7.0-40); AST/SGOT 17 U/L (<34); BILIRUBIN,TOTAL 0.3 MG/DL (0.3-1.2); BLOOD UREA NITROGEN 18 MG/DL (9-23); CALCIUM LEVEL 9.1 MG/DL (8.5-10.1); CARBON DIOXIDE LEVEL > 40.0 MMOL/L (20-31); CHLORIDE LEVEL 90 MMOL/L (98-107); CREATININE FOR GFR 0.59 MG/DL (0.55-1.30); GLOMERULAR FILTRATION RATE > 60.0 (>58); GLUCOSE, FASTING 126 MG/DL (60-100); POTASSIUM SERUM 4.4 MMOL/L (3.5-5.1); SODIUM LEVEL 139 MMOL/L (136-145); TOTAL PROTEIN 5.5 G/DL (5.7-8.2)
[2022-07-25] MEDS: CIPROFLOXACIN 500MG TABLET PO SCH ×2 (06:07→17:34)
[2022-07-25] MEDS: ESCITALOPRAM OXALATE 10 MG TAB (LEXAPRO) PO SCH (06:08)
[2022-07-25] MEDS: METOPROLOL TART 25 MG TABLET PO SCH ×2 (06:08→13:00)
[2022-07-25] MEDS: metroNIDAZOLE (FLAGYL) 500MG TABLET PO SCH ×2 (06:08→14:19)
[2022-07-25] MEDS: GABAPENTIN 400MG CAP PO SCH ×2 (06:08→14:19)
[2022-07-25] MEDS: predniSONE 5 MG TAB PO SCH (06:08)
[2022-07-25] MEDS: IPRATROPIUM 0.5MG/ALBUTEROL 2.5MG INH SOL UD 3ML (DUONEB) NEB SCH ×2 (07:33→15:37)
[2022-07-25] MEDS: NYSTATIN 500,000U/5ML SUSP UDC SS SCH ×3 (08:18→17:34)
[2022-07-25] MEDS: OMEPRAZOLE 20MG CAP PO SCH (08:19)
[2022-07-25] MEDS: MAGNESIUM OXIDE 400MG TAB (MAG-OX) PO SCH (08:19)
[2022-07-25] MEDS: HEPARIN SOD (PORCINE) 5000UNITS/ML 1ML VIAL/SYRINGE SQ SCH (08:19)
[2022-07-25] MEDS: SYMPROIC PO SCH (08:19)
[2022-07-25] MEDS: DOCUSATE SODIUM 100MG CAPSULE PO SCH (08:19)
[2022-07-25] MEDS ORDERED: KETOROLAC 30 MG/ML 1ML VIAL IV ONE (13:05)
[2022-07-25] MEDS ORDERED: GUAI20TA PO (16:14)
[2022-07-25] MEDS ORDERED: NYST-38 SS (16:14)
[2022-07-25] MEDS ORDERED: METR-265 PO (16:14)
[2022-07-25] MEDS ORDERED: CIPR-249 PO (16:14)
[2022-07-25] MEDS ORDERED: MAGN400T2 PO (16:14)
[2022-07-25] MEDS ORDERED: NEUR300C PO (16:23)
[2022-07-25] MEDS ORDERED: XANA0.25 PO (16:27)
[2022-07-29] MEDS ORDERED: DOXY-444 PO (17:35)
== END 2022-07-25 19:45 | disposition home or self-care (01) | DRG 70 ==
LOC: M ED 17:32 → M ED INP 21:17 → ENRESERV 22:00 → M PCU 23:20 → M ICU 07-24 10:14
PROVIDERS: ADMIT Internal Medicine; ATTEND Internal Medicine Nephrology
DX: G93.41 Metabolic encephalopathy (principal); E43 Unspecified severe protein-calorie malnutrition; J96.21 Acute and chronic respiratory failure with hypoxia; J96.22 Acute and chronic respiratory failure with hypercapnia; I50.32 Chronic diastolic (congestive) heart failure; L02.31 Cutaneous abscess of buttock; R04.2 Hemoptysis; B37.0 Candidal stomatitis; R53.1 Weakness; J84.10 Pulmonary fibrosis, unspecified; J44.9 Chronic obstructive pulmonary disease, unspecified; I27.29 Other secondary pulmonary hypertension; G43.909 Migraine, unspecified, not intractable, without status migrainosus; M81.0 Age-related osteoporosis without current pathological fracture; G89.29 Other chronic pain; F41.9 Anxiety disorder, unspecified; K59.03 Drug induced constipation; K44.9 Diaphragmatic hernia without obstruction or gangrene; I11.0 Hypertensive heart disease with heart failure; K21.9 Gastro-esophageal reflux disease without esophagitis; H04.123 Dry eye syndrome of bilateral lacrimal glands; R25.8 Other abnormal involuntary movements; R62.7 Adult failure to thrive; F32.9 Major depressive disorder, single episode, unspecified; T40.2X5A Adverse effect of other opioids, initial encounter; R13.10 Dysphagia, unspecified; Z66 Do not resuscitate; R41.89 Other symptoms and signs involving cognitive functions and awareness; Z87.891 Personal history of nicotine dependence; R07.81 Pleurodynia; F41.0 Panic disorder [episodic paroxysmal anxiety]; F41.1 Generalized anxiety disorder; J40 Bronchitis, not specified as acute or chronic; E83.42 Hypomagnesemia; Z79.899 Other long term (current) drug therapy; Z79.52 Long term (current) use of systemic steroids; Z88.0 Allergy status to penicillin; Z88.6 Allergy status to analgesic agent

== ENCOUNTER → 2022-08-04 | Outpatient (CLI) | payer OTHER ==
[~2022-08-04] MED LIST changes: +ALB2.5NEB INH; +ALBU6.7H6 INH; +AZIT-12 PO; +BIOT1CAP2 PO; +CALCTAB53 PO; +CIPR-249 PO; +DOCU100C16 PO; +DOXY-444 PO; +FENT100D25 TD; +FLUC100T3 PO; +GASTROGRAFIN SOLUTION 30ML As Ordered ONE; +GUAI20TA PO; +ISOVUE-370 76% 100ML VIAL As Ordered ONE; +K-TA10TA PO; +LIDO5DIS41 TD; +MAGN400T2 PO; +MED REC COMMENT; +METO1TAB87 PO; +METR-265 PO; +NEUR300C PO; +NYST-38 SS; +OMEP-173 PO; +ONDA8TAB8 PO; +POLY1.4S OP; +POLY17PO10 PO; +POTA-150 PO; +XANA0.25 PO
== END ==
LOC: M RAD 13:52
PROVIDERS: ATTEND Surgery
DX: R10.33 Periumbilical pain (principal)

== ENCOUNTER → 2022-08-19 | Outpatient (CLI) | payer OTHER ==
[~2022-08-19] MED LIST changes: +ARTIDRO4 OP; +CIPR7.5D5 AS; +CLIN150C17 PO; +FLUT50SP17 NARES; -FLUTISP NARES; -GASTROGRAFIN SOLUTION 30ML As Ordered ONE; -ISOVUE-370 76% 100ML VIAL As Ordered ONE; -POLYOPD OP; +SENN-186 PO; -SENN-80 PO
== END ==
LOC: M PAL 10:22
PROVIDERS: ATTEND Nurse Practitioner Adult Health
DX: I50.32 Chronic diastolic (congestive) heart failure (principal); J44.9 Chronic obstructive pulmonary disease, unspecified; Z51.5 Encounter for palliative care; I27.29 Other secondary pulmonary hypertension; J96.21 Acute and chronic respiratory failure with hypoxia; I11.0 Hypertensive heart disease with heart failure; J84.10 Pulmonary fibrosis, unspecified; F32.9 Major depressive disorder, single episode, unspecified; K59.03 Drug induced constipation; Z66 Do not resuscitate; F41.0 Panic disorder [episodic paroxysmal anxiety]; R25.1 Tremor, unspecified; H04.129 Dry eye syndrome of unspecified lacrimal gland; E43 Unspecified severe protein-calorie malnutrition; R53.1 Weakness; Z87.891 Personal history of nicotine dependence; R10.9 Unspecified abdominal pain; G89.29 Other chronic pain; R62.7 Adult failure to thrive; Z79.01 Long term (current) use of anticoagulants; Z79.899 Other long term (current) drug therapy; Z88.0 Allergy status to penicillin; Z88.1 Allergy status to other antibiotic agents; Z88.6 Allergy status to analgesic agent; Z79.51 Long term (current) use of inhaled steroids

== ENCOUNTER → 2022-08-28 | Outpatient (CLI) | payer OTHER ==
[2022-08-28 16:17] LABS: BLOOD UREA NITROGEN 13 MG/DL (9-23); CALCIUM LEVEL 9.4 MG/DL (8.5-10.1); CARBON DIOXIDE LEVEL 38 MMOL/L (20-31); CHLORIDE LEVEL 94 MMOL/L (98-107); CREATININE FOR GFR 0.57 MG/DL (0.55-1.30); GLOMERULAR FILTRATION RATE > 60.0 (>58); GLUCOSE, FASTING 77 MG/DL (60-100); MAGNESIUM LEVEL 1.5 MG/DL (1.8-2.4); POTASSIUM SERUM 4.5 MMOL/L (3.5-5.1); SODIUM LEVEL 138 MMOL/L (136-145)
[2022-08-28 16:20] LABS: THYROID STIMULATING HORMONE 1.243 uIU/ML (0.55-4.78)
== END ==
LOC: M PLALAB 14:03
PROVIDERS: ATTEND Internal Medicine Hematology
DX: M81.0 Age-related osteoporosis without current pathological fracture (principal)
CPT/HCPCS: 36415; 80048; 83735; 84443; G0463

== ENCOUNTER → 2022-09-17 | Outpatient (CLI) | payer OTHER | LOC: M PAIN 15:00 | PROVIDERS: ATTEND Anesthesiology | DX: M79.18 Myalgia, other site (principal); M79.12 Myalgia of auxiliary muscles, head and neck; M54.6 Pain in thoracic spine; G89.29 Other chronic pain; M54.2 Cervicalgia; M81.0 Age-related osteoporosis without current pathological fracture; G43.909 Migraine, unspecified, not intractable, without status migrainosus; I27.20 Pulmonary hypertension, unspecified; J44.9 Chronic obstructive pulmonary disease, unspecified; Z87.891 Personal history of nicotine dependence; Z79.891 Long term (current) use of opiate analgesic; Z79.899 Other long term (current) drug therapy; Z88.0 Allergy status to penicillin; Z88.6 Allergy status to analgesic agent; Z88.8 Allergy status to other drugs, medicaments and biological substances ==

== ENCOUNTER → 2022-10-01 | Outpatient (CLI) | payer OTHER | LOC: M SOG 08:10 | PROVIDERS: ATTEND Orthopaedic Surgery | DX: S72.142G Displaced intertrochanteric fracture of left femur, subsequent encounter for closed fracture with delayed healing (principal) ==

== ENCOUNTER → 2022-10-16 | Outpatient (CLI) | payer OTHER ==
[~2022-10-16] MED LIST changes: -K-TA10TA PO; +POTA-164 PO
== END ==
LOC: M PAL 07:48
PROVIDERS: ATTEND Nurse Practitioner Adult Health
DX: I50.32 Chronic diastolic (congestive) heart failure (principal); J44.9 Chronic obstructive pulmonary disease, unspecified; I27.29 Other secondary pulmonary hypertension; J96.21 Acute and chronic respiratory failure with hypoxia; I11.0 Hypertensive heart disease with heart failure; J84.10 Pulmonary fibrosis, unspecified; K59.03 Drug induced constipation; F32.9 Major depressive disorder, single episode, unspecified; F41.0 Panic disorder [episodic paroxysmal anxiety]; H04.129 Dry eye syndrome of unspecified lacrimal gland; E43 Unspecified severe protein-calorie malnutrition; R53.1 Weakness; R10.9 Unspecified abdominal pain; G89.29 Other chronic pain; R25.1 Tremor, unspecified; R62.7 Adult failure to thrive; Z66 Do not resuscitate; Z87.891 Personal history of nicotine dependence; Z51.5 Encounter for palliative care; Z79.01 Long term (current) use of anticoagulants; Z79.899 Other long term (current) drug therapy; Z88.0 Allergy status to penicillin; Z88.1 Allergy status to other antibiotic agents; Z88.6 Allergy status to analgesic agent; Z79.51 Long term (current) use of inhaled steroids; Z99.81 Dependence on supplemental oxygen

== ENCOUNTER → 2022-11-17 | Outpatient (CLI) | payer OTHER ==
[2022-11-17 17:10] LABS: HEMATOCRIT 47.2 % (36.0-47.0); HEMOGLOBIN 13.8 g/dl (12.0-15.5); MEAN CORPUSCULAR HGB CONC 29.2 g/dl (32.0-36.5); MEAN CORPUSCULAR VOLUME 92.2 fl (80.0-96.0); PLATELET COUNT, AUTOMATED 203 10^3/uL (150-450); RED BLOOD COUNT 5.12 10^6/uL (4.00-5.40); WHITE BLOOD COUNT 6.6 10^3/uL (4.0-10.0)
[2022-11-17 17:52] LABS: IRON (FE) 30 UG/DL (50-170); PERCENT SATURATION 11.4 % (13.2-45.0); TOTAL IRON BINDING CAPACITY 263 UG/DL (250-425)
[2022-11-17 17:54] LABS: FREE T4 1.04 NG/DL (0.89-1.76)
[2022-11-17 17:55] LABS: THYROID STIMULATING HORMONE 1.187 uIU/ML (0.55-4.78); TOTAL 25(OH) VITAMIN D 26.8 NG/ML (20.0-100.0)
[2022-11-17 17:59] LABS: ALBUMIN 4.1 G/DL (3.2-5.2); ALKALINE PHOSPHATASE 67 U/L (46-116); ALT/SGPT 23 U/L (7.0-40); AST/SGOT 27 U/L (<34); BILIRUBIN,TOTAL 0.4 MG/DL (0.3-1.2); BLOOD UREA NITROGEN 15 MG/DL (9-23); CALCIUM LEVEL 9.9 MG/DL (8.5-10.1); CARBON DIOXIDE LEVEL > 40.0 MMOL/L (20-31); CHLORIDE LEVEL 87 MMOL/L (98-107); CREATININE FOR GFR 0.53 MG/DL (0.55-1.30); GLOMERULAR FILTRATION RATE > 60.0 (>58); GLUCOSE, FASTING 72 MG/DL (60-100); POTASSIUM SERUM 5.4 MMOL/L (3.5-5.1); SODIUM LEVEL 139 MMOL/L (136-145); TOTAL PROTEIN 7.4 G/DL (5.7-8.2)
== END ==
LOC: M PLAIMG 15:39
PROVIDERS: ATTEND Internal Medicine Hematology
DX: M81.0 Age-related osteoporosis without current pathological fracture (principal); M54.2 Cervicalgia; M25.531 Pain in right wrist; J84.9 Interstitial pulmonary disease, unspecified; L65.9 Nonscarring hair loss, unspecified; I10 Essential (primary) hypertension
CPT/HCPCS: 36415; 72052; 73110; 80053; 82306; 83036; 83550; 84439; 84443; 85027; G0463

== ENCOUNTER 2022-12-01 12:00 | Outpatient (CLI) | payer OTHER ==
[~2022-12-01] VITALS: Ht 149.9 cm; Wt 34.0 kg
[2022-12-01 12:00] VITALS: BP 107/62; O2SAT 93
[~2022-12-01 12:00] MED LIST changes: +ALBUTEROL SULFATE 2.5MG/0.5ML INH NEB SOLN INH PRN; +EPINEPHrine INJ 1 MG/ML 1ML AMP IM PRN; +IRON SUCROSE 200 MG in NS 100 ML OVER 1 HR IV ONE; +NS 1,000 ML IV SCH; +diphenhydrAMINE 50MG/ML VIAL IV PRN; +methylPREDNISolone 125MG 2ML VIAL IV PRN
[2022-12-01 15:00] VITALS: BP 134/74; O2SAT 91
== END 2022-12-01 15:00 | disposition home or self-care (01) ==
LOC: M INFU 12:00
PROVIDERS: ATTEND Internal Medicine Hematology
DX: E61.1 Iron deficiency (principal); Z88.6 Allergy status to analgesic agent; Z88.0 Allergy status to penicillin; Z88.8 Allergy status to other drugs, medicaments and biological substances; Z88.1 Allergy status to other antibiotic agents
CPT/HCPCS: 96365; 96366; J1756

== ENCOUNTER 2022-12-08 12:05 | Outpatient (CLI) | payer OTHER ==
[~2022-12-08] VITALS: Ht 149.9 cm; Wt 35.1 kg
[~2022-12-08 12:05] MED LIST changes: -GABA-283 PO; +GABA-284 PO; -IRON SUCROSE 200 MG in NS 100 ML OVER 1 HR IV ONE; -NS 1,000 ML IV SCH
[2022-12-08 12:15] VITALS: BP 85/55; O2SAT 90
[2022-12-08] MEDS ORDERED: IRON SUCROSE 200 MG in NS 100 ML OVER 1 HR IV ONE (12:30)
[2022-12-08] MEDS ORDERED: NS 1,000 ML IV SCH (12:30)
[2022-12-08 13:36] VITALS: O2SAT 92
[2022-12-08 14:15] VITALS: BP 112/67; O2SAT 96
[2022-12-10] MEDS ORDERED: OXYC20TA2 PO (07:44)
== END 2022-12-08 14:15 | disposition home or self-care (01) ==
LOC: M INFU 12:05
PROVIDERS: ATTEND Internal Medicine Hematology
DX: E61.1 Iron deficiency (principal); Z88.6 Allergy status to analgesic agent; Z88.0 Allergy status to penicillin; Z88.1 Allergy status to other antibiotic agents; Z88.8 Allergy status to other drugs, medicaments and biological substances
CPT/HCPCS: 96365; J1756

== ENCOUNTER → 2022-12-10 | Outpatient (CLI) | payer OTHER ==
[~2022-12-10] MED LIST changes: -ALBUTEROL SULFATE 2.5MG/0.5ML INH NEB SOLN INH PRN; +CEFD300C41 PO; +CEFD300CAP PO; +CETI10CH PO; +DEXA4TA PO; +DILA8TAB5 PO; -EPINEPHrine INJ 1 MG/ML 1ML AMP IM PRN; +HYDR-4468 PO; +LEVO1TAB40 PO; +METO100T5 PO; +TRAN1DIS4 TOP; -diphenhydrAMINE 50MG/ML VIAL IV PRN; -methylPREDNISolone 125MG 2ML VIAL IV PRN
== END ==
LOC: M PAL 10:20
PROVIDERS: ATTEND Nurse Practitioner Adult Health
DX: J84.10 Pulmonary fibrosis, unspecified (principal); I27.21 Secondary pulmonary arterial hypertension; R03.0 Elevated blood-pressure reading, without diagnosis of hypertension; R62.7 Adult failure to thrive; R53.1 Weakness; R29.6 Repeated falls; M80.08XA Age-related osteoporosis with current pathological fracture, vertebra(e), initial encounter for fracture; M80.0AXA Age-related osteoporosis with current pathological fracture, other site, initial encounter for fracture; E46 Unspecified protein-calorie malnutrition; R64 Cachexia; I11.0 Hypertensive heart disease with heart failure; K80.00 Calculus of gallbladder with acute cholecystitis without obstruction; K21.9 Gastro-esophageal reflux disease without esophagitis; F41.9 Anxiety disorder, unspecified; R10.9 Unspecified abdominal pain; R53.81 Other malaise; I50.9 Heart failure, unspecified; S22.050D Wedge compression fracture of T5-T6 vertebra, subsequent encounter for fracture with routine healing; S22.060D Wedge compression fracture of T7-T8 vertebra, subsequent encounter for fracture with routine healing; S22.070D Wedge compression fracture of T9-T10 vertebra, subsequent encounter for fracture with routine healing; S22.080D Wedge compression fracture of T11-T12 vertebra, subsequent encounter for fracture with routine healing; S32.010D Wedge compression fracture of first lumbar vertebra, subsequent encounter for fracture with routine healing; S32.020D Wedge compression fracture of second lumbar vertebra, subsequent encounter for fracture with routine healing; S32.030D Wedge compression fracture of third lumbar vertebra, subsequent encounter for fracture with routine healing; S32.040D Wedge compression fracture of fourth lumbar vertebra, subsequent encounter for fracture with routine healing; S32.050D Wedge compression fracture of fifth lumbar vertebra, subsequent encounter for fracture with routine healing; S22.49XD Multiple fractures of ribs, unspecified side, subsequent encounter for fracture with routine healing; Z51.5 Encounter for palliative care; Z66 Do not resuscitate; Z68.1 Body mass index [BMI] 19.9 or less, adult; Z79.51 Long term (current) use of inhaled steroids; Z79.891 Long term (current) use of opiate analgesic; Z79.899 Other long term (current) drug therapy; Z87.891 Personal history of nicotine dependence; Z88.0 Allergy status to penicillin; Z88.1 Allergy status to other antibiotic agents; Z88.6 Allergy status to analgesic agent; Z88.8 Allergy status to other drugs, medicaments and biological substances; Z99.81 Dependence on supplemental oxygen

== ENCOUNTER → 2022-12-15 | Outpatient (CLI) | payer OTHER ==
[~2022-12-15] MED LIST changes: -CEFD300C41 PO; -CEFD300CAP PO; -CETI10CH PO; -DEXA4TA PO; -DILA8TAB5 PO; -HYDR-4468 PO; -LEVO1TAB40 PO; -METO100T5 PO; -TRAN1DIS4 TOP
== END ==
LOC: M INFU 05:55
PROVIDERS: ATTEND Internal Medicine Hematology
DX: E61.1 Iron deficiency (principal); Z53.9 Procedure and treatment not carried out, unspecified reason; Z88.6 Allergy status to analgesic agent; Z88.0 Allergy status to penicillin; Z88.8 Allergy status to other drugs, medicaments and biological substances; Z88.1 Allergy status to other antibiotic agents

== ENCOUNTER 2022-12-22 08:58 | Inpatient (IN) | payer OTHER ==
[~2022-12-22] VITALS: Ht 149.9 cm; Wt 36.4 kg
[2022-12-22] MEDS ORDERED: NALOXONE 2MG/2ML SYRINGE IV STA (09:13)
[2022-12-22] MEDS ORDERED: NALOXONE 2MG/2ML SYRINGE As Ordered ONE (09:14)
[2022-12-22 09:51] LABS: ABG BASE EXCESS 13.5 (-2.0-2.0); ABG HCO3 49.7 MMOL/L (22.0-26.0); ABG O2 SATURATION 80.2 % (95.0-99.0); ABG STANDARD HCO3 36.8 MMOL/L. (22.0-26.0); ABG TOTAL CO2 54.5 MMOL/L (22.0-29.0)
[2022-12-22 09:54] LABS: ABG pH (ARTERIAL) 7.121 UNITS (7.350-7.450)
[2022-12-22 09:56] LABS: ABG PARTIAL PRESSURE O2 44.4 mmHg (75.0-100.0)
[2022-12-22] MEDS ORDERED: METO100T5 PO (10:22)
[2022-12-22] MEDS ORDERED: METO50TA7 PO (10:31)
[2022-12-22] MEDS ORDERED: CETI10CH PO (10:36)
[2022-12-22] MEDS ORDERED: HYDR-4468 PO (10:36)
[2022-12-22 10:46] LABS: BASO % 0.1 % (0.0-1.0); EOS % 0.1 % (0.0-3.0); HEMOGLOBIN 14.3 g/dl (12.0-15.5); LYMPH # 0.9 10^3/uL (1.5-5.0); LYMPH % 12.9 % (24.0-44.0); MEAN CORPUSCULAR HEMOGLOBIN 27.3 pg (27.0-33.0); MEAN CORPUSCULAR HGB CONC 28.6 g/dl (32.0-36.5); MEAN CORPUSCULAR VOLUME 95.6 fl (80.0-96.0); MONO # 0.4 10^3/uL (0.0-0.8); MONO % 5.5 % (2.0-8.0); NEUTROPHILS # 5.5 10^3/uL (1.5-8.5); PLATELET COUNT, AUTOMATED 179 10^3/uL (150-450); RED BLOOD COUNT 5.23 10^6/uL (4.00-5.40); WHITE BLOOD COUNT 6.8 10^3/uL (4.0-10.0)
[2022-12-22] MEDS ORDERED: FUROSEMIDE 40MG/4ML VIAL IV ONE (10:55)
[2022-12-22 11:15] LABS: ALKALINE PHOSPHATASE 85 U/L (46-116); ALT/SGPT 24 U/L (7.0-40); AST/SGOT 42 U/L (<34); BILIRUBIN,DIRECT 0.1 MG/DL (<0.4); BILIRUBIN,TOTAL 0.3 MG/DL (0.3-1.2); BLOOD UREA NITROGEN 22 MG/DL (9-23); CHLORIDE LEVEL 84 MMOL/L (98-107); CREATININE FOR GFR 0.77 MG/DL (0.55-1.30); GLOMERULAR FILTRATION RATE > 60.0 (>58); GLUCOSE, FASTING 109 MG/DL (60-100); POTASSIUM SERUM 5.1 MMOL/L (3.5-5.1); SODIUM LEVEL 134 MMOL/L (136-145); TOTAL PROTEIN 7.5 G/DL (5.7-8.2)
[2022-12-22 11:17] LABS: CARBON DIOXIDE LEVEL > 40.0 MMOL/L (20-31)
[2022-12-22 12:26] LABS: ABG BASE EXCESS 22.3 (-2.0-2.0); ABG HCO3 51.8 MMOL/L (22.0-26.0); ABG O2 SATURATION 87.1 % (95.0-99.0); ABG STANDARD HCO3 46.8 MMOL/L. (22.0-26.0); ABG TOTAL CO2 54.3 MMOL/L (22.0-29.0); ABG pH (ARTERIAL) 7.432 UNITS (7.350-7.450)
[2022-12-22 12:28] LABS: ABG PARTIAL PRESSURE CO2 79.5 mmHg (35.0-45.0); ABG PARTIAL PRESSURE O2 41.8 mmHg (75.0-100.0)
[2022-12-22] MEDS ORDERED: HOME MED LIST COMPLETE! XX SCH (13:55)
[2022-12-22] MEDS ORDERED: IPRATROPIUM 0.5MG/ALBUTEROL 2.5MG INH SOL UD 3ML (DUONEB) NEB PRN (14:05)
[2022-12-22] MEDS: methylPREDNISolone 125MG 2ML VIAL IV SCH ×2 (15:45→23:38)
[2022-12-22] MEDS ORDERED: LevoFLOXacin IV 750 MG in IV 1 EA IV SCH (16:00)
[2022-12-22] MEDS: IPRATROPIUM 0.5MG/ALBUTEROL 2.5MG INH SOL UD 3ML (DUONEB) NEB SCH ×3 (16:40→23:22)
[2022-12-22] MEDS ORDERED: NITROGLYCERIN 2% OINT 1 GM *U/D* PKT TOP ONE (16:50)
[2022-12-22] MEDS ORDERED: LIDOCAINE 5% (LIDODERM) PATCH TD SCH (16:55)
[2022-12-22] MEDS ORDERED: FUROSEMIDE 40 MG TAB PO ONE (17:00)
[2022-12-22] MEDS ORDERED: FUROSEMIDE 20 MG TAB PO SCH (17:00)
[2022-12-22] MEDS: hydrALAZINE 20MG/ML 1ML VIAL IV SCH ×2 (18:00→23:44)
[2022-12-22 18:13] VITALS: BP 137/79; TEMP 100.2; O2SAT 95
[2022-12-22] MEDS: metroNIDAZOLE 500 MG in IV 1 EA IV SCH (19:47)
[2022-12-22 20:00] VITALS: BP 148/74; TEMP 98.9; O2SAT 96
[2022-12-22 21:00] VITALS: O2SAT 96
[2022-12-22] MEDS: acetaZOLAMIDE 250MG TAB PO SCH (21:00)
[2022-12-22 22:00] VITALS: O2SAT 92
[2022-12-22 23:00] VITALS: O2SAT 92
[2022-12-23] VITALS (18 sets, daily range): BP systolic 142–218; BP diastolic 86–116; TEMP 97.4–98.7; O2SAT 89–100
[2022-12-23] MEDS: metroNIDAZOLE 500 MG in IV 1 EA IV SCH ×2 (01:25→10:45)
[2022-12-23] MEDS ORDERED: LABETALOL 100MG/20ML VIAL IV STA (01:54)
[2022-12-23] MEDS: IPRATROPIUM 0.5MG/ALBUTEROL 2.5MG INH SOL UD 3ML (DUONEB) NEB SCH ×6 (04:00→23:50)
[2022-12-23] MEDS ORDERED: hydrALAZINE 20MG/ML 1ML VIAL IV ONE ×2 (04:00→07:50)
[2022-12-23] MEDS ORDERED: MORPHINE 2 MG/ML 1ML VIAL IV ONE ×3 (04:00→07:50)
[2022-12-23] MEDS: methylPREDNISolone 125MG 2ML VIAL IV SCH ×2 (06:01→15:01)
[2022-12-23] MEDS: hydrALAZINE 20MG/ML 1ML VIAL IV SCH ×2 (06:01→12:00)
[2022-12-23] MEDS ORDERED: NALOXONE INJ 0.4MG/1ML VIAL IV PRN (07:50)
[2022-12-23] MEDS ORDERED: MORPHINE 2 MG/ML 1ML VIAL IV PRN ×2 (07:50→08:55)
[2022-12-23] MEDS ORDERED: ACETAMINOPHEN *IV* 1,000 MG in IV 1 EA IV ONE (07:50)
[2022-12-23] MEDS: acetaZOLAMIDE 250MG TAB PO SCH (08:26)
[2022-12-23 08:59] LABS: BASO % 0.2 % (0.0-1.0); HEMOGLOBIN 15.1 g/dl (12.0-15.5); LYMPH # 0.5 10^3/uL (1.5-5.0); LYMPH % 8.3 % (24.0-44.0); MEAN CORPUSCULAR HEMOGLOBIN 27.4 pg (27.0-33.0); MEAN CORPUSCULAR HGB CONC 32.1 g/dl (32.0-36.5); MEAN CORPUSCULAR VOLUME 85.3 fl (80.0-96.0); MONO # 0.1 10^3/uL (0.0-0.8); MONO % 2.2 % (2.0-8.0); NEUTROPHILS # 5.4 10^3/uL (1.5-8.5); NEUTROPHILS % 89.1 % (36.0-66.0); PLATELET COUNT, AUTOMATED 198 10^3/uL (150-450); RED BLOOD COUNT 5.51 10^6/uL (4.00-5.40)
[2022-12-23 09:38] LABS: BLOOD UREA NITROGEN 21 MG/DL (9-23); CALCIUM LEVEL 10.1 MG/DL (8.5-10.1); CARBON DIOXIDE LEVEL > 40.0 MMOL/L (20-31); CHLORIDE LEVEL 83 MMOL/L (98-107); GLOMERULAR FILTRATION RATE > 60.0 (>58); GLUCOSE, FASTING 120 MG/DL (60-100); SODIUM LEVEL 133 MMOL/L (136-145)
[2022-12-23] MEDS ORDERED: VANCOMYCIN HCL 1,000 MG, VIAL MATE ADAPTER 1 EACH in D5W 250 ML IV SCH (12:20)
[2022-12-23 12:42] LABS: PROCALCITONIN <0.04 ng/ml
[2022-12-23] MEDS ORDERED: VANCOMYCIN HCL 750 MG, VIAL MATE ADAPTER 1 EACH in D5W 250 ML IV SCH (14:00)
[2022-12-23] MEDS ORDERED: ALPRAZolam 0.25 MG TAB PO PRN (16:05)
[2022-12-23] MEDS ORDERED: LEVO1TAB40 PO (16:37)
[2022-12-23] MEDS ORDERED: DEXA4TA PO (16:37)
[2022-12-23] MEDS ORDERED: DILA4TAB13 PO (16:37)
[2022-12-23] MEDS ORDERED: METR-265 PO (16:37)
[2022-12-23] MEDS ORDERED: TRAN1DIS4 TOP (16:37)
[2022-12-23] MEDS: MORPHINE 2 MG/ML 1ML VIAL IV PRN ×2 (16:53→22:15)
[2022-12-23] MEDS ORDERED: SCOPOLAMINE 1MG TRANSDERMAL PATCH TOP SCH (18:00)
[2022-12-23] MEDS ORDERED: fentaNYL 100 MCG/HR PATCH TOP SCH (18:00)
[2022-12-23] MEDS ORDERED: FENTANYL REMOVAL DOCUMENTATION MISC XX SCH (18:00)
[2022-12-23] MEDS ORDERED: LevoFLOXacin 750 MG TABLET PO SCH (18:00)
[2022-12-23] MEDS ORDERED: CEFD300C41 PO (18:08)
[2022-12-23] MEDS: HYDROmorphone 4MG TABLET PO PRN (18:20)
[2022-12-23] MEDS ORDERED: LIDOCAINE 5% (LIDODERM) PATCH TD SCH (21:00)
[2022-12-23] MEDS ORDERED: FORTEO SQ SCH (21:00)
[2022-12-23] MEDS: GABAPENTIN 300 MG CAP PO SCH (22:14)
[2022-12-23] MEDS: metroNIDAZOLE (FLAGYL) 500MG TABLET PO SCH (22:14)
[2022-12-24] MEDS: IPRATROPIUM 0.5MG/ALBUTEROL 2.5MG INH SOL UD 3ML (DUONEB) NEB SCH ×3 (04:00→12:00)
[2022-12-24] MEDS: HYDROmorphone 4MG TABLET PO PRN (05:51)
[2022-12-24] MEDS: dexAMETHasone 4 MG TAB PO SCH ×2 (06:07→09:17)
[2022-12-24] MEDS: metroNIDAZOLE (FLAGYL) 500MG TABLET PO SCH (06:07)
[2022-12-24 08:00] VITALS: O2SAT 93
[2022-12-24] MEDS ORDERED: ENTER DRUG NAME HERE (PATIENT'S OWN MED) PO SCH (09:00)
[2022-12-24] MEDS ORDERED: OMEPRAZOLE 20MG CAP PO SCH (09:00)
[2022-12-24] MEDS: GABAPENTIN 300 MG CAP PO SCH (09:17)
[2022-12-24] MEDS: MORPHINE 2 MG/ML 1ML VIAL IV PRN (09:22)
[2022-12-24] MEDS ORDERED: METR-265 PO (10:57)
[2022-12-24] MEDS ORDERED: DEXA4TA PO ×2 (10:57→12:01)
[2022-12-24] MEDS ORDERED: CEFD300CAP PO (10:57)
[2022-12-24] MEDS ORDERED: DILA8TAB5 PO (11:33)
[2022-12-24] MEDS ORDERED: DILA4TAB13 PO (12:15)
== END 2022-12-24 13:33 | disposition hospice, home (50) | DRG 189 ==
LOC: EDBD 08:58 → M ED 08:58 → M ED INP 12:56 → M PCU 16:45
PROVIDERS: ADMIT Internal Medicine; ATTEND General Practice
DX: J96.21 Acute and chronic respiratory failure with hypoxia (principal); G93.41 Metabolic encephalopathy; E43 Unspecified severe protein-calorie malnutrition; I50.33 Acute on chronic diastolic (congestive) heart failure; L02.31 Cutaneous abscess of buttock; Z68.1 Body mass index [BMI] 19.9 or less, adult; J44.1 Chronic obstructive pulmonary disease with (acute) exacerbation; R64 Cachexia; J84.117 Desquamative interstitial pneumonia; J96.22 Acute and chronic respiratory failure with hypercapnia; I27.29 Other secondary pulmonary hypertension; G43.909 Migraine, unspecified, not intractable, without status migrainosus; M80.08XD Age-related osteoporosis with current pathological fracture, vertebra(e), subsequent encounter for fracture with routine healing; F41.0 Panic disorder [episodic paroxysmal anxiety]; F32.A Depression, unspecified; Z51.5 Encounter for palliative care; Z66 Do not resuscitate; R68.0 Hypothermia, not associated with low environmental temperature; K44.9 Diaphragmatic hernia without obstruction or gangrene; G89.29 Other chronic pain; K59.03 Drug induced constipation; I11.0 Hypertensive heart disease with heart failure; R62.7 Adult failure to thrive; R25.8 Other abnormal involuntary movements; R53.1 Weakness; T40.2X5A Adverse effect of other opioids, initial encounter; G31.84 Mild cognitive impairment of uncertain or unknown etiology; H04.123 Dry eye syndrome of bilateral lacrimal glands; Z79.891 Long term (current) use of opiate analgesic; Z79.52 Long term (current) use of systemic steroids; Z79.899 Other long term (current) drug therapy; Z88.0 Allergy status to penicillin; Z88.6 Allergy status to analgesic agent; Z88.8 Allergy status to other drugs, medicaments and biological substances; Z87.891 Personal history of nicotine dependence; Z99.81 Dependence on supplemental oxygen

== ENCOUNTER → 2022-12-23 | Outpatient (CLI) | payer OTHER ==
[~2022-12-23] MED LIST changes: +CEFD300C41 PO; +CEFD300CAP PO; +CETI10CH PO; +DEXA4TA PO; +DILA8TAB5 PO; +HYDR-4468 PO; +LEVO1TAB40 PO; +METO100T5 PO; +TRAN1DIS4 TOP
== END ==
LOC: M PAL 14:45
PROVIDERS: ATTEND Nurse Practitioner Adult Health
DX: J84.10 Pulmonary fibrosis, unspecified (principal); I27.20 Pulmonary hypertension, unspecified; I50.32 Chronic diastolic (congestive) heart failure; R64 Cachexia; M62.50 Muscle wasting and atrophy, not elsewhere classified, unspecified site; G89.4 Chronic pain syndrome; R29.6 Repeated falls; M84.48XD Pathological fracture, other site, subsequent encounter for fracture with routine healing; M80.80XD Other osteoporosis with current pathological fracture, unspecified site, subsequent encounter for fracture with routine healing; R06.02 Shortness of breath; K59.03 Drug induced constipation; K80.00 Calculus of gallbladder with acute cholecystitis without obstruction; R41.0 Disorientation, unspecified; R53.81 Other malaise; Z66 Do not resuscitate; Z68.1 Body mass index [BMI] 19.9 or less, adult; Z79.52 Long term (current) use of systemic steroids; Z79.891 Long term (current) use of opiate analgesic; Z79.899 Other long term (current) drug therapy; Z88.0 Allergy status to penicillin; Z88.1 Allergy status to other antibiotic agents; Z88.6 Allergy status to analgesic agent; Z88.8 Allergy status to other drugs, medicaments and biological substances; Z97.8 Presence of other specified devices; Z99.81 Dependence on supplemental oxygen; Z99.89 Dependence on other enabling machines and devices

== ENCOUNTER → 2022-12-26 | Outpatient (CLI) | payer OTHER ==
[~2022-12-26] MED LIST changes: +TRIAMCINOLONE ACETONIDE SUSP 40MG/ML 1ML VIAL As Ordered ONE
== END ==
LOC: M PAIN 13:00
PROVIDERS: ATTEND Anesthesiology
DX: M79.18 Myalgia, other site (principal); M81.0 Age-related osteoporosis without current pathological fracture; G43.909 Migraine, unspecified, not intractable, without status migrainosus; I27.20 Pulmonary hypertension, unspecified; J44.9 Chronic obstructive pulmonary disease, unspecified; Z87.891 Personal history of nicotine dependence; Z79.891 Long term (current) use of opiate analgesic; Z79.899 Other long term (current) drug therapy; Z88.0 Allergy status to penicillin; Z88.6 Allergy status to analgesic agent; Z88.8 Allergy status to other drugs, medicaments and biological substances
CPT/HCPCS: 20553; J0665; J3301

== ENCOUNTER → 2022-12-30 | Outpatient (REF) | payer OTHER ==
[~2022-12-30] MED LIST changes: -TRIAMCINOLONE ACETONIDE SUSP 40MG/ML 1ML VIAL As Ordered ONE
[2022-12-30 19:09] LABS: APPEARANCE, URINE CLEAR (CLEAR); BACTERIA, URINE AUTO NEGATIVE (NEGATIVE); BILIRUBIN, URINE AUTO NEGATIVE (NEGATIVE); BLOOD, URINE BLOOD NEGATIVE (NEGATIVE); COLOR, URINE YELLOW (YELLOW); GLUCOSE, URINE (UA) AUTO 1+ mg/dL (NEGATIVE); KETONE, URINE AUTO NEGATIVE (NEGATIVE); LEUKOCYTE ESTERASE, URINE AUTO NEGATIVE (NEGATIVE); NITRITE, URINE AUTO NEGATIVE (NEGATIVE); PROTEIN, URINE AUTO NEGATIVE (NEGATIVE); RBC, URINE AUTO 0 /HPF (0-3); SQUAMOUS EPITHELIAL CELL UR AU 2 /HPF (0-6); UROBILINOGEN, URINE AUTO 0.2 mg/dL (0.0-2.0); WBC, URINE AUTO 0 /HPF (0-3)
== END ==
LOC: M LAB REF 18:38
PROVIDERS: ATTEND Internal Medicine Hematology
DX: N39.0 Urinary tract infection, site not specified (principal)

== ENCOUNTER → 2023-01-13 | Outpatient (CLI) | payer OTHER ==
[2023-01-13 20:19] LABS: BLOOD UREA NITROGEN 35 MG/DL (9-23); CALCIUM LEVEL 8.7 MG/DL (8.5-10.1); CARBON DIOXIDE LEVEL > 40.0 MMOL/L (20-31); CHLORIDE LEVEL 82 MMOL/L (98-107); GLOMERULAR FILTRATION RATE > 60.0 (>58); GLUCOSE, FASTING 130 MG/DL (60-100); SODIUM LEVEL 135 MMOL/L (136-145)
== END ==
LOC: M PLALAB 14:42
PROVIDERS: ATTEND Internal Medicine Hematology
DX: Z79.52 Long term (current) use of systemic steroids (principal)

== ENCOUNTER → 2023-01-13 | Outpatient (CLI) | payer OTHER ==
[2023-01-13 19:34] LABS: HEMOGLOBIN 13.9 g/dl (12.0-15.5); MEAN CORPUSCULAR HEMOGLOBIN 27.7 pg (27.0-33.0); MEAN CORPUSCULAR HGB CONC 31.6 g/dl (32.0-36.5); MEAN CORPUSCULAR VOLUME 87.8 fl (80.0-96.0); PLATELET COUNT, AUTOMATED 240 10^3/uL (150-450); RED BLOOD COUNT 5.01 10^6/uL (4.00-5.40); WHITE BLOOD COUNT 15.1 10^3/uL (4.0-10.0)
[2023-01-13 19:54] LABS: TOTAL IRON BINDING CAPACITY 308 UG/DL (250-425)
[2023-01-13 19:55] LABS: FERRITIN 777.7 NG/ML (7.3-270.7)
[2023-01-13 19:57] LABS: IRON (FE) 128 UG/DL (50-170); PERCENT SATURATION 41.6 % (13.2-45.0)
[2023-01-13 20:01] LABS: BLOOD UREA NITROGEN 34 MG/DL (9-23); CALCIUM LEVEL 8.6 MG/DL (8.5-10.1); CARBON DIOXIDE LEVEL > 40.0 MMOL/L (20-31); CHLORIDE LEVEL 82 MMOL/L (98-107); CREATININE FOR GFR 0.49 MG/DL (0.55-1.30); GLOMERULAR FILTRATION RATE > 60.0 (>58); GLUCOSE, FASTING 128 MG/DL (60-100); SODIUM LEVEL 136 MMOL/L (136-145)
== END ==
LOC: M PLALAB 14:48
PROVIDERS: ATTEND Internal Medicine
DX: I50.9 Heart failure, unspecified (principal)

== ENCOUNTER → 2023-02-09 | Outpatient (CLI) | payer OTHER ==
[~2023-02-09] MED LIST changes: -CEFD300C41 PO; +CEFD300C42 PO
== END ==
LOC: M PAIN 15:15
PROVIDERS: ATTEND Anesthesiology
DX: M79.18 Myalgia, other site (principal); M54.50 Low back pain, unspecified; M54.6 Pain in thoracic spine; M81.0 Age-related osteoporosis without current pathological fracture; G43.909 Migraine, unspecified, not intractable, without status migrainosus; I27.20 Pulmonary hypertension, unspecified; J44.9 Chronic obstructive pulmonary disease, unspecified; Z87.891 Personal history of nicotine dependence; Z79.4 Long term (current) use of insulin; Z79.899 Other long term (current) drug therapy; Z88.0 Allergy status to penicillin; Z88.6 Allergy status to analgesic agent; Z88.8 Allergy status to other drugs, medicaments and biological substances

== ENCOUNTER → 2023-02-16 | Outpatient (CLI) | payer OTHER ==
[2023-02-16 16:26] LABS: BASO % 0.2 % (0.0-1.0); EOS % 0.3 % (0.0-3.0); HEMATOCRIT 47.6 % (36.0-47.0); HEMOGLOBIN 15.2 g/dl (12.0-15.5); LYMPH # 1.5 10^3/uL (1.5-5.0); LYMPH % 10.4 % (24.0-44.0); MEAN CORPUSCULAR HEMOGLOBIN 29.2 pg (27.0-33.0); MEAN CORPUSCULAR HGB CONC 31.9 g/dl (32.0-36.5); MEAN CORPUSCULAR VOLUME 91.5 fl (80.0-96.0); MONO # 0.6 10^3/uL (0.0-0.8); MONO % 3.9 % (2.0-8.0); NEUTROPHILS # 12.2 10^3/uL (1.5-8.5); NEUTROPHILS % 84.2 % (36.0-66.0); PLATELET COUNT, AUTOMATED 177 10^3/uL (150-450); WHITE BLOOD COUNT 14.5 10^3/uL (4.0-10.0)
[2023-02-16 16:41] LABS: HEMOGLOBIN A1c 5.2 % (4.0-6.0)
[2023-02-16 16:57] LABS: BLOOD UREA NITROGEN 22 MG/DL (9-23); CALCIUM LEVEL 8.9 MG/DL (8.5-10.1); CARBON DIOXIDE LEVEL > 40.0 MMOL/L (20-31); CHLORIDE LEVEL 86 MMOL/L (98-107); CREATININE FOR GFR 0.34 MG/DL (0.55-1.30); GLOMERULAR FILTRATION RATE > 60.0 (>58); GLUCOSE, FASTING 159 MG/DL (60-100); MAGNESIUM LEVEL 1.8 MG/DL (1.8-2.4); POTASSIUM SERUM 3.3 MMOL/L (3.5-5.1); SODIUM LEVEL 135 MMOL/L (136-145); VITAMIN B12 LEVEL 452 PG/ML (211-911)
== END ==
LOC: M PLALAB 13:58
PROVIDERS: ATTEND Internal Medicine Hematology
DX: J84.9 Interstitial pulmonary disease, unspecified (principal); R52 Pain, unspecified

== ENCOUNTER → 2023-03-13 | Outpatient (CLI) | payer OTHER ==
[2023-03-13 17:24] LABS: BASO # 0.1 10^3/uL (0.0-0.2); BASO % 0.4 % (0.0-1.0); EOS % 0.1 % (0.0-3.0); HEMATOCRIT 45.9 % (36.0-47.0); HEMOGLOBIN 14.4 g/dl (12.0-15.5); LYMPH # 0.9 10^3/uL (1.5-5.0); MEAN CORPUSCULAR HEMOGLOBIN 29.8 pg (27.0-33.0); MEAN CORPUSCULAR HGB CONC 31.4 g/dl (32.0-36.5); MONO # 0.7 10^3/uL (0.0-0.8); NEUTROPHILS # 14.5 10^3/uL (1.5-8.5); NEUTROPHILS % 85.6 % (36.0-66.0); PLATELET COUNT, AUTOMATED 200 10^3/uL (150-450); RED BLOOD COUNT 4.83 10^6/uL (4.00-5.40); WHITE BLOOD COUNT 16.9 10^3/uL (4.0-10.0)
[2023-03-13 17:29] LABS: C REACTIVE PROTEIN QUANTITATIV < 0.40 MG/DL (<1.0)
[2023-03-13 17:34] LABS: ALBUMIN 3.6 G/DL (3.2-5.2); ALKALINE PHOSPHATASE 59 U/L (46-116); ALT/SGPT 35 U/L (7.0-40); AST/SGOT 28 U/L (<34); BILIRUBIN,TOTAL 0.3 MG/DL (0.3-1.2); BLOOD UREA NITROGEN 27 MG/DL (9-23); CALCIUM LEVEL 8.7 MG/DL (8.5-10.1); CARBON DIOXIDE LEVEL > 40.0 MMOL/L (20-31); CHLORIDE LEVEL 84 MMOL/L (98-107); CREATININE FOR GFR 0.33 MG/DL (0.55-1.30); GLOMERULAR FILTRATION RATE > 60.0 (>58); GLUCOSE, FASTING 145 MG/DL (60-100); POTASSIUM SERUM 4.1 MMOL/L (3.5-5.1); SODIUM LEVEL 136 MMOL/L (136-145)
== END ==
LOC: M LAB 16:09
PROVIDERS: ATTEND Internal Medicine Hematology
DX: Q78.2 Osteopetrosis (principal)

== ENCOUNTER → 2023-03-13 | Outpatient (CLI) | payer OTHER ==
[~2023-03-13] MED LIST changes: +PROHANCE 279.3MG/ML 5ML VIAL As Ordered ONE
== END ==
LOC: M RAD 14:21
PROVIDERS: ATTEND Internal Medicine Hematology
DX: M81.0 Age-related osteoporosis without current pathological fracture (principal); R52 Pain, unspecified
CPT/HCPCS: 72158; A9576

== ENCOUNTER → 2023-03-14 | Outpatient (REF) | payer OTHER ==
[~2023-03-14] MED LIST changes: -PROHANCE 279.3MG/ML 5ML VIAL As Ordered ONE
== END ==
LOC: M LAB REF 12:19
PROVIDERS: ATTEND Internal Medicine Hematology
DX: J18.9 Pneumonia, unspecified organism (principal)

== ENCOUNTER → 2023-03-16 | Outpatient (CLI) | payer OTHER | LOC: M PAIN 14:15 | PROVIDERS: ATTEND Anesthesiology | DX: M79.18 Myalgia, other site (principal); M81.0 Age-related osteoporosis without current pathological fracture; G43.909 Migraine, unspecified, not intractable, without status migrainosus; I27.20 Pulmonary hypertension, unspecified; J84.9 Interstitial pulmonary disease, unspecified; F17.200 Nicotine dependence, unspecified, uncomplicated; Z79.891 Long term (current) use of opiate analgesic; Z79.899 Other long term (current) drug therapy; Z88.0 Allergy status to penicillin; Z88.6 Allergy status to analgesic agent; Z88.8 Allergy status to other drugs, medicaments and biological substances | CPT/HCPCS: 20552; J0665 ==

== ENCOUNTER → 2023-03-19 | Outpatient (CLI) | payer OTHER | LOC: M SOG 08:05 | PROVIDERS: ATTEND Orthopaedic Surgery | DX: M25.552 Pain in left hip (principal) ==

== ENCOUNTER → 2023-04-03 | Outpatient (CLI) | payer OTHER | LOC: M SOG 14:23 | PROVIDERS: ATTEND Orthopaedic Surgery | DX: R07.1 Chest pain on breathing (principal); M85.88 Other specified disorders of bone density and structure, other site; M25.551 Pain in right hip; M19.012 Primary osteoarthritis, left shoulder; M51.36 Other intervertebral disc degeneration, lumbar region; I51.7 Cardiomegaly; R91.8 Other nonspecific abnormal finding of lung field ==

== ENCOUNTER → 2023-04-17 | Outpatient (CLI) | payer OTHER ==
[~2023-04-17] MED LIST changes: +AMIT10TA7 PO; +AMLO2.5T3 PO; +CEFD1CAP9 PO; -CEFD300C42 PO; +DIGO0.123 PO; +FENT10PA TD; -FLUT50SP17 NARES; +FLUTISP NARES; +FORT600S; +HYDR4TAB PO; +LANTINJ4; +MAGNCAP2 PO; +MORP1SOL5 PO; +NITR0.2D5 TD; +POTA1TAB23 PO; +TRAN1DIS4 TD; +ZOLP5TAB PO
== END ==
LOC: M PAIN 11:30
PROVIDERS: ATTEND Anesthesiology
DX: M79.10 Myalgia, unspecified site (principal); F17.200 Nicotine dependence, unspecified, uncomplicated; Z88.0 Allergy status to penicillin; Z88.1 Allergy status to other antibiotic agents; Z88.6 Allergy status to analgesic agent; Z88.8 Allergy status to other drugs, medicaments and biological substances; Z79.891 Long term (current) use of opiate analgesic; Z79.899 Other long term (current) drug therapy

== ENCOUNTER → 2023-05-26 | Outpatient (REF) | payer OTHER ==
[~2023-05-26] MED LIST changes: +DEXA2TA PO; -FORT600S; +VALA500T5 PO
[2023-05-26 13:56] LABS: APPEARANCE, URINE HAZY (CLEAR); BACTERIA, URINE AUTO NEGATIVE (NEGATIVE); BILIRUBIN, URINE AUTO NEGATIVE (NEGATIVE); BLOOD, URINE BLOOD NEGATIVE (NEGATIVE); COLOR, URINE YELLOW (YELLOW); GLUCOSE, URINE (UA) AUTO NEGATIVE (NEGATIVE); KETONE, URINE AUTO TRACE mg/dL (NEGATIVE); LEUKOCYTE ESTERASE, URINE AUTO 1+ (NEGATIVE); MUCUS, URINE SMALL (NEGATIVE); NITRITE, URINE AUTO NEGATIVE (NEGATIVE); PROTEIN, URINE AUTO 1+ mg/dL (NEGATIVE); RBC, URINE AUTO 2 /HPF (0-3); SPECIFIC GRAVITY URINE AUTO 1.014 (1.002-1.035); SQUAMOUS EPITHELIAL CELL UR AU 0 /HPF (0-6); UROBILINOGEN, URINE AUTO 0.2 mg/dL (0.0-2.0); WBC, URINE AUTO 23 /HPF (0-3)
== END ==
LOC: M SFHCPLAZ 13:29
PROVIDERS: ATTEND Internal Medicine Hematology
DX: N30.00 Acute cystitis without hematuria (principal)

== ENCOUNTER → 2023-05-28 | Outpatient (CLI) | payer OTHER ==
[2023-05-28 16:09] LABS: BASO % 0.2 % (0.0-1.0); HEMATOCRIT 38.6 % (36.0-47.0); HEMOGLOBIN 12.7 g/dl (12.0-15.5); LYMPH # 0.4 10^3/uL (1.5-5.0); MEAN CORPUSCULAR HEMOGLOBIN 31.6 pg (27.0-33.0); MEAN CORPUSCULAR HGB CONC 32.9 g/dl (32.0-36.5); MONO # 0.4 10^3/uL (0.0-0.8); MONO % 3.2 % (2.0-8.0); NEUTROPHILS % 91.7 % (36.0-66.0); PLATELET COUNT, AUTOMATED 225 10^3/uL (150-450); RED BLOOD COUNT 4.02 10^6/uL (4.00-5.40)
[2023-05-28 16:42] LABS: ALBUMIN 3.4 G/DL (3.2-5.2); ALKALINE PHOSPHATASE 74 U/L (46-116); ALT/SGPT 39 U/L (7.0-40); AST/SGOT 29 U/L (<34); BILIRUBIN,TOTAL 0.5 MG/DL (0.3-1.2); BLOOD UREA NITROGEN 15 MG/DL (9-23); CALCIUM LEVEL 9.2 MG/DL (8.5-10.1); CARBON DIOXIDE LEVEL > 40.0 MMOL/L (20-31); CHLORIDE LEVEL 74 MMOL/L (98-107); CREATININE FOR GFR 0.43 MG/DL (0.55-1.30); GLOMERULAR FILTRATION RATE > 60.0 (>58); GLUCOSE, FASTING 111 MG/DL (60-100); POTASSIUM SERUM 3.4 MMOL/L (3.5-5.1); SODIUM LEVEL 129 MMOL/L (136-145)
== END ==
LOC: M PLALAB 14:09
PROVIDERS: ATTEND Internal Medicine Hematology
DX: N30.00 Acute cystitis without hematuria (principal)

== ENCOUNTER 2023-06-04 08:38 | Day surgery (SDC) | payer OTHER ==
[~2023-06-04] VITALS: Ht 139.7 cm; Wt 37.7 kg
[~2023-06-04 08:38] MED LIST changes: +BSS IRRIG/VANCO(10MG)/TOBRA(5MG)/EPINEPH(1:1000-0.5CC)500ML BAG-ORONLY IR ONE; +CEFUROXIME 1MG/0.1ML INTRACAMERAL INJ As Ordered ONE; +CYCLOPENTOLATE 1% OPHTH SOLN 2ML BTL OS SCH; +LIDOCAINE 1% SDV 5ML VIAL As Ordered ONE; +LIDOCAINE 3.5 % 1ML OPHTH TOPICAL GEL OU ONE; +MOXIFLOXACIN 0.6MG/0.4ML INTRAOCULAR SYRINGE As Ordered ONE; +OFLOXACIN 0.3 % (OCUFLOX) OPTH SOL 5ML OS ONE; +PHENYLEPHRINE 10% OPHTH SOL 5ML OS PRN; +PHENYLEPHRINE 2.5% OPHTH SOL 2ML OS SCH; +TROPICAMIDE 1% OPHTH SOLN 15ML OS SCH
[2023-06-04] MEDS ORDERED: MIDAZOLAM INJ 2MG/2ML VIAL As Ordered ONE (09:11)
[2023-06-04] MEDS ORDERED: BSS IRRIG/VANCO(10MG)/TOBRA(5MG)/EPINEPH(1:1000-0.5CC)500ML BAG-ORONLY As Ordered ONE (09:17)
[2023-06-04 09:58] VITALS: BP 97/68; TEMP 97.1; O2SAT 99
== END 2023-06-04 10:20 | disposition home or self-care (01) ==
LOC: M SDC 08:38
PROVIDERS: ATTEND Ophthalmology
DX: H25.12 Age-related nuclear cataract, left eye (principal); G47.30 Sleep apnea, unspecified; I10 Essential (primary) hypertension; J44.9 Chronic obstructive pulmonary disease, unspecified; F41.9 Anxiety disorder, unspecified; G43.909 Migraine, unspecified, not intractable, without status migrainosus; R32 Unspecified urinary incontinence; S12.9XXS Fracture of neck, unspecified, sequela; X58.XXXS Exposure to other specified factors, sequela; M81.0 Age-related osteoporosis without current pathological fracture; F17.200 Nicotine dependence, unspecified, uncomplicated; Z98.41 Cataract extraction status, right eye; Z88.0 Allergy status to penicillin; Z88.1 Allergy status to other antibiotic agents; Z88.8 Allergy status to other drugs, medicaments and biological substances; Z79.899 Other long term (current) drug therapy; Z79.891 Long term (current) use of opiate analgesic
CPT/HCPCS: 66984; J2250; V2632

== ENCOUNTER → 2023-06-08 | Outpatient (CLI) | payer OTHER ==
[~2023-06-08] MED LIST changes: -BSS IRRIG/VANCO(10MG)/TOBRA(5MG)/EPINEPH(1:1000-0.5CC)500ML BAG-ORONLY IR ONE; -CEFUROXIME 1MG/0.1ML INTRACAMERAL INJ As Ordered ONE; -CYCLOPENTOLATE 1% OPHTH SOLN 2ML BTL OS SCH; -LIDOCAINE 1% SDV 5ML VIAL As Ordered ONE; -LIDOCAINE 3.5 % 1ML OPHTH TOPICAL GEL OU ONE; -MOXIFLOXACIN 0.6MG/0.4ML INTRAOCULAR SYRINGE As Ordered ONE; -OFLOXACIN 0.3 % (OCUFLOX) OPTH SOL 5ML OS ONE; -PHENYLEPHRINE 10% OPHTH SOL 5ML OS PRN; -PHENYLEPHRINE 2.5% OPHTH SOL 2ML OS SCH; -TROPICAMIDE 1% OPHTH SOLN 15ML OS SCH
== END ==
LOC: M PAL 13:30
PROVIDERS: ATTEND Nurse Practitioner Adult Health
DX: J84.10 Pulmonary fibrosis, unspecified (principal); I27.20 Pulmonary hypertension, unspecified; I50.32 Chronic diastolic (congestive) heart failure; M48.54XA Collapsed vertebra, not elsewhere classified, thoracic region, initial encounter for fracture; R64 Cachexia; M48.56XA Collapsed vertebra, not elsewhere classified, lumbar region, initial encounter for fracture; M62.50 Muscle wasting and atrophy, not elsewhere classified, unspecified site; G89.4 Chronic pain syndrome; E43 Unspecified severe protein-calorie malnutrition; F41.9 Anxiety disorder, unspecified; R10.9 Unspecified abdominal pain; K21.9 Gastro-esophageal reflux disease without esophagitis; K80.20 Calculus of gallbladder without cholecystitis without obstruction; R29.6 Repeated falls; Z51.5 Encounter for palliative care; Z68.1 Body mass index [BMI] 19.9 or less, adult; Z79.51 Long term (current) use of inhaled steroids; Z79.52 Long term (current) use of systemic steroids; Z79.891 Long term (current) use of opiate analgesic; Z79.899 Other long term (current) drug therapy; Z87.891 Personal history of nicotine dependence; Z88.0 Allergy status to penicillin; Z88.1 Allergy status to other antibiotic agents; Z88.6 Allergy status to analgesic agent; Z88.8 Allergy status to other drugs, medicaments and biological substances; Z99.81 Dependence on supplemental oxygen

== ENCOUNTER → 2023-06-11 | Outpatient (CLI) | payer OTHER ==
[~2023-06-11] MED LIST changes: +CEPH500C PO; +MAGN400C PO; -MIRA1POW3 PO; +MIRA33506 PO; +PRED10TA2 PO
[2023-06-11 15:59] LABS: BASO % 0.3 % (0.0-1.0); EOS % 0.1 % (0.0-3.0); HEMATOCRIT 34.2 % (36.0-47.0); HEMOGLOBIN 10.8 g/dl (12.0-15.5); LYMPH # 0.8 10^3/uL (1.5-5.0); LYMPH % 6.5 % (24.0-44.0); MEAN CORPUSCULAR HEMOGLOBIN 31.5 pg (27.0-33.0); MEAN CORPUSCULAR HGB CONC 31.6 g/dl (32.0-36.5); MEAN CORPUSCULAR VOLUME 99.7 fl (80.0-96.0); MONO # 0.4 10^3/uL (0.0-0.8); MONO % 3.1 % (2.0-8.0); NEUTROPHILS # 10.4 10^3/uL (1.5-8.5); NEUTROPHILS % 88.3 % (36.0-66.0); PLATELET COUNT, AUTOMATED 239 10^3/uL (150-450); RED BLOOD COUNT 3.43 10^6/uL (4.00-5.40); WHITE BLOOD COUNT 11.8 10^3/uL (4.0-10.0)
[2023-06-11 16:33] LABS: ALKALINE PHOSPHATASE 70 U/L (46-116); ALT/SGPT 32 U/L (7.0-40); AST/SGOT 21 U/L (<34); BILIRUBIN,TOTAL 0.6 MG/DL (0.3-1.2); BLOOD UREA NITROGEN 17 MG/DL (9-23); CALCIUM LEVEL 8.5 MG/DL (8.5-10.1); CARBON DIOXIDE LEVEL > 40.0 MMOL/L (20-31); CHLORIDE LEVEL 85 MMOL/L (98-107); CREATININE FOR GFR 0.39 MG/DL (0.55-1.30); GLOMERULAR FILTRATION RATE > 60.0 (>58); GLUCOSE, FASTING 103 MG/DL (60-100); POTASSIUM SERUM 3.5 MMOL/L (3.5-5.1); SODIUM LEVEL 136 MMOL/L (136-145); TOTAL PROTEIN 5.7 G/DL (5.7-8.2)
== END ==
LOC: M RAD 14:42
PROVIDERS: ATTEND Internal Medicine Hematology
DX: M79.89 Other specified soft tissue disorders (principal)

== ENCOUNTER → 2023-06-18 | Outpatient (CLI) | payer OTHER | LOC: M WHC 12:44 | PROVIDERS: ATTEND Internal Medicine Hematology | DX: M81.0 Age-related osteoporosis without current pathological fracture (principal) ==

== ENCOUNTER → 2023-06-22 | Outpatient (CLI) | payer OTHER | LOC: M PAL 07:32 | PROVIDERS: ATTEND Nurse Practitioner Adult Health | DX: J84.10 Pulmonary fibrosis, unspecified (principal); I27.20 Pulmonary hypertension, unspecified; I50.32 Chronic diastolic (congestive) heart failure; M48.54XA Collapsed vertebra, not elsewhere classified, thoracic region, initial encounter for fracture; M48.56XA Collapsed vertebra, not elsewhere classified, lumbar region, initial encounter for fracture; M62.50 Muscle wasting and atrophy, not elsewhere classified, unspecified site; R64 Cachexia; G89.4 Chronic pain syndrome; E43 Unspecified severe protein-calorie malnutrition; F41.9 Anxiety disorder, unspecified; K21.9 Gastro-esophageal reflux disease without esophagitis; K80.20 Calculus of gallbladder without cholecystitis without obstruction; R10.9 Unspecified abdominal pain; R29.6 Repeated falls; R53.81 Other malaise; Z51.5 Encounter for palliative care; Z66 Do not resuscitate; Z68.1 Body mass index [BMI] 19.9 or less, adult; Z79.51 Long term (current) use of inhaled steroids; Z79.52 Long term (current) use of systemic steroids; Z79.891 Long term (current) use of opiate analgesic; Z79.899 Other long term (current) drug therapy; Z87.891 Personal history of nicotine dependence; Z88.0 Allergy status to penicillin; Z88.1 Allergy status to other antibiotic agents; Z88.6 Allergy status to analgesic agent; Z88.8 Allergy status to other drugs, medicaments and biological substances; Z99.81 Dependence on supplemental oxygen ==

== ENCOUNTER → 2023-06-25 | Outpatient (CLI) | payer OTHER | LOC: M SOG 09:12 | PROVIDERS: ATTEND Orthopaedic Surgery | DX: M54.50 Low back pain, unspecified (principal); M25.551 Pain in right hip ==

== ENCOUNTER → 2023-07-09 | Outpatient (CLI) | payer OTHER ==
[2023-07-09 15:43] LABS: HEMATOCRIT 44.3 % (36.0-47.0); HEMOGLOBIN 13.6 g/dl (12.0-15.5); MEAN CORPUSCULAR HEMOGLOBIN 30.7 pg (27.0-33.0); MEAN CORPUSCULAR HGB CONC 30.7 g/dl (32.0-36.5); PLATELET COUNT, AUTOMATED 349 10^3/uL (150-450); RED BLOOD COUNT 4.43 10^6/uL (4.00-5.40); WHITE BLOOD COUNT 9.1 10^3/uL (4.0-10.0)
[2023-07-09 16:29] LABS: CREATININE, URINE 78.6 MG/DL
[2023-07-09 16:40] LABS: ALBUMIN 3.8 G/DL (3.2-5.2); ALKALINE PHOSPHATASE 66 U/L (46-116); ALT/SGPT 21 U/L (7.0-40); AST/SGOT 19 U/L (<34); BILIRUBIN,TOTAL 0.2 MG/DL (0.3-1.2); BLOOD UREA NITROGEN 18 MG/DL (9-23); CALCIUM LEVEL 9.2 MG/DL (8.5-10.1); CARBON DIOXIDE LEVEL > 40.0 MMOL/L (20-31); CHLORIDE LEVEL 90 MMOL/L (98-107); CHOLESTEROL LEVEL 194 MG/DL (<200); CHOLESTEROL RISK RATIO 1.79 (<5); CREATININE FOR GFR 0.49 MG/DL (0.55-1.30); FERRITIN 245.4 NG/ML (7.3-270.7); FREE T4 1.46 NG/DL (0.89-1.76); GLOMERULAR FILTRATION RATE > 60.0 (>58); GLUCOSE, FASTING 126 MG/DL (60-100); HDL CHOLESTEROL 107.8 MG/DL (>40); LDL CHOLESTEROL 71.2 MG/DL (<100); MAGNESIUM LEVEL 1.9 MG/DL (1.8-2.4); NON-HDL-C 86.2 MG/DL; SODIUM LEVEL 137 MMOL/L (136-145); THYROID STIMULATING HORMONE 0.724 uIU/ML (0.55-4.78); TOTAL 25(OH) VITAMIN D 38.6 NG/ML (20.0-100.0); TOTAL PROTEIN 6.6 G/DL (5.7-8.2); TRIGLYCERIDES LEVEL 75 MG/DL (<150); VITAMIN B12 LEVEL 661 PG/ML (211-911)
[2023-07-09 16:53] LABS: HEMOGLOBIN A1c 5.5 % (4.0-6.0)
== END ==
LOC: M PLALAB 14:06
PROVIDERS: ATTEND Internal Medicine Hematology
DX: K30 Functional dyspepsia (principal); E11.22 Type 2 diabetes mellitus with diabetic chronic kidney disease

== ENCOUNTER → 2023-07-10 | Outpatient (CLI) | payer OTHER ==
[~2023-07-10] MED LIST changes: +TRIAMCINOLONE ACETONIDE SUSP 40MG/ML 1ML VIAL As Ordered ONE
== END ==
LOC: M PAIN 14:30
PROVIDERS: ATTEND Anesthesiology
DX: M79.18 Myalgia, other site (principal); G89.29 Other chronic pain; I27.20 Pulmonary hypertension, unspecified; G43.909 Migraine, unspecified, not intractable, without status migrainosus; M81.0 Age-related osteoporosis without current pathological fracture; J44.9 Chronic obstructive pulmonary disease, unspecified; Z87.891 Personal history of nicotine dependence; Z79.891 Long term (current) use of opiate analgesic; Z79.52 Long term (current) use of systemic steroids; Z79.899 Other long term (current) drug therapy; Z88.0 Allergy status to penicillin; Z88.6 Allergy status to analgesic agent; Z88.8 Allergy status to other drugs, medicaments and biological substances
CPT/HCPCS: 20553; J0665; J3301

== ENCOUNTER → 2023-07-14 | Outpatient (CLI) | payer OTHER ==
[~2023-07-14] MED LIST changes: -TRIAMCINOLONE ACETONIDE SUSP 40MG/ML 1ML VIAL As Ordered ONE
== END ==
LOC: M PLAIMG 13:37
PROVIDERS: ATTEND Internal Medicine Hematology
DX: I51.7 Cardiomegaly (principal)

== ENCOUNTER → 2023-07-22 | Outpatient (CLI) | payer OTHER | LOC: M PAL 11:46 | PROVIDERS: ATTEND Nurse Practitioner Adult Health | DX: G89.4 Chronic pain syndrome (principal); J84.10 Pulmonary fibrosis, unspecified; I27.20 Pulmonary hypertension, unspecified; I50.32 Chronic diastolic (congestive) heart failure; R03.0 Elevated blood-pressure reading, without diagnosis of hypertension; M48.54XA Collapsed vertebra, not elsewhere classified, thoracic region, initial encounter for fracture; M48.56XA Collapsed vertebra, not elsewhere classified, lumbar region, initial encounter for fracture; M81.0 Age-related osteoporosis without current pathological fracture; M62.50 Muscle wasting and atrophy, not elsewhere classified, unspecified site; R64 Cachexia; E43 Unspecified severe protein-calorie malnutrition; F41.9 Anxiety disorder, unspecified; K21.9 Gastro-esophageal reflux disease without esophagitis; K59.00 Constipation, unspecified; K80.20 Calculus of gallbladder without cholecystitis without obstruction; R06.02 Shortness of breath; R10.9 Unspecified abdominal pain; R29.6 Repeated falls; R53.81 Other malaise; Z51.5 Encounter for palliative care; Z62.810 Personal history of physical and sexual abuse in childhood; Z66 Do not resuscitate; Z68.1 Body mass index [BMI] 19.9 or less, adult; Z79.51 Long term (current) use of inhaled steroids; Z79.52 Long term (current) use of systemic steroids; Z79.891 Long term (current) use of opiate analgesic; Z79.899 Other long term (current) drug therapy; Z87.891 Personal history of nicotine dependence; Z88.0 Allergy status to penicillin; Z88.1 Allergy status to other antibiotic agents; Z88.6 Allergy status to analgesic agent; Z88.8 Allergy status to other drugs, medicaments and biological substances; Z99.81 Dependence on supplemental oxygen ==

== ENCOUNTER 2023-08-03 18:51 | Emergency (ER) | payer OTHER ==
[~2023-08-03] VITALS: Ht 139.7 cm; Wt 40.0 kg
[2023-08-03 19:54] LABS: BASO % 0.2 % (0.0-1.0); EOS % 0.3 % (0.0-3.0); HEMATOCRIT 48.9 % (36.0-47.0); HEMOGLOBIN 15.5 g/dl (12.0-15.5); LYMPH # 1.6 10^3/uL (1.5-5.0); LYMPH % 16.3 % (24.0-44.0); MEAN CORPUSCULAR HEMOGLOBIN 30.6 pg (27.0-33.0); MEAN CORPUSCULAR HGB CONC 31.7 g/dl (32.0-36.5); MEAN CORPUSCULAR VOLUME 96.4 fl (80.0-96.0); MONO # 0.6 10^3/uL (0.0-0.8); MONO % 6.3 % (2.0-8.0); NEUTROPHILS # 7.6 10^3/uL (1.5-8.5); NEUTROPHILS % 76.7 % (36.0-66.0); PLATELET COUNT, AUTOMATED 248 10^3/uL (150-450); RED BLOOD COUNT 5.07 10^6/uL (4.00-5.40); WHITE BLOOD COUNT 9.9 10^3/uL (4.0-10.0)
[2023-08-03] MEDS: methylPREDNISolone 125MG 2ML VIAL IV ONE (20:12)
[2023-08-03] MEDS: IPRATROPIUM 0.5MG/ALBUTEROL 2.5MG INH SOL UD 3ML (DUONEB) NEB PRN (20:17)
[2023-08-03 20:29] LABS: ABG BASE EXCESS 17.2 (-2.0-2.0); ABG HCO3 46.2 MMOL/L (22.0-26.0); ABG O2 SATURATION 88.8 % (95.0-99.0); ABG PARTIAL PRESSURE CO2 73.4 mmHg (35.0-45.0); ABG PARTIAL PRESSURE O2 50.6 mmHg (75.0-100.0); ABG STANDARD HCO3 41.1 MMOL/L. (22.0-26.0); ABG TOTAL CO2 48.5 MMOL/L (22.0-29.0); ABG pH (ARTERIAL) 7.417 UNITS (7.350-7.450)
[2023-08-03 21:50] LABS: CK-MB VALUE MASS 2.7 NG/ML (<3.6)
[2023-08-03 21:54] LABS: FREE T4 1.51 NG/DL (0.89-1.76); THYROID STIMULATING HORMONE 0.744 uIU/ML (0.55-4.78)
[2023-08-03 21:55] LABS: ALBUMIN 3.8 G/DL (3.2-5.2); ALKALINE PHOSPHATASE 70 U/L (46-116); ALT/SGPT 23 U/L (7.0-40); AST/SGOT 20 U/L (<34); BILIRUBIN,DIRECT < 0.1 MG/DL (<0.4); BILIRUBIN,TOTAL 0.2 MG/DL (0.3-1.2); BLOOD UREA NITROGEN 15 MG/DL (9-23); CALCIUM LEVEL 8.9 MG/DL (8.5-10.1); CARBON DIOXIDE LEVEL > 40.0 MMOL/L (20-31); CHLORIDE LEVEL 86 MMOL/L (98-107); CPK CREATINE PHOSPHOKINASE 43 U/L (34-145); CREATININE FOR GFR 0.56 MG/DL (0.55-1.30); GLOMERULAR FILTRATION RATE > 60.0 (>58); GLUCOSE, FASTING 131 MG/DL (60-100); MB/CK RELATIVE INDEX 6.27 (< OR =4); POTASSIUM SERUM 3.3 MMOL/L (3.5-5.1); SODIUM LEVEL 137 MMOL/L (136-145); TOTAL PROTEIN 6.4 G/DL (5.7-8.2)
[2023-08-03] MEDS ORDERED: ISOVUE-370 76% 100ML VIAL As Ordered ONE (22:00)
[2023-08-03 23:02] VITALS: BP 140/93; TEMP 97; O2SAT 86
[2023-08-03] MEDS ORDERED: PRED20TA PO (23:15)
[2023-08-03] MEDS: POTASSIUM CHLORIDE 10MEQ SR TABLET PO ONE (23:25)
== END 2023-08-03 23:49 | disposition left against medical advice (07) ==
LOC: M ED 18:51
DX: R06.02 Shortness of breath (principal); I10 Essential (primary) hypertension; J44.9 Chronic obstructive pulmonary disease, unspecified; G43.909 Migraine, unspecified, not intractable, without status migrainosus; K21.9 Gastro-esophageal reflux disease without esophagitis; I45.19 Other right bundle-branch block; R00.0 Tachycardia, unspecified; Z86.79 Personal history of other diseases of the circulatory system; Z88.0 Allergy status to penicillin; Z88.1 Allergy status to other antibiotic agents; Z88.8 Allergy status to other drugs, medicaments and biological substances; Z79.83 Long term (current) use of bisphosphonates; Z79.891 Long term (current) use of opiate analgesic; Z79.52 Long term (current) use of systemic steroids; Z79.899 Other long term (current) drug therapy; Z53.9 Procedure and treatment not carried out, unspecified reason
CPT/HCPCS: 36600; 70450; 71045; 71275; 80048; 80076; 82550; 82553; 82803; 83605; 83880; 84439; 84443; 84484; 85025; 87040; 87486; 87581; 87633; 87798; 93005; 93041; 94640; 94760; 96374; 99284; J2919; Q9967

== ENCOUNTER → 2023-08-13 | Outpatient (CLI) | payer OTHER | LOC: M SOG 11:15 | PROVIDERS: ATTEND Orthopaedic Surgery | DX: M54.6 Pain in thoracic spine (principal) ==

== ENCOUNTER → 2023-08-19 | Outpatient (CLI) | payer OTHER ==
[~2023-08-19] MED LIST changes: +AZIT500T5 PO
== END ==
LOC: M PAL 10:57
PROVIDERS: ATTEND Nurse Practitioner Adult Health
DX: G89.4 Chronic pain syndrome (principal); G89.11 Acute pain due to trauma; J84.10 Pulmonary fibrosis, unspecified; I27.20 Pulmonary hypertension, unspecified; I50.32 Chronic diastolic (congestive) heart failure; R03.0 Elevated blood-pressure reading, without diagnosis of hypertension; M48.54XA Collapsed vertebra, not elsewhere classified, thoracic region, initial encounter for fracture; M48.56XA Collapsed vertebra, not elsewhere classified, lumbar region, initial encounter for fracture; M81.0 Age-related osteoporosis without current pathological fracture; M62.50 Muscle wasting and atrophy, not elsewhere classified, unspecified site; R64 Cachexia; E43 Unspecified severe protein-calorie malnutrition; F41.9 Anxiety disorder, unspecified; K21.9 Gastro-esophageal reflux disease without esophagitis; K59.00 Constipation, unspecified; K80.20 Calculus of gallbladder without cholecystitis without obstruction; R06.02 Shortness of breath; R10.9 Unspecified abdominal pain; R29.6 Repeated falls; R53.81 Other malaise; Z51.5 Encounter for palliative care; Z62.810 Personal history of physical and sexual abuse in childhood; Z63.8 Other specified problems related to primary support group; Z66 Do not resuscitate; Z68.1 Body mass index [BMI] 19.9 or less, adult; Z79.891 Long term (current) use of opiate analgesic; Z79.899 Other long term (current) drug therapy; Z88.0 Allergy status to penicillin; Z88.6 Allergy status to analgesic agent; Z99.81 Dependence on supplemental oxygen; Z88.1 Allergy status to other antibiotic agents; Z99.89 Dependence on other enabling machines and devices

== ENCOUNTER → 2023-08-19 | Outpatient (CLI) | payer OTHER | LOC: M PAIN 16:00 | PROVIDERS: ATTEND Anesthesiology | DX: M79.18 Myalgia, other site (principal); M54.6 Pain in thoracic spine; G89.29 Other chronic pain; Q78.2 Osteopetrosis; I11.9 Hypertensive heart disease without heart failure; I27.20 Pulmonary hypertension, unspecified; Z79.4 Long term (current) use of insulin; Z79.82 Long term (current) use of aspirin; Z79.891 Long term (current) use of opiate analgesic; Z79.899 Other long term (current) drug therapy; Z88.0 Allergy status to penicillin; Z88.1 Allergy status to other antibiotic agents; Z88.5 Allergy status to narcotic agent; Z88.6 Allergy status to analgesic agent ==

== ENCOUNTER → 2023-09-02 | Outpatient (CLI) | payer OTHER ==
[~2023-09-02] MED LIST changes: +DOXY-440 PO; -DOXY-444 PO
== END ==
LOC: M PAIN 15:00
PROVIDERS: ATTEND Anesthesiology
DX: M54.6 Pain in thoracic spine (principal); M54.2 Cervicalgia; M54.50 Low back pain, unspecified; M81.0 Age-related osteoporosis without current pathological fracture; G43.909 Migraine, unspecified, not intractable, without status migrainosus; I27.20 Pulmonary hypertension, unspecified; J44.9 Chronic obstructive pulmonary disease, unspecified; Z87.891 Personal history of nicotine dependence; Z79.891 Long term (current) use of opiate analgesic; Z79.899 Other long term (current) drug therapy; Z88.0 Allergy status to penicillin; Z88.6 Allergy status to analgesic agent; Z88.8 Allergy status to other drugs, medicaments and biological substances

== ENCOUNTER → 2023-09-02 | Outpatient (CLI) | payer OTHER ==
[2023-09-02 16:29] LABS: IRON (FE) 45 UG/DL (50-170)
[2023-09-02 16:40] LABS: ALBUMIN 3.9 G/DL (3.2-5.2); ALKALINE PHOSPHATASE 67 U/L (46-116); ALT/SGPT 65 U/L (7.0-40); AST/SGOT 34 U/L (<34); BILIRUBIN,TOTAL 0.3 MG/DL (0.3-1.2); BLOOD UREA NITROGEN 15 MG/DL (9-23); CALCIUM LEVEL 9.2 MG/DL (8.5-10.1); CARBON DIOXIDE LEVEL > 40.0 MMOL/L (20-31); CHLORIDE LEVEL 90 MMOL/L (98-107); CREATININE FOR GFR 0.49 MG/DL (0.55-1.30); FREE T4 1.49 NG/DL (0.89-1.76); GLOMERULAR FILTRATION RATE > 60.0 (>58); GLUCOSE, FASTING 101 MG/DL (60-100); POTASSIUM SERUM 4.7 MMOL/L (3.5-5.1); SODIUM LEVEL 135 MMOL/L (136-145); THYROID STIMULATING HORMONE 0.452 uIU/ML (0.55-4.78); TOTAL PROTEIN 6.1 G/DL (5.7-8.2); VITAMIN B12 LEVEL 580 PG/ML (211-911)
== END ==
LOC: M PLALAB 13:56
PROVIDERS: ATTEND Internal Medicine Hematology
DX: D64.9 Anemia, unspecified (principal)

== ENCOUNTER → 2023-09-16 | Outpatient (CLI) | payer OTHER ==
[2023-09-16 13:44] LABS: APPEARANCE, URINE CLEAR (CLEAR); BACTERIA, URINE AUTO NEGATIVE (NEGATIVE); BILIRUBIN, URINE AUTO NEGATIVE (NEGATIVE); BLOOD, URINE BLOOD NEGATIVE (NEGATIVE); COLOR, URINE YELLOW (YELLOW); GLUCOSE, URINE (UA) AUTO NEGATIVE (NEGATIVE); KETONE, URINE AUTO NEGATIVE (NEGATIVE); LEUKOCYTE ESTERASE, URINE AUTO NEGATIVE (NEGATIVE); MUCUS, URINE SMALL (NEGATIVE); NITRITE, URINE AUTO NEGATIVE (NEGATIVE); PROTEIN, URINE AUTO NEGATIVE (NEGATIVE); RBC, URINE AUTO 0 /HPF (0-3); SPECIFIC GRAVITY URINE AUTO 1.005 (1.002-1.035); SQUAMOUS EPITHELIAL CELL UR AU 1 /HPF (0-6); UROBILINOGEN, URINE AUTO 0.2 mg/dL (0.0-2.0); WBC, URINE AUTO 1 /HPF (0-3)
== END ==
LOC: M RAD 10:06
PROVIDERS: ATTEND Internal Medicine Hematology
DX: N30.00 Acute cystitis without hematuria (principal)

== ENCOUNTER → 2023-09-16 | Outpatient (CLI) | payer OTHER ==
[2023-09-16 12:55] LABS: ABG BASE EXCESS 10.5 (-2.0-2.0); ABG HCO3 41.5 MMOL/L (22.0-26.0); ABG O2 LITER FLOW 2; ABG O2 SATURATION 96.4 % (95.0-99.0); ABG STANDARD HCO3 34.3 MMOL/L. (22.0-26.0); ABG TOTAL CO2 44.1 MMOL/L (22.0-29.0); ABG pH (ARTERIAL) 7.299 UNITS (7.350-7.450)
[2023-09-16 12:58] LABS: ABG PARTIAL PRESSURE CO2 86.4 mmHg (35.0-45.0)
== END ==
LOC: M LAB 12:22
PROVIDERS: ATTEND Internal Medicine Critical Care Medicine
DX: J44.9 Chronic obstructive pulmonary disease, unspecified (principal)

== ENCOUNTER → 2023-09-18 | Outpatient (CLI) | payer OTHER ==
[2023-09-18 13:16] LABS: ABG BASE EXCESS 12.4 (-2.0-2.0); ABG O2 LITER FLOW 2L; ABG O2 SATURATION 87.4 % (95.0-99.0); ABG SITE RT RADIAL; ABG STANDARD HCO3 35.9 MMOL/L. (22.0-26.0); ABG TOTAL CO2 44.3 MMOL/L (22.0-29.0); ABG pH (ARTERIAL) 7.361 UNITS (7.350-7.450)
[2023-09-18 13:20] LABS: ABG PARTIAL PRESSURE CO2 75.8 mmHg (35.0-45.0)
[2023-09-18 13:25] LABS: ABG PARTIAL PRESSURE O2 49.2 mmHg (75.0-100.0)
== END ==
LOC: M LAB 12:40
PROVIDERS: ATTEND Internal Medicine Critical Care Medicine
DX: J44.9 Chronic obstructive pulmonary disease, unspecified (principal)

== ENCOUNTER → 2023-09-23 | Outpatient (CLI) | payer OTHER ==
[~2023-09-23] MED LIST changes: +ALBU8.5H INH; +IPRA0.00 INH; +IRON150C5 PO; +METO5TAB2 PO; +NYST-38 PO
== END ==
LOC: M PAL 11:57
PROVIDERS: ATTEND Nurse Practitioner Adult Health
DX: G89.4 Chronic pain syndrome (principal); G89.11 Acute pain due to trauma; J84.10 Pulmonary fibrosis, unspecified; I27.20 Pulmonary hypertension, unspecified; I50.32 Chronic diastolic (congestive) heart failure; M48.54XA Collapsed vertebra, not elsewhere classified, thoracic region, initial encounter for fracture; M48.56XA Collapsed vertebra, not elsewhere classified, lumbar region, initial encounter for fracture; M81.0 Age-related osteoporosis without current pathological fracture; M62.50 Muscle wasting and atrophy, not elsewhere classified, unspecified site; R64 Cachexia; E43 Unspecified severe protein-calorie malnutrition; F41.9 Anxiety disorder, unspecified; K21.9 Gastro-esophageal reflux disease without esophagitis; K59.00 Constipation, unspecified; K80.20 Calculus of gallbladder without cholecystitis without obstruction; R06.02 Shortness of breath; R10.9 Unspecified abdominal pain; R29.6 Repeated falls; R53.81 Other malaise; Z51.5 Encounter for palliative care; Z62.810 Personal history of physical and sexual abuse in childhood; Z63.8 Other specified problems related to primary support group; Z66 Do not resuscitate; Z79.891 Long term (current) use of opiate analgesic; Z79.899 Other long term (current) drug therapy; Z88.0 Allergy status to penicillin; Z88.1 Allergy status to other antibiotic agents; Z88.6 Allergy status to analgesic agent; Z99.81 Dependence on supplemental oxygen; Z99.89 Dependence on other enabling machines and devices

== ENCOUNTER 2023-09-30 17:13 | Inpatient (IN) | payer OTHER ==
[~2023-09-30] VITALS: Ht 149.9 cm; Wt 36.6 kg
[~2023-09-30 17:13] MED LIST changes: -ALBU8.5H INH; -IPRA0.00 INH; -IRON150C5 PO; -METO5TAB2 PO; -NYST-38 PO; +ONDA-284 PO; -ONDA8TAB8 PO
[2023-09-30] MEDS: IPRATROPIUM 0.5MG/ALBUTEROL 2.5MG INH SOL UD 3ML (DUONEB) NEB PRN (17:43)
[2023-09-30 17:46] LABS: ABG BASE EXCESS 25.1 (-2.0-2.0); ABG HCO3 60.5 MMOL/L (22.0-26.0); ABG O2 SATURATION 98.8 % (95.0-99.0); ABG PARTIAL PRESSURE O2 145.5 mmHg (75.0-100.0); ABG STANDARD HCO3 50.8 MMOL/L. (22.0-26.0); ABG TOTAL CO2 64.4 MMOL/L (22.0-29.0); ABG pH (ARTERIAL) 7.287 UNITS (7.350-7.450)
[2023-09-30 17:52] LABS: ABG PARTIAL PRESSURE CO2 129.5 mmHg (35.0-45.0)
[2023-09-30 17:54] LABS: BASO % 0.2 % (0.0-1.0); HEMATOCRIT 51.7 % (36.0-47.0); HEMOGLOBIN 15.3 g/dl (12.0-15.5); LYMPH # 0.8 10^3/uL (1.5-5.0); LYMPH % 6.2 % (24.0-44.0); MEAN CORPUSCULAR HEMOGLOBIN 28.7 pg (27.0-33.0); MEAN CORPUSCULAR HGB CONC 29.6 g/dl (32.0-36.5); MEAN CORPUSCULAR VOLUME 96.8 fl (80.0-96.0); MONO # 0.4 10^3/uL (0.0-0.8); MONO % 2.8 % (2.0-8.0); NEUTROPHILS # 11.3 10^3/uL (1.5-8.5); NEUTROPHILS % 90.5 % (36.0-66.0); PLATELET COUNT, AUTOMATED 241 10^3/uL (150-450); RED BLOOD COUNT 5.34 10^6/uL (4.00-5.40); WHITE BLOOD COUNT 12.5 10^3/uL (4.0-10.0)
[2023-09-30 18:11] LABS: INR 1.01
[2023-09-30 18:34] LABS: PROCALCITONIN <0.04 ng/ml
[2023-09-30 18:37] LABS: HCG, SERUM QUALITATIVE NEGATIVE (NEGATIVE)
[2023-09-30 18:38] LABS: ALBUMIN 3.8 G/DL (3.2-5.2); ALKALINE PHOSPHATASE 52 U/L (46-116); ALT/SGPT 62 U/L (7.0-40); AST/SGOT 77 U/L (<34); BILIRUBIN,DIRECT 0.1 MG/DL (<0.4); BILIRUBIN,TOTAL 0.5 MG/DL (0.3-1.2); BLOOD UREA NITROGEN 19 MG/DL (9-23); CALCIUM LEVEL 8.7 MG/DL (8.5-10.1); CARBON DIOXIDE LEVEL > 40.0 MMOL/L (20-31); CHLORIDE LEVEL 84 MMOL/L (98-107); CK-MB VALUE MASS 4.8 NG/ML (<3.6); CPK CREATINE PHOSPHOKINASE 98 U/L (34-145); FREE T4 1.57 NG/DL (0.89-1.76); GLOMERULAR FILTRATION RATE > 60.0 (>58); GLUCOSE, FASTING 99 MG/DL (60-100); MB/CK RELATIVE INDEX 4.89 (< OR =4); POTASSIUM SERUM 6.6 MMOL/L (3.5-5.1); SODIUM LEVEL 136 MMOL/L (136-145); THYROID STIMULATING HORMONE 0.802 uIU/ML (0.55-4.78); TOTAL PROTEIN 6.4 G/DL (5.7-8.2)
[2023-09-30] MEDS ORDERED: CALCIUM GLUCONATE 1,000MG/10ML VIAL (100MG/ML) IV ONE (18:40)
[2023-09-30] MEDS ORDERED: PATIROMER SORBITEX CALCIUM 8.4 GM POWDER PACKET (VELTASSA) PO ONE (18:40)
[2023-09-30] MEDS ORDERED: DEXTROSE 50% 50ML SYRINGE IV ONE (18:40)
[2023-09-30] MEDS ORDERED: HumuLIN R (REGULAR) INSULIN (NovoLIN R) **100U/ML** PER UNIT IV ONE (18:40)
[2023-09-30] MEDS ORDERED: MORPHINE 10MG/0.5ML ORAL CONCENTRATE SOLUTION U/D PO PRN (18:50)
[2023-09-30 19:46] LABS: CK-MB VALUE MASS 4.9 NG/ML (<3.6); MB/CK RELATIVE INDEX 8.59 (< OR =4); POTASSIUM SERUM 4.5 MMOL/L (3.5-5.1)
[2023-09-30] MEDS: IPRATROPIUM 0.5MG/ALBUTEROL 2.5MG INH SOL UD 3ML (DUONEB) NEB SCH (19:59)
[2023-09-30] MEDS ORDERED: IRON150C5 PO (20:35)
[2023-09-30] MEDS ORDERED: IPRA0.00 INH (20:35)
[2023-09-30] MEDS ORDERED: FLUC100T3 PO (20:35)
[2023-09-30] MEDS ORDERED: METO5TAB2 PO (20:36)
[2023-09-30] MEDS ORDERED: HOME MED LIST COMPLETE! XX SCH (20:40)
[2023-09-30] MEDS: oxyCODONE 5MG TAB PO PRN (20:57)
[2023-09-30] MEDS: FENTANYL REMOVAL DOCUMENTATION MISC XX SCH (21:00)
[2023-09-30] MEDS ORDERED: ALPRAZolam 0.25 MG TAB PO SCH (21:00)
[2023-09-30] MEDS: fentaNYL 100 MCG/HR PATCH TOP SCH (21:01)
[2023-09-30] MEDS: GABAPENTIN 300 MG CAP PO SCH (21:04)
[2023-09-30 21:47] VITALS: BP 116/81; TEMP 98.6; O2SAT 92
[2023-09-30 22:00] VITALS: BP 113/82; O2SAT 93
[2023-09-30 23:00] VITALS: BP 99/82; O2SAT 92
[2023-09-30 23:18] LABS: BLOOD UREA NITROGEN 21 MG/DL (9-23); CALCIUM LEVEL 8.9 MG/DL (8.5-10.1); CARBON DIOXIDE LEVEL > 40.0 MMOL/L (20-31); CHLORIDE LEVEL 85 MMOL/L (98-107); CREATININE FOR GFR 0.44 MG/DL (0.55-1.30); GLOMERULAR FILTRATION RATE > 60.0 (>58); GLUCOSE, FASTING 197 MG/DL (60-100); POTASSIUM SERUM 5.1 MMOL/L (3.5-5.1); SODIUM LEVEL 137 MMOL/L (136-145)
[2023-10-01] VITALS (15 sets, daily range): BP systolic 96–152; BP diastolic 65–101; TEMP 97.2–98.7; O2SAT 89–100
[2023-10-01 05:07] LABS: HEMATOCRIT 45.2 % (36.0-47.0); HEMOGLOBIN 13.7 g/dl (12.0-15.5); LYMPH # 0.4 10^3/uL (1.5-5.0); MEAN CORPUSCULAR HEMOGLOBIN 28.8 pg (27.0-33.0); MEAN CORPUSCULAR HGB CONC 30.3 g/dl (32.0-36.5); MONO # 0.3 10^3/uL (0.0-0.8); MONO % 3.6 % (2.0-8.0); NEUTROPHILS # 6.6 10^3/uL (1.5-8.5); NEUTROPHILS % 91.1 % (36.0-66.0); PLATELET COUNT, AUTOMATED 233 10^3/uL (150-450); RED BLOOD COUNT 4.76 10^6/uL (4.00-5.40); WHITE BLOOD COUNT 7.2 10^3/uL (4.0-10.0)
[2023-10-01 05:39] LABS: BLOOD UREA NITROGEN 18 MG/DL (9-23); CALCIUM LEVEL 8.6 MG/DL (8.5-10.1); CARBON DIOXIDE LEVEL > 40.0 MMOL/L (20-31); CHLORIDE LEVEL 85 MMOL/L (98-107); CREATININE FOR GFR 0.43 MG/DL (0.55-1.30); GLOMERULAR FILTRATION RATE > 60.0 (>58); GLUCOSE, FASTING 114 MG/DL (60-100); MAGNESIUM LEVEL 1.7 MG/DL (1.8-2.4); PHOSPHORUS LEVEL 4.5 MG/DL (2.5-4.9); POTASSIUM SERUM 4.1 MMOL/L (3.5-5.1); SODIUM LEVEL 138 MMOL/L (136-145)
[2023-10-01] MEDS: valACYclovir HCL 500 MG TAB PO SCH (09:38)
[2023-10-01] MEDS: AZITHROMYCIN 250MG TABLET PO SCH (09:38)
[2023-10-01] MEDS: methylPREDNISolone 40MG 1ML VIAL IV SCH (09:38)
[2023-10-01] MEDS: MAG SULF 1GM/100ML (MAG RUN) 1 GM in IV 1 EA IV SCH (09:39)
[2023-10-01] MEDS: ENOXAPARIN 30MG/0.3ML SYRINGE (J1650 PER 10MG) SC SCH (09:39)
[2023-10-01] MEDS ORDERED: PRED10TA2 PO (15:06)
[2023-10-01] MEDS ORDERED: ALBU8.5H INH (15:06)
[2023-10-01] MEDS ORDERED: PRED20TA PO (15:06)
[2023-10-01] MEDS: NYSTATIN 500,000U/5ML SUSP UDC SS SCH (17:06)
[2023-10-01] MEDS ORDERED: NYST-38 PO (17:28)
[2023-10-01] MEDS: ALPRAZolam 0.25 MG TAB PO ONE (17:49)
[2023-10-01] MEDS: oxyCODONE 5MG TAB PO PRN (18:27)
[2023-10-01] MEDS: METOPROLOL TART 50 MG TAB PO ONE (20:55)
[2023-10-02 03:51] VITALS: BP 92/60; TEMP 97; O2SAT 93
[2023-10-02 07:40] VITALS: BP 115/74; TEMP 97.8; O2SAT 99
[2023-10-02 08:20] LABS: BASO % 0.1 % (0.0-1.0); EOS % 0.4 % (0.0-3.0); HEMATOCRIT 42.7 % (36.0-47.0); HEMOGLOBIN 13.1 g/dl (12.0-15.5); LYMPH # 1.8 10^3/uL (1.5-5.0); LYMPH % 23.5 % (24.0-44.0); MEAN CORPUSCULAR HEMOGLOBIN 28.9 pg (27.0-33.0); MEAN CORPUSCULAR HGB CONC 30.7 g/dl (32.0-36.5); MEAN CORPUSCULAR VOLUME 94.3 fl (80.0-96.0); MONO # 0.7 10^3/uL (0.0-0.8); MONO % 9.4 % (2.0-8.0); NEUTROPHILS % 66.5 % (36.0-66.0); PLATELET COUNT, AUTOMATED 207 10^3/uL (150-450); RED BLOOD COUNT 4.53 10^6/uL (4.00-5.40); WHITE BLOOD COUNT 7.5 10^3/uL (4.0-10.0)
[2023-10-02 08:38] LABS: BLOOD UREA NITROGEN 16 MG/DL (9-23); CALCIUM LEVEL 8.7 MG/DL (8.5-10.1); CARBON DIOXIDE LEVEL > 40.0 MMOL/L (20-31); CHLORIDE LEVEL 86 MMOL/L (98-107); CREATININE FOR GFR 0.49 MG/DL (0.55-1.30); GLOMERULAR FILTRATION RATE > 60.0 (>58); GLUCOSE, FASTING 80 MG/DL (60-100); POTASSIUM SERUM 3.8 MMOL/L (3.5-5.1); SODIUM LEVEL 137 MMOL/L (136-145)
[2023-10-02] MEDS ORDERED: ENOXAPARIN 30MG/0.3ML SYRINGE (J1650 PER 10MG) SC SCH (09:00)
== END 2023-10-02 09:57 | disposition home or self-care (01) | DRG 189 ==
LOC: EDBD 17:13 → M ED 17:13 → M ED INP 18:40 → M ICU 21:36 → M PCU 10-01 15:40
PROVIDERS: ADMIT Internal Medicine Pulmonary Disease; ATTEND General Practice
DX: J96.22 Acute and chronic respiratory failure with hypercapnia (principal); J44.1 Chronic obstructive pulmonary disease with (acute) exacerbation; R64 Cachexia; I50.32 Chronic diastolic (congestive) heart failure; E87.29 Other acidosis; E87.5 Hyperkalemia; R29.6 Repeated falls; J84.10 Pulmonary fibrosis, unspecified; I27.29 Other secondary pulmonary hypertension; F41.9 Anxiety disorder, unspecified; K59.03 Drug induced constipation; T40.2X5A Adverse effect of other opioids, initial encounter; R25.8 Other abnormal involuntary movements; G89.29 Other chronic pain; F17.210 Nicotine dependence, cigarettes, uncomplicated; I27.23 Pulmonary hypertension due to lung diseases and hypoxia; I11.0 Hypertensive heart disease with heart failure; F32.A Depression, unspecified; F41.0 Panic disorder [episodic paroxysmal anxiety]; R53.81 Other malaise; R26.89 Other abnormalities of gait and mobility; E83.42 Hypomagnesemia; M80.08XD Age-related osteoporosis with current pathological fracture, vertebra(e), subsequent encounter for fracture with routine healing; Z99.81 Dependence on supplemental oxygen; Z79.891 Long term (current) use of opiate analgesic; Z79.52 Long term (current) use of systemic steroids; Z88.0 Allergy status to penicillin; Z79.899 Other long term (current) drug therapy; Z88.6 Allergy status to analgesic agent; Z88.8 Allergy status to other drugs, medicaments and biological substances

== ENCOUNTER → 2023-10-14 | Outpatient (CLI) | payer OTHER ==
[~2023-10-14] MED LIST changes: +ALBU8.5H INH; +IPRA0.00 INH; +IRON150C5 PO; +METO5TAB2 PO; +NYST-38 PO; +PRED25TA PO
== END ==
LOC: M PAL 13:12
PROVIDERS: ATTEND Nurse Practitioner Adult Health
DX: G89.4 Chronic pain syndrome (principal); G89.11 Acute pain due to trauma; J84.10 Pulmonary fibrosis, unspecified; I27.20 Pulmonary hypertension, unspecified; I50.32 Chronic diastolic (congestive) heart failure; M48.54XA Collapsed vertebra, not elsewhere classified, thoracic region, initial encounter for fracture; M48.56XA Collapsed vertebra, not elsewhere classified, lumbar region, initial encounter for fracture; M81.0 Age-related osteoporosis without current pathological fracture; M62.50 Muscle wasting and atrophy, not elsewhere classified, unspecified site; R64 Cachexia; E43 Unspecified severe protein-calorie malnutrition; F41.9 Anxiety disorder, unspecified; K21.9 Gastro-esophageal reflux disease without esophagitis; K59.03 Drug induced constipation; K80.20 Calculus of gallbladder without cholecystitis without obstruction; R06.02 Shortness of breath; R10.9 Unspecified abdominal pain; R29.6 Repeated falls; R53.81 Other malaise; Z51.5 Encounter for palliative care; Z62.810 Personal history of physical and sexual abuse in childhood; Z63.8 Other specified problems related to primary support group; Z66 Do not resuscitate; Z79.891 Long term (current) use of opiate analgesic; Z79.899 Other long term (current) drug therapy; Z88.0 Allergy status to penicillin; Z88.1 Allergy status to other antibiotic agents; Z88.6 Allergy status to analgesic agent; Z99.81 Dependence on supplemental oxygen; Z99.89 Dependence on other enabling machines and devices

== ENCOUNTER → 2023-10-21 | Outpatient (CLI) | payer OTHER ==
[~2023-10-21] MED LIST changes: -PRED25TA PO
[2023-10-21 19:08] LABS: BASO % 0.2 % (0.0-1.0); EOS % 0.1 % (0.0-3.0); HEMATOCRIT 47.1 % (36.0-47.0); HEMOGLOBIN 14.1 g/dl (12.0-15.5); LYMPH # 0.5 10^3/uL (1.5-5.0); LYMPH % 4.2 % (24.0-44.0); MEAN CORPUSCULAR HEMOGLOBIN 28.1 pg (27.0-33.0); MEAN CORPUSCULAR HGB CONC 29.9 g/dl (32.0-36.5); MONO # 0.7 10^3/uL (0.0-0.8); MONO % 5.4 % (2.0-8.0); NEUTROPHILS # 10.8 10^3/uL (1.5-8.5); NEUTROPHILS % 89.7 % (36.0-66.0); PLATELET COUNT, AUTOMATED 230 10^3/uL (150-450); RED BLOOD COUNT 5.01 10^6/uL (4.00-5.40)
[2023-10-21 19:16] LABS: ALBUMIN 3.7 G/DL (3.2-5.2); ALKALINE PHOSPHATASE 54 U/L (46-116); ALT/SGPT 29 U/L (7.0-40); AST/SGOT 15 U/L (<34); BILIRUBIN,TOTAL 0.3 MG/DL (0.3-1.2); BLOOD UREA NITROGEN 16 MG/DL (9-23); CALCIUM LEVEL 9.5 MG/DL (8.5-10.1); CARBON DIOXIDE LEVEL > 40.0 MMOL/L (20-31); CHLORIDE LEVEL 93 MMOL/L (98-107); CREATININE FOR GFR 0.43 MG/DL (0.55-1.30); GLOMERULAR FILTRATION RATE > 60.0 (>58); GLUCOSE, FASTING 161 MG/DL (60-100); MAGNESIUM LEVEL 1.8 MG/DL (1.8-2.4); POTASSIUM SERUM 5.3 MMOL/L (3.5-5.1); SODIUM LEVEL 137 MMOL/L (136-145); TOTAL PROTEIN 6.1 G/DL (5.7-8.2)
== END ==
LOC: M PLALAB 14:34
PROVIDERS: ATTEND Internal Medicine Hematology
DX: M51.34 Other intervertebral disc degeneration, thoracic region (principal); M54.2 Cervicalgia

== ENCOUNTER → 2023-10-21 | Outpatient (CLI) | payer OTHER | LOC: M PAIN 16:00 | PROVIDERS: ATTEND Anesthesiology | DX: M47.816 Spondylosis without myelopathy or radiculopathy, lumbar region (principal); M54.6 Pain in thoracic spine; M47.814 Spondylosis without myelopathy or radiculopathy, thoracic region; M81.0 Age-related osteoporosis without current pathological fracture; G43.909 Migraine, unspecified, not intractable, without status migrainosus; I27.20 Pulmonary hypertension, unspecified; J44.9 Chronic obstructive pulmonary disease, unspecified; F17.210 Nicotine dependence, cigarettes, uncomplicated; Z79.891 Long term (current) use of opiate analgesic; Z79.899 Other long term (current) drug therapy; Z88.0 Allergy status to penicillin; Z88.6 Allergy status to analgesic agent; Z88.8 Allergy status to other drugs, medicaments and biological substances ==

== ENCOUNTER → 2023-10-27 | Outpatient (CLI) | payer OTHER | LOC: M RAD 13:34 | PROVIDERS: ATTEND Internal Medicine Hematology | DX: I77.1 Stricture of artery (principal) ==

== ENCOUNTER → 2023-10-30 | Outpatient (CLI) | payer OTHER | LOC: M SOG 11:35 | PROVIDERS: ATTEND Orthopaedic Surgery | DX: M25.552 Pain in left hip (principal) ==

== ENCOUNTER → 2023-11-18 | Outpatient (CLI) | payer OTHER ==
[~2023-11-18] MED LIST changes: +PRED25TA PO
== END ==
LOC: M PAIN 16:30
PROVIDERS: ATTEND Anesthesiology
DX: M54.6 Pain in thoracic spine (principal); M79.10 Myalgia, unspecified site; M79.18 Myalgia, other site; M54.50 Low back pain, unspecified; M81.0 Age-related osteoporosis without current pathological fracture; J44.9 Chronic obstructive pulmonary disease, unspecified; Z79.891 Long term (current) use of opiate analgesic; M85.80 Other specified disorders of bone density and structure, unspecified site; G43.909 Migraine, unspecified, not intractable, without status migrainosus; I27.20 Pulmonary hypertension, unspecified; F17.210 Nicotine dependence, cigarettes, uncomplicated; Z79.899 Other long term (current) drug therapy; Z88.0 Allergy status to penicillin; Z88.6 Allergy status to analgesic agent; Z88.8 Allergy status to other drugs, medicaments and biological substances

== ENCOUNTER → 2023-11-18 | Outpatient (CLI) | payer OTHER ==
[~2023-11-18] MED LIST changes: +HYDR-643 PO; +LIDO5DIS41 TOP; +MORP10SO PO
== END ==
LOC: M PAL 11:09
PROVIDERS: ATTEND Nurse Practitioner Adult Health
DX: G89.4 Chronic pain syndrome (principal); F39 Unspecified mood [affective] disorder; K31.84 Gastroparesis; J84.10 Pulmonary fibrosis, unspecified; I27.20 Pulmonary hypertension, unspecified; I50.32 Chronic diastolic (congestive) heart failure; M48.54XA Collapsed vertebra, not elsewhere classified, thoracic region, initial encounter for fracture; M48.56XA Collapsed vertebra, not elsewhere classified, lumbar region, initial encounter for fracture; M81.0 Age-related osteoporosis without current pathological fracture; M62.50 Muscle wasting and atrophy, not elsewhere classified, unspecified site; R64 Cachexia; E43 Unspecified severe protein-calorie malnutrition; F41.9 Anxiety disorder, unspecified; K21.9 Gastro-esophageal reflux disease without esophagitis; K80.20 Calculus of gallbladder without cholecystitis without obstruction; R06.02 Shortness of breath; Z51.5 Encounter for palliative care; K59.00 Constipation, unspecified; R53.81 Other malaise; Z79.51 Long term (current) use of inhaled steroids; Z79.52 Long term (current) use of systemic steroids; Z79.891 Long term (current) use of opiate analgesic; Z79.899 Other long term (current) drug therapy; Z88.0 Allergy status to penicillin; Z88.1 Allergy status to other antibiotic agents; Z88.6 Allergy status to analgesic agent; Z87.891 Personal history of nicotine dependence; Z62.810 Personal history of physical and sexual abuse in childhood; R29.6 Repeated falls

== ENCOUNTER → 2023-11-25 | Outpatient (REF) | payer OTHER ==
[~2023-11-25] MED LIST changes: -HYDR-643 PO; -LIDO5DIS41 TOP; -MORP10SO PO
[2023-11-25 18:37] LABS: BASO % 0.2 % (0.0-1.0); EOS % 0.1 % (0.0-3.0); HEMATOCRIT 49.9 % (36.0-47.0); HEMOGLOBIN 15.2 g/dl (12.0-15.5); LYMPH # 1.1 10^3/uL (1.5-5.0); LYMPH % 9.7 % (24.0-44.0); MEAN CORPUSCULAR HEMOGLOBIN 28.8 pg (27.0-33.0); MEAN CORPUSCULAR HGB CONC 30.5 g/dl (32.0-36.5); MEAN CORPUSCULAR VOLUME 94.5 fl (80.0-96.0); MONO # 0.5 10^3/uL (0.0-0.8); MONO % 4.9 % (2.0-8.0); NEUTROPHILS # 9.5 10^3/uL (1.5-8.5); NEUTROPHILS % 84.8 % (36.0-66.0); PLATELET COUNT, AUTOMATED 257 10^3/uL (150-450); RED BLOOD COUNT 5.28 10^6/uL (4.00-5.40); WHITE BLOOD COUNT 11.1 10^3/uL (4.0-10.0)
[2023-11-25 19:12] LABS: IRON (FE) 44 UG/DL (50-170)
[2023-11-25 19:15] LABS: ALBUMIN 3.9 G/DL (3.2-5.2); ALKALINE PHOSPHATASE 60 U/L (46-116); ALT/SGPT 24 U/L (7.0-40); AST/SGOT 20 U/L (<34); BILIRUBIN,TOTAL 0.4 MG/DL (0.3-1.2); BLOOD UREA NITROGEN 15 MG/DL (9-23); CALCIUM LEVEL 9.6 MG/DL (8.5-10.1); CARBON DIOXIDE LEVEL > 40.0 MMOL/L (20-31); CHLORIDE LEVEL 84 MMOL/L (98-107); CREATININE FOR GFR 0.59 MG/DL (0.55-1.30); GLOMERULAR FILTRATION RATE > 60.0 (>58); GLUCOSE, FASTING 88 MG/DL (60-100); POTASSIUM SERUM 5.1 MMOL/L (3.5-5.1); SODIUM LEVEL 133 MMOL/L (136-145); TOTAL PROTEIN 6.6 G/DL (5.7-8.2)
== END ==
LOC: M LABDRAWP 17:34
PROVIDERS: ATTEND Internal Medicine Hematology
DX: E87.5 Hyperkalemia (principal); D50.8 Other iron deficiency anemias; M81.0 Age-related osteoporosis without current pathological fracture

== ENCOUNTER 2023-12-21 13:50 | Outpatient (CLI) | payer OTHER ==
[~2023-12-21] VITALS: Ht 139.7 cm; Wt 35.5 kg
[~2023-12-21 13:50] MED LIST changes: +ALBUTEROL SULFATE 2.5MG/0.5ML INH NEB SOLN INH PRN; +EPINEPHrine INJ 1 MG/ML 1ML AMP IM PRN; +LIDO5DIS41 TOP; +NS 1,000 ML IV SCH; +diphenhydrAMINE 50MG/ML VIAL IV PRN; +methylPREDNISolone 125MG 2ML VIAL IV PRN
[2023-12-21 14:05] VITALS: BP 106/71; O2SAT 97
[2023-12-21] MEDS: IRON SUCROSE 300 MG in NS 250 ML IV ONE (14:29)
[2023-12-21 16:04] VITALS: BP 101/67; O2SAT 96
[2023-12-23] MEDS ORDERED: HYDR-643 PO (17:20)
== END 2023-12-21 16:25 ==
LOC: M INFU 13:50
PROVIDERS: ATTEND Internal Medicine Hematology
DX: D50.9 Iron deficiency anemia, unspecified (principal); Z88.0 Allergy status to penicillin; Z88.1 Allergy status to other antibiotic agents; Z88.8 Allergy status to other drugs, medicaments and biological substances
CPT/HCPCS: 96365; 96366; J1756

== ENCOUNTER → 2023-12-23 | Outpatient (CLI) | payer OTHER ==
[~2023-12-23] MED LIST changes: -ALBUTEROL SULFATE 2.5MG/0.5ML INH NEB SOLN INH PRN; -EPINEPHrine INJ 1 MG/ML 1ML AMP IM PRN; +HYDR-643 PO; -NS 1,000 ML IV SCH; -diphenhydrAMINE 50MG/ML VIAL IV PRN; -methylPREDNISolone 125MG 2ML VIAL IV PRN
== END ==
LOC: M PAIN 09:00
PROVIDERS: ATTEND Anesthesiology
DX: M54.6 Pain in thoracic spine (principal); M54.50 Low back pain, unspecified; M79.10 Myalgia, unspecified site; M79.18 Myalgia, other site; M81.0 Age-related osteoporosis without current pathological fracture; J44.9 Chronic obstructive pulmonary disease, unspecified; M85.80 Other specified disorders of bone density and structure, unspecified site; G43.909 Migraine, unspecified, not intractable, without status migrainosus; I27.20 Pulmonary hypertension, unspecified; F17.210 Nicotine dependence, cigarettes, uncomplicated; Z79.52 Long term (current) use of systemic steroids; Z79.891 Long term (current) use of opiate analgesic; Z79.899 Other long term (current) drug therapy; Z88.0 Allergy status to penicillin; Z88.6 Allergy status to analgesic agent; Z88.8 Allergy status to other drugs, medicaments and biological substances

== ENCOUNTER → 2023-12-23 | Outpatient (CLI) | payer OTHER ==
[~2023-12-23] MED LIST changes: +MORP10SO PO
== END ==
LOC: M PAL 14:43
PROVIDERS: ATTEND Nurse Practitioner Adult Health
DX: G89.4 Chronic pain syndrome (principal); F39 Unspecified mood [affective] disorder; K31.84 Gastroparesis; J84.10 Pulmonary fibrosis, unspecified; I27.20 Pulmonary hypertension, unspecified; I50.32 Chronic diastolic (congestive) heart failure; M48.54XA Collapsed vertebra, not elsewhere classified, thoracic region, initial encounter for fracture; M48.56XA Collapsed vertebra, not elsewhere classified, lumbar region, initial encounter for fracture; M81.0 Age-related osteoporosis without current pathological fracture; E43 Unspecified severe protein-calorie malnutrition; K59.00 Constipation, unspecified; F41.9 Anxiety disorder, unspecified; K21.9 Gastro-esophageal reflux disease without esophagitis; K80.20 Calculus of gallbladder without cholecystitis without obstruction; R06.02 Shortness of breath; Z51.5 Encounter for palliative care; R53.81 Other malaise; Z79.51 Long term (current) use of inhaled steroids; Z79.52 Long term (current) use of systemic steroids; Z79.891 Long term (current) use of opiate analgesic; Z79.899 Other long term (current) drug therapy; Z88.0 Allergy status to penicillin; Z88.1 Allergy status to other antibiotic agents; Z88.6 Allergy status to analgesic agent; Z87.891 Personal history of nicotine dependence; Z62.810 Personal history of physical and sexual abuse in childhood; R29.6 Repeated falls; Z99.89 Dependence on other enabling machines and devices

== ENCOUNTER 2023-12-28 14:10 | Outpatient (CLI) | payer OTHER ==
[~2023-12-28] VITALS: Ht 139.7 cm; Wt 35.5 kg
[2023-12-28 14:10] VITALS: BP 96/56; O2SAT 90
[~2023-12-28 14:10] MED LIST changes: +ALBUTEROL SULFATE 2.5MG/0.5ML INH NEB SOLN INH PRN; +EPINEPHrine INJ 1 MG/ML 1ML AMP IM PRN; -MORP10SO PO; +NS 1,000 ML IV SCH; +diphenhydrAMINE 50MG/ML VIAL IV PRN; +methylPREDNISolone 125MG 2ML VIAL IV PRN
[2023-12-28] MEDS: IRON SUCROSE 300 MG in NS 250 ML OVER 90 MIN. IV ONE (14:34)
[2023-12-28 16:10] VITALS: BP 113/70; O2SAT 97
[2023-12-29] MEDS ORDERED: MORP10SO PO (12:40)
== END 2023-12-28 16:10 ==
LOC: M INFU 14:10
PROVIDERS: ATTEND Internal Medicine Hematology
DX: D50.9 Iron deficiency anemia, unspecified (principal); Z88.0 Allergy status to penicillin; Z88.1 Allergy status to other antibiotic agents; Z88.6 Allergy status to analgesic agent
CPT/HCPCS: 96365; 96366; 96374; 96375; J1756

== ENCOUNTER → 2023-12-29 | Outpatient (CLI) | payer OTHER ==
[~2023-12-29] MED LIST changes: -ALBUTEROL SULFATE 2.5MG/0.5ML INH NEB SOLN INH PRN; -EPINEPHrine INJ 1 MG/ML 1ML AMP IM PRN; +MORP10SO PO; -NS 1,000 ML IV SCH; -diphenhydrAMINE 50MG/ML VIAL IV PRN; -methylPREDNISolone 125MG 2ML VIAL IV PRN
== END ==
LOC: M RAD 15:15
PROVIDERS: ATTEND Nurse Practitioner
DX: M54.59 Other low back pain (principal)

== ENCOUNTER → 2024-01-27 | Outpatient (CLI) | payer OTHER ==
[2024-01-27 18:10] LABS: BASO % 0.3 % (0.0-1.0); EOS % 0.5 % (0.0-3.0); HEMATOCRIT 44.3 % (36.0-47.0); HEMOGLOBIN 13.3 g/dl (12.0-15.5); LYMPH # 0.9 10^3/uL (1.5-5.0); LYMPH % 9.8 % (24.0-44.0); MEAN CORPUSCULAR HEMOGLOBIN 29.8 pg (27.0-33.0); MEAN CORPUSCULAR VOLUME 99.1 fl (80.0-96.0); MONO # 0.5 10^3/uL (0.0-0.8); NEUTROPHILS # 7.2 10^3/uL (1.5-8.5); NEUTROPHILS % 83.1 % (36.0-66.0); PLATELET COUNT, AUTOMATED 193 10^3/uL (150-450); RED BLOOD COUNT 4.47 10^6/uL (4.00-5.40); WHITE BLOOD COUNT 8.7 10^3/uL (4.0-10.0)
[2024-01-27 18:42] LABS: ALBUMIN 3.5 G/DL (3.2-5.2); ALKALINE PHOSPHATASE 62 U/L (46-116); ALT/SGPT 55 U/L (7.0-40); AST/SGOT 46 U/L (<34); BILIRUBIN,TOTAL 0.3 MG/DL (0.3-1.2); BLOOD UREA NITROGEN 15 MG/DL (9-23); CALCIUM LEVEL 9.5 MG/DL (8.5-10.1); CARBON DIOXIDE LEVEL > 40.0 MMOL/L (20-31); CHLORIDE LEVEL 82 MMOL/L (98-107); GLOMERULAR FILTRATION RATE > 60.0 (>58); GLUCOSE, FASTING 164 MG/DL (60-100); POTASSIUM SERUM 4.3 MMOL/L (3.5-5.1); SODIUM LEVEL 134 MMOL/L (136-145); TOTAL PROTEIN 6.4 G/DL (5.7-8.2)
== END ==
LOC: M PLALAB 14:37
PROVIDERS: ATTEND Internal Medicine Critical Care Medicine
DX: R64 Cachexia (principal)

== ENCOUNTER → 2024-02-08 | Outpatient (CLI) | payer OTHER ==
[~2024-02-08] MED LIST changes: +ALPR0.25 PO; +GABA-1172 PO; -GABA-282 PO
== END ==
LOC: M PAL 14:26
PROVIDERS: ATTEND Nurse Practitioner Adult Health
DX: Z51.5 Encounter for palliative care (principal); G89.4 Chronic pain syndrome; F39 Unspecified mood [affective] disorder; K31.84 Gastroparesis; J84.10 Pulmonary fibrosis, unspecified; I27.20 Pulmonary hypertension, unspecified; I50.32 Chronic diastolic (congestive) heart failure; M48.54XA Collapsed vertebra, not elsewhere classified, thoracic region, initial encounter for fracture; M48.56XA Collapsed vertebra, not elsewhere classified, lumbar region, initial encounter for fracture; M81.0 Age-related osteoporosis without current pathological fracture; R64 Cachexia; R60.1 Generalized edema; E43 Unspecified severe protein-calorie malnutrition; F41.9 Anxiety disorder, unspecified; K21.9 Gastro-esophageal reflux disease without esophagitis; K80.20 Calculus of gallbladder without cholecystitis without obstruction; R06.02 Shortness of breath; Z68.1 Body mass index [BMI] 19.9 or less, adult; K59.00 Constipation, unspecified; R53.81 Other malaise; Z79.51 Long term (current) use of inhaled steroids; Z79.52 Long term (current) use of systemic steroids; Z79.891 Long term (current) use of opiate analgesic; Z79.899 Other long term (current) drug therapy; Z88.0 Allergy status to penicillin; Z88.1 Allergy status to other antibiotic agents; Z88.6 Allergy status to analgesic agent; Z87.891 Personal history of nicotine dependence; Z62.810 Personal history of physical and sexual abuse in childhood; R29.6 Repeated falls

== ENCOUNTER 2024-02-10 22:59 | Emergency (ER) | payer OTHER ==
[~2024-02-10] VITALS: Ht 154.9 cm; Wt 34.1 kg
[2024-02-10 23:29] VITALS: TEMP 97
[2024-02-11 01:00] VITALS: BP 110/66
[2024-02-11 02:25] VITALS: O2SAT 98
[2024-02-11] MEDS ORDERED: DIAZ5TAB PO (09:47)
[2024-02-13] MEDS ORDERED: DIAZ5TAB PO (07:54)
[2024-02-14] MEDS ORDERED: ATRO2DRO4 SL (07:22)
[2024-02-15] MEDS ORDERED: MORP1SOL5 PO ×2 (14:47→14:48)
== END 2024-02-11 02:51 | disposition home or self-care (01) ==
LOC: M ED 22:59 → EDBD 22:59 → M ED 02-11 02:51
DX: J44.1 Chronic obstructive pulmonary disease with (acute) exacerbation (principal); Z51.5 Encounter for palliative care; I27.0 Primary pulmonary hypertension; F17.210 Nicotine dependence, cigarettes, uncomplicated; Z88.0 Allergy status to penicillin; Z88.1 Allergy status to other antibiotic agents; Z88.8 Allergy status to other drugs, medicaments and biological substances; Z79.51 Long term (current) use of inhaled steroids; Z79.2 Long term (current) use of antibiotics; Z79.52 Long term (current) use of systemic steroids; Z79.899 Other long term (current) drug therapy

== ENCOUNTER → 2024-02-17 | Outpatient (CLI) | payer OTHER ==
[~2024-02-17] MED LIST changes: +ATRO2DRO4 SL; +DIAZ5TAB PO
== END ==
LOC: M PAL 13:24
PROVIDERS: ATTEND Nurse Practitioner Adult Health
DX: G89.4 Chronic pain syndrome (principal); Z51.5 Encounter for palliative care; F39 Unspecified mood [affective] disorder; K31.84 Gastroparesis; J84.10 Pulmonary fibrosis, unspecified; I27.20 Pulmonary hypertension, unspecified; I50.32 Chronic diastolic (congestive) heart failure; M48.54XA Collapsed vertebra, not elsewhere classified, thoracic region, initial encounter for fracture; M48.56XA Collapsed vertebra, not elsewhere classified, lumbar region, initial encounter for fracture; M81.0 Age-related osteoporosis without current pathological fracture; R64 Cachexia; R60.1 Generalized edema; E43 Unspecified severe protein-calorie malnutrition; F41.9 Anxiety disorder, unspecified; K21.9 Gastro-esophageal reflux disease without esophagitis; K80.20 Calculus of gallbladder without cholecystitis without obstruction; R06.02 Shortness of breath; Z68.1 Body mass index [BMI] 19.9 or less, adult; K59.00 Constipation, unspecified; R53.81 Other malaise; Z79.51 Long term (current) use of inhaled steroids; Z79.52 Long term (current) use of systemic steroids; Z79.891 Long term (current) use of opiate analgesic; Z79.899 Other long term (current) drug therapy; Z88.0 Allergy status to penicillin; Z88.1 Allergy status to other antibiotic agents; Z88.6 Allergy status to analgesic agent; Z87.891 Personal history of nicotine dependence; Z62.810 Personal history of physical and sexual abuse in childhood; R29.6 Repeated falls

== ENCOUNTER → 2024-02-23 | Outpatient (CLI) | payer OTHER ==
[2024-02-23 15:10] LABS: HEMATOCRIT 45.8 % (36.0-47.0); HEMOGLOBIN 13.9 g/dl (12.0-15.5); MEAN CORPUSCULAR HEMOGLOBIN 30.2 pg (27.0-33.0); MEAN CORPUSCULAR HGB CONC 30.3 g/dl (32.0-36.5); MEAN CORPUSCULAR VOLUME 99.6 fl (80.0-96.0); PLATELET COUNT, AUTOMATED 198 10^3/uL (150-450); WHITE BLOOD COUNT 13.4 10^3/uL (4.0-10.0)
[2024-02-23 16:02] LABS: ALBUMIN 3.6 G/DL (3.2-5.2); ALKALINE PHOSPHATASE 57 U/L (46-116); ALT/SGPT 27 U/L (7.0-40); AST/SGOT 24 U/L (<34); BILIRUBIN,TOTAL 0.5 MG/DL (0.3-1.2); BLOOD UREA NITROGEN 35 MG/DL (9-23); CALCIUM LEVEL 9.9 MG/DL (8.5-10.1); CARBON DIOXIDE LEVEL > 40.0 MMOL/L (20-31); CHLORIDE LEVEL 80 MMOL/L (98-107); CREATININE FOR GFR 0.36 MG/DL (0.55-1.30); GLOMERULAR FILTRATION RATE > 60.0 (>58); GLUCOSE, FASTING 144 MG/DL (60-100); SODIUM LEVEL 136 MMOL/L (136-145); TOTAL PROTEIN 6.8 G/DL (5.7-8.2)
== END ==
LOC: M PLALAB 12:44
PROVIDERS: ATTEND Internal Medicine Cardiovascular Disease
DX: I50.32 Chronic diastolic (congestive) heart failure (principal)

== ENCOUNTER → 2024-02-23 | Outpatient (CLI) | payer OTHER ==
[2024-02-23 17:34] LABS: BASO % 0.1 % (0.0-1.0); HEMATOCRIT 44.6 % (36.0-47.0); HEMOGLOBIN 13.5 g/dl (12.0-15.5); LYMPH # 0.3 10^3/uL (1.5-5.0); LYMPH % 2.6 % (24.0-44.0); MEAN CORPUSCULAR HEMOGLOBIN 29.8 pg (27.0-33.0); MEAN CORPUSCULAR HGB CONC 30.3 g/dl (32.0-36.5); MEAN CORPUSCULAR VOLUME 98.5 fl (80.0-96.0); MONO # 0.1 10^3/uL (0.0-0.8); MONO % 0.8 % (2.0-8.0); NEUTROPHILS # 11.6 10^3/uL (1.5-8.5); NEUTROPHILS % 95.9 % (36.0-66.0); PLATELET COUNT, AUTOMATED 193 10^3/uL (150-450); RED BLOOD COUNT 4.53 10^6/uL (4.00-5.40); WHITE BLOOD COUNT 12.1 10^3/uL (4.0-10.0)
[2024-02-23 17:58] LABS: APPEARANCE, URINE CLOUDY (CLEAR); BACTERIA, URINE AUTO NEGATIVE (NEGATIVE); BILIRUBIN, URINE AUTO NEGATIVE (NEGATIVE); BLOOD, URINE BLOOD NEGATIVE (NEGATIVE); COLOR, URINE YELLOW (YELLOW); GLUCOSE, URINE (UA) AUTO NEGATIVE (NEGATIVE); KETONE, URINE AUTO NEGATIVE (NEGATIVE); LEUKOCYTE ESTERASE, URINE AUTO NEGATIVE (NEGATIVE); NITRITE, URINE AUTO NEGATIVE (NEGATIVE); PROTEIN, URINE AUTO 1+ mg/dL (NEGATIVE); RBC, URINE AUTO 0 /HPF (0-3); SPECIFIC GRAVITY URINE AUTO 1.015 (1.002-1.035); SQUAMOUS EPITHELIAL CELL UR AU 1 /HPF (0-6); UROBILINOGEN, URINE AUTO 0.2 mg/dL (0.0-2.0); WBC, URINE AUTO 0 /HPF (0-3)
[2024-02-23 18:04] LABS: TOTAL IRON BINDING CAPACITY 339 UG/DL (250-425)
[2024-02-23 18:06] LABS: CREATININE, URINE 21.8 MG/DL; MAU/CREAT RATIO 64.2 MCG/MG (0.0-30.0)
[2024-02-23 18:29] LABS: ALBUMIN 3.6 G/DL (3.2-5.2); ALKALINE PHOSPHATASE 55 U/L (46-116); ALT/SGPT 27 U/L (7.0-40); AST/SGOT 20 U/L (<34); BILIRUBIN,TOTAL 0.6 MG/DL (0.3-1.2); BLOOD UREA NITROGEN 35 MG/DL (9-23); CALCIUM LEVEL 9.4 MG/DL (8.5-10.1); CARBON DIOXIDE LEVEL > 40.0 MMOL/L (20-31); CHLORIDE LEVEL 79 MMOL/L (98-107); CHOLESTEROL LEVEL 207 MG/DL (<200); CHOLESTEROL RISK RATIO 1.99 (<5); CREATININE FOR GFR 0.37 MG/DL (0.55-1.30); FREE T4 1.68 NG/DL (0.89-1.76); GLOMERULAR FILTRATION RATE > 60.0 (>58); GLUCOSE, FASTING 140 MG/DL (60-100); HDL CHOLESTEROL 103.6 MG/DL (>40); IRON (FE) 47 UG/DL (50-170); LDL CHOLESTEROL 85.4 MG/DL (<100); NON-HDL-C 103.4 MG/DL; PERCENT SATURATION 13.9 % (13.2-45.0); POTASSIUM SERUM 3.6 MMOL/L (3.5-5.1); SODIUM LEVEL 132 MMOL/L (136-145); THYROID STIMULATING HORMONE 0.481 uIU/ML (0.55-4.78); TOTAL 25(OH) VITAMIN D 30.4 NG/ML (20.0-100.0); TOTAL PROTEIN 6.7 G/DL (5.7-8.2); TRIGLYCERIDES LEVEL 90 MG/DL (<150); VITAMIN B12 LEVEL 843 PG/ML (211-911)
[2024-02-23 19:52] LABS: HEMOGLOBIN A1c 5.8 % (4.0-6.0)
== END ==
LOC: M PLAIMG 12:46
PROVIDERS: ATTEND Internal Medicine Hematology
DX: J06.9 Acute upper respiratory infection, unspecified (principal); I27.20 Pulmonary hypertension, unspecified; N30.00 Acute cystitis without hematuria; D50.0 Iron deficiency anemia secondary to blood loss (chronic)

== ENCOUNTER → 2024-03-09 | Outpatient (CLI) | payer OTHER | LOC: M PAL 11:30 | PROVIDERS: ATTEND Nurse Practitioner Adult Health | DX: G89.4 Chronic pain syndrome (principal); I27.20 Pulmonary hypertension, unspecified; I50.32 Chronic diastolic (congestive) heart failure; J84.10 Pulmonary fibrosis, unspecified; R53.81 Other malaise; K59.00 Constipation, unspecified; E43 Unspecified severe protein-calorie malnutrition; K31.84 Gastroparesis; K80.20 Calculus of gallbladder without cholecystitis without obstruction; R06.02 Shortness of breath; F39 Unspecified mood [affective] disorder; F41.9 Anxiety disorder, unspecified; M48.54XA Collapsed vertebra, not elsewhere classified, thoracic region, initial encounter for fracture; M48.56XA Collapsed vertebra, not elsewhere classified, lumbar region, initial encounter for fracture; M54.9 Dorsalgia, unspecified; R60.1 Generalized edema; R64 Cachexia; Z51.5 Encounter for palliative care; Z79.51 Long term (current) use of inhaled steroids; Z79.52 Long term (current) use of systemic steroids; Z79.810 Long term (current) use of selective estrogen receptor modulators (SERMs); Z79.891 Long term (current) use of opiate analgesic; Z79.899 Other long term (current) drug therapy; Z88.0 Allergy status to penicillin; Z88.1 Allergy status to other antibiotic agents; Z88.6 Allergy status to analgesic agent; Z87.891 Personal history of nicotine dependence; Z62.810 Personal history of physical and sexual abuse in childhood; R29.6 Repeated falls; Z66 Do not resuscitate; Z63.0 Problems in relationship with spouse or partner ==

== ENCOUNTER → 2024-03-14 | Outpatient (CLI) | payer OTHER | LOC: M ONCM 15:00 | DX: J96.10 Chronic respiratory failure, unspecified whether with hypoxia or hypercapnia (principal); J44.9 Chronic obstructive pulmonary disease, unspecified; I27.20 Pulmonary hypertension, unspecified ==

== ENCOUNTER 2024-03-21 13:35 | Outpatient (CLI) | payer OTHER ==
[~2024-03-21] VITALS: Ht 163.8 cm; Wt 38.4 kg
[~2024-03-21 13:35] MED LIST changes: +ALBUTEROL SULFATE 2.5MG/0.5ML INH NEB SOLN INH PRN; +EPINEPHrine INJ 1 MG/ML 1ML AMP IM PRN; +NS 1,000 ML IV SCH; +diphenhydrAMINE 50MG/ML VIAL IV PRN; +methylPREDNISolone 125MG 2ML VIAL IV PRN
[2024-03-21 13:40] VITALS: BP 116/77; O2SAT 96
[2024-03-21] MEDS: IRON SUCROSE 300 MG in NS 250 ML OVER 90 MIN. IV ONE (14:27)
[2024-03-21 16:13] VITALS: BP 120/80; O2SAT 95
== END 2024-03-21 16:20 ==
LOC: M INFU 13:35
PROVIDERS: ATTEND Internal Medicine Hematology
DX: D50.0 Iron deficiency anemia secondary to blood loss (chronic) (principal); Z88.0 Allergy status to penicillin; Z88.1 Allergy status to other antibiotic agents; Z88.8 Allergy status to other drugs, medicaments and biological substances
CPT/HCPCS: 96365; 96366; J1756

== ENCOUNTER → 2024-03-23 | Outpatient (REF) | payer OTHER ==
[~2024-03-23] MED LIST changes: -ALBUTEROL SULFATE 2.5MG/0.5ML INH NEB SOLN INH PRN; -EPINEPHrine INJ 1 MG/ML 1ML AMP IM PRN; -NS 1,000 ML IV SCH; -diphenhydrAMINE 50MG/ML VIAL IV PRN; -methylPREDNISolone 125MG 2ML VIAL IV PRN
== END ==
LOC: M LAB REF 17:25
PROVIDERS: ATTEND Otolaryngology
DX: J31.0 Chronic rhinitis (principal); J34.0 Abscess, furuncle and carbuncle of nose

== ENCOUNTER → 2024-04-20 | Outpatient (CLI) | payer OTHER ==
[2024-04-20 18:09] LABS: BASO % 0.1 % (0.0-1.0); EOS % 0.1 % (0.0-3.0); HEMATOCRIT 43.7 % (36.0-47.0); HEMOGLOBIN 13.9 g/dl (12.0-15.5); LYMPH # 0.7 10^3/uL (1.5-5.0); LYMPH % 5.5 % (24.0-44.0); MEAN CORPUSCULAR HEMOGLOBIN 31.7 pg (27.0-33.0); MEAN CORPUSCULAR HGB CONC 31.8 g/dl (32.0-36.5); MEAN CORPUSCULAR VOLUME 99.5 fl (80.0-96.0); MONO # 0.5 10^3/uL (0.0-0.8); MONO % 3.9 % (2.0-8.0); NEUTROPHILS # 11.6 10^3/uL (1.5-8.5); PLATELET COUNT, AUTOMATED 209 10^3/uL (150-450); RED BLOOD COUNT 4.39 10^6/uL (4.00-5.40); WHITE BLOOD COUNT 12.9 10^3/uL (4.0-10.0)
[2024-04-20 18:31] LABS: IRON (FE) 44 UG/DL (50-170); PERCENT SATURATION 17.3 % (13.2-45.0); TOTAL IRON BINDING CAPACITY 255 UG/DL (250-425)
[2024-04-20 18:32] LABS: ALBUMIN 3.6 G/DL (3.2-5.2); ALKALINE PHOSPHATASE 55 U/L (35-104); ALT/SGPT 21 U/L (7.0-40); AST/SGOT 19 U/L (<34); BILIRUBIN,TOTAL 0.3 MG/DL (0.3-1.2); BLOOD UREA NITROGEN 15 MG/DL (9-23); CALCIUM LEVEL 9.3 MG/DL (8.5-10.1); CARBON DIOXIDE LEVEL > 40.0 MMOL/L (20-31); CHLORIDE LEVEL 86 MMOL/L (98-107); CHOLESTEROL LEVEL 247 MG/DL (<200); CHOLESTEROL RISK RATIO 2.11 (<5); CREATININE FOR GFR 0.39 MG/DL (0.55-1.30); GLOMERULAR FILTRATION RATE > 60.0 (>58); GLUCOSE, FASTING 153 MG/DL (60-100); HDL CHOLESTEROL 116.8 MG/DL (>40); NON-HDL-C 130.2 MG/DL; POTASSIUM SERUM 4.3 MMOL/L (3.5-5.1); SODIUM LEVEL 138 MMOL/L (136-145); TOTAL PROTEIN 6.3 G/DL (5.7-8.2); TRIGLYCERIDES LEVEL 161 MG/DL (<150)
== END ==
LOC: M PLALAB 15:04
PROVIDERS: ATTEND Student in an Organized Health Care Education/Training Program
DX: D75.1 Secondary polycythemia (principal)

== ENCOUNTER → 2024-04-22 | Outpatient (CLI) | payer OTHER | LOC: M PAL 14:28 | PROVIDERS: ATTEND Nurse Practitioner Adult Health | DX: Z51.5 Encounter for palliative care (principal); J84.10 Pulmonary fibrosis, unspecified; I27.20 Pulmonary hypertension, unspecified; G89.29 Other chronic pain; J44.9 Chronic obstructive pulmonary disease, unspecified; F41.9 Anxiety disorder, unspecified; Z66 Do not resuscitate; Z79.891 Long term (current) use of opiate analgesic; Z79.52 Long term (current) use of systemic steroids; Z79.899 Other long term (current) drug therapy; Z88.6 Allergy status to analgesic agent; Z88.0 Allergy status to penicillin; Z88.1 Allergy status to other antibiotic agents; Z91.89 Other specified personal risk factors, not elsewhere classified ==

== ENCOUNTER → 2024-05-05 | Outpatient (REF) | payer OTHER ==
[2024-05-05 12:59] LABS: AMORPHOUS SEDIMENT SMALL (NEGATIVE); APPEARANCE, URINE HAZY (CLEAR); BACTERIA, URINE AUTO NEGATIVE (NEGATIVE); BILIRUBIN, URINE AUTO NEGATIVE (NEGATIVE); BLOOD, URINE BLOOD NEGATIVE (NEGATIVE); COLOR, URINE YELLOW (YELLOW); GLUCOSE, URINE (UA) AUTO NEGATIVE (NEGATIVE); KETONE, URINE AUTO NEGATIVE (NEGATIVE); LEUKOCYTE ESTERASE, URINE AUTO NEGATIVE (NEGATIVE); MUCUS, URINE SMALL (NEGATIVE); NITRITE, URINE AUTO NEGATIVE (NEGATIVE); PROTEIN, URINE AUTO NEGATIVE (NEGATIVE); RBC, URINE AUTO 1 /HPF (0-3); SPECIFIC GRAVITY URINE AUTO 1.008 (1.002-1.035); SQUAMOUS EPITHELIAL CELL UR AU 0 /HPF (0-6); UROBILINOGEN, URINE AUTO 0.2 mg/dL (0.0-2.0); WBC, URINE AUTO 1 /HPF (0-3)
== END ==
LOC: M SMT 12:21
PROVIDERS: ATTEND Physician Assistant
DX: N39.0 Urinary tract infection, site not specified (principal)

== ENCOUNTER → 2024-05-05 | Outpatient (CLI) | payer OTHER | LOC: M RAD 03-22 12:01 | PROVIDERS: ATTEND Physical Medicine & Rehabilitation | DX: M81.0 Age-related osteoporosis without current pathological fracture (principal); Z87.81 Personal history of (healed) traumatic fracture | CPT/HCPCS: 78306; A9503 ==

== ENCOUNTER → 2024-05-06 | Outpatient (CLI) | payer OTHER | LOC: M PAL 14:10 | PROVIDERS: ATTEND Family Medicine | DX: Z51.5 Encounter for palliative care (principal); J84.10 Pulmonary fibrosis, unspecified; I27.20 Pulmonary hypertension, unspecified; J44.9 Chronic obstructive pulmonary disease, unspecified; G89.29 Other chronic pain; R06.02 Shortness of breath; Z66 Do not resuscitate; Z79.891 Long term (current) use of opiate analgesic; F41.9 Anxiety disorder, unspecified; Z79.899 Other long term (current) drug therapy; Z79.52 Long term (current) use of systemic steroids; Z88.0 Allergy status to penicillin; Z88.1 Allergy status to other antibiotic agents; Z88.6 Allergy status to analgesic agent ==

== ENCOUNTER 2024-05-10 11:45 | Emergency (ER) | payer OTHER ==
[~2024-05-10] VITALS: Ht 139.7 cm; Wt 33.0 kg
[2024-05-10 14:10] LABS: BASO % 0.2 % (0.0-1.0); EOS % 0.1 % (0.0-3.0); HEMATOCRIT 44.2 % (36.0-47.0); HEMOGLOBIN 14.2 g/dl (12.0-15.5); LYMPH # 0.5 10^3/uL (1.5-5.0); LYMPH % 4.4 % (24.0-44.0); MEAN CORPUSCULAR HEMOGLOBIN 31.3 pg (27.0-33.0); MEAN CORPUSCULAR HGB CONC 32.1 g/dl (32.0-36.5); MEAN CORPUSCULAR VOLUME 97.6 fl (80.0-96.0); MONO # 0.3 10^3/uL (0.0-0.8); MONO % 2.2 % (2.0-8.0); NEUTROPHILS # 11.1 10^3/uL (1.5-8.5); NEUTROPHILS % 92.8 % (36.0-66.0); PLATELET COUNT, AUTOMATED 245 10^3/uL (150-450); RED BLOOD COUNT 4.53 10^6/uL (4.00-5.40)
[2024-05-10 14:13] LABS: ABG BASE EXCESS 16.5 (-2.0-2.0); ABG HCO3 46.4 MMOL/L (22.0-26.0); ABG O2 SATURATION 98.1 % (95.0-99.0); ABG PARTIAL PRESSURE O2 100.5 mmHg (75.0-100.0); ABG STANDARD HCO3 40.6 MMOL/L. (22.0-26.0); ABG pH (ARTERIAL) 7.363 UNITS (7.350-7.450)
[2024-05-10] MEDS: MORPHINE 4 MG/ML 1ML VIAL IV PRN (14:13)
[2024-05-10 14:16] LABS: ABG PARTIAL PRESSURE CO2 83.5 mmHg (35.0-45.0)
[2024-05-10 14:23] LABS: INR 0.92; PARTIAL THROMBOPLASTIN TIME 21.9 SECONDS (24.8-34.2); PROTHROMBIN TIME 12.6 SECONDS (12.5-14.5)
[2024-05-10] MEDS ORDERED: ISOVUE-370 76% 100ML VIAL As Ordered ONE (14:35)
[2024-05-10 14:37] LABS: C REACTIVE PROTEIN QUANTITATIV 0.97 MG/DL (<1.0)
[2024-05-10 14:38] LABS: ALBUMIN 3.9 G/DL (3.2-5.2); ALKALINE PHOSPHATASE 58 U/L (35-104); ALT/SGPT 26 U/L (7.0-40); AST/SGOT 29 U/L (<34); BILIRUBIN,DIRECT 0.1 MG/DL (<0.4); BILIRUBIN,TOTAL 0.4 MG/DL (0.3-1.2); TOTAL PROTEIN 7.1 G/DL (5.7-8.2)
[2024-05-10 14:51] LABS: ERYTHROCYTE SEDIMENTATION RATE 28 mm/hr (0-20)
[2024-05-10] MEDS ORDERED: NS (Normal Saline) 0.9% 1,000 ML IV SCH (15:40)
[2024-05-10] MEDS: NS 500 ML IV ONE (16:11)
[2024-05-10 16:19] LABS: BLOOD UREA NITROGEN 22 MG/DL (9-23); CALCIUM LEVEL 10.1 MG/DL (8.5-10.1); CARBON DIOXIDE LEVEL > 40.0 MMOL/L (20-31); CHLORIDE LEVEL 76 MMOL/L (98-107); CREATININE FOR GFR 0.43 MG/DL (0.55-1.30); GLOMERULAR FILTRATION RATE > 60.0 (>58); GLUCOSE, FASTING 194 MG/DL (60-100); POTASSIUM SERUM 4.4 MMOL/L (3.5-5.1); SODIUM LEVEL 131 MMOL/L (136-145)
[2024-05-10] MEDS: MORPHINE 4 MG/ML 1ML VIAL IV ONE (17:19)
[2024-05-10 18:15] VITALS: BP 143/80; TEMP 97.2; O2SAT 100
== END 2024-05-10 18:18 | disposition home or self-care (01) ==
LOC: M ED 11:45
DX: J96.02 Acute respiratory failure with hypercapnia (principal); R51.9 Headache, unspecified; E86.0 Dehydration; I45.10 Unspecified right bundle-branch block; I10 Essential (primary) hypertension; J44.9 Chronic obstructive pulmonary disease, unspecified; J84.10 Pulmonary fibrosis, unspecified; K21.9 Gastro-esophageal reflux disease without esophagitis; Z88.0 Allergy status to penicillin; Z88.1 Allergy status to other antibiotic agents; Z88.8 Allergy status to other drugs, medicaments and biological substances; Z79.51 Long term (current) use of inhaled steroids; Z79.2 Long term (current) use of antibiotics; Z79.899 Other long term (current) drug therapy
CPT/HCPCS: 36600; 70450; 70496; 70498; 74021; 80047; 80048; 80076; 82803; 85025; 85610; 85652; 85730; 86140; 93005; 93041; 94760; 96361; 96374; 96375; 99285; Q9967

== ENCOUNTER 2024-05-20 23:07 | Emergency (ER) | payer OTHER ==
[~2024-05-20] VITALS: Ht 139.7 cm; Wt 33.6 kg
[2024-05-21] MEDS: IPRATROPIUM 0.5MG/ALBUTEROL 2.5MG INH SOL UD 3ML (DUONEB) NEB ONE (00:47)
[2024-05-21 01:09] LABS: VENOUS BASE EXCESS 20.9 (-2.0-2.0); VENOUS HCO3 53.7 MMOL/L (23.0-27.0); VENOUS O2 SATURATION 81.8 % (60.0-80.0); VENOUS PARTIAL PRESSURE O2 43.7 mmHg (30.0-50.0); VENOUS PH 7.335 UNITS (7.330-7.430); VENOUS STANDARD HCO3 45.1 MMOL/L; VENOUS TOTAL CO2 56.9 MMOL/L (24.0-28.0)
[2024-05-21 01:13] LABS: BASO % 0.2 % (0.0-1.0); HEMOGLOBIN 15.2 g/dl (12.0-15.5); LYMPH # 0.3 10^3/uL (1.5-5.0); LYMPH % 3.1 % (24.0-44.0); MEAN CORPUSCULAR HGB CONC 32.3 g/dl (32.0-36.5); MEAN CORPUSCULAR VOLUME 95.7 fl (80.0-96.0); MONO # 0.4 10^3/uL (0.0-0.8); MONO % 4.1 % (2.0-8.0); NEUTROPHILS # 9.8 10^3/uL (1.5-8.5); NEUTROPHILS % 91.9 % (36.0-66.0); PLATELET COUNT, AUTOMATED 220 10^3/uL (150-450); RED BLOOD COUNT 4.91 10^6/uL (4.00-5.40); WHITE BLOOD COUNT 10.7 10^3/uL (4.0-10.0)
[2024-05-21] MEDS: methylPREDNISolone 125MG 2ML VIAL IV ONE (01:31)
[2024-05-21] MEDS: ONDANSETRON 4MG 2ML VIAL IV ONE (01:31)
[2024-05-21 01:32] VITALS: BP 136/91; TEMP 98.4; O2SAT 97
[2024-05-21] MEDS: MORPHINE 4 MG/ML 1ML VIAL IV PRN (01:32)
[2024-05-21 01:37] LABS: CK-MB VALUE MASS 3.8 NG/ML (<3.6)
[2024-05-21 01:38] LABS: CPK CREATINE PHOSPHOKINASE 47 U/L (34-145); MB/CK RELATIVE INDEX 8.08 (< OR =4)
[2024-05-21 01:40] LABS: ALBUMIN 3.9 G/DL (3.2-5.2); ALKALINE PHOSPHATASE 63 U/L (35-104); ALT/SGPT 25 U/L (7.0-40); AST/SGOT 31 U/L (<34); BILIRUBIN,DIRECT 0.1 MG/DL (<0.4); BILIRUBIN,TOTAL 0.5 MG/DL (0.3-1.2); BLOOD UREA NITROGEN 12 MG/DL (9-23); CALCIUM LEVEL 9.1 MG/DL (8.5-10.1); CARBON DIOXIDE LEVEL > 40.0 MMOL/L (20-31); CHLORIDE LEVEL 76 MMOL/L (98-107); CREATININE FOR GFR 0.39 MG/DL (0.55-1.30); GLOMERULAR FILTRATION RATE > 60.0 (>58); GLUCOSE, FASTING 97 MG/DL (60-100); POTASSIUM SERUM 3.2 MMOL/L (3.5-5.1); SODIUM LEVEL 135 MMOL/L (136-145); TOTAL PROTEIN 7.1 G/DL (5.7-8.2)
[2024-05-21 03:10] LABS: CK-MB VALUE MASS 2.6 NG/ML (<3.6)
[2024-05-21 03:12] LABS: MB/CK RELATIVE INDEX 4.9 (< OR =4)
== END 2024-05-21 03:48 | disposition left against medical advice (07) ==
LOC: M ED 23:07
DX: J09.X2 Influenza due to identified novel influenza A virus with other respiratory manifestations (principal); Z51.5 Encounter for palliative care; R00.0 Tachycardia, unspecified; J44.9 Chronic obstructive pulmonary disease, unspecified; I27.20 Pulmonary hypertension, unspecified; F17.210 Nicotine dependence, cigarettes, uncomplicated; Z88.0 Allergy status to penicillin; Z88.1 Allergy status to other antibiotic agents; Z88.8 Allergy status to other drugs, medicaments and biological substances; Z79.51 Long term (current) use of inhaled steroids; Z79.899 Other long term (current) drug therapy; Z79.2 Long term (current) use of antibiotics; Z53.9 Procedure and treatment not carried out, unspecified reason
CPT/HCPCS: 71045; 80048; 80076; 82375; 82550; 82553; 82803; 83605; 83880; 84484; 85025; 87486; 87581; 87633; 87798; 93005; 93041; 94640; 94760; 96374; 96375; 99284; J2405; J2919